=== PATIENT | male | born 1955 | race Caucasian/White ===

== ENCOUNTER 2018-12-09 21:08 | Emergency (ER) | payer OTHER ==
[2018-12-09 21:38] VITALS: BP 160/73; PULSE 90; TEMP 97.8; BMI 34.9
--- NOTE | 2018-12-09 22:31 | PDOC ---
History of Present Illness - General Chief Complaint: Redness To Affected Area Stated Complaint: SWELLING OF LEGS Time Seen by Provider: 12/09/18 21:09 - History of Present Illness Initial Comments: This 63-year-old man with a history of rheumatoid arthritis/steroid-induced DM/ bronchiolitis/chronic venous stasis bilateral legs presents with 1 day history of edema/erythema of bilateral lower legs. He was seen by his PCP yesterday and on examination, increase edema was noticed in his lower legs. Today, the same area of anterior lower legs became erythematous and warm to touch. Patient was advised by his PCP to come to the emergency room for evaluation and treatment. There has been no fever but the patient has had chills over the last day. No other systemic symptoms. He has a history of chronic wound in the lateral aspect of the left lower leg(very recently cleared after 3 years of treatment). No previous history of cellulitis/abscess requiring antibiotics. No known history of colonization/infection with MRSA or other resistant organisms Of note, the patient has been taking Bactrim 3 times a week (1 pill a day) on the advice of his allergy physician. No other rash noted until today except for facial flushing approximately 3 days ago, which resolved spontaneously Past History - Past Medical History Allergies/Adverse Reactions: Allergies Allergy/AdvReac Type Severity Reaction Status Date / Time No Known Allergies Allergy Verified 12/09/18 21:09 Home Medications: Ambulatory Orders Furosemide [Lasix -] 40 mg PO DAILY 09/11/14 Metoprolol Tartrate [Lopressor] 100 mg PO DAILY 09/11/14 Mycophenolate Mofetil [Cellcept] 1,000 mg PO BID 09/11/14 Tiotropium [place] [Spiriva -] 1 inh PO DAILY 09/11/14 Amlodipine Besylate 2.5 mg PO DAILY 12/09/18 Metformin HCl [Metformin HCl ER] 500 mg PO DAILY 12/09/18 Prednisone 10 mg PO DAILY 12/09/18 Sulfamethoxazole/Trimethoprim [Bactrim Ds -] 1 tab PO SUTUTH 12/09/18 Clindamycin HCl [Cleocin HCl] 300 mg PO QID #28 capsule 12/10/18 COPD: Yes Diabetes: Yes (STEROID INDUCED) HTN: Yes Other medical history: RHEUMATOID ARTHRITIS, CHRONIC VENOUS INSUFFICIENCY, LEFT CALF WOUND (HEALED - Surgical History Lung Surgery: Yes (LUNG BIOPSY 2015) - Suicide/Smoking/Psychosocial Hx Smoking History: Current some day smoker Have you smoked in the past 12 months: No Information on smoking cessation initiated: No Hx Alcohol Use: Yes Drug/Substance Use Hx: No Substance Use Type: None Review of Systems - Review of Systems Able to Perform ROS?: Yes Comments:: 12 point review of systems is negative except for what is noted in the history of present illness *Physical Exam - Vital Signs Last Vital Signs Temp Pulse Resp BP Pulse Ox 97.8 F 90 20 160/73 95 12/09/18 21:09 12/09/18 21:09 12/09/18 21:09 12/09/18 21:09 12/09/18 21:09 - Physical Exam Comments: GENERAL: Adult male, alert and oriented 3, no acute distress HEAD: Normal with no signs of trauma. EYES: PERRLA, EOMI, sclera anicteric, conjunctiva clear. ENT: Ears normal, nares patent, oropharynx clear without exudates. Moist mucous membranes. NECK: Normal range of motion, supple without lymphadenopathy, JVD, or masses. LUNGS: Breath sounds equal, clear to auscultation bilaterally. No wheezes, and no crackles. HEART:Regular rate and rhythm, normal S1 and S2 without murmur, rub or gallop. ABDOMEN:.normal bowel sounds No guarding,tenderness or rebound.No masses No distention. EXTREMITIES: Bilateral lower legs - erythema/edema/increased warmth without fluctuance or discharge, anterior aspects distal to ankles Scattered desquamation but no blistering no lymphangitic streaking NEUROLOGICAL: Cranial nerves II through XII grossly intact. Normal speech. No focal neurological deficits. MUSCULOSKELETAL: Back non-tender to palpation, no CVA tenderness SKIN: Warm, Dry, normal turgor, no rashes or lesions noted. Moderate Sedation - Procedure Monitoring Vital Signs: Procedure Monitoring Vital Signs Temperature 97.8 F 12/09/18 21:09 Pulse Rate 90 12/09/18 21:09 Respiratory Rate 20 12/09/18 21:09 Blood Pressure 160/73 12/09/18 21:09 O2 Sat by Pulse Oximetry (%) 95 12/09/18 21:09 ED Treatment Course - LABORATORY CBC & Chemistry Diagram: 12/09/18 22:49 12/09/18 22:49 Medical Decision Making - Medical Decision Making This patient with history of rheumatoid arthritis, on long-term steroid therapy and history of DM/bronchiolitis secondary to treatment of his rheumatoid arthritis presents with very recent onset of erythema/edema/increased warmth in bilateral lower extremities. Area of inflammation is confined to region of chronic venous stasis changes. There have been no signs of systemic response to infection. Exam as noted. Since the patient is at risk for infection, laboratory evaluation including blood cultures and lactic acid drawn Vancomycin 1 gram IV given CBC normal. Chemistry profile essentially normal except for random glucose of 188, K of 3.3. Lactic acid normal at 1.8 Although skin changes are not typical of StevensJohnson syndrome, there are areas of desquamation and patient was told to stop Bactrim. Clindamycin 300 mg 4 times a day prescribed. Patient will follow-up with his PCP on Tuesday, 12/11. He is been advised to return to the emergency room immediately if he has any worsening of the redness/ swelling/pain in his lower legs or if he develops fever. *DC/Admit/Observation/Transfer Diagnosis at time of Disposition: Bilateral lower leg cellulitis - Discharge Dispostion Disposition: HOME Condition at time of disposition: Stable - Prescriptions Prescriptions: Clindamycin HCl [Cleocin HCl] 300 mg PO QID #28 capsule - Referrals Referrals: Oneida Huerta [Primary Care Provider] - 2 Days - Patient Instructions Printed Discharge Instructions: Cellulitis, High-Potassium Diet Additional Instructions: stop Bactrim Clindamycin 300 mg 4 X a day for one week continue other medications as prescribed followup with your doctor on Tuesday, 12/11 return to ER if you develop fever, worsening swelling/fever/pain - Post Discharge Activity
[2018-12-09] MEDS ORDERED: VANCOMYCIN 1 GM in D5W (PRE-DOCKED) 1,000 MG/250 ML IVPB ONE (22:33)
[2018-12-09] MEDS ORDERED: VANCOMYCIN 1,000 MG VIAL (RESTRICTED TO ID ONLY) ONE (22:36)
[2018-12-09 23:02] LABS: BASO % 0.6 % (0-2.0); HEMATOCRIT 40.8 % (35.4-49); HEMOGLOBIN 13.4 GM/dl (11.7-16.9); LYMPH % 15.6 % (8-40); MCH 30.6 pg (25.7-33.7); MCHC 32.7 g/dl (32.0-35.9); MEAN CELL VOLUME 93.4 fl (80-96); MEAN PLT VOLUME 7.1 fl (7.5-11.1); MONO % 11.2 % (3.8-10.2); NEUT % 70.6 % (42.8-82.8); PLATELET COUNT 287 K/MM3 (134-434); RBC 4.37 M/mm3 (4.00-5.60); RDW 13.9 % (11.9-15.9); WHITE BLOOD COUNT 8.1 K/mm3 (4.0-10.8)
[2018-12-09 23:19] LABS: ALBUMIN 3.2 g/dl (3.4-5.0); ALK PHOS 42 U/L (45-117); ANION GAP 9 MMOL/L (8-16); BILIRUBIN,TOTAL 0.7 mg/dl (0.2-1); BLOOD UREA NITROGEN 14 mg/dl (7-18); CALCIUM 8.4 mg/dl (8.5-10); CHLORIDE 99 mmol/L (98-107); CO2 30 mmol/L (21-32); GLUCOSE,RANDOM 188 mg/dl (74-106); POTASSIUM 3.3 mmol/L (3.5-5.1); SGOT/AST 22 U/L (15-37); SGPT/ALT 21 U/L (13-61); SODIUM 138 mmol/L (136-145); TOT PROT 6.2 g/dl (6.4-8.2)
[2018-12-10] MEDS ORDERED: POTASSIUM CHLORIDE TABS 20 MEQ TABLET.ER (FP) PO ONE ×2 (00:52→00:57)
== END 2018-12-10 01:09 | disposition home or self-care (01) ==
LOC: FER 21:08
DX: L03.116 Cellulitis of left lower limb (principal); L03.115 Cellulitis of right lower limb; M06.9 Rheumatoid arthritis, unspecified; E11.9 Type 2 diabetes mellitus without complications; I10 Essential (primary) hypertension; J44.9 Chronic obstructive pulmonary disease, unspecified; F17.210 Nicotine dependence, cigarettes, uncomplicated
CPT/HCPCS: 36415; 80053; 83605; 85025; 87040; 99283-25

== ENCOUNTER 2019-06-07 08:47 | Inpatient (IN) | payer OTHER ==
[2019-05-31 11:43] VITALS: BMI 34.2
--- NOTE | 2019-06-07 08:03 | HP ---
Admitting History and Physical - Admission Chief Complaint: right knee osteoarthritis x years History of Present Illness: 63 year old male presents in regard to their right knee. Long-standing history of right knee osteoarthritis. Patient complains of pain, limited range of motion , difficulty ambulating, and difficulty with activities of daily living. Patient has failed conservative treatment options including PO medications, activity modification, injections, and exercise programs. At this point, patient like to proceed with surgical intervention, right total knee arthroplasty, MAKOplasty. History Source: Patient - Past Medical History Cardiovascular: Yes: HTN, Hyperlipdemia Pulmonary: Yes: Asthma Endocrine: Yes: Diabetes Mellitus - Past Surgical History Additional Past Surgical History: See written history & physical. - Advance Directives Advance Directives: Yes: Living Will, Health Care Proxy - Smoking History Smoking history: Current some day smoker Have you smoked in the past 12 months: No If you are a former smoker, when did you quit?: 1980 - Alcohol/Substance Use Hx Alcohol Use: Yes Home Medications - Allergies Allergies/Adverse Reactions: Allergies Allergy/AdvReac Type Severity Reaction Status Date / Time sulfamethoxazole Allergy Intermediate Swelling Verified 05/31/19 11:19 [From Bactrim] trimethoprim [From Bactrim] Allergy Intermediate Swelling Verified 05/31/19 11: 19 - Home Medications Home Medications: Ambulatory Orders Furosemide [Lasix -] 40 mg PO DAILY 09/11/14 Metoprolol Tartrate [Lopressor] 100 mg PO DAILY 09/11/14 Tiotropium [place] [Spiriva -] 1 inh PO DAILY 09/11/14 Amlodipine Besylate 5 mg PO DAILY 12/09/18 Metformin HCl [Metformin HCl ER] 1,000 mg PO BID 12/09/18 Prednisone 10 mg PO BID 12/09/18 Atorvastatin Calcium 20 mg PO HS 05/31/19 Glimepiride 2 mg PO DAILY 05/31/19 Losartan Potassium 50 mg PO DAILY 05/31/19 Review of Systems - Review of Systems Musculoskeletal: reports: Crepitus (right knee), Decreased ROM (right knee), Joint Pain (right knee) Physical Examination Constitutional: Yes: Well Nourished, No Distress Eyes: Yes: Conjunctiva Clear HENT: Yes: Atraumatic Neck: Yes: Supple Respiratory: Yes: Regular Gastrointestinal: Yes: Soft ...Rectal Exam: Yes: Deferred Musculoskeletal: Yes: Joint Stiffness (right knee), Joint Swelling (right knee) Assessment/Plan 63 year old female presents in regard to their right knee. Long-standing history of right knee osteoarthritis. Patient complains of pain, limited range of motion, difficulty ambulating, and difficulty with activities of daily living. Patient has failed conservative treatment options including PO medications, activity modification, injections, and exercise programs. At this point, patient like to proceed with surgical intervention, right total knee arthroplasty MAKOplasty. Pros, cons, risks, benefits, and alternatives of a right total knee arthroplasty MAKOplasty were discussed with the patient at length. Patient confirms their understanding and consents to proceed with a right total knee arthroplasty MAKOplasty.
[~2019-06-07 08:47] MED LIST: CEFAZOLIN 2 GM in DEXTROSE 5%-WATER - 50 ML IVPB ONE; CELECOXIB 200 MG CAPSULE PO ONE; PANTOPRAZOLE 40 MG TABLET (FP) PO ONE; TRANEXAMIC ACID 1000 MG/10 ML VIAL IVPUSH ONE; oxyCODONE HCL 10 MG SUSTAINED ACTING TABLET PO ONE
[2019-06-07] MEDS ORDERED: oxyCODONE HCL 10 MG SUSTAINED ACTING TABLET PO ONE (10:00)
[2019-06-07] MEDS ORDERED: CELECOXIB 200 MG CAPSULE PO ONE (10:05)
[2019-06-07] MEDS ORDERED: MIDAZOLAM HCL 2 MG/2 ML SINGLE DOSE VIAL ONE ×3 (11:16→12:31)
[2019-06-07] MEDS ORDERED: BUPIVACAINE LIPOSOME/PF (EXPAREL) 266 MG/20 ML VIAL ONE (11:36)
[2019-06-07] MEDS ORDERED: SODIUM CHLORIDE 0.9% P/F 10 ML VIAL IJ ONE (11:36)
[2019-06-07] MEDS ORDERED: ceFAZolin SODIUM 1 GM VIAL ONE ×3 (11:45→12:34)
[2019-06-07] MEDS ORDERED: PROPOFOL 20 ML ONE ×5 (11:57→16:30)
[2019-06-07] MEDS ORDERED: BUPIVACAINE HCL/PF 0.5% (5 MG/ML) 30 ML VIAL IJ ONE (12:31)
[2019-06-07] MEDS ORDERED: TRANEXAMIC ACID 1000 MG/10 ML VIAL ONE (12:34)
[2019-06-07] MEDS ORDERED: VANCOMYCIN 1,000 MG VIAL (RESTRICTED TO ID ONLY) ONE ×3 (12:34→14:45)
[2019-06-07] MEDS ORDERED: DEXMEDETOMIDINE HCL 200 MCG/2 ML IVPB ONE (12:42)
[2019-06-07] MEDS ORDERED: ePHEDrine SULFATE 50 MG/1 ML AMPULE ONE (14:05)
[2019-06-07] MEDS ORDERED: GLYCOPYRROLATE 0.2 MG/1 ML VIAL ONE (14:05)
[2019-06-07] MEDS ORDERED: ONDANSETRON 4 MG/2 ML VIAL IVPUSH PRN ×2 (15:01→18:36)
[2019-06-07] MEDS ORDERED: oxyCODONE HCL 5 MG TABLET PO PRN ×2 (15:02)
[2019-06-07] MEDS ORDERED: LACTATED RINGERS SOLUTION 1,000 ML IV SCH ×2 (15:15→18:45)
[2019-06-07] MEDS ORDERED: ACETAMINOPHEN 325 MG TABLET (FP) PO SCH (15:15)
[2019-06-07] MEDS ORDERED: VANCOMYCIN 1,000 MG VIAL (RESTRICTED TO ID ONLY) IVPB ONE (16:40)
[2019-06-07] MEDS ORDERED: ACETAMINOPHEN INJECTION 100 ML IVPB ONE (17:03)
[2019-06-07] MEDS ORDERED: KETOROLAC TROMETHAMINE 30 MG/1 ML VIAL ONE (17:03)
[2019-06-07] MEDS ORDERED: TRANEXAMIC ACID 1000 MG/10 ML VIAL IVPB ONE (17:04)
--- NOTE | 2019-06-07 17:43 | OP ---
Operative Note - Note: Operative Date: 06/07/19 Pre-Operative Diagnosis: Right knee OA Operation: Right JERED TKA Post-Operative Diagnosis: Same as Pre-op Surgeon: Tavo Bowie Breaker Mechanic: Criselda Landa Anesthesia: Spinal Estimated Blood Loss (mls): 300
[2019-06-07] MEDS ORDERED: traMADol HCL 50 MG TABLET ONE (17:57)
[2019-06-07] MEDS ORDERED: ACETAMINOPHEN 1000 MG/100 ML VIAL (NON FORMULARY) IVPB ONE (18:20)
[2019-06-07] MEDS ORDERED: MAG HYDROX/AL HYDROX/SIMETH 30 ML UNIT-DOSE CUP PO PRN (18:36)
[2019-06-07] MEDS ORDERED: MAGNESIUM HYDROX 2400MG/30ML ORAL SUSPENSION 30 ML CUP PO PRN (18:36)
--- NOTE | 2019-06-07 19:43 | SPEC ---
DATE OF OPERATION: 06/07/2019 PREOPERATIVE DIAGNOSIS: Right knee osteoarthritis. POSTOPERATIVE DIAGNOSIS: Right knee osteoarthritis. PROCEDURE: Right total knee replacement with MAKOplasty robotic navigation. ATTENDING: Everardo Luciano MD TEST RIDER: ROBERTA Aguilar ANESTHESIA: Spinal plus sedation. ESTIMATED BLOOD LOSS: 200 mL. COMPLICATIONS: None. DISPOSITION: The patient was taken to the PACU in stable condition. IMPLANTS USED: Leslie Triathlon size 5 femoral component, size 6 tibial component, 11-mm tunneled stabilized polyethylene component, 38-mm patellar component. INDICATIONS: This is a 63-year-old male who presented to the office complaining of right knee pain. He was seen and examined by Dr. Luciano and diagnosed with severe right knee osteoarthritis. The patient was initially treated nonoperatively with injections, medications, and physical therapy but continued to have severe pain and ambulatory dysfunction. He was, therefore, indicated for a right total knee replacement. The risks, benefits, and alternatives to the procedure were explained to the patient in great detail, and he elected to proceed with the procedure. DESCRIPTION OF PROCEDURE: On the day of surgery, the patient was taken to the operating room and placed on the OR table. Spinal anesthesia was administered by the anesthesiologist. The patient was then positioned supine on the table and all bony prominences were padded. The knee was then prepped and draped in the usual sterile fashion and intravenous antibiotics were given for infection prophylaxis. A surgical time-out was then performed with the team, and the patients identity, procedure, side, availability of implants, and the administration of antibiotics was confirmed. With the knee flexed, a midline incision was made and carried down through the subcutaneous fat to the underlying retinaculum. A medial parapatellar arthrotomy was performed. This was followed by a subperiosteal dissection of the tissue off the proximal, medial tibia. A portion of fat pad was removed from under the patellar tendon, and a small portion of fat was excised off the distal supracondylar femur. Electrocautery and an Aquamant[employer] bipolar sealing device were used to achieve hemostasis. The knee was then flexed further and the anterior horn of the lateral meniscus was released from the midline. Next, the anterior and posterior cruciate ligaments were transected. Grade 4 changes were noted diffusely throughout the knee. Femoral and tibial checkpoints were then placed in the appropriate location using a mallet. Two parallel bicortical self-drilling pins were placed in the tibial diaphysis after making stab incisions and bluntly dissecting down to bone. Two pins were then placed in the distal supracondylar femur. The [employer] navigation arrays were then attached to both the femoral and tibial pins and the lower extremity was then registered to the robotic navigation device using various joint movements, as well as inputting several dozen reference points. The knee was then taken through a full range of motion with a corrective force applied. Alignment in varus/valgus as well as flexion/extension and soft tissue balance was measured in various positions. The navigation device showed a numerical and graphic representation of the soft tissue balance. The components were repositioned virtually using the software until optimal soft tissue balance was achieved on screen. Once this was accomplished, the final plan was saved and sent to the robot. Self-retaining retractors were then placed at the joint line for exposure and protection of the collateral ligaments. The robot was brought into the sterile field and registered with the navigation device. The robotic arm with attached oscillating saw blade was then used to perform femoral and tibial bone cuts as per the saved software plan. The femoral box cut was made using the appropriately sized manual cutting guide. The knee was then irrigated. Trial components were placed and the knee was taken through a full range of motion to assess soft tissue balance and alignment. The range of motion was found to be excellent and the soft tissue balance was optimal and according to plan. The knee was then put into extension and the patella everted. The synovium around the patella was circumscribed with electrocautery. A caliper was used to measure the patellar thickness and a saw was then used to resect the patella at the chondro-osseous junction. The cut surface was then sized and drilled for the appropriate patellar button, with care taken to medialize it. A trial patella was then placed and the knee was again taken through a full range of motion. The knee was found to have both good balance and good patellar tracking. All of the components were removed except the tibial base plate. The appropriate instrumentation was used to drill and punch the proximal tibia for the keel of the final component. All bony surfaces were then cleaned with pulsatile lavage and dried. Bone cement was then prepared on the back table, and final components were cemented in place in the usual fashion. Extruded cement was removed. The polyethylene trial was placed, the knee was put into extension, and axial pressure was applied for compression while the cement hardened. The patellar button was similarly cemented into place. Once the cement had hardened, the knee was taken through a full range of motion to assess stability, balance, and patellar tracking. This was found to be optimal and the trial polyethylene was exchanged for the appropriately sized real implant. The wound was then thoroughly irrigated with normal saline. A 3-minute dilute Betadine lavage was performed. The knee was again irrigated using a pulsatile lavage device. A periarticular injection was used to locally infiltrate the capsular tissues surrounding the implant and prosthesis. Then No. 1 Polysorb and 0 VLoc 180 barbed sutures were used to close the arthrotomy. Then No. 1 Polysorb and 2-0 VLoc 90 sutures were used in the subcutaneous tissues. Then 4-0 undyed Vicryl and Dermabond skin adhesive was used to close the stab incisions made for the navigation pins. The skin was closed using both 3-0 VLoc 90 suture in a running subcuticular fashion and Dermabond skin adhesive. Once this was completed a sterile Aquacel dressing and compressive Rory-wrap was applied. The patient was then awakened and taken to the PACU in stable condition. EVERARDO LUCIANO M.D. JOSE [id number]
[2019-06-07] MEDS: CEFAZOLIN 2 GM/D5W 2 GM/50 ML ML IVPB SCH (21:37)
[2019-06-07] MEDS: KETOROLAC TROMETHAMINE 30 MG/1 ML VIAL IVPUSH SCH (21:38)
[2019-06-07] MEDS: SENNOSIDES/DOCUSATE COMBO (SENNA PLUS) TABLET (UD) PO SCH (21:39)
[2019-06-07] MEDS: ASCORBIC ACID 500 MG TABLET (FP) PO SCH (21:39)
[2019-06-07] MEDS: GABAPENTIN 300 MG CAPSULE (FP) PO SCH (21:40)
[2019-06-07] MEDS: ATORVASTATIN CA 20 MG TABLET (FP) PO SCH (21:40)
[2019-06-07] MEDS: predniSONE 10 MG TABLET (UD) PO SCH (21:40)
[2019-06-07] MEDS: CELECOXIB 200 MG CAPSULE PO SCH (21:41)
[2019-06-07] MEDS: oxyCODONE HCL 10 MG SUSTAINED ACTING TABLET PO SCH (21:42)
[2019-06-07] MEDS: INSULIN SLIDING SCALE (NOVOLOG) 1 VIAL SQ SCH (21:42)
[2019-06-07] MEDS: traMADol HCL 50 MG TABLET PO SCH (23:50)
[2019-06-07] MEDS: ACETAMINOPHEN 325 MG TABLET (FP) PO SCH (23:50)
[2019-06-08] MEDS ORDERED: PT OWN MED DRAWER 7, Y5N ONE (01:49)
[2019-06-08] MEDS: KETOROLAC TROMETHAMINE 30 MG/1 ML VIAL IVPUSH SCH ×3 (01:54→14:00)
[2019-06-08] MEDS: CEFAZOLIN 2 GM/D5W 2 GM/50 ML ML IVPB SCH ×2 (02:00→09:39)
[2019-06-08] MEDS ORDERED: VANCOMYCIN 1,750 MG in DEXTROSE 5%-WATER - 500 ML IVPB ONE (03:00)
[2019-06-08] MEDS: traMADol HCL 50 MG TABLET PO SCH ×3 (06:41→18:11)
[2019-06-08] MEDS: ACETAMINOPHEN 325 MG TABLET (FP) PO SCH ×3 (06:42→18:10)
[2019-06-08] MEDS: GLIMEPIRIDE 2 MG TABLET (FP) PO SCH (06:43)
[2019-06-08] MEDS: INSULIN SLIDING SCALE (NOVOLOG) 1 VIAL SQ SCH ×4 (06:43→21:20)
[2019-06-08] MEDS: ASPIRIN 325 MG TABLET PO SCH (08:10)
[2019-06-08 08:32] LABS: HEMATOCRIT 37.9 % (35.4-49); HEMOGLOBIN 12.6 GM/dl (11.7-16.9); MCH 30.9 pg (25.7-33.7); MCHC 33.2 g/dl (32.0-35.9); MEAN CELL VOLUME 92.9 fl (80-96); MEAN PLT VOLUME 7.7 fl (7.5-11.1); PLATELET COUNT 248 K/MM3 (134-434); RBC 4.08 M/mm3 (4.00-5.60); RDW 13.4 % (11.9-15.9); WHITE BLOOD COUNT 13.2 K/mm3 (4.0-10.8)
[2019-06-08 08:44] LABS: CALCIUM 8.6 mg/dl (8.5-10); CREATININE 0.9 mg/dl (0.55-1.3); POTASSIUM 4.2 mmol/L (3.5-5.1)
[2019-06-08] MEDS: LOSARTAN POTASSIUM 50 MG TABLET (FP) PO SCH (09:36)
[2019-06-08] MEDS: predniSONE 10 MG TABLET (UD) PO SCH ×2 (09:36→21:19)
[2019-06-08] MEDS: CELECOXIB 200 MG CAPSULE PO SCH ×2 (09:36→21:19)
[2019-06-08] MEDS: amLODIPine BESYLATE 5 MG TABLET (FP) PO SCH (09:37)
[2019-06-08] MEDS: SENNOSIDES/DOCUSATE COMBO (SENNA PLUS) TABLET (UD) PO SCH ×2 (09:37→21:19)
[2019-06-08] MEDS: oxyCODONE HCL 10 MG SUSTAINED ACTING TABLET PO SCH ×2 (09:37→21:19)
[2019-06-08] MEDS: GABAPENTIN 300 MG CAPSULE (FP) PO SCH ×2 (09:37→21:19)
[2019-06-08] MEDS: FUROSEMIDE 40 MG TABLET (FP) PO SCH (09:37)
[2019-06-08] MEDS: METOPROLOL TARTRATE 50 MG TABLET (FP) PO SCH (09:37)
[2019-06-08] MEDS: MULTIVITAMINS (DAILY MVI) TABLET (FP) PO SCH (09:37)
[2019-06-08] MEDS: PANTOPRAZOLE 40 MG TABLET (FP) PO SCH (09:37)
[2019-06-08] MEDS: ASCORBIC ACID 500 MG TABLET (FP) PO SCH ×2 (09:39→21:19)
[2019-06-08] MEDS: TIOTROPIUM BROMIDE 2.5 MCG (SPIRIVA) RESPIMAT INHALER IH SCH (09:40)
--- NOTE | 2019-06-08 11:46 | PN ---
Progress Note (short form) - Note Progress Note: ANESTHESIA POSTOP 63 YO MALE POD #1 S/P TKA, SPINAL AND PNB Patient sitting in chair. Pain adequately controlled. Tolerating PO VSS, Afebrile Continue current care. Encouraged IS and ambulation as directed with active participation in PT
[2019-06-08] MEDS ORDERED: CELECOXIB 200 MG CAPSULE ONE (21:16)
[2019-06-08] MEDS: ATORVASTATIN CA 20 MG TABLET (FP) PO SCH (21:19)
--- NOTE | 2019-06-08 22:49 | PN ---
Progress Note (short form) - Note Progress Note: Pt seen and examined. Doing well. AVSS Selected Entries 06/08/19 06/08/19 14:00 21:00 Temperature 98.1 F Pulse Rate 66 Respiratory 16 Rate Blood Pressure 154/64 O2 Sat by Pulse 95 Oximetry (%) Laboratory Tests 06/08/19 06/08/19 06/08/19 06:39 07:04 07:04 WBC 13.2 H Hgb 12.6 Hct 37.9 Plt Count 248 Sodium 138 Potassium 4.2 Chloride 102 Carbon Dioxide 27 Anion Gap 9 BUN 25.0 H Creatinine 0.9 Est GFR (CKD-EPI)AfAm 104.24 Est GFR (CKD-EPI)NonAf 89.94 POC Glucometer 164 Random Glucose 163 H Calcium 8.6 Gen: NAD RLE: c/d/i, NVID A/P POD#1 s/p R JERED TKA PT/OOB D/C home in AM
--- NOTE | 2019-06-08 22:52 | DS ---
Physical Examination Vital Signs: Vital Signs Temperature 98.1 F 06/08/19 14:00 Pulse Rate 66 06/08/19 14:00 Respiratory Rate 16 06/08/19 21:00 Blood Pressure 154/64 06/08/19 14:00 O2 Sat by Pulse Oximetry (%) 95 06/08/19 21:00 Labs: CBC, BMP 06/08/19 07:04 06/08/19 07:04 Discharge Summary Reason For Visit: RIGHT KNEE OSTEOARTHRITIS Current Active Problems Osteoarthritis of right knee (Acute) Procedures: Principal: right JERED TKA Hospital Course: Admitted for elective surgery. Procedure performed without complications. Pt received postoperative antibiotic prophylaxis and DVT ppx. Ambulated with physical therapy. Stable for discharge home with outpatient followup. Condition: Stable - Instructions Diet, Activity, Other Instructions: Dr. Bowie - Knee Replacement Instructions Keep the Aquacel dressing on until removed by Dr. Bowie in 10-14 days - it is antibacterial and waterproof and you can shower with it on. Call the office for a follow-up appointment with Dr. Bowie in 10-14 days. Take one Aspirin 325mg daily for 6 weeks to prevent blood clots in your legs. Take one Pantoprazole 40mg daily for 6 weeks to protect against heartburn and ulcers. Take Cephalexin (antibiotic) 3x/day for 14 days to help prevent skin infection. Take Celebrex 200mg twice daily for 30 days to reduce swelling and inflammation. Take a multivitamin, stool softener, and extra Vitamin C supplement daily. For pain: *Mild pain (1-3/10): Take 1 Tramadol tablet every 4 hours as needed. Moderate pain (4-6/10): Take 1 Tramadol tablet and 1 Percocet tablet every 4 hours as needed. Severe pain (7-10/10): Take 1 Tramadol tablet and 2 Percocet tablets every 4 hours as needed. Activity: You can put as much weight on the operative leg as you want. Right after you get home, there will be a physical therapist coming to your house to help you walk around and bend/straighten your knee. After your follow-up appointment, you will be sent for more intensive outpatient physical therapy which will include machines and equipment that the home therapist cannot bring to your house. Always use a walker or cane for balance and to prevent falls. Expect to see swelling/bruising from the operative site all the way down to your toes. Wear the compression stocking on the operative side during the day to minimize how much swelling there is in your foot/ankle. Don't wear the stocking at night. You don't have to wear a stocking on the other side. Disposition: [facility]/HOME HEALTH CARE - Home Medications Comprehensive Discharge Medication List: Ambulatory Orders Furosemide [Lasix -] 40 mg PO DAILY 09/11/14 Metoprolol Tartrate [Lopressor] 100 mg PO DAILY 09/11/14 Tiotropium [place] [Spiriva] 1 inh PO DAILY 09/11/14 Amlodipine Besylate 5 mg PO DAILY 12/09/18 Metformin HCl [Metformin HCl ER] 1,000 mg PO BID 12/09/18 Prednisone 10 mg PO BID 12/09/18 Atorvastatin Calcium 20 mg PO HS 05/31/19 Glimepiride 2 mg PO DAILY 05/31/19 Losartan Potassium 50 mg PO DAILY 05/31/19 Ascorbic Acid [Vitamin C -] 500 mg PO BID tablet 06/08/19 Aspirin [ASA -] 325 mg PO DAILY@0800 tablet 06/08/19 Celecoxib [CeleBREX -] 200 mg PO BID #60 capsule 06/08/19 Cephalexin Monohydrate [Keflex -] 500 mg PO TID #42 capsule 06/08/19 Multivitamins [Multivit ([facility] Formulary)] 1 tab PO DAILY tab 06/08/19 Oxycodone HCl/Acetaminophen [Percocet 5-325 mg Tablet] 1 - 2 tab PO Q4H PRN #60 tablet MDD 10 06/08/19 Pantoprazole Sodium [Protonix -] 40 mg PO DAILY #40 tablet.ec 06/08/19 Sennosides/Docusate Sodium [Pericolace -] 2 tablet PO BID tablet 06/08/19 traMADol HCL [Ultram -] 50 mg PO Q4H PRN #42 tablet MDD 6 06/08/19
[2019-06-09] MEDS: ACETAMINOPHEN 325 MG TABLET (FP) PO SCH ×3 (01:51→12:05)
[2019-06-09] MEDS: traMADol HCL 50 MG TABLET PO SCH ×3 (01:52→12:00)
[2019-06-09] MEDS: GLIMEPIRIDE 2 MG TABLET (FP) PO SCH (06:50)
[2019-06-09 06:56] VITALS: BP 135/62; PULSE 59; TEMP 97.8
[2019-06-09] MEDS: INSULIN SLIDING SCALE (NOVOLOG) 1 VIAL SQ SCH ×2 (07:52→13:55)
[2019-06-09] MEDS: ASPIRIN 325 MG TABLET PO SCH (08:10)
[2019-06-09 08:43] LABS: HEMATOCRIT 36.4 % (35.4-49); MCH 30.7 pg (25.7-33.7); MCHC 32.8 g/dl (32.0-35.9); MEAN CELL VOLUME 93.4 fl (80-96); MEAN PLT VOLUME 7.9 fl (7.5-11.1); PLATELET COUNT 219 K/MM3 (134-434); RDW 13.5 % (11.9-15.9); WHITE BLOOD COUNT 10.2 K/mm3 (4.0-10.8)
[2019-06-09] MEDS: oxyCODONE HCL 10 MG SUSTAINED ACTING TABLET PO SCH (10:05)
[2019-06-09] MEDS: ASCORBIC ACID 500 MG TABLET (FP) PO SCH (10:05)
[2019-06-09] MEDS: TIOTROPIUM BROMIDE 2.5 MCG (SPIRIVA) RESPIMAT INHALER IH SCH (10:05)
[2019-06-09] MEDS: MULTIVITAMINS (DAILY MVI) TABLET (FP) PO SCH (10:10)
[2019-06-09] MEDS: LOSARTAN POTASSIUM 50 MG TABLET (FP) PO SCH (10:10)
[2019-06-09] MEDS: PANTOPRAZOLE 40 MG TABLET (FP) PO SCH (10:10)
[2019-06-09] MEDS: CELECOXIB 200 MG CAPSULE PO SCH (10:10)
[2019-06-09] MEDS: SENNOSIDES/DOCUSATE COMBO (SENNA PLUS) TABLET (UD) PO SCH (10:10)
[2019-06-09] MEDS: FUROSEMIDE 40 MG TABLET (FP) PO SCH (10:15)
[2019-06-09] MEDS: predniSONE 10 MG TABLET (UD) PO SCH (10:15)
[2019-06-09] MEDS: GABAPENTIN 300 MG CAPSULE (FP) PO SCH (10:20)
[2019-06-09] MEDS: amLODIPine BESYLATE 5 MG TABLET (FP) PO SCH (10:20)
[2019-06-09] MEDS: METOPROLOL TARTRATE 50 MG TABLET (FP) PO SCH (10:20)
--- NOTE | 2019-06-11 09:50 | SURG ---
Surgery Automatic Brine Mixer Operator Note Automatic Brine Mixer Operator: Criselda Landa PA-C Date of Service: 06/07/19 Diagnosis: right knee OA Procedure: Right total knee makoplasty I was present for the entirety of the operative procedure. For further detail, please refer to operative report. Visit type - Case Type Case Type: Scheduled - Emergency Emergency Visit: No - New patient This patient is new to me today: Yes Date on this admission: 06/11/19
--- NOTE | 2019-06-12 16:49 | PATH ---
Surgical Pathology Report Patient Name: JANELLE HERRERA Med. Rec. #: [id number] /Age/Gender: 1955 (Age: 63) / M Account: [id number] Location: [facility] Taken: 06/07/2019 Received: 06/07/2019 Reported: 06/12/2019 Physicians: Tavo Bowie M.D. Specimen(s) Received BONES RIGHT KNEE Clinical History Right knee, osteoarthritis Final Diagnosis BONES, KNEE, RIGHT, TOTAL KNEE REPLACEMENT MAKOPLASTY: BONE WITH DEGENERATIVE JOINT DISEASE. Electronically Signed Sofia Byers M.D. Gross Description Received in formalin, labeled "bones right knee" is a 12.5 x 9.5 x 2.5 cm, aggregate of multiple portions of bone and soft tissue. The tibial plateau measures 9 x 6.5 x 1.5 cm. The articular surfaces show areas of eburnation and appear davila-brown and granular. The underlying trabecular bone is yellow and hard. District Leader sections are submitted in one cassette, following decalcification. AE/06/11/2019 ebram/06/11/2019
== END 2019-06-09 12:40 | disposition home health service (06) | DRG 470 ==
LOC: FM/S 08:47
PROVIDERS: ADMIT Student in an Organized Health Care Education/Training Program; ATTEND Student in an Organized Health Care Education/Training Program
PROC: 8E0Y0CZ Robotic Assisted Procedure of Lower Extremity, Open Approach (ICD-10-PCS; 2019-06-07)
PROC: 0SRC0J9 Replacement of Right Knee Joint with Synthetic Substitute, Cemented, Open Approach (ICD-10-PCS; principal; 2019-06-07 14:19)
DX: M17.11 Unilateral primary osteoarthritis, right knee (principal); I10 Essential (primary) hypertension; E78.5 Hyperlipidemia, unspecified; Z72.0 Tobacco use; J45.909 Unspecified asthma, uncomplicated; E11.9 Type 2 diabetes mellitus without complications; Z79.84 Long term (current) use of oral hypoglycemic drugs
CPT/HCPCS: 36415; 73560-TC-RT-FY; 80048; 82962; 84460; 85027; 86803; 87340; 87389; 88305-TC; 88311-TC; 94760; 97116-GP; 97163-GP; J0131

== ENCOUNTER 2019-11-15 07:19 | Day surgery (SDC) | payer OTHER, MEDICARE ==
[2019-11-08 13:05] VITALS: BMI 34.2
[~2019-11-15 07:19] MED LIST changes: -CEFAZOLIN 2 GM in DEXTROSE 5%-WATER - 50 ML IVPB ONE; -PANTOPRAZOLE 40 MG TABLET (FP) PO ONE; +PANTOPRAZOLE 40 MG TABLET PO ONE; -TRANEXAMIC ACID 1000 MG/10 ML VIAL IVPUSH ONE
[2019-11-15] MEDS ORDERED: MIDAZOLAM HCL 2 MG/2 ML SINGLE DOSE VIAL ONE (07:41)
[2019-11-15] MEDS ORDERED: SODIUM CHLORIDE 0.9% P/F 10 ML VIAL IJ ONE ×2 (07:41→07:57)
[2019-11-15] MEDS ORDERED: BUPIVACAINE LIPOSOME/PF (EXPAREL) 266 MG/20 ML VIAL ONE (07:41)
--- NOTE | 2019-11-15 07:55 | HP ---
Admitting History and Physical - Admission Chief Complaint: Left knee osteoarthritis x years History of Present Illness: 64 year old male presents regarding his left knee. Longstanding history of left knee osteoarthritis. Patient complains of pain, limited ROM, difficulty ambulating and difficulty completing activities of daily living. Patient has failed conservative treatment measures including PO medications, activity modification, injections and an exercise program. Radiographs confirmed diagnosis of severe osteoarthritis. As patient has failed conservative measures , patient would like to proceed with surgical intervention - left total knee arthroplasty (MAKOplasty). History Source: Patient - Past Medical History Cardiovascular: Yes: HTN, Hyperlipdemia Pulmonary: Yes: Asthma Endocrine: Yes: Diabetes Mellitus - Past Surgical History Additional Past Surgical History: See written history & physical. - Smoking History Smoking history: Former smoker Have you smoked in the past 12 months: No If you are a former smoker, when did you quit?: 1980 - Alcohol/Substance Use Hx Alcohol Use: Yes (occasional) Home Medications - Allergies Allergies/Adverse Reactions: Allergies Allergy/AdvReac Type Severity Reaction Status Date / Time sulfamethoxazole Allergy Intermediate Swelling Verified 11/08/19 12:49 [From Bactrim] trimethoprim [From Bactrim] Allergy Intermediate Swelling Verified 11/08/19 12: 49 - Home Medications Home Medications: Ambulatory Orders Furosemide [Lasix -] 40 mg PO DAILY 09/11/14 Metoprolol Tartrate [Lopressor] 100 mg PO DAILY 09/11/14 Amlodipine Besylate 5 mg PO DAILY 12/09/18 Prednisone 10 mg PO BID 12/09/18 metFORMIN HCL [Metformin HCl ER] 1,000 mg PO BID 12/09/18 Atorvastatin Calcium 20 mg PO HS 05/31/19 Glimepiride 2 mg PO DAILY 05/31/19 Losartan Potassium 50 mg PO DAILY 05/31/19 Multivitamins [Multivit ([facility] Formulary)] 1 tab PO DAILY tab 06/08/19 Ascorbic Acid [Vitamin C -] 500 mg PO DAILY 11/08/19 Aspirin [ASA -] 81 mg PO DAILY 11/08/19 Mycophenolate Mofetil [Cellcept -] 1,000 mg PO BID 11/08/19 Terbinafine HCl 250 mg PO Q48H 11/08/19 Tiotropium [place] [Spiriva Respimat] 2 inh IH DAILY 11/08/19 Review of Systems - Review of Systems Musculoskeletal: reports: Crepitus (left knee), Decreased ROM (left knee), Joint Pain (left knee), Joint Swelling (left knee) Physical Examination Constitutional: Yes: Well Nourished, No Distress Eyes: Yes: Conjunctiva Clear HENT: Yes: Atraumatic Neck: Yes: Supple Cardiovascular: Yes: Regular Rate and Rhythm Respiratory: Yes: Regular Gastrointestinal: Yes: Soft ...Rectal Exam: Yes: Deferred Musculoskeletal: Yes: Joint Stiffness (left knee), Joint Swelling (left knee) Assessment/Plan 64 year old male presents regarding his left knee. Longstanding history of left knee osteoarthritis. Patient complains of pain, limited ROM, difficulty ambulating and difficulty completing activities of daily living. Patient has failed conservative treatment measures including PO medications, activity modification, injections and an exercise program. Radiographs confirmed diagnosis of severe osteoarthritis. As patient has failed conservative measures , patient would like to proceed with surgical intervention - left total knee arthroplasty (MAKOplasty). Pros, cons, risks, benefits and alternatives of a left total knee arthoplasty (MAKOplasty) was discussed with the patient at length. Patient confirms his understanding and consents to proceed with a left total knee arthoplasty (MAKOplasty).
[2019-11-15] MEDS ORDERED: ceFAZolin SODIUM 1 GM VIAL ONE (07:57)
[2019-11-15] MEDS ORDERED: ONDANSETRON 4 MG/2 ML VIAL ONE (07:57)
[2019-11-15] MEDS ORDERED: SUCCINYLCHOLINE CHLORIDE 200 MG/10 ML SYRINGE ONE (07:58)
[2019-11-15] MEDS ORDERED: BUPIVACAINE HCL/PF 0.5% (5MG/ML) 10 ML VIAL ONE (08:23)
[2019-11-15] MEDS ORDERED: DEXMEDETOMIDINE HCL 200 MCG/2 ML IVPB ONE (08:37)
[2019-11-15] MEDS ORDERED: PROPOFOL 20 ML ONE (08:41)
[2019-11-15] MEDS ORDERED: TRANEXAMIC ACID 1000 MG/10 ML VIAL IVPUSH ONE (09:00)
[2019-11-15] MEDS ORDERED: CEFAZOLIN 3 GM in DEXTROSE 5%-WATER - 100 ML IVPB ONE (09:00)
[2019-11-15] MEDS ORDERED: BACITRACIN 0.9 GM PACKET TP ONE (10:00)
== END 2019-11-15 15:04 | disposition home or self-care (01) ==
LOC: UNDOADMIN 07:19 → FM/S 07:19 → FASUSAT 07:19 → EDSTATUS 11:00 → FASUSAT 15:04
PROVIDERS: ATTEND Student in an Organized Health Care Education/Training Program
PROC: 0SRD0JZ Replacement of Left Knee Joint with Synthetic Substitute, Open Approach (ICD-10-PCS; principal; 2019-11-15)
DX: Z53.09 Procedure and treatment not carried out because of other contraindication (principal); M17.12 Unilateral primary osteoarthritis, left knee; I10 Essential (primary) hypertension; J45.909 Unspecified asthma, uncomplicated; E78.5 Hyperlipidemia, unspecified; E11.9 Type 2 diabetes mellitus without complications; Z87.891 Personal history of nicotine dependence
CPT/HCPCS: 82962

== ENCOUNTER 2020-03-13 09:02 | Inpatient (IN) | payer OTHER, MEDICARE ==
[2020-03-06 12:42] VITALS: BMI 32.0
--- NOTE | 2020-03-12 18:48 | HP ---
Admitting History and Physical - Admission Chief Complaint: Left knee osteoarthritis x years History of Present Illness: 64 year old male presents in regard to her left knee. Longstanding history of osteoarthritis of his left knee. Patient complains of pain, limited ROM, difficulty with ambulation and completing ADLs. Patient has failed conservative treatment option including PO medications, injections, exercise programs and activity modifications. Radiographs reveal severe osteoarthritis of the left knee. At this point, patient would like to proceed with a left total knee arthroplasty, MAKOplasty. - Past Medical History Cardiovascular: Yes: HTN, Hyperlipdemia Pulmonary: Yes: Asthma Endocrine: Yes: Diabetes Mellitus - Past Surgical History Additional Past Surgical History: See written history & physical. - Advance Directives Advance Directives: Yes: Living Will, Health Care Proxy - Smoking History Smoking history: Former smoker Have you smoked in the past 12 months: No If you are a former smoker, when did you quit?: 1980 - Alcohol/Substance Use Hx Alcohol Use: Yes (occasional) Home Medications - Allergies Allergies/Adverse Reactions: Allergies Allergy/AdvReac Type Severity Reaction Status Date / Time sulfamethoxazole Allergy Intermediate Swelling Verified 12/14/19 13:22 [From Bactrim] trimethoprim [From Bactrim] Allergy Intermediate Swelling Verified 12/14/19 13:22 - Home Medications Home Medications: Ambulatory Orders Furosemide [Lasix -] 40 mg PO DAILY 09/11/14 Metoprolol Tartrate [Lopressor] 100 mg PO DAILY 09/11/14 Amlodipine Besylate 5 mg PO DAILY 12/09/18 Prednisone 10 mg PO BID 12/09/18 metFORMIN HCL [Metformin HCl ER] 1,000 mg PO BID 12/09/18 Atorvastatin Calcium 20 mg PO HS 05/31/19 Glimepiride 2 mg PO DAILY 05/31/19 Losartan Potassium 50 mg PO DAILY 05/31/19 Multivitamins [Multivit ([facility] Formulary)] 1 tab PO DAILY tab 06/08/19 Ascorbic Acid [Vitamin C -] 500 mg PO DAILY 11/08/19 Aspirin [ASA -] 81 mg PO DAILY 11/08/19 Terbinafine HCl 250 mg PO Q48H 11/08/19 Tiotropium [place] [Spiriva Respimat] 2 inh IH DAILY 11/08/19 Glucosam/Merlin-Msm1/C/Yao/Bosw [Glucosamine-Chondr Complx Cplt] 2 each PO DAILY 03/06/20 Review of Systems - Review of Systems Musculoskeletal: reports: Crepitus (left knee), Decreased ROM (left knee), Joint Pain (left knee), Joint Swelling (left knee) Physical Examination Constitutional: Yes: Well Nourished, No Distress Eyes: Yes: Conjunctiva Clear HENT: Yes: Atraumatic Neck: Yes: Supple Cardiovascular: Yes: Regular Rate and Rhythm Respiratory: Yes: Regular Gastrointestinal: Yes: Soft ...Rectal Exam: Yes: Deferred Musculoskeletal: Yes: Joint Stiffness (left knee), Joint Swelling (left knee) Assessment/Plan 64 year old male presents in regard to her left knee Longstanding history of osteoarthritis of her left knee. Patient complains of pain, limited ROM, difficulty with ambulation and completing ADLs. Patient has failed conservative treatment option including PO medications, injections, exercise programs and activity modifications. Radiographs reveal severe osteoarthritis of the left knee. At this point, patient would like to proceed with a left total knee arthroplasty, MAKOplasty. Pros, cons, risks, benefits and alternatives of a left total knee arthroplasty, MAKOplasty was discussed with the patient at length. Patient confirms their understanding and consents to proceed with a left total knee arthroplasty, MAKOplasty.
[2020-03-13] MEDS ORDERED: BUPIVACAINE LIPOSOME/PF (EXPAREL) 266 MG/20 ML VIAL ONE (10:36)
[2020-03-13] MEDS ORDERED: MIDAZOLAM HCL 2 MG/2 ML SINGLE DOSE VIAL ONE ×2 (10:36→11:40)
[2020-03-13] MEDS ORDERED: SODIUM CHLORIDE 0.9% P/F 10 ML VIAL IJ ONE (10:36)
[2020-03-13] MEDS ORDERED: ceFAZolin SODIUM 1 GM VIAL ONE ×3 (10:51→14:32)
[2020-03-13] MEDS ORDERED: CEFAZOLIN 3 GM in DEXTROSE 5%-WATER - 100 ML IVPB ONE (11:00)
[2020-03-13] MEDS ORDERED: TRANEXAMIC ACID 1000 MG/10 ML VIAL IVPUSH ONE (11:00)
[2020-03-13] MEDS ORDERED: VANCOMYCIN HCL 1,500 MG in DEXTROSE 5%-WATER - 500 ML IVPB ONE (11:00)
[2020-03-13] MEDS ORDERED: TRANEXAMIC ACID 1000 MG/10 ML VIAL ONE ×3 (11:18→15:02)
[2020-03-13] MEDS ORDERED: VANCOMYCIN 1,000 MG VIAL (RESTRICTED TO ID ONLY) ONE ×2 (11:19→12:12)
[2020-03-13] MEDS ORDERED: PROPOFOL 20 ML ONE ×6 (12:01→15:03)
[2020-03-13] MEDS ORDERED: ePHEDrine SULFATE 50 MG/1 ML AMPULE ONE (12:38)
[2020-03-13] MEDS ORDERED: VANCOMYCIN 1,000 MG VIAL (RESTRICTED TO ID ONLY) IVPB ONE (12:42)
[2020-03-13] MEDS ORDERED: TRANEXAMIC ACID 1000 MG/10 ML VIAL IVPB ONE (12:43)
[2020-03-13] MEDS ORDERED: ceFAZolin SODIUM 1 GM VIAL IVPB ONE (14:46)
[2020-03-13] MEDS ORDERED: ACETAMINOPHEN INJECTION 100 ML IVPB ONE (15:31)
[2020-03-13] MEDS ORDERED: KETOROLAC TROMETHAMINE 30 MG/1 ML VIAL ONE (15:31)
[2020-03-13] MEDS ORDERED: traMADol HCL 50 MG TABLET ONE (15:31)
--- NOTE | 2020-03-13 15:39 | SURG ---
Surgery Ore Trimmer Note Ore Trimmer: John Patel PA-C Date of Service: 03/13/20 Diagnosis: Left knee osteoarthritis Procedure: Left knee maggie assisted arthroplasty I was present for the entirety of the operative procedure. For further detail, please refer to operative report. Visit type - Case Type Case Type: Scheduled - Emergency Emergency Visit: No - New patient This patient is new to me today: Yes Date on this admission: 03/13/20 - Critical Care Critical Care patient: No
[2020-03-13] MEDS: KETOROLAC TROMETHAMINE 30 MG/1 ML VIAL IVPUSH SCH ×2 (15:55→22:53)
[2020-03-13] MEDS: traMADol HCL 50 MG TABLET PO SCH ×2 (16:00→21:40)
--- NOTE | 2020-03-13 16:14 | OP ---
Operative Note - Note: Operative Date: 03/13/20 Pre-Operative Diagnosis: Left knee OA Operation: Left JERED TKA Post-Operative Diagnosis: Same as Pre-op Surgeon: Tavo Bowie Travel Registered Nurse Icu: John Patel Anesthesia: Spinal Estimated Blood Loss (mls): 200
[2020-03-13] MEDS ORDERED: ACETAMINOPHEN 1000 MG/100 ML VIAL (NON FORMULARY) IVPB ONE (16:16)
[2020-03-13] MEDS ORDERED: MAGNESIUM HYDROX 2400MG/30ML ORAL SUSPENSION 30 ML CUP PO PRN (16:18)
[2020-03-13] MEDS ORDERED: MAG HYDROX/AL HYDROX/SIMETH 30 ML UNIT-DOSE CUP PO PRN (16:18)
[2020-03-13] MEDS ORDERED: ONDANSETRON 4 MG/2 ML VIAL IVPUSH PRN (16:18)
[2020-03-13] MEDS: INSULIN (NOVOLOG) ASPART 100 UNITS/ML 10ML VIAL SQ SCH ×2 (16:30→22:48)
[2020-03-13] MEDS ORDERED: LACTATED RINGERS SOLUTION 1,000 ML IV SCH (16:30)
[2020-03-13] MEDS: CELECOXIB 200 MG CAPSULE PO SCH (21:39)
[2020-03-13] MEDS: GABAPENTIN 300 MG CAPSULE PO SCH (21:39)
[2020-03-13] MEDS: ATORVASTATIN CA 20 MG TABLET (FP) PO SCH (21:39)
[2020-03-13] MEDS: SENNOSIDES/DOCUSATE COMBO (SENNA PLUS) TABLET (UD) PO SCH (21:40)
[2020-03-13] MEDS: ASCORBIC ACID 500 MG TABLET (FP) PO SCH (21:40)
[2020-03-13] MEDS: CEFAZOLIN 2 GM/D5W 2 GM/50 ML ML IVPB SCH (22:54)
[2020-03-14] MEDS ORDERED: VANCOMYCIN HCL 1,250 MG in DEXTROSE 5%-WATER - 250 ML IVPB SCH
[2020-03-14] MEDS: KETOROLAC TROMETHAMINE 30 MG/1 ML VIAL IVPUSH SCH ×2 (05:27→09:42)
[2020-03-14] MEDS: traMADol HCL 50 MG TABLET PO SCH ×4 (05:28→22:16)
[2020-03-14] MEDS: INSULIN (NOVOLOG) ASPART 100 UNITS/ML 10ML VIAL SQ SCH ×4 (06:29→21:10)
[2020-03-14] MEDS: GLIMEPIRIDE 2 MG TABLET PO SCH (06:29)
[2020-03-14] MEDS: CEFAZOLIN 2 GM/D5W 2 GM/50 ML ML IVPB SCH ×3 (06:29→22:27)
[2020-03-14] MEDS: ASPIRIN 325 MG TABLET PO SCH (08:10)
[2020-03-14 08:19] LABS: CALCIUM 8.1 mg/dl (8.5-10)
[2020-03-14 08:31] LABS: HEMATOCRIT 33.2 % (35.4-49); HEMOGLOBIN 11.5 GM/dl (11.7-16.9); MCH 31.8 pg (25.7-33.7); MCHC 34.7 g/dl (32.0-35.9); MEAN CELL VOLUME 91.6 fl (80-96); MEAN PLT VOLUME 7.6 fl (7.5-11.1); PLATELET COUNT 213 K/MM3 (134-434); RBC 3.63 M/mm3 (4.00-5.60); RDW 13.7 % (11.9-15.9); WHITE BLOOD COUNT 8.9 K/mm3 (4.0-10.8)
[2020-03-14] MEDS: CELECOXIB 200 MG CAPSULE PO SCH ×2 (09:40→21:09)
[2020-03-14] MEDS: amLODIPine BESYLATE 5 MG TABLET (FP) PO SCH (09:41)
[2020-03-14] MEDS: predniSONE 20 MG TABLET (UD) PO SCH (09:41)
[2020-03-14] MEDS: ASCORBIC ACID 500 MG TABLET (FP) PO SCH ×2 (09:41→21:09)
[2020-03-14] MEDS: FUROSEMIDE 40 MG TABLET (FP) PO SCH (09:41)
[2020-03-14] MEDS: PANTOPRAZOLE 40 MG TABLET PO SCH (09:41)
[2020-03-14] MEDS: METOPROLOL TARTRATE 50 MG TABLET (FP) PO SCH (09:41)
[2020-03-14] MEDS: MULTIVITAMINS (DAILY MVI) TABLET (FP) PO SCH (09:41)
[2020-03-14] MEDS: SENNOSIDES/DOCUSATE COMBO (SENNA PLUS) TABLET (UD) PO SCH ×3 (09:44→21:14)
[2020-03-14] MEDS: GABAPENTIN 300 MG CAPSULE PO SCH ×2 (09:44→21:09)
[2020-03-14] MEDS: TIOTROPIUM BROMIDE 2.5 MCG (SPIRIVA) RESPIMAT INHALER IH SCH (09:45)
--- NOTE | 2020-03-14 12:08 | PN ---
Progress Note (short form) - Note Progress Note: ANESTHESIA POSTOP 64 YO MALE POD#1 S/P LEFT TOTAL KNEE ARTHROPLASTY, SPINAL AND PNB Patient just returning to chair. Pain minimal. Tolerating PO VSS, Afebrile Continue current care. Encouraged active participation in PT and use of IS. No anesthetic complications.
[2020-03-14] MEDS: VANCOMYCIN HCL 1,250 MG in SODIUM CHLORIDE 250 ML IVPB SCH (12:10)
[2020-03-14] MEDS: LOSARTAN POTASSIUM 50 MG TABLET (FP) PO SCH (13:45)
[2020-03-14] MEDS ORDERED: PT OWN MED DRAWER 7, Y5N ONE (15:04)
--- NOTE | 2020-03-14 15:10 | SPEC ---
DATE OF OPERATION: 03/13/2020 PREOPERATIVE DIAGNOSIS: Left knee osteoarthritis. POSTOPERATIVE DIAGNOSIS: Left knee osteoarthritis. PROCEDURE: Left total knee replacement with MAKOplasty robotic navigation. ATTENDING: Everardo Luciano MD TRAINING ANALYST: John Patel PA-C ANESTHESIA: Spinal plus sedation. ESTIMATED BLOOD LOSS: 200 mL. COMPLICATIONS: None. DISPOSITION: The patient was transferred to the PACU in stable condition. IMPLANT USED: Leslie Triathlon size 6 tibial and femoral components, 35-mm patellar component, 13-mm total stabilized polyethylene component. INDICATIONS: This is a 64-year-old male with history of bilateral knee osteoarthritis who is a long-time patient of mine. He underwent a right total knee replacement previously and did well. His left knee was also arthritic. As he had failed conservative management and continued to have severe pain and ambulatory dysfunction, he was therefore indicated for a left total knee replacement. 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 The patient was subsequently treated for an extended period of time by the [facility], where the wound eventually healed and he was cleared to proceed with the knee replacement. The risks, benefits, and alternatives to the procedure were explained to the patient in great detail, and he elects to proceed with the surgery. DESCRIPTION OF PROCEDURE: On the day of surgery, the patient was taken to the operating room and placed on the OR table. Spinal anesthesia was administered by the anesthesiologist. The patient was then positioned supine on the table and all bony prominences were padded. The knee was then prepped and draped in the usual sterile fashion and intravenous antibiotics were given for infection prophylaxis. A surgical time-out was then performed with the team, and the patients identity, procedure, side, availability of implants, and the administration of antibiotics was confirmed. With the knee flexed, a midline incision was made and carried down through the subcutaneous fat to the underlying retinaculum. A medial parapatellar arthrotomy was performed. This was followed by a subperiosteal dissection of the tissue off the proximal, medial tibia. A portion of fat pad was removed from under the patellar tendon, and a small portion of fat was excised off the distal supracondylar femur. Electrocautery and an [employer] bipolar sealing device were used to achieve hemostasis. The knee was then flexed further and the anterior horn of the lateral meniscus was released from the midline. Next, the anterior and posterior cruciate ligaments were transected. Grade 4 changes were noted diffusely throughout the knee. Femoral and tibial checkpoints were then placed in the appropriate location using a mallet. Two parallel bicortical self-drilling pins were placed in the tibial diaphysis after making stab incisions and bluntly dissecting down to bone. Two pins were then placed in the distal supracondylar femur. The [employer] navigation arrays were then attached to both the femoral and tibial pins and the lower extremity was then registered to the robotic navigation device using various joint movements, as well as inputting several dozen reference points. The knee was then taken through a full range of motion with a corrective force applied. Alignment in varus/valgus as well as flexion/extension and soft tissue balance was measured in various positions. The navigation device showed a numerical and graphic representation of the soft tissue balance. The components were repositioned virtually using the software until optimal soft tissue balance was achieved on screen. Once this was accomplished, the final plan was saved and sent to the robot. Self-retaining retractors were then placed at the joint line for exposure and protection of the collateral ligaments. The robot was brought into the sterile field and registered with the navigation device. The robotic arm with attached oscillating saw blade was then used to perform femoral and tibial bone cuts as per the saved software plan. The femoral box cut was made using the appropriately sized manual cutting guide. The knee was then irrigated. Trial components were placed and the knee was taken through a full range of motion to assess soft tissue balance and alignment. The range of motion was found to be excellent and the soft tissue balance was optimal and according to plan. The knee was then put into extension and the patella everted. The synovium around the patella was circumscribed with electrocautery. A caliper was used to measure the patellar thickness and a saw was then used to resect the patella at the chondro-osseous junction. The cut surface was then sized and drilled for the appropriate patellar button, with care taken to medialize it. A trial patella was then placed and the knee was again taken through a full range of motion. The knee was found to have both good balance and good patellar tracking. All of the components were removed except the tibial base plate. The appropriate instrumentation was used to drill and punch the proximal tibia for the keel of the final component. All bony surfaces were then cleaned with pulsatile lavage and dried. Bone cement was then prepared on the back table, and final components were cemented in place in the usual fashion. Extruded cement was removed. The polyethylene trial was placed, the knee was put into extension, and axial pressure was applied for compression while the cement hardened. The patellar button was similarly cemented into place. Once the cement had hardened, the knee was taken through a full range of motion to assess stability, balance, and patellar tracking. This was found to be optimal and the trial polyethylene was exchanged for the appropriately sized real implant. The wound was then thoroughly irrigated with normal saline. A 3-minute dilute Betadine lavage was performed. The knee was again irrigated using a pulsatile lavage device. A periarticular injection was used to locally infiltrate the capsular tissues surrounding the implant and prosthesis. Then No. 1 Polysorb and 0 VLoc 180 barbed sutures were used to close the arthrotomy. Then No. 1 Polysorb and 2-0 VLoc 90 sutures were used in the subcutaneous tissues. Then 4-0 undyed Vicryl and Dermabond skin adhesive was used to close the stab incisions made for the navigation pins. The skin was closed using both 3-0 VLoc 90 suture in a running subcuticular fashion and Dermabond skin adhesive. Once this was completed a sterile Aquacel dressing and compressive Rory-wrap was applied. The patient was then awakened and taken to the PACU in stable condition. EVERARDO LUCIANO M.D. JOSE [id number]
[2020-03-14] MEDS: ATORVASTATIN CA 20 MG TABLET (FP) PO SCH (21:09)
--- NOTE | 2020-03-15 00:18 | PN ---
Progress Note (short form) - Note Progress Note: Pt seen and examined. Doing well. AVSS Selected Entries 03/14/20 03/14/20 20:10 20:13 Temperature 98.4 F Pulse Rate 58 L Respiratory 18 Rate Blood Pressure 117/49 L O2 Sat by Pulse 97 Oximetry (%) Oxygen Delivery Room Air Method Laboratory Tests 03/14/20 03/14/20 03/14/20 06:26 07:11 07:11 WBC 8.9 Hgb 11.5 L Hct 33.2 L Plt Count 213 Sodium 135 L Potassium 4.0 Chloride 101 Carbon Dioxide 26 Anion Gap 8 BUN 27.0 H Creatinine 1.0 Est GFR (CKD-EPI)AfAm 91.13 Est GFR (CKD-EPI)NonAf 78.63 POC Glucometer 94 Random Glucose 109 H Calcium 8.1 L Gen: NAD LLE: c/d/i, NVID A/P POD#1 s/p L JERED TKA PT/OOB D/C home in AM
--- NOTE | 2020-03-15 00:19 | DS ---
Physical Examination Vital Signs: Vital Signs Temperature 98.4 F 03/14/20 20:13 Pulse Rate 58 L 03/14/20 20:13 Respiratory Rate 18 03/14/20 20:13 Blood Pressure 117/49 L 03/14/20 20:13 O2 Sat by Pulse Oximetry (%) 97 03/14/20 20:10 Labs: CBC, BMP 03/14/20 07:11 03/14/20 07:11 Discharge Summary Problems reviewed: Yes Reason For Visit: LEFT KNEE OSTEOARTHRITIS Current Active Problems Osteoarthritis of left knee (Acute) Procedures: Principal: Left JERED TKA Hospital Course: Admitted for elective surgery. Procedure performed without complications. Pt received postoperative antibiotic prophylaxis and DVT ppx. Ambulated with physical therapy. Stable for discharge home with outpatient followup. Condition: Stable - Instructions Diet, Activity, Other Instructions: Dr. Bowie - Knee Replacement Instructions Keep the Aquacel dressing on until removed by Dr. Bowie in 2 weeks - it is antibacterial and waterproof and you can shower with it on. Call the office for a follow-up appointment with Dr. Bowie in 2 weeks. [phone] Take one Aspirin 325mg daily for 6 weeks to prevent blood clots in your legs. After 6 weeks resume your preop dose of 81mg daily. Take one Pantoprazole 40mg daily for 6 weeks to protect against heartburn and ulcers. Take Cephalexin (antibiotic) 3x/day for 14 days to help prevent skin infection. Take Celebrex 200mg twice daily for 30 days to reduce swelling and inflammation. Take a multivitamin, stool softener, and extra Vitamin C supplement daily. For pain: *Mild pain (1-3/10): Take 1 Tramadol tablet every 4 hours as needed. Moderate pain (4-6/10): Take 1 Tramadol tablet and 1 Percocet tablet every 4 hours as needed. Severe pain (7-10/10): Take 1 Tramadol tablet and 2 Percocet tablets every 4 hours as needed. Activity: You can put as much weight on the operative leg as you want. Right after you get home, there will be a physical therapist coming to your house to help you walk around and bend/straighten your knee. After your follow-up appointment, you will be sent for more intensive outpatient physical therapy which will include machines and equipment that the home therapist cannot bring to your house. Always use a walker or cane for balance and to prevent falls. Expect to see swelling/bruising from the operative site all the way down to your toes. Wear the compression stocking on the operative side during the day to minimize how much swelling there is in your foot/ankle. Don't wear the stocking at night. You don't have to wear a stocking on the other side. Disposition: VNS/HOME HEALTH CARE - Home Medications Comprehensive Discharge Medication List: Ambulatory Orders Furosemide [Lasix -] 40 mg PO DAILY 09/11/14 Metoprolol Tartrate [Lopressor] 100 mg PO DAILY 09/11/14 Amlodipine Besylate 5 mg PO DAILY 12/09/18 Prednisone 20 mg PO DAILY 12/09/18 metFORMIN HCL [Metformin HCl ER] 1,000 mg PO BID 12/09/18 Atorvastatin Calcium 20 mg PO HS 05/31/19 Glimepiride 2 mg PO DAILY 05/31/19 Losartan Potassium 50 mg PO DAILY 05/31/19 Multivitamins [Multivit ([facility] Formulary)] 1 tab PO DAILY tab 06/08/19 Terbinafine HCl 250 mg PO Q48H 11/08/19 Tiotropium [place] [Spiriva Respimat] 2 inh IH DAILY 11/08/19 Glucosam/Merlin-Msm1/C/Yao/Bosw [Glucosamine-Chondr Complx Cplt] 2 each PO DAILY 03/06/20 Ascorbic Acid [Vitamin C -] 500 mg PO BID tablet 03/14/20 Aspirin [ASA -] 325 mg PO DAILY@0800 tablet 03/14/20 Celecoxib [CeleBREX -] 200 mg PO BID #60 capsule 03/14/20 Cephalexin Monohydrate [Keflex -] 500 mg PO TID #42 capsule 03/14/20 Oxycodone HCl/Acetaminophen [Percocet 5-325 mg Tablet] 1 - 2 tab PO Q4H PRN #60 tablet MDD 10 03/14/20 Pantoprazole Sodium [Protonix -] 40 mg PO DAILY #40 tablet.ec 03/14/20 Sennosides/Docusate Sodium [Pericolace -] 2 tablet PO BID tablet 03/14/20 traMADol HCL [Ultram -] 50 mg PO Q4H PRN #60 tablet MDD 6 03/14/20
[2020-03-15 00:30] VITALS: PULSE 57
[2020-03-15] MEDS: VANCOMYCIN HCL 1,250 MG in SODIUM CHLORIDE 250 ML IVPB SCH (00:45)
[2020-03-15] MEDS ORDERED: PT OWN MED DRAWER 7, Y5N ONE ×2 (01:23→11:03)
[2020-03-15] MEDS: traMADol HCL 50 MG TABLET PO SCH ×2 (05:15→10:45)
[2020-03-15] MEDS: GLIMEPIRIDE 2 MG TABLET PO SCH (06:59)
[2020-03-15] MEDS: INSULIN (NOVOLOG) ASPART 100 UNITS/ML 10ML VIAL SQ SCH (07:00)
[2020-03-15 07:08] VITALS: BP 125/55; TEMP 98.1
[2020-03-15] MEDS: ASPIRIN 325 MG TABLET PO SCH (08:05)
[2020-03-15 08:35] LABS: HEMATOCRIT 32.6 % (35.4-49); HEMOGLOBIN 11.1 GM/dl (11.7-16.9); MCHC 34.1 g/dl (32.0-35.9); MEAN CELL VOLUME 90.9 fl (80-96); MEAN PLT VOLUME 7.6 fl (7.5-11.1); PLATELET COUNT 212 K/MM3 (134-434); RBC 3.59 M/mm3 (4.00-5.60); RDW 13.9 % (11.9-15.9); WHITE BLOOD COUNT 8.9 K/mm3 (4.0-10.8)
[2020-03-15] MEDS: predniSONE 20 MG TABLET (UD) PO SCH (10:05)
[2020-03-15] MEDS: LOSARTAN POTASSIUM 50 MG TABLET (FP) PO SCH (10:05)
[2020-03-15] MEDS: CELECOXIB 200 MG CAPSULE PO SCH (10:10)
[2020-03-15] MEDS: FUROSEMIDE 40 MG TABLET (FP) PO SCH (10:10)
[2020-03-15] MEDS: TIOTROPIUM BROMIDE 2.5 MCG (SPIRIVA) RESPIMAT INHALER IH SCH (10:10)
[2020-03-15] MEDS: METOPROLOL TARTRATE 50 MG TABLET (FP) PO SCH (10:10)
[2020-03-15] MEDS: GABAPENTIN 300 MG CAPSULE PO SCH (10:10)
[2020-03-15] MEDS: amLODIPine BESYLATE 5 MG TABLET (FP) PO SCH (10:15)
[2020-03-15] MEDS: SENNOSIDES/DOCUSATE COMBO (SENNA PLUS) TABLET (UD) PO SCH (10:20)
[2020-03-15] MEDS: ASCORBIC ACID 500 MG TABLET (FP) PO SCH (10:20)
[2020-03-15] MEDS: MULTIVITAMINS (DAILY MVI) TABLET (FP) PO SCH (10:20)
[2020-03-15] MEDS: PANTOPRAZOLE 40 MG TABLET PO SCH (10:20)
--- NOTE | 2020-03-19 14:13 | PATH ---
Surgical Pathology Report Patient Name: JANELLE HERRERA Med. Rec. #: [id number] /Age/Gender: 1955 (Age: 64) / M Account: [id number] Location: [facility] MED-SURG Taken: 03/13/2020 Received: 03/13/2020 Reported: 03/19/2020 Physicians: Tavo Bowie M.D. Specimen(s) Received LEFT KNEE BONES Clinical History Left knee osteoarthritis Final Diagnosis KNEE BONES, LEFT, TOTAL KNEE REPLACEMENT: DEGENERATIVE JOINT DISEASE. Electronically Signed Criselda Gallegos M.D. Gross Description Received in formalin labeled "left knee bones," is an 11.5 x 11.0 x 2.4 cm aggregate of multiple irregular, unoriented portions of bone and soft tissue. The tibial plateau measures 8.4 x 6.0 x 2.0 cm. There are multiple areas of eburnation present, measuring up to 2.8 cm in greatest dimension. The remaining articular surfaces are davila-brown and diffusely granular. The underlying trabecular bone is yellow and hard. Rn Patient Care sections are submitted in one cassette, following decalcification. /03/14/2020 [facility]03/14/2020
== END 2020-03-15 12:05 | disposition home health service (06) | DRG 470 ==
LOC: FM/S 09:02
PROVIDERS: ADMIT Student in an Organized Health Care Education/Training Program; ATTEND Student in an Organized Health Care Education/Training Program
PROC: 8E0Y0CZ Robotic Assisted Procedure of Lower Extremity, Open Approach (ICD-10-PCS; 2020-03-13)
PROC: 0SRD0J9 Replacement of Left Knee Joint with Synthetic Substitute, Cemented, Open Approach (ICD-10-PCS; principal; 2020-03-13 12:29)
DX: M17.12 Unilateral primary osteoarthritis, left knee (principal); I10 Essential (primary) hypertension; E78.5 Hyperlipidemia, unspecified; E11.9 Type 2 diabetes mellitus without complications; Z87.891 Personal history of nicotine dependence; Z79.84 Long term (current) use of oral hypoglycemic drugs; J45.909 Unspecified asthma, uncomplicated
CPT/HCPCS: 36415; 73560-TC-LT-FY; 80048; 82962; 85027; 88304-TC; 88311-TC; 94760; 97116-GP; 97163-GP; J0131; U0003

== ENCOUNTER 2020-03-24 14:19 | Inpatient (IN) | payer OTHER, MEDICARE ==
[2020-03-24 14:27] VITALS: BMI 32.9
--- NOTE | 2020-03-24 14:31 | PDOC ---
History of Present Illness - General Chief Complaint: Wound Stated Complaint: Laceration Time Seen by Provider: 03/24/20 14:30 History Source: Patient Exam Limitations: No Limitations - History of Present Illness Initial Comments: 03/24/20 14:55 64yM w PMHx obesity, HTN, HLD, rheumatoid arthritis, L knee replacement 03/13/[address] Jamir davies w L knee dehiscence. Pt accidentally placed weight on L leg while stepping onto box with PT, felt knee buckle. Takes 325 aspirin daily, not on anticoagulation. Doesn't remember last tdap. Past History - Medical History Allergies/Adverse Reactions: Allergies Allergy/AdvReac Type Severity Reaction Status Date / Time sulfamethoxazole Allergy Intermediate Swelling Verified 03/24/20 14:24 [From Bactrim] trimethoprim [From Bactrim] Allergy Intermediate Swelling Verified 03/24/20 14:24 Home Medications: Ambulatory Orders Furosemide [Lasix -] 40 mg PO DAILY 09/11/14 Metoprolol Tartrate [Lopressor] 100 mg PO DAILY 09/11/14 Amlodipine Besylate 5 mg PO DAILY 12/09/18 Prednisone 20 mg PO DAILY 12/09/18 metFORMIN HCL [Metformin HCl ER] 1,000 mg PO BID 12/09/18 Atorvastatin Calcium 20 mg PO HS 05/31/19 Glimepiride 2 mg PO DAILY 05/31/19 Losartan Potassium 50 mg PO DAILY 05/31/19 Multivitamins [Multivit ([facility] Formulary)] 1 tab PO DAILY tab 06/08/19 Terbinafine HCl 250 mg PO Q48H 11/08/19 Tiotropium [place] [Spiriva Respimat] 2 inh IH DAILY 11/08/19 Glucosam/Merlin-Msm1/C/Yao/Bosw [Glucosamine-Chondr Complx Cplt] 2 each PO DAILY 03/06/20 Ascorbic Acid [Vitamin C -] 500 mg PO BID tablet 03/14/20 Aspirin [ASA -] 325 mg PO DAILY@0800 tablet 03/14/20 Celecoxib [CeleBREX -] 200 mg PO BID #60 capsule 03/14/20 Cephalexin Monohydrate [Keflex -] 500 mg PO TID #42 capsule 03/14/20 Oxycodone HCl/Acetaminophen [Percocet 5-325 mg Tablet] 1 - 2 tab PO Q4H PRN #60 tablet MDD 10 03/14/20 Pantoprazole Sodium [Protonix -] 40 mg PO DAILY #40 tablet.ec 03/14/20 Sennosides/Docusate Sodium [Pericolace -] 2 tablet PO BID tablet 03/14/20 traMADol HCL [Ultram -] 50 mg PO Q4H PRN #60 tablet MDD 6 03/14/20 Anemia: No Asthma: No Cancer: No Cardiac Disorders: No CVA: No COPD: Yes CHF: No Dementia: No Diabetes: Yes (STEROID INDUCED) GI Disorders: No Disorders: No HTN: Yes Hypercholesterolemia: Yes Liver Disease: No Seizures: No Thyroid Disease: No - Surgical History Abdominal Surgery: No Appendectomy: No Cardiac Surgery: No Cholecystectomy: No Lung Surgery: Yes (lung biopsy) Neurologic Surgery: No Orthopedic Surgery: Yes (BACK SX 1998/L5 [id number]/KIMBERLY KNEE arthroscopy) - Psycho-Social/Smoking History Smoking History: Smoker current status UNK Have you smoked in the past 12 months: No If you are a former smoker, when did you quit?: 1980 Information on smoking cessation initiated: No - Substance Abuse Hx (Audit-C & DAST Scrn) How often the patient has a drink containing alcohol: Never Score: In Men: 4 or > Positive; In Women: 3 or > Positive: 0 Screen Result (Pos requires Nsg. Audit-10AR): Negative In the last yr the pt used illegal drug/Rx for NonMed reason: No Score: Yes response is considered Positive: 0 Screen Result (Positive result requires Nsg. DAST-10): Negative Review of Systems - Review of Systems Constitutional: No: Chills, Fever HEENTM: No: Eye Pain, Nose Congestion Respiratory: No: Cough, Shortness of Breath Cardiac (ROS): No: Chest Pain, Palpitations ABD/GI: No: Constipated, Diarrhea, Nausea, Vomiting : No: Burning, Dysuria Musculoskeletal: Yes: Joint Pain. No: Back Pain Integumentary: No: Bruising, Flushing Neurological: No: Headache, Seizure Psychiatric: No: Anxiety, Depression Endocrine: No: Intolerance to Cold, Intolerance to Heat Hematologic/Lymphatic: No: Blood Clots *Physical Exam - Vital Signs Last Vital Signs Temp Pulse Resp BP Pulse Ox 99 F 93 H 20 151/66 94 L 03/24/20 14:24 03/24/20 14:24 03/24/20 14:24 03/24/20 14:24 03/24/20 14:24 - Physical Exam General Appearance: Yes: Nourished, Appropriately Dressed, Mild Distress, Obese HEENT: positive: EOMI, ALTHEA, Normal Voice, Hearing Grossly Normal. negative: Scleral Icterus (R), Scleral Icterus (L) Respiratory/Chest: positive: Lungs Clear, Normal Breath Sounds. negative: Chest Tender, Respiratory Distress Cardiovascular: positive: Regular Rhythm, Regular Rate, S1, S2. negative: Edema, Murmur Vascular Pulses: Dorsalis-Pedis (R): 2+, Doralis-Pedis (L): 2+ Gastrointestinal/Abdominal: positive: Normal Bowel Sounds, Flat, Soft. negative: Tender, Organomegaly Extremity: positive: Other (2cm open dehiscence over L knee w hardware exposed. Distal able to wiggle L toes, warm) Integumentary: positive: Normal Color, Warm Neurologic: positive: Fully Oriented, Alert, Normal Response ED Treatment Course - LABORATORY CBC & Chemistry Diagram: 03/24/20 14:50 03/24/20 14:50 Medical Decision Making - Medical Decision Making 03/24/20 14:56 EKG - NSR, HR 66, QTc 408, no ST changes --- 64yM w PMHx obesity, HTN, HLD, rheumatoid arthritis, L knee replacement 03/13/[address] Bowie presenting w L knee dehiscence. Neurovascular intact distal leg. K 5.5 hemolyzed, no EKG changes Given 4 morphine, vanc, cefazolin, tdap Consulted ortho Dr Jamir Pulido PA evaluated pt, cleaned and dressed wound, advised pre-op labs, pain control, cover w vanc, will have surgery tmrw afternoon Placed consult for ID Dr Oconnell Admit m/s for post op L knee dehiscence Discharge - Discharge Information Problems reviewed: Yes Clinical Impression/Diagnosis: Postoperative wound dehiscence Qualifiers: Encounter type: initial encounter Qualified Code(s): T81.31XA - Disruption of external operation (surgical) wound, not elsewhere classified, initial encounter - Follow up/Referral Referrals: Oneida Huerta [Primary Care Provider] - - Patient Discharge Instructions - Post Discharge Activity
[2020-03-24] MEDS ORDERED: morphine CARPU-JECT 4 MG/1 ML DISP.SYRIN IVPUSH ONE (14:45)
[2020-03-24] MEDS ORDERED: VANCOMYCIN 1,000 MG in DEXTROSE 5%-WATER - 250 ML IVPB ONE (14:51)
[2020-03-24] MEDS ORDERED: DIPHTH,PERTUSS(ACELL),TET 0.5 ML DISP.SYRIN IM ONE (15:03)
[2020-03-24 15:19] LABS: BASO % 0.7 % (0-2.0); HEMOGLOBIN 11.5 GM/dL (11.7-16.9); LYMPH % 9.4 % (8-40); MCH 30.5 pg (25.7-33.7); MCHC 31.9 g/dl (32.0-35.9); MEAN CELL VOLUME 95.7 fl (80-96); MEAN PLT VOLUME 7.2 fl (7.5-11.1); MONO % 4.8 % (3.8-10.2); NEUT % 85.1 % (42.8-82.8); PLATELET COUNT 345 K/MM3 (134-434); RBC 3.76 M/mm3 (4.00-5.60); RDW 15.1 % (11.9-15.9); WHITE BLOOD COUNT 10.3 K/mm3 (4.0-10.0)
[2020-03-24 15:29] LABS: PROTHROMBIN TIME (PATIENT) 11.8 SEC (9.7-13.0)
--- NOTE | 2020-03-24 15:32 | CONSULT ---
- Consultation REQUESTING PROVIDER: Tavo Bowie - Ortho CONSULT REQUEST: We have been asked to surgically evaluate this patient for LEFT knee dehis during fall while at PT HPI: Called to eval 64 yo male POD #11 s/p LEFT TKR (Tavo Bowie) who accidentally fell during physical therapy today. Patient lead with his left foot while trying to step up on a box (instead of his right as instructed by PT). Per patient, he felt his knee buckle and fell down to the ground. Witnessed fall. No LOC. Taking his ASA 325 daily as instructed since getting dc'd from [facility] s/p surgery. Denies weak/dizzy/palpitations/CP/diaphoresis prior too or post fall. Denies numbness/tingling to RLE PMHx: COPD. DM. HTN. Hypercholesterolemia. OA PSHx: Lung biopsy. Bilat knee arthroscopy. Lumbar laminectomy. Left TKR 03/13/20 Home Meds Furosemide [Lasix -] 40 mg PO DAILY 09/11/14 Metoprolol Tartrate [Lopressor] 100 mg PO DAILY 09/11/14 Amlodipine Besylate 5 mg PO DAILY 12/09/18 Prednisone 20 mg PO DAILY 12/09/18 metFORMIN HCL [Metformin HCl ER] 1,000 mg PO BID 12/09/18 Atorvastatin Calcium 20 mg PO HS 05/31/19 Glimepiride 2 mg PO DAILY 05/31/19 Losartan Potassium 50 mg PO DAILY 05/31/19 Multivitamins [Multivit ([facility] Formulary)] 1 tab PO DAILY tab 06/08/19 Terbinafine HCl 250 mg PO Q48H 11/08/19 Tiotropium [place] [Spiriva Respimat] 2 inh IH DAILY 11/08/19 Glucosam/Merlin-Msm1/C/Yao/Bosw [Glucosamine-Chondr Complx Cplt] 2 each PO DAILY 03/06/20 Ascorbic Acid [Vitamin C -] 500 mg PO BID tablet 03/14/20 Aspirin [ASA -] 325 mg PO DAILY@0800 tablet 03/14/20 Celecoxib [CeleBREX -] 200 mg PO BID #60 capsule 03/14/20 Cephalexin Monohydrate [Keflex -] 500 mg PO TID #42 capsule 03/14/20 Oxycodone HCl/Acetaminophen [Percocet 5-325 mg Tablet] 1 - 2 tab PO Q4H PRN #60 tablet MDD 10 03/14/20 Pantoprazole Sodium [Protonix -] 40 mg PO DAILY #40 tablet.ec 03/14/20 Sennosides/Docusate Sodium [Pericolace -] 2 tablet PO BID tablet 03/14/20 traMADol HCL [Ultram -] 50 mg PO Q4H PRN #60 tablet MDD 6 03/14/20 Allergies: Bactrim (swelling) ROS: 12 system review conducted and considered negative except for what's contained in the HPI. PE: GENERAL: A&O. NAD HEAD: Normal with no signs of trauma. EYES: PERRL, sclera anicteric, conjunctiva clear. NECK: Normal ROM, supple without lymphadenopathy, JVD, or masses. LUNGS: unlabored respirations on RA HEART: RRR ABD: Obese habitus. Soft, NT ND UE: 2+ pulses, warm, well-perfused. No cyanosis. Cap refill <2 seconds. No peripheral edema. LE: RLE unremarkable. LLE: ecchymosis to mid/distal thigh (expected s/p surgery). Complete wound dehis, mobile patella with exposed hardware. Warm. Well-perfused. LE edema 1+. Palpable DP & PT. plantar/dorsi - flex/ext intact. No ischemic rest pain. PSYCH: Cooperative. Good eye contact. Appropriate mood and affect. Last Vital Signs Temp Pulse Resp BP Pulse Ox 99 F 93 H 20 151/66 94 L 03/24/20 14:24 03/24/20 14:24 03/24/20 14:24 03/24/20 14:24 03/24/20 14:24 CBC 03/24/20 14:50 INR, PTT INR 1.00 (0.83-1.09) 03/24/20 14:50 Problem List - Problems (1) Postoperative wound dehiscence Assessment/Plan: 1. Admit to [facility] 2. NPO after breakfast. 3. OR scheduled for 4PM 03/25/20 -- revision of Lt TKR with washout 4. ID Consulted 5. Vanco & Cefazolin 6. Covid pending - isolation precaution 7. Coags 8. Type and Sreen 9. Wound irrigated in ER. Packed with kerlix soaked in betadine/4x4/kerlix/knee immobilzer 10. Medical optimization / clearance Above plan discussed with Dr. Bowie and agrees Code(s): T81.31XA - DISRUPTION OF EXTERNAL OPERATION (SURGICAL) WOUND, NEC, INIT Qualifiers: Encounter type: initial encounter Qualified Code(s): T81.31XA - Disruption of external operation (surgical) wound, not elsewhere classified, initial encounter (2) Diabetes Code(s): E11.9 - TYPE 2 DIABETES MELLITUS WITHOUT COMPLICATIONS (3) COPD (chronic obstructive pulmonary disease) Code(s): J44.9 - CHRONIC OBSTRUCTIVE PULMONARY DISEASE, UNSPECIFIED (4) HTN (hypertension) Code(s): I10 - ESSENTIAL (PRIMARY) HYPERTENSION Visit type - Case Type Case Type: ED Admission - Emergency Emergency Visit: Yes Care time: The patient presented to the Emergency Department on the above date and was hospitalized for further evaluation of their emergent condition. - New patient This patient is new to me today: Yes Date on this admission: 03/24/20
--- NOTE | 2020-03-24 15:44 | PDOC ---
Documentation entered by Radha Maria SCRIBE, acting as scribe for Rimma Lopez MD. Rimma Lopez MD: This documentation has been prepared by the Crow shultz Brenda, SCRIBE, under my direction and personally reviewed by me in its entirety. I confirm that the documentation accurately reflects all work, treatment, procedures, and medical decision making performed by me. Attending Attestation - Resident Resident Name: Davie Parks - ED Attending Attestation I have performed the following: I have examined & evaluated the patient, The case was reviewed & discussed with the resident, I agree w/resident's findings & plan, Exceptions are as noted - HPI HPI: 03/24/20 15:35 64-year-old male recent left JERED TKA on 03/13/[address] Vo presents to the emergency department with dehiscence of left knee wound. Pt was at physical therapy and stepped on the wrong foot causing the wound to open up. Pt was otherwise in good health, denies recent fevers, chills, cp, sob, abd pain, headache, focal weakness/numbness. - Physicial Exam PE: 03/24/20 15:42 Agree w resident exam - Medical Decision Making 03/24/20 15:42 64yo M with recent left JERED TKA on 03/13/[address] Vo presents to the ED with dehiscence of wound Surgical ROBERTA Rosenthal at the bedside, pt will go to the OR for repair Requests pre-op labs, dose of vancomycin, ID consult which have been ordered Pt is non toxic appearing, wound has been dressed by ROBERTA Rosenthal Anticipate admission Discharge - Discharge Information Problems reviewed: Yes Clinical Impression/Diagnosis: Postoperative wound dehiscence Qualifiers: Encounter type: initial encounter Qualified Code(s): T81.31XA - Disruption of external operation (surgical) wound, not elsewhere classified, initial encounter - Follow up/Referral - Patient Discharge Instructions - Post Discharge Activity
[2020-03-24 15:48] LABS: ALBUMIN 3.4 g/dl (3.4-5.0); BILIRUBIN,TOTAL 0.7 mg/dL (0.2-1); BLOOD UREA NITROGEN 31.9 mg/dL (7-18); CALCIUM 9.5 mg/dL (8.5-10.1); CREATININE 1.2 mg/dL (0.55-1.3); POTASSIUM 5.5 mmol/L (3.5-5.1)
--- NOTE | 2020-03-24 15:54 | EKG ---
Test Reason : Blood Pressure : / mmHG Vent. Rate : 066 BPM Atrial Rate : 066 BPM P-R Int : 144 ms QRS Dur : 078 ms QT Int : 390 ms P-R-T Axes : 065 038 031 degrees QTc Int : 408 ms NORMAL SINUS RHYTHM NORMAL ECG NO PREVIOUS ECGS AVAILABLE Confirmed by Milagro High ([id number]) on 03/24/2020 3:53:53 PM Referred By: Confirmed By:Milagro High
--- NOTE | 2020-03-24 18:08 | HP ---
CHIEF COMPLAINT: knee wound PCP: Dr. Huerta HISTORY OF PRESENT ILLNESS: 64 yo M PMH obesity, HTN, COPD, HLD, RA, L TKR (POD #11 - Dr. Tavo Bowie) presents to ED after accidentally fell during physical therapy today. Patient lead with his left foot while trying to step up on a box instead of R as instructed. Witnessed fall. No LOC. Taking his ASA 325 daily as instructed since getting dc'd from [facility] s/p surgery. Pt states that he has not been having much pain and has only needed to use the pain medication once after his first PT session. Pt states that pain is controlled now. Pt states that prior to this procedure he stopped his mycophenolate 2 weeks before and was instructed not to continue until 3 weeks after surgery. since he was not taking the mycophenalte he was instructed to increase his prednisone to 20 mg instead of 10 mg daily Denies weak/dizzy/palpitations/CP/diaphoresis prior or post fall. Denies numbness/tingling to RLE Denies f/c/n/v. ER course was notable for: (1) Surgery consulted, wound irrigated and packed in ED with kerlix soaked in betadine with knee immobilizer (2) cbc, bmp Recent Travel: denies PAST MEDICAL HISTORY: see above PAST SURGICAL HISTORY: Lung biopsy. Bilat knee arthroscopy. Lumbar laminectomy. Left TKR 03/13/20 Social History: Smoking:denies Alcohol:denies Drugs: denies Allergies sulfamethoxazole [From Bactrim] Allergy (Intermediate, Verified 03/24/20 14:24) Swelling trimethoprim [From Bactrim] Allergy (Intermediate, Verified 03/24/20 14:24) Swelling face and legs HOME MEDICATIONS: Home Medications Medication Instructions Recorded Furosemide [Lasix -] 40 mg PO DAILY 09/11/14 Metoprolol Tartrate [Lopressor] 100 mg PO DAILY 09/11/14 Amlodipine Besylate 5 mg PO DAILY 12/09/18 Prednisone 20 mg PO DAILY 12/09/18 metFORMIN HCL [Metformin HCl ER] 1,000 mg PO BID 12/09/18 Atorvastatin Calcium 20 mg PO HS 05/31/19 Glimepiride 2 mg PO DAILY 05/31/19 Losartan Potassium 50 mg PO DAILY 05/31/19 Multivitamins [Multivit ([facility] 1 tab PO DAILY tab 06/08/19 Formulary)] Terbinafine HCl 250 mg PO Q48H 11/08/19 Tiotropium [place] [Spiriva 2 inh IH DAILY 11/08/19 Respimat] Glucosam/Merlin-Msm1/C/Yao/Bosw 2 each PO DAILY 03/06/20 [Glucosamine-Chondr Complx Cplt] Ascorbic Acid [Vitamin C -] 500 mg PO BID tablet 03/14/20 Aspirin [ASA -] 325 mg PO DAILY@0800 tablet 03/14/20 Celecoxib [CeleBREX -] 200 mg PO BID #60 capsule 03/14/20 Cephalexin Monohydrate [Keflex -] 500 mg PO TID #42 capsule 03/14/20 Oxycodone HCl/Acetaminophen 1 - 2 tab PO Q4H PRN #60 tablet 03/14/20 [Percocet 5-325 mg Tablet] MDD 10 Pantoprazole Sodium [Protonix -] 40 mg PO DAILY #40 tablet.ec 03/14/20 Sennosides/Docusate Sodium 2 tablet PO BID tablet 03/14/20 [Pericolace -] traMADol HCL [Ultram -] 50 mg PO Q4H PRN #60 tablet MDD 6 03/14/20 REVIEW OF SYSTEMS CONSTITUTIONAL: Absent: fever, chills, diaphoresis, generalized weakness, malaise, loss of appetite, weight change HEENT: Absent: rhinorrhea, nasal congestion, throat pain, throat swelling, difficulty swallowing, mouth swelling, ear pain, eye pain, visual changes CARDIOVASCULAR: Absent: chest pain, syncope, palpitations, irregular heart rate, lightheadedness, peripheral edema RESPIRATORY: Absent: cough, shortness of breath, dyspnea with exertion, orthopnea, wheezing, stridor, hemoptysis GASTROINTESTINAL: Absent: abdominal pain, abdominal distension, nausea, vomiting, diarrhea, constipation, melena, hematochezia GENITOURINARY: Absent: dysuria, frequency, urgency, hesitancy, hematuria, flank pain, genital pain MUSCULOSKELETAL: Absent: myalgia, arthralgia, joint swelling, back pain, neck pain SKIN: Absent: rash, itching, pallor HEMATOLOGIC/IMMUNOLOGIC: Absent: easy bleeding, easy bruising, lymphadenopathy, frequent infections ENDOCRINE: Absent: unexplained weight gain, unexplained weight loss, heat intolerance, cold intolerance NEUROLOGIC: Absent: headache, focal weakness or paresthesias, dizziness, unsteady gait, seizure, mental status changes, bladder or bowel incontinence PSYCHIATRIC: Absent: anxiety, depression, suicidal or homicidal ideation, hallucinations. PHYSICAL EXAMINATION Vital Signs - 24 hr 03/24/20 03/24/20 14:24 17:46 Temperature 99 F Pulse Rate 93 H Pulse Rate [ 80 Right Radial] Respiratory 20 Rate Blood Pressure 151/66 Blood Pressure 106/37 L [Left Arm] O2 Sat by Pulse 94 L 98 Oximetry (%) GENERAL: Awake, alert, and fully oriented, in no acute distress. HEAD: Normal with no signs of trauma. EYES: Pupils equal, round and reactive to light, extraocular movements intact, sclera anicteric, conjunctiva clear. No lid lag. EARS, NOSE, THROAT: Ears normal, nares patent, oropharynx clear without exudates. Moist mucous membranes. NECK: Normal range of motion, supple without lymphadenopathy, JVD, or masses. LUNGS: Breath sounds equal, clear to auscultation bilaterally. No wheezes, and no crackles. No accessory muscle use. HEART: Regular rate and rhythm, normal S1 and S2 without murmur, rub or gallop. ABDOMEN: Soft, nontender, not distended, normoactive bowel sounds, no guarding, no rebound, no masses. No hepatomegaly or splenomegaly. MUSCULOSKELETAL: Normal range of motion at all joints. No bony deformities or tenderness. No CVA tenderness. UPPER EXTREMITIES: 2+ pulses, warm, well-perfused. No cyanosis. No clubbing. No peripheral edema. LOWER EXTREMITIES: L lower extremity wrapped and in bandage; as per ED note: NEUROLOGICAL: Cranial nerves II-XII intact. Normal speech PSYCHIATRIC: Cooperative. Good eye contact. Appropriate mood and affect. SKIN: Warm, dry, normal turgor, no rashes or lesions noted, normal capillary refill. Laboratory Last Values WBC 10.3 K/mm3 (4.0-10.0) H 03/24/20 14:50 RBC 3.76 M/mm3 (4.00-5.60) L 03/24/20 14:50 Hgb 11.5 GM/dL (11.7-16.9) L 03/24/20 14:50 Hct 36.0 % (35.4-49) 03/24/20 14:50 MCV 95.7 fl (80-96) 03/24/20 14:50 MCH 30.5 pg (25.7-33.7) 03/24/20 14:50 MCHC 31.9 g/dl (32.0-35.9) L 03/24/20 14:50 RDW 15.1 % (11.9-15.9) 03/24/20 14:50 Plt Count 345 K/MM3 (134-434) 03/24/20 14:50 MPV 7.2 fl (7.5-11.1) L 03/24/20 14:50 Absolute Neuts (auto) 8.7 K/mm3 (1.5-8.0) H 03/24/20 14:50 Neutrophils % 85.1 % (42.8-82.8) H 03/24/20 14:50 Lymphocytes % 9.4 % (8-40) 03/24/20 14:50 Monocytes % 4.8 % (3.8-10.2) 03/24/20 14:50 Eosinophils % 0.0 % (0-4.5) 03/24/20 14:50 Basophils % 0.7 % (0-2.0) 03/24/20 14:50 Nucleated RBC % 0 % (0-0) 03/24/20 14:50 PT with INR 11.80 SEC (9.7-13.0) 03/24/20 14:50 INR 1.00 (0.83-1.09) 03/24/20 14:50 Sodium 140 mmol/L (136-145) 03/24/20 14:50 Potassium 5.5 mmol/L (3.5-5.1) H 03/24/20 14:50 Chloride 105 mmol/L (98-107) 03/24/20 14:50 Carbon Dioxide 24 mmol/L (21-32) 03/24/20 14:50 Anion Gap 12 MMOL/L (8-16) 03/24/20 14:50 BUN 31.9 mg/dL (7-18) H 03/24/20 14:50 Creatinine 1.2 mg/dL (0.55-1.3) 03/24/20 14:50 Est GFR (CKD-EPI)AfAm 73.11 03/24/20 14:50 Est GFR (CKD-EPI)NonAf 63.08 03/24/20 14:50 Random Glucose 115 mg/dL (74-106) H 03/24/20 14:50 Calcium 9.5 mg/dL (8.5-10.1) 03/24/20 14:50 Total Bilirubin 0.7 mg/dL (0.2-1) 03/24/20 14:50 AST 24 U/L (15-37) 03/24/20 14:50 ALT 20 U/L (13-61) 03/24/20 14:50 Alkaline Phosphatase 43 U/L (45-117) L 03/24/20 14:50 Total Protein 7.0 g/dl (6.4-8.2) 03/24/20 14:50 Albumin 3.4 g/dl (3.4-5.0) 03/24/20 14:50 Blood Type A POSITIVE 03/24/20 14:50 Antibody Screen Negative 03/24/20 14:50 ASSESSMENT/PLAN: 64 yo M PMH obesity, HTN, COPD, HLD, RA, L TKR (POD #11 - Dr. Tavo Bowie) presents to ED after accidentally fell during physical therapy today. Pt is admitted for revision of L TKR with washout L wound dehiscence - for OR tomorrow 4pm ; L TKR with washout - ID consult ; empiric Vanc and Cefazolin - covid testing - coags, type and screen - wound irrigated and packed in ED with kerlix soaked in betadine with knee immo bilizer -NPO after breakfast RA - cont prednisone 20 mg HTN - cont home meds HLD - cont home meds DVT ppx: hold chemical ppx before OR F/E/N - monitor lytes; labs hemolyzed . pending rpt - diabetic/ sodium diet. NPO after breakfast Dispo: admit to medicine ATTENDING PHYSICIAN STATEMENT I saw and evaluated the patient. I reviewed the resident's note and discussed the case with the resident. I agree with the resident's findings and plan as documented. SUBJECTIVE: OBJECTIVE: ASSESSMENT AND PLAN:
[2020-03-24] MEDS ORDERED: CEFAZOLIN 1 GM/D5W 1 GM/50 ML BAG ONE (18:15)
[2020-03-24] MEDS: CEFAZOLIN 2 GM/D5W 2 GM/50 ML ML IVPB SCH (18:25)
[2020-03-24] MEDS ORDERED: PATIENT'S OWN MEDICATION (NON-FORMULARY) (Terbinafine Hcl [Terbinafine Hcl] 250 MG) PO SCH (18:45)
--- NOTE | 2020-03-24 18:54 | PN ---
Teaching Attending Note Name of Resident: Urmila Markham ATTENDING PHYSICIAN STATEMENT I saw and evaluated the patient. I reviewed the resident's note and discussed the case with the resident. I agree with the resident's findings and plan as documented. SUBJECTIVE:64 yo M PMH obesity, HTN, COPD, HLD, RA, L TKR (POD #11 - Dr. Tavo Bowie) presents to ED after accidentally fell during physical therapy today. Patient lead with his left foot while trying to step up on a box instead of R as instructed. Witnessed fall. No LOC. Taking his ASA 325 daily as instructed since getting dc'd from [facility] s/p surgery. Pt states that he has not been having much pain and has only needed to use the pain medication once after his first PT session. Pt states that pain is controlled now. Pt states that prior to this procedure he stopped his mycophenolate 2 weeks before and was instructed not to continue until 3 weeks after surgery. since he was not taking the mycophenalte he was instructed to increase his prednisone to 20 mg instead of 10 mg daily for perioperative duration, Denies weak/dizzy/palpitations/CP/diaphoresis prior or post fall. Denies numbness/tingling to RL OBJECTIVE:O/E is comfortable, nad alert awake oriented into time place and person, vss neck supple no jvd cvs s1/s2/0 chest ctab abd benign ext no c/c/e L knee wound dehisced wound unable to be examined bc of dressing/ cast as per ASSESSMENT AND PLAN: 64 yo M PMH obesity, HTN, COPD, HLD, RA, L TKR (POD #11 - Dr. Tavo oBwie) presents to ED after accidentally fell during physical therapy today. Pt is admitted for revision of L TKR with washout L knee wound dehiscence - for OR tomorrow; L TKR with washout - ID consult ; empiric Vanc and Cefazolin - coags, type and screen - wound irrigated and packed in ED with kerlix soaked in betadine with knee immobilizer -NPO after breakfast RA - cont prednisone 20 mg HTN - cont home meds HLD - cont home meds
[2020-03-24] MEDS: ATORVASTATIN CA 20 MG TABLET (FP) PO SCH (22:35)
[2020-03-24] MEDS: ASCORBIC ACID 500 MG TABLET (FP) PO SCH (22:35)
[2020-03-25] MEDS: CEFAZOLIN 2 GM/D5W 2 GM/50 ML ML IVPB SCH ×2 (01:26→12:28)
[2020-03-25 07:47] LABS: HEMATOCRIT 33.5 % (35.4-49); HEMOGLOBIN 10.8 GM/dL (11.7-16.9); MCH 30.9 pg (25.7-33.7); MCHC 32.1 g/dl (32.0-35.9); MEAN PLT VOLUME 7.4 fl (7.5-11.1); PLATELET COUNT 287 K/MM3 (134-434); RBC 3.48 M/mm3 (4.00-5.60); RDW 15.3 % (11.9-15.9); WHITE BLOOD COUNT 11.6 K/mm3 (4.0-10.0)
[2020-03-25 08:01] LABS: BLOOD UREA NITROGEN 22.9 mg/dL (7-18); CALCIUM 8.8 mg/dL (8.5-10.1); CREATININE 0.9 mg/dL (0.55-1.3); MAGNESIUM 2.2 mg/dL (1.8-2.4); PHOSPHOROUS 3.5 mg/dL (2.5-4.9); POTASSIUM 3.8 mmol/L (3.5-5.1)
[2020-03-25] MEDS ORDERED: ceFAZolin SODIUM 1 GM VIAL IM SCH (10:00)
[2020-03-25] MEDS ORDERED: METOPROLOL TARTRATE 50 MG TABLET (FP) PO SCH (10:00)
[2020-03-25] MEDS ORDERED: PANTOPRAZOLE 40 MG TABLET PO SCH (10:00)
[2020-03-25] MEDS ORDERED: FUROSEMIDE 40 MG TABLET (FP) PO SCH (10:00)
[2020-03-25] MEDS ORDERED: predniSONE 10 MG TABLET (UD) PO SCH (10:00)
[2020-03-25] MEDS ORDERED: MULTIVITAMINS (DAILY MVI) TABLET (FP) PO SCH (10:00)
[2020-03-25] MEDS ORDERED: LOSARTAN POTASSIUM 50 MG TABLET (FP) PO SCH (10:00)
[2020-03-25] MEDS ORDERED: TIOTROPIUM BROMIDE 2.5 MCG (SPIRIVA) RESPIMAT INHALER IH SCH (10:00)
[2020-03-25] MEDS ORDERED: amLODIPine BESYLATE 5 MG TABLET (FP) PO SCH (10:00)
[2020-03-25] MEDS ORDERED: VANCOMYCIN 1 GM in D5W (PRE-DOCKED) 1,000 MG/250 ML IVPB SCH ×2 (10:00→15:00)
[2020-03-25] MEDS ORDERED: PT OWN MED DRAWER 7, Y5N ONE ×2 (10:10→17:05)
[2020-03-25] MEDS ORDERED: predniSONE 20 MG TABLET (UD) PO SCH (10:42)
[2020-03-25] MEDS: ASCORBIC ACID 500 MG TABLET (FP) PO SCH ×2 (10:55→22:28)
[2020-03-25] MEDS: INSULIN SLIDING SCALE (NOVOLOG) 1 VIAL SQ SCH ×2 (11:13→16:43)
--- NOTE | 2020-03-25 12:59 | PN ---
Progress Note (short form) - Note Progress Note: ID CONSULT DICTATED S/P DEHISCENCE L TKR WOUND FOR WASHOUT/REVISION IN OR OBTAIN BC, WOUND C/S EMPIRIC VANCOMYCIN/ CEFEPIME
[2020-03-25] MEDS: CEFEPIME 2 GM in DEXTROSE 5%-WATER 100 ML IVPB SCH ×2 (13:31→17:10)
--- NOTE | 2020-03-25 14:07 | CONS ---
INFECTIOUS DISEASE CONSULTATION DATE OF CONSULTATION: DATE OF DICTATION: 03/25/2020 HISTORY: The patient is a 64-year-old male with a history of rheumatoid arthritis on mycophenolate and prednisone who is evaluated for probable infected left total knee replacement. The patient underwent an elective left total knee replacement on March 13, 2020. He did well postoperatively. Yesterday while attempting to step up he fell on his knee resulting in complete dehiscence of his surgical wound. He presented to the emergency room where he was evaluated. He was noted to have complete dehiscence of the surgical wound with exposed prosthesis. There were copious amounts of blood. A washout was performed and the wound was packed with Betadine. He was empirically treated with vancomycin and cefazolin. He is scheduled to return to the operating room today for a washout of the joint as well as revision. At the present time he has no complaints of pain. He denies any associated fever or chills. He has a mildly elevated white blood cell count. The patient has a history of rheumatoid arthritis and has been on mycophenolate and prednisone. Most recently he was told to stop the mycophenolate and increase the dose of his prednisone. He denies prior history of serious soft tissue infection requiring hospitalization or history of multidrug-resistant pathogens. He has had a history of chronic lower extremity wound for which he was followed in the wound care center. A wound culture from October 2019 was positive for proteus and Staph aureus. The proteus species was sensitive to ceftazidime. PAST MEDICAL HISTORY: Positive for rheumatoid arthritis, hypertension, hyperlipidemia, COPD, diabetes mellitus, osteoarthritis. PAST SURGICAL HISTORY: Status post lumbar laminectomy, right total knee replacement and recently left total knee replacement. ALLERGIES: To SULFA, reports swelling of the lower extremities. MEDICATIONS: Include vancomycin, cefazolin, Norvasc, Lipitor, Cozaar, Lopressor, Lasix, Protonix, NovoLog. SOCIAL HISTORY: He resides in the community with his significant other. He is a former smoker. Occasional EtOH. SYSTEMS REVIEW: Neurologic: No loss of consciousness, seizure activity, focal weakness. Cardiac: Negative chest pain or palpitations. Respiratory: Negative cough or sputum production. Gastrointestinal: Negative vomiting or diarrhea. Genitourinary: Negative for urinary tract infection. LABORATORY DATA: White count 11.6, hematocrit 33.5, platelets 287, creatinine 0.9. COVID-19 pending. PHYSICAL EXAMINATION: General: He is awake. He is in no acute distress in bed. Vital Signs: Temperature 98.6, blood pressure 127/59, pulse 62 regular, respirations 20 per minute. HEENT: Sclerae are anicteric. Heart: Sounds S1, S2. Lungs: Clear. Abdomen: Obese, soft, nontender. Extremities: Examination of the left lower extremity there is complete dehiscence of the left total knee replacement wound anterior to the patella region. There is granulation tissue and small amount of oozing of blood. There is no gross purulence or foul odor. There are some ecchymotic changes surrounding the wound, however, no erythema or warmth. IMPRESSION: 1. Status post wound dehiscence left total knee replacement wound. 2. History of rheumatoid arthritis on immunosuppressive therapy. 3. Diabetes mellitus. 4. Leukocytosis. 5. SULFA ALLERGY. Patient for wash out and revision of surgical wound in the OR this afternoon. Obtain blood cultures, wound culture. Empiric antibiotic coverage with vancomycin and cefepime pending culture results. Will require a PICC line and long-term IV antibiotic therapy postoperatively. Thank you for the kind referral. DARIEN BOLIVAR M.D. [id number]
[2020-03-25] MEDS ORDERED: VANCOMYCIN 1 GRAM (PRE-DOCKED) 1,000 MG/250 ML BAG IVPB SCH (15:00)
--- NOTE | 2020-03-25 18:17 | PN ---
Physical Exam: SUBJECTIVE: Patient seen and examined. denies any leg pain, denies malaise. OBJECTIVE: Patient is a 64 year old male with a past medical history of HTN, COPD, HLD, RA, left TKR (POD #12 - Dr. Tavo Bowie) presents to ED on 03/24/2020 after he accidentally fell during physical therapy. Witnessed fall. No LOC. Taking his ASA 325 daily as instructed since getting dc'd from [facility] s/p surgery. labs covid 19 pending imaging: knee xray 03/24: left knee replacement, in satisfactory alignment with soft tissue swelling Period Temp Pulse Resp BP Sys/Luz Pulse Ox Last 24 Hr 98.2 F-98.9 F 56-62 18-20 107-150/57-67 91-99 GENERAL: Awake, alert, and fully oriented, in no acute distress. HEAD: Normal with no signs of trauma. EYES: Pupils equal, round and reactive to light, extraocular movements intact, sclera anicteric, conjunctiva clear. No lid lag. EARS, NOSE, THROAT: Ears normal, nares patent, oropharynx clear without exudates. NECK: Normal range of motion, supple without lymphadenopathy, JVD, or masses. LUNGS: Breath sounds equal, clear to auscultation bilaterally. HEART: Regular rate and rhythm, normal S1 and S2 without murmur, rub or gallop. ABDOMEN: Soft, nontender, not distended, normoactive bowel sounds MUSCULOSKELETAL: Normal range of motion at all joints. UPPER EXTREMITIES:No cyanosis. No clubbing. No peripheral edema. LOWER EXTREMITIES: L lower extremity wrapped and in bandage Laboratory Results - last 24 hr 03/25/20 03/25/20 03/25/20 05:54 07:11 07:11 WBC 11.6 H RBC 3.48 L Hgb 10.8 L Hct 33.5 L MCV 96.0 MCH 30.9 MCHC 32.1 RDW 15.3 Plt Count 287 MPV 7.4 L Sodium 141 Potassium 3.8 Chloride 106 Carbon Dioxide 27 Anion Gap 8 BUN 22.9 H Creatinine 0.9 Est GFR (CKD-EPI)AfAm 103.51 Est GFR (CKD-EPI)NonAf 89.31 POC Glucometer 80 Random Glucose 89 Calcium 8.8 Phosphorus 3.5 Magnesium 2.2 Blood Type Antibody Screen 03/25/20 03/25/2003/25/20 11:07 11:12 13:01 WBC RBC Hgb Hct MCV MCH MCHC RDW Plt Count MPV Sodium Potassium Chloride Carbon Dioxide Anion Gap BUN Creatinine Est GFR (CKD-EPI)AfAm Est GFR (CKD-EPI)NonAf POC Glucometer 188 146 Random Glucose Calcium Phosphorus Magnesium Blood Type A POSITIVE Antibody Screen Negative 03/25/20 16:36 WBC RBC Hgb Hct MCV MCH MCHC RDW Plt Count MPV Sodium Potassium Chloride Carbon Dioxide Anion Gap BUN Creatinine Est GFR (CKD-EPI)AfAm Est GFR (CKD-EPI)NonAf POC Glucometer 146 Random Glucose Calcium Phosphorus Magnesium Blood Type Antibody Screen Active Medications Generic Name Dose Route Start Last Admin Trade Name Freq PRN Reason Stop Dose Admin Amlodipine Besylate 5 mg 03/25/20 10:00 03/25/20 10:55 Norvasc - PO 5 mg DAILY GO Administration Ascorbic Acid 500 mg 03/24/20 22:00 03/25/20 10:55 Vitamin C - PO 500 mg BID GO Administration Atorvastatin Calcium 20 mg 03/24/20 22:00 03/24/20 22:35 Lipitor - PO 20 mg HS GO Administration Furosemide 40 mg 03/25/20 10:00 03/25/20 10:55 Lasix - PO 40 mg DAILY GO Administration Cefepime HCl 2 gm/ Dextrose 100 mls @ 100 mls/hr 03/25/20 13:00 03/25/20 17:10 IVPB 100 mls/hr Q8H-IV GO Administration Protocol Vancomycin HCl 1,000 mg in 250 mls @ 166.667 mls/hr 03/25/20 15:00 03/25/20 15:27 Vancomycin (Pre-Docked) IVPB 166.667 mls/hr 0300,1500 GO Administration Protocol Insulin Aspart 1 vial 03/25/20 11:00 03/25/20 16:43 Novolog Vial Sliding Scale - SQ Not Given TIDAC GO Protocol Losartan Potassium 50 mg 03/25/20 10:00 03/25/20 10:56 Cozaar - PO 50 mg DAILY GO Administration Metoprolol Tartrate 100 mg 03/25/20 10:00 03/25/20 10:55 Lopressor - PO 100 mg DAILY GO Administration Multivitamins/Minerals/Vitamin C 1 tab 03/25/20 10:00 03/25/20 10:55 Tab-A-Vit - PO 1 tab DAILY GO Administration Pantoprazole Sodium 40 mg 03/25/20 10:00 03/25/20 10:55 Protonix - PO 40 mg DAILY GO Administration Prednisone 20 mg 03/25/20 10:42 Deltasone - PO DAILY GO Tiotropium [place] 2 puff 03/25/20 10:00 03/25/20 12:28 Spiriva Respimat IH 2 puff DAILY GO Administration ASSESSMENT/PLAN: Problem List - Problems (1) Postoperative wound dehiscence Assessment/Plan: for surgical repair wound was washout in the ED on cefepime/vanco per ID Code(s): T81.31XA - DISRUPTION OF EXTERNAL OPERATION (SURGICAL) WOUND, NEC, INIT Qualifiers: Encounter type: initial encounter Qualified Code(s): T81.31XA - Disruption of external operation (surgical) wound, not elsewhere classified, initial encounter (2) COPD (chronic obstructive pulmonary disease) Assessment/Plan: has home bipap. not in acute exacerbation of COPD Code(s): J44.9 - CHRONIC OBSTRUCTIVE PULMONARY DISEASE, UNSPECIFIED (3) HTN (hypertension) Assessment/Plan: controlled on lopressor 100mg daily, lasix 40mg daily, cozaar 50mg daily, norvasct 5mg daily Code(s): I10 - ESSENTIAL (PRIMARY) HYPERTENSION (4) Diabetes Assessment/Plan: on novolog based on sliding scale Code(s): E11.9 - TYPE 2 DIABETES MELLITUS WITHOUT COMPLICATIONS (5) DVT prophylaxis Assessment/Plan: chemical prophylaxis on hold. SCDs ordered Code(s): Z29.9 - ENCOUNTER FOR PROPHYLACTIC MEASURES, UNSPECIFIED Visit type - Emergency Visit Emergency Visit: Yes ED Registration Date: 03/24/20 Care time: The patient presented to the Emergency Department on the above date and was hospitalized for further evaluation of their emergent condition. - New Patient This patient is new to me today: Yes Date on this admission: 03/25/20 - Critical Care Critical Care patient: No - Discharge Referral Referred to [facility] Med P.C.: No
[2020-03-25] MEDS ORDERED: MIDAZOLAM HCL 2 MG/2 ML SINGLE DOSE VIAL ONE (18:22)
[2020-03-25] MEDS ORDERED: VANCOMYCIN 1,000 MG VIAL (RESTRICTED TO ID ONLY) ONE (18:52)
[2020-03-25] MEDS ORDERED: ceFAZolin SODIUM 1 GM VIAL ONE (19:06)
[2020-03-25] MEDS ORDERED: BACITRACIN 50,000 UNITS VIAL NR ONE ×2 (20:10→20:56)
[2020-03-25] MEDS ORDERED: ceFAZolin SODIUM 1 GM VIAL IVPB ONE ×3 (20:30→21:01)
[2020-03-25] MEDS ORDERED: VANCOMYCIN 1,000 MG VIAL (RESTRICTED TO ID ONLY) IVPB ONE (20:40)
[2020-03-25] MEDS: ATORVASTATIN CA 20 MG TABLET (FP) PO SCH (22:27)
--- NOTE | 2020-03-25 22:29 | OP ---
Operative Note - Note: Operative Date: 03/25/20 Pre-Operative Diagnosis: Left TKA wound dehiscence Operation: Left TKA I&D, poly exchange, quad tendon repair Post-Operative Diagnosis: Other (Left TKA wound dehiscence, quad tendon rupture) Surgeon: Tavo Bowie [employer] Inspector: Criselda Landa Anesthesia: Spinal Estimated Blood Loss (mls): 150
[2020-03-25] MEDS ORDERED: ACETAMINOPHEN 1000 MG/100 ML VIAL (NON FORMULARY) IVPB ONE ×2 (22:32→22:52)
[2020-03-25] MEDS ORDERED: oxyCODONE HCL 5 MG TABLET PO PRN ×2 (22:35)
[2020-03-25] MEDS ORDERED: MAGNESIUM HYDROX 2400MG/30ML ORAL SUSPENSION 30 ML CUP PO PRN (22:36)
[2020-03-25] MEDS ORDERED: MAG HYDROX/AL HYDROX/SIMETH 30 ML UNIT-DOSE CUP PO PRN (22:36)
[2020-03-25] MEDS ORDERED: ONDANSETRON 4 MG/2 ML VIAL IVPUSH PRN (22:36)
[2020-03-25] MEDS ORDERED: ACETAMINOPHEN INJECTION 100 ML IVPB ONE (22:41)
[2020-03-25] MEDS ORDERED: LACTATED RINGERS SOLUTION 1,000 ML IV SCH (22:45)
[2020-03-26] MEDS: traMADol HCL 50 MG TABLET PO SCH ×5 (00:22→23:18)
[2020-03-26] MEDS ORDERED: PT OWN MED DRAWER 7, Y5N ONE ×3 (00:28→17:31)
[2020-03-26] MEDS: CEFEPIME 2 GM in DEXTROSE 5%-WATER 100 ML IVPB SCH ×3 (01:25→17:43)
[2020-03-26] MEDS: VANCOMYCIN 1 GRAM (PRE-DOCKED) 1,000 MG/250 ML BAG IVPB SCH ×2 (02:23→15:51)
[2020-03-26] MEDS ORDERED: VANCOMYCIN 1 GRAM (PRE-DOCKED) 1,000 MG/250 ML BAG IVPB SCH (03:00)
[2020-03-26] MEDS: ACETAMINOPHEN 325 MG TABLET (FP) PO SCH ×4 (05:48→23:19)
[2020-03-26] MEDS: INSULIN SLIDING SCALE (NOVOLOG) 1 VIAL SQ SCH ×4 (06:17→17:45)
[2020-03-26 07:56] LABS: BASO % 0.4 % (0-2.0); EOS % 0.8 % (0-4.5); HEMATOCRIT 32.7 % (35.4-49); HEMOGLOBIN 10.4 GM/dL (11.7-16.9); LYMPH % 8.4 % (8-40); MCH 30.2 pg (25.7-33.7); MEAN CELL VOLUME 94.6 fl (80-96); MEAN PLT VOLUME 7.3 fl (7.5-11.1); MONO % 10.1 % (3.8-10.2); NEUT % 80.3 % (42.8-82.8); PLATELET COUNT 290 K/MM3 (134-434); RBC 3.45 M/mm3 (4.00-5.60); RDW 15.1 % (11.9-15.9); WHITE BLOOD COUNT 15.5 K/mm3 (4.0-10.0)
[2020-03-26 08:17] LABS: BILIRUBIN,TOTAL 1.1 mg/dL (0.2-1); CALCIUM 8.3 mg/dL (8.5-10.1); CREATININE 0.8 mg/dL (0.55-1.3); POTASSIUM 3.7 mmol/L (3.5-5.1); TOT PROT 6.1 g/dl (6.4-8.2)
--- NOTE | 2020-03-26 09:09 | PROC ---
Procedure Note Procedure: thesia post op note POD#1. S/P Left TKA I&D, poly exchange, quad tendon repair under spinal anesthesia. VSS. Normal sensory and motor function post spinal anesthesia. Pain well controlled. score 4/10. No apparent post anesthesia complications.
[2020-03-26] MEDS: amLODIPine BESYLATE 5 MG TABLET (FP) PO SCH (09:20)
[2020-03-26] MEDS: PANTOPRAZOLE 40 MG TABLET PO SCH (09:20)
[2020-03-26] MEDS: APIXABAN 2.5 MG TABLET PO SCH ×2 (09:20→21:17)
[2020-03-26] MEDS: METOPROLOL TARTRATE 50 MG TABLET (FP) PO SCH (09:20)
[2020-03-26] MEDS: predniSONE 20 MG TABLET (UD) PO SCH (09:20)
[2020-03-26] MEDS: FUROSEMIDE 40 MG TABLET (FP) PO SCH (09:20)
[2020-03-26] MEDS: oxyCODONE HCL 10 MG SUSTAINED ACTING TABLET PO SCH ×2 (09:21→21:17)
[2020-03-26] MEDS: ASCORBIC ACID 500 MG TABLET (FP) PO SCH ×2 (09:21→21:17)
[2020-03-26] MEDS: LOSARTAN POTASSIUM 50 MG TABLET (FP) PO SCH (09:22)
[2020-03-26] MEDS: SENNOSIDES/DOCUSATE COMBO (SENNA PLUS) TABLET (UD) PO SCH ×2 (09:23→21:17)
[2020-03-26] MEDS: TIOTROPIUM BROMIDE 2.5 MCG (SPIRIVA) RESPIMAT INHALER IH SCH (10:48)
[2020-03-26] MEDS: MULTIVITAMINS (DAILY MVI) TABLET (FP) PO SCH (10:48)
[2020-03-26] MEDS ORDERED: INSULIN (NOVOLOG) ASPART 100 UNITS/ML 10ML VIAL ONE (12:01)
--- NOTE | 2020-03-26 14:23 | PN ---
Progress Note (short form) - Note Progress Note: ORTHOPAEDIC SURGERY POD #1 s/p Left TKA I&D, poly exchange, quad tendon repair No acute events per RN notes. Alert. Sitting in chair with legs in extension. Wearing his knee immobilizer as instructed. States he was OOB and ambulated with walker assist. Voiding spontaneously. C/o incisional tenderness. Adequate pain control with medications ordered. Denies n/v/f/c, CP, palpitations, numbness/tingling Last Vital Signs Temp Pulse Resp BP Pulse Ox 98.1 F 72 18 125/62 97 03/26/20 10:00 03/26/20 10:00 03/26/20 10:00 03/26/20 10:00 03/26/20 09:00 CBC, BMP 03/26/20 06:30 03/26/20 06:30 Serology TestGE 03/24/20 15:20 COVID-19 (TAMMY) Pending GEN: alert. nad LLE: surgical dressing c/d/i (didn't take down as it's less than 24hrs old). No calf pain. Foot is warm. Palpable DP. Dorsi flex/Plantar Exten intact A/P: 64 yo male who recently had Left TKR 03/13/20. Sustained a complete wound dehis with quad tendon rupture while at PT. Now POD #1 s/p Left TKA I&D, poly exchange, quad tendon repair -Wear your knee immobilizer at all times -No bending of knee for 6 weeks -PT--partial weight bearing -Eliquid BID x35 days -Pain management -ID following -- Cefepime & Vanco -Sodium controlled diet -Tight glycemic control Above plan discussed with Dr. Bowie and agrees. Problem List - Problems (1) Postoperative wound dehiscence Code(s): T81.31XA - DISRUPTION OF EXTERNAL OPERATION (SURGICAL) WOUND, NEC, INIT Qualifiers: Encounter type: initial encounter Qualified Code(s): T81.31XA - Disruption of external operation (surgical) wound, not elsewhere classified, initial encounter (2) Diabetes Code(s): E11.9 - TYPE 2 DIABETES MELLITUS WITHOUT COMPLICATIONS (3) COPD (chronic obstructive pulmonary disease) Code(s): J44.9 - CHRONIC OBSTRUCTIVE PULMONARY DISEASE, UNSPECIFIED (4) HTN (hypertension) Code(s): I10 - ESSENTIAL (PRIMARY) HYPERTENSION
--- NOTE | 2020-03-26 17:35 | PN ---
Physical Exam: SUBJECTIVE: Patient seen and examined. denies any leg pain, denies malaise. OBJECTIVE: Patient is a 64 year old male with a past medical history of HTN, COPD, HLD, RA, left TKR (POD #12 - Dr. Tavo Bowie) presents to ED on 03/24/2020 after he accidentally fell during physical therapy. Witnessed fall. No LOC. Taking his ASA 325 daily as instructed since getting dc'd from [facility] s/p surgery. labs: covid 19 pending imaging: knee xray 03/24: left knee replacement, in satisfactory alignment with soft tissue swelling ---- POD #1 s/p Left TKA I&D, poly exchange, quad tendon repair Vital Signs Period Temp Pulse Resp BP Sys/Luz Pulse Ox Last 24 Hr 97.9 F-99.1 F 51-72 10-20 99-125/46-62 96-100 GENERAL: Awake, alert, and fully oriented, in no acute distress. HEAD: Normal with no signs of trauma. EYES: Pupils equal, round and reactive to light, extraocular movements intact, sclera anicteric, conjunctiva clear. No lid lag. EARS, NOSE, THROAT: Ears normal, nares patent, oropharynx clear without exudates. NECK: Normal range of motion, supple without lymphadenopathy, JVD, or masses. LUNGS: Breath sounds equal, clear to auscultation bilaterally. HEART: Regular rate and rhythm, normal S1 and S2 without murmur, rub or gallop. ABDOMEN: Soft, nontender, not distended, normoactive bowel sounds MUSCULOSKELETAL: Normal range of motion at all joints. UPPER EXTREMITIES:No cyanosis. No clubbing. No peripheral edema. LOWER EXTREMITIES: L lower extremity soft cast Laboratory Results - last 24 hr 03/26/20 03/26/20 03/26/20 05:52 06:30 06:30 WBC 15.5 H RBC 3.45 L Hgb 10.4 L Hct 32.7 L MCV 94.6 MCH 30.2 MCHC 32.0 RDW 15.1 Plt Count 290 MPV 7.3 L Absolute Neuts (auto) 12.5 H Neutrophils % 80.3 Lymphocytes % 8.4 Monocytes % 10.1 D Eosinophils % 0.8 D Basophils % 0.4 Nucleated RBC % 0 Sodium 138 Potassium 3.7 Chloride 103 Carbon Dioxide 28 Anion Gap 8 BUN 19.0 H Creatinine 0.8 Est GFR (CKD-EPI)AfAm 108.65 Est GFR (CKD-EPI)NonAf 93.74 POC Glucometer 142 Random Glucose 123 H Calcium 8.3 L Magnesium 2.0 Total Bilirubin 1.1 H AST 17 ALT 14 Alkaline Phosphatase 43 L Total Protein 6.1 L Albumin 3.0 L 03/26/20 11:36 WBC RBC Hgb Hct MCV MCH MCHC RDW Plt Count MPV Absolute Neuts (auto) Neutrophils % Lymphocytes % Monocytes % Eosinophils % Basophils % Nucleated RBC % Sodium Potassium Chloride Carbon Dioxide Anion Gap BUN Creatinine Est GFR (CKD-EPI)AfAm Est GFR (CKD-EPI)NonAf POC Glucometer 183 Random Glucose Calcium Magnesium Total Bilirubin AST ALT Alkaline Phosphatase Total Protein Albumin Active Medications Generic Name Dose Route Start Last Admin Trade Name Freq PRN Reason Stop Dose Admin Acetaminophen 650 mg 03/26/20 06:00 03/26/20 12:08 Tylenol - PO 03/29/20 05:59 650 mg Q6HPO GO Administration Al Hydroxide/Mg Hydroxide 30 ml 03/25/20 22:36 Mylanta Oral Suspension - PO Q4H PRN DYSPEPSIA Amlodipine Besylate 5 mg 03/26/20 10:00 03/26/20 09:20 Norvasc - PO 5 mg DAILY GO Administration Apixaban 2.5 mg 03/26/20 10:00 03/26/20 09:20 Eliquis - PO 2.5 mg BID GO Administration Ascorbic Acid 500 mg 03/26/20 10:00 03/26/20 09:21 Vitamin C - PO 500 mg BID GO Administration Atorvastatin Calcium 20 mg 03/26/20 22:00 Lipitor - PO HS GO Fentanyl 25 mcg 03/25/20 23:04 Sublimaze Injection - IVPUSH [id number] PRN PAIN-PACU ORDER X 4 DOSES ONLY Furosemide 40 mg 03/26/20 10:00 03/26/20 09:20 Lasix - PO 40 mg DAILY GO Administration Cefepime HCl 2 gm/ Dextrose 100 mls @ 100 mls/hr 03/26/20 02:00 03/26/20 10:49 IVPB 100 mls/hr Q8H-IV GO Administration Protocol Vancomycin HCl 1,000 mg in 250 mls @ 166.667 mls/hr 03/26/20 03:00 03/26/20 15:51 Vancomycin (Pre-Docked) IVPB 166.667 mls/hr 0300,1500 [facility] Administration Protocol Insulin Aspart 1 vial 03/26/20 07:00 03/26/20 12:05 Novolog Vial Sliding Scale - SQ 2 units TIDAC [facility] Administration Protocol Losartan Potassium 50 mg 03/26/20 10:00 03/26/20 09:22 Cozaar - PO 50 mg DAILY GO Administration Magnesium Hydroxide 30 ml 03/25/20 22:36 Milk Of Magnesia - PO PRN PRN CONSTIPATION Metoprolol Tartrate 100 mg 03/26/20 10:00 03/26/20 09:20 Lopressor - PO 100 mg DAILY [facility] Administration Multivitamins/Minerals/Vitamin C 1 tab 03/26/20 10:00 03/26/20 10:48 Tab-A-Vit - PO 1 tab DAILY [facility] Administration Ondansetron HCl 4 mg 03/25/20 22:36 Zofran Injection IVPUSH Q6H PRN NAUSEA Oxycodone HCl 10 mg 03/26/20 10:00 03/26/20 09:21 Oxycontin - PO 10 mg BID GO Administration Oxycodone HCl 5 mg 03/25/20 22:35 Roxicodone - PO 03/28/20 22:35 Q3H PRN PAIN LEVEL 1-5 Oxycodone HCl 10 mg 03/25/20 22:35 03/26/20 05:10 Roxicodone - PO 03/28/20 22:35 10 mg Q3H PRN Administration PAIN LEVEL 6-10 Pantoprazole Sodium 40 mg 03/26/20 10:00 03/26/20 09:20 Protonix - PO 40 mg DAILY GO Administration Prednisone 20 mg 03/26/20 10:00 03/26/20 09:20 Deltasone - PO 20 mg DAILY [facility] Administration Senna/Docusate Sodium 2 tablet 03/26/20 10:00 03/26/20 09:23 Pericolace - PO 2 tablet BID [facility] Administration Tiotropium [place] 2 puff 03/26/20 10:00 03/26/20 10:48 Spiriva Respimat IH 2 puff DAILY [facility] Administration Tramadol HCl 50 mg 03/26/20 00:00 03/26/20 12:07 Ultram - PO 50 mg Q6HPO GO Administration ASSESSMENT/PLAN: Problem List - Problems (1) Postoperative wound dehiscence Assessment/Plan: POD #1 s/p Left TKA I&D, poly exchange, quad tendon repair on cefepime/vanco per ID on left knee immobilizer - to be kept on at all times No bending of knee for 6 weeks Eliquis 2.5 BID x 35 days Code(s): T81.31XA - DISRUPTION OF EXTERNAL OPERATION (SURGICAL) WOUND, NEC, INIT Qualifiers: Encounter type: initial encounter Qualified Code(s): T81.31XA - Disruption of external operation (surgical) wound, not elsewhere classified, initial encounter (2) COPD (chronic obstructive pulmonary disease) Assessment/Plan: has home bipap. not in acute exacerbation of COPD Code(s): J44.9 - CHRONIC OBSTRUCTIVE PULMONARY DISEASE, UNSPECIFIED (3) HTN (hypertension) Assessment/Plan: controlled on lopressor 100mg daily, lasix 40mg daily, cozaar 50mg daily, norvasct 5mg daily Code(s): I10 - ESSENTIAL (PRIMARY) HYPERTENSION (4) Diabetes Assessment/Plan: on novolog based on sliding scale Code(s): E11.9 - TYPE 2 DIABETES MELLITUS WITHOUT COMPLICATIONS (5) DVT prophylaxis Assessment/Plan: on eliquis bid Code(s): Z29.9 - ENCOUNTER FOR PROPHYLACTIC MEASURES, UNSPECIFIED Visit type - Emergency Visit Emergency Visit: Yes ED Registration Date: 03/24/20 Care time: The patient presented to the Emergency Department on the above date and was hospitalized for further evaluation of their emergent condition. - New Patient This patient is new to me today: No - Critical Care Critical Care patient: No - Discharge Referral Referred to [facility] Med P.C.: No
[2020-03-26] MEDS: ATORVASTATIN CA 20 MG TABLET (FP) PO SCH (21:17)
--- NOTE | 2020-03-26 23:58 | PN ---
Progress Note (short form) - Note Progress Note: Pt seen and examined. Doing well. Pain well controlled. Knee immobilizer in place. Was able to walk with PT. Afebrile Selected Entries 03/26/20 03/26/20 19:54 20:18 Temperature 98.4 F Pulse Rate 69 Respiratory 20 Rate Blood Pressure 128/55 L O2 Sat by Pulse 97 Oximetry (%) Oxygen Delivery Room Air Method Laboratory Tests 03/26/20 03/26/20 06:30 06:30 WBC 15.5 H Hgb 10.4 L Hct 32.7 L Plt Count 290 Sodium 138 Potassium 3.7 Chloride 103 Carbon Dioxide 28 Anion Gap 8 BUN 19.0 H Creatinine 0.8 Est GFR (CKD-EPI)AfAm 108.65 Est GFR (CKD-EPI)NonAf 93.74 Random Glucose 123 H Calcium 8.3 L Gen: NAD LLE: c/d/i, NVID A/P s/p I&D left TKA, poly exchange, quadriceps tendon repair Doing well. Ok to discharge home when medically stable. Ready for discharge from an orthopedic perspective. Abx per ID Will need short term home PT after discharge. Must wear knee immobilizer at all times - keep on until seen in office by me in 2 weeks. Does not need to change Aquacel dressing. Eliquis 2.5mg PO BID x 35 days total postop for DVT ppx Partial weightbearing. Always use walker. MUST NOT BEND KNEE FOR 6 WEEKS TO ALLOW QUADRICEPS TENDON REPAIR TO HEAL PROPERLY. PLAN DISCUSSED WITH PT AND HIS . F/U in office in 2 weeks - pt will call and make appt.
--- NOTE | 2020-03-27 00:55 | OP ---
DATE OF OPERATION: 03/25/2020 PREOPERATIVE DIAGNOSIS: Left total knee replacement wound dehiscence. POSTOPERATIVE DIAGNOSIS: Left total knee replacement wound dehiscence and quadriceps tendon rupture. PROCEDURE: Left total knee replacement irrigation and debridement, polyethylene exchange, quadriceps tendon repair. ATTENDING: Everardo Luciano MD. WELL SHOOTER: ROBERTA Aguilar. ANESTHESIA: Spinal plus sedation. ESTIMATED BLOOD LOSS: 150 mL. COMPLICATIONS: None. DISPOSITION: The patient was awakened and taken to the PACU in stable condition. IMPLANTS USED: [place] Triathlon TS 16-mm polyethylene component size 6. INDICATION: This is a 64-year-old male with a history of left knee osteoarthritis who underwent a left total knee replacement on March 13, 2020. He did well postoperatively and was discharged home with home physical therapy. On March 24, 2020, while performing physical therapy, he went upstairs with the weak leg and buckled with all his weight, causing the left knee to hyperflex beyond its stable range of motion leading to excessive tension at the incision site and dehiscence of the wound. The patient was taken by ambulance to [facility] where he was evaluated by a surgical PA, and the wound was irrigated and packed with Betadine soaked gauze. The plan was made for irrigation, debridement, likely polyethylene exchange, and all related procedures in the operating room. The risks, benefits, and alternatives to the procedure were explained to the patient in great detail, and he elected to proceed with the surgery. DESCRIPTION OF PROCEDURE: On the day of surgery, the patient was taken to the operating room and placed on the OR table. Spinal anesthesia was administered by the anesthesiologist. The patient was positioned supine on the table, and all bony prominences were padded. The left lower extremity was then prepped and draped in the usual sterile fashion, and intravenous antibiotics were given for infection prophylaxis. A surgical timeout was then performed with the team, and the patient's identity, procedure, side, availability of implants, and the administration of antibiotics was confirmed. The knee incision was found to be completely open and further probing of the wound site showed that the quadriceps tendon had torn at its musculotendinous junction, leaving a triangular shaped segment which was still firmly attached to the superior pole of the patella. We were able to reflect this downward and examine the knee, which was found to be intact. There were no fractures visible, and this confirms what was seen on the preoperative admission x-ray. A lavage device was then used to irrigate the hematoma out of the wound using saline containing bacitracin. Once this was completed, an osteotome was used to remove the polyethylene component of the knee replacement so that we could clean the posterior aspect of the joint as well as the area of the tibial tray that was underneath the polyethylene component, because there was concern for infection due to the wound having been opened to the environment prior to arrival in the hospital. Once the polyethylene component was removed, we then removed all remnants of the previous sutures that were used to close the various layers of the arthrotomy and skin. From here, the wound was again thoroughly irrigated with normal saline and a 3-minute dilute Betadine soak was performed followed by another irrigation with saline containing bacitracin. Once this was completed, a new [place] total stabilized polyethylene component was placed, and the knee was placed into extension on a bump. From here, the quadriceps tendon and retinaculum was repaired. We found that there was a sizeable cuff of the tendon attached to the superior pole of the patella which was robust enough to hold sutures, and therefore we did not have to drill tunnels in the patella itself in order to pass sutures for reattachment. The superior fragment of the quadriceps tendon was attached under tension to the segment that was still attached to the patella itself using number 2 Fiberwire nonabsorbable braided suture. Multiple interrupted sutures were placed such that there was complete attachment of the quadriceps tendon to the entire proximal aspect of the quadriceps tendon stump. This repair was then oversewn with a V-Loc nonabsorbable barbed suture. Same V-Loc was then used to repair the medial and lateral retinacula until the entire soft tissue envelope had been reconstructed. Prior to final closure, the wound had again been irrigated with normal saline, this time containing 3 g Ancef in a 3-L bag. Overall there were 9 L of saline used to irrigate the knee via pulsatile lavage, 6 L containing bacitracin, and the final 3 L containing 1 g Ancef per liter of saline. Once the quadriceps tendon arthrotomy and retinaculum had been repaired, we moved on to skin closure. Number 1 Vicryl sutures were used in the subcutaneous tissues, 2-0 V-Loc 90 running barbed sutures were used in the superficial subcutaneous tissues. The skin was then closed using both skin felecia and Dermabond skin adhesive for additional closure strength and watertight seal. Once this was completed, a sterile Aquacel dressing and compressive Rory wrap was applied. At all times the knee was kept in full extension in order to minimize tension on the quadriceps tendon repair, and then a knee immobilizer in slight hyperextension was then placed on the left lower extremity, being careful not to bend the knee during its application. The patient was then awakened and taken to the PACU in stable condition. The postoperative plan for this patient as discussed with him and his will be to remain in full extension for 6 weeks to allow the quadriceps tendon to heal. He will be allowed to be partial weightbearing, but must use a walker for support and must not bend the knee for the entire 6 weeks. Following the 6 weeks, he will be placed into a hinged knee brace with increasing amounts of flexion until he has reached 90 degrees over the course of 6 weeks. From there, the brace will be discontinued, and he will resume physical therapy for strengthening and range of motion. He will require Eliquis 2.5 mg b.i.d. for 35 days for DVT prophylaxis because he will be in a knee mobilizer for that period of time. EVERARDO LUCIANO M.D. JOSE [id number]
[2020-03-27] MEDS ORDERED: PT OWN MED DRAWER 7, Y5N ONE ×3 (01:31→20:51)
[2020-03-27] MEDS: CEFEPIME 2 GM in DEXTROSE 5%-WATER 100 ML IVPB SCH ×3 (01:38→18:29)
[2020-03-27] MEDS: VANCOMYCIN 1 GRAM (PRE-DOCKED) 1,000 MG/250 ML BAG IVPB SCH ×2 (02:26→15:37)
[2020-03-27] MEDS: ACETAMINOPHEN 325 MG TABLET (FP) PO SCH ×4 (06:04→23:40)
[2020-03-27] MEDS: traMADol HCL 50 MG TABLET PO SCH ×4 (06:05→23:40)
[2020-03-27 08:12] LABS: BASO % 0.3 % (0-2.0); EOS % 0.5 % (0-4.5); HEMATOCRIT 31.3 % (35.4-49); HEMOGLOBIN 10.3 GM/dL (11.7-16.9); MCH 31.4 pg (25.7-33.7); MEAN CELL VOLUME 95.1 fl (80-96); MEAN PLT VOLUME 7.5 fl (7.5-11.1); NEUT % 78.2 % (42.8-82.8); PLATELET COUNT 267 K/MM3 (134-434); RBC 3.29 M/mm3 (4.00-5.60); RDW 15.1 % (11.9-15.9); WHITE BLOOD COUNT 14.2 K/mm3 (4.0-10.0)
[2020-03-27 08:43] LABS: ALBUMIN 2.8 g/dl (3.4-5.0); BLOOD UREA NITROGEN 18.5 mg/dL (7-18); CALCIUM 8.4 mg/dL (8.5-10.1); CREATININE 0.9 mg/dL (0.55-1.3); MAGNESIUM 2.5 mg/dL (1.8-2.4); TOT PROT 6.2 g/dl (6.4-8.2)
[2020-03-27] MEDS: amLODIPine BESYLATE 5 MG TABLET (FP) PO SCH (09:20)
[2020-03-27] MEDS: oxyCODONE HCL 10 MG SUSTAINED ACTING TABLET PO SCH ×2 (09:21→21:24)
[2020-03-27] MEDS: PANTOPRAZOLE 40 MG TABLET PO SCH (09:21)
[2020-03-27] MEDS: MULTIVITAMINS (DAILY MVI) TABLET (FP) PO SCH (09:21)
[2020-03-27] MEDS: APIXABAN 2.5 MG TABLET PO SCH ×2 (09:21→21:24)
[2020-03-27] MEDS: FUROSEMIDE 40 MG TABLET (FP) PO SCH (09:21)
[2020-03-27] MEDS: ASCORBIC ACID 500 MG TABLET (FP) PO SCH ×2 (09:22→21:24)
[2020-03-27] MEDS: METOPROLOL TARTRATE 50 MG TABLET (FP) PO SCH (09:22)
[2020-03-27] MEDS: predniSONE 20 MG TABLET (UD) PO SCH (09:22)
[2020-03-27] MEDS: POLYETHYLENE GLYCOL 3350 119 GM BTL PO SCH (09:23)
[2020-03-27] MEDS: SENNOSIDES/DOCUSATE COMBO (SENNA PLUS) TABLET (UD) PO SCH ×2 (09:23→21:24)
[2020-03-27] MEDS: LOSARTAN POTASSIUM 50 MG TABLET (FP) PO SCH (09:24)
[2020-03-27] MEDS: INSULIN SLIDING SCALE (NOVOLOG) 1 VIAL SQ SCH ×3 (11:25→17:54)
[2020-03-27] MEDS: TIOTROPIUM BROMIDE 2.5 MCG (SPIRIVA) RESPIMAT INHALER IH SCH (14:39)
--- NOTE | 2020-03-27 15:27 | PN ---
Progress Note, Physician History of Present Illness: POD#1 L TKR DEBRIDEMENT, IRRIGATION, QUADRACEPS TENDON REPAIR\ DRESSING IN PLACE NO C/O PAIN NO FEVER/ CHILLS - Current Medication List Current Medications: Active Medications Acetaminophen (Tylenol -) 650 mg PO Q6HPO [facility] Stop: 03/29/20 05:59 Last Admin: 03/27/20 12:08 Dose: 650 mg Documented by: Al Hydroxide/Mg Hydroxide (Mylanta Oral Suspension -) 30 ml PO Q4H PRN PRN Reason: DYSPEPSIA Amlodipine Besylate (Norvasc -) 5 mg PO DAILY [facility] Last Admin: 03/27/20 09:20 Dose: 5 mg Documented by: Apixaban (Eliquis -) 2.5 mg PO BID [facility] Last Admin: 03/27/20 09:21 Dose: 2.5 mg Documented by: Ascorbic Acid (Vitamin C -) 500 mg PO BID [facility] Last Admin: 03/27/20 09:22 Dose: 500 mg Documented by: Atorvastatin Calcium (Lipitor -) 20 mg PO HS [facility] Last Admin: 03/26/20 21:17 Dose: 20 mg Documented by: Fentanyl (Sublimaze Injection -) 25 mcg IVPUSH [id number] PRN PRN Reason: PAIN-PACU ORDER X 4 DOSES ONLY Furosemide (Lasix -) 40 mg PO DAILY [facility] Last Admin: 03/27/20 09:21 Dose: 40 mg Documented by: Cefepime HCl 2 gm/ Dextrose 100 mls @ 100 mls/hr IVPB Q8H-IV [facility]; Protocol Last Admin: 03/27/20 09:23 Dose: 100 mls/hr Documented by: Vancomycin HCl (Vancomycin (Pre-Docked)) 1,000 mg in 250 mls @ 166.667 mls/hr IVPB 0300,1500 [facility]; Protocol Last Admin: 03/27/20 02:26 Dose: 166.667 mls/hr Documented by: Insulin Aspart (Novolog Vial Sliding Scale -) 1 vial SQ TIDAC [facility]; Protocol Last Admin: 03/27/20 14:40 Dose: Not Given Documented by: Losartan Potassium (Cozaar -) 50 mg PO DAILY [facility] Last Admin: 03/27/20 09:24 Dose: 50 mg Documented by: Magnesium Hydroxide (Milk Of Magnesia -) 30 ml PO PRN PRN PRN Reason: CONSTIPATION Last Admin: 03/26/20 21:17 Dose: 30 ml Documented by: Metoprolol Tartrate (Lopressor -) 100 mg PO DAILY [facility] Last Admin: 03/27/20 09:22 Dose: 100 mg Documented by: Multivitamins/Minerals/Vitamin C (Tab-A-Vit -) 1 tab PO DAILY [facility] Last Admin: 03/27/20 09:21 Dose: 1 tab Documented by: Ondansetron HCl (Zofran Injection) 4 mg IVPUSH Q6H PRN PRN Reason: NAUSEA Oxycodone HCl (Oxycontin -) 10 mg PO BID [facility] Last Admin: 03/27/20 09:21 Dose: 10 mg Documented by: Oxycodone HCl (Roxicodone -) 5 mg PO Q3H PRN PRN Reason: PAIN LEVEL 1-5 Stop: 03/28/20 22:35 Oxycodone HCl (Roxicodone -) 10 mg PO Q3H PRN PRN Reason: PAIN LEVEL 6-10 Stop: 03/28/20 22:35 Last Admin: 03/26/20 05:10 Dose: 10 mg Documented by: Pantoprazole Sodium (Protonix -) 40 mg PO DAILY [facility] Last Admin: 03/27/20 09:21 Dose: 40 mg Documented by: Polyethylene Glycol (Miralax (For Daily Use) -) 17 gm PO DAILY [facility] Last Admin: 03/27/20 09:23 Dose: 17 gm Documented by: Prednisone (Deltasone -) 20 mg PO DAILY [facility] Last Admin: 03/27/20 09:22 Dose: 20 mg Documented by: Senna/Docusate Sodium (Pericolace -) 2 tablet PO BID [facility] Last Admin: 03/27/20 09:23 Dose: 2 tablet Documented by: Tiotropium [place] (Spiriva Respimat) 2 puff IH DAILY [facility] Last Admin: 03/27/20 14:39 Dose: Not Given Documented by: Tramadol HCl (Ultram -) 50 mg PO Q6HPO [facility] Last Admin: 03/27/20 12:07 Dose: 50 mg Documented by: - Objective Vital Signs: Vital Signs Temperature 97.9 F 03/27/20 14:00 Pulse Rate 60 03/27/20 14:00 Respiratory Rate 20 03/27/20 14:00 Blood Pressure 105/61 03/27/20 14:00 O2 Sat by Pulse Oximetry (%) 99 03/27/20 09:00 Constitutional: Yes: No Distress Cardiovascular: Yes: Regular Rate and Rhythm, S1, S2 Respiratory: Yes: CTA Bilaterally Gastrointestinal: Yes: Normal Bowel Sounds, Soft. No: Tenderness Extremities: Yes: Other (DRESSING IN PLACE) Labs: CBC, BMP 03/27/20 06:25 03/27/20 06:25 INR, PTT INR 1.00 (0.83-1.09) 03/24/20 14:50 Assessment/Plan S/P L TKR DEBRIDEMENT/ IRRIGATION QUADRACEPS TENDON REPAIR CONTINUE EMPIRIC VANCOMCYIN/ CEFEPIME
--- NOTE | 2020-03-27 16:30 | PN ---
Physical Exam: SUBJECTIVE: Patient seen and examined at the bedside. denies any pain. comfortably sitting in chair. left leg on pillows. OBJECTIVE: Patient is a 64 year old male with a past medical history of HTN, COPD, HLD, RA, left TKR (on 03/13/2020). Patient presents to ED on 03/24/2020 after he accidentally fell during physical therapy. Witnessed fall. No LOC. imaging: knee xray 03/24: left knee replacement, in satisfactory alignment with soft tissue swelling ---- Period Temp Pulse Resp BP Sys/Luz Pulse Ox Last 24 Hr 97.9 F-99.6 F 60-70 20-20 105-134/55-61 97-99 GENERAL: Awake, alert, and fully oriented, in no acute distress. HEAD: Normal with no signs of trauma. EYES: Pupils equal, round and reactive to light, extraocular movements intact, sclera anicteric, conjunctiva clear. No lid lag. EARS, NOSE, THROAT: Ears normal, nares patent, oropharynx clear without exudates. NECK: Normal range of motion, supple without lymphadenopathy LUNGS: Breath sounds equal, clear to auscultation bilaterally. HEART: Regular rate and rhythm, normal S1 and S2 without murmur, rub or gallop. ABDOMEN: Soft, nontender, not distended, normoactive bowel sounds MUSCULOSKELETAL: Normal range of motion at all joints. UPPER EXTREMITIES:No cyanosis. No clubbing. No peripheral edema. LOWER EXTREMITIES: L lower extremity immobilizer Laboratory Results - last 24 hr 03/24/20 03/26/20 03/27/20 15:20 17:42 06:25 WBC 14.2 H RBC 3.29 L Hgb 10.3 L Hct 31.3 L MCV 95.1 MCH 31.4 MCHC 33.0 RDW 15.1 Plt Count 267 MPV 7.5 Absolute Neuts (auto) 11.1 H Neutrophils % 78.2 Lymphocytes % 10.0 Monocytes % 11.0 H Eosinophils % 0.5 Basophils % 0.3 Nucleated RBC % 0 Sodium Potassium Chloride Carbon Dioxide Anion Gap BUN Creatinine Est GFR (CKD-EPI)AfAm Est GFR (CKD-EPI)NonAf POC Glucometer 182 Random Glucose Calcium Magnesium Total Bilirubin AST ALT Alkaline Phosphatase Total Protein Albumin COVID-19 (TAMMY) Not detected 03/27/20 03/27/20 06:25 12:06 WBC RBC Hgb Hct MCV MCH MCHC RDW Plt Count MPV Absolute Neuts (auto) Neutrophils % Lymphocytes % Monocytes % Eosinophils % Basophils % Nucleated RBC % Sodium 138 Potassium 4.0 Chloride 104 Carbon Dioxide 26 Anion Gap 9 BUN 18.5 H Creatinine 0.9 Est GFR (CKD-EPI)AfAm 103.51 Est GFR (CKD-EPI)NonAf 89.31 POC Glucometer 165 Random Glucose 119 H Calcium 8.4 L Magnesium 2.5 H Total Bilirubin 1.0 AST 21 ALT 15 Alkaline Phosphatase 39 L Total Protein 6.2 L Albumin 2.8 L COVID-19 (TAMMY) Active Medications Generic Name Dose Route Start Last Admin Trade Name Freq PRN Reason Stop Dose Admin Acetaminophen 650 mg 03/26/20 06:00 03/27/20 12:08 Tylenol - PO 03/29/20 05:59 650 mg Q6HPO GO Administration Al Hydroxide/Mg Hydroxide 30 ml 03/25/20 22:36 Mylanta Oral Suspension - PO Q4H PRN DYSPEPSIA Amlodipine Besylate 5 mg 03/26/20 10:00 03/27/20 09:20 Norvasc - PO 5 mg DAILY GO Administration Apixaban 2.5 mg 03/26/20 10:00 03/27/20 09:21 Eliquis - PO 2.5 mg BID GO Administration Ascorbic Acid 500 mg 03/26/20 10:00 03/27/20 09:22 Vitamin C - PO 500 mg BID GO Administration Atorvastatin Calcium 20 mg 03/26/20 22:00 03/26/20 21:17 Lipitor - PO 20 mg HS GO Administration Fentanyl 25 mcg 03/25/20 23:04 Sublimaze Injection - IVPUSH [id number] PRN PAIN-PACU ORDER X 4 DOSES ONLY Furosemide 40 mg 03/26/20 10:00 03/27/20 09:21 Lasix - PO 40 mg DAILY GO Administration Cefepime HCl 2 gm/ Dextrose 100 mls @ 100 mls/hr 03/26/20 02:00 03/27/20 09:23 IVPB 100 mls/hr Q8H-IV GO Administration Protocol Vancomycin HCl 1,000 mg in 250 mls @ 166.667 mls/hr 03/26/20 03:00 03/27/20 15:37 Vancomycin (Pre-Docked) IVPB 166.667 mls/hr 0300,1500 GO Administration Protocol Insulin Aspart 1 vial 03/26/20 07:00 03/27/20 14:40 Novolog Vial Sliding Scale - SQ Not Given TIDAC [facility] Protocol Losartan Potassium 50 mg 03/26/20 10:00 03/27/20 09:24 Cozaar - PO 50 mg DAILY GO Administration Magnesium Hydroxide 30 ml 03/25/20 22:36 03/26/20 21:17 Milk Of Magnesia - PO 30 ml PRN PRN Administration CONSTIPATION Metoprolol Tartrate 100 mg 03/26/20 10:00 03/27/20 09:22 Lopressor - PO 100 mg DAILY GO Administration Multivitamins/Minerals/Vitamin C 1 tab 03/26/20 10:00 03/27/20 09:21 Tab-A-Vit - PO 1 tab DAILY GO Administration Ondansetron HCl 4 mg 03/25/20 22:36 Zofran Injection IVPUSH Q6H PRN NAUSEA Oxycodone HCl 10 mg 03/26/20 10:00 03/27/20 09:21 Oxycontin - PO 10 mg BID GO Administration Oxycodone HCl 5 mg 03/25/20 22:35 Roxicodone - PO 03/28/20 22:35 Q3H PRN PAIN LEVEL 1-5 Oxycodone HCl 10 mg 03/25/20 22:35 03/26/20 05:10 Roxicodone - PO 03/28/20 22:35 10 mg Q3H PRN Administration PAIN LEVEL 6-10 Pantoprazole Sodium 40 mg 03/26/20 10:00 03/27/20 09:21 Protonix - PO 40 mg DAILY GO Administration Polyethylene Glycol 17 gm 03/27/20 10:00 03/27/20 09:23 Miralax (For Daily Use) - PO 17 gm DAILY GO Administration Prednisone 20 mg 03/26/20 10:00 03/27/20 09:22 Deltasone - PO 20 mg DAILY [facility] Administration Senna/Docusate Sodium 2 tablet 03/26/20 10:00 03/27/20 09:23 Pericolace - PO 2 tablet BID [facility] Administration Tiotropium [place] 2 puff 03/26/20 10:00 03/27/20 14:39 Spiriva Respimat IH Not Given DAILY GO Tramadol HCl 50 mg 03/26/20 00:00 03/27/20 12:07 Ultram - PO 50 mg Q6HPO GO Administration ASSESSMENT/PLAN: Problem List - Problems (1) Postoperative wound dehiscence Assessment/Plan: POD #2 s/p Left TKA I&D, poly exchange, quad tendon repair on cefepime/vanco per ID on left knee immobilizer - to be kept on at all times No bending of knee for 6 weeks Eliquis 2.5 BID x 35 days per surgery Code(s): T81.31XA - DISRUPTION OF EXTERNAL OPERATION (SURGICAL) WOUND, NEC, INIT Qualifiers: Encounter type: initial encounter Qualified Code(s): T81.31XA - Disruption of external operation (surgical) wound, not elsewhere classified, initial encounter (2) COPD (chronic obstructive pulmonary disease) Assessment/Plan: has home bipap. not in acute exacerbation of COPD Code(s): J44.9 - CHRONIC OBSTRUCTIVE PULMONARY DISEASE, UNSPECIFIED (3) HTN (hypertension) Assessment/Plan: controlled on lopressor 100mg daily, lasix 40mg daily, cozaar 50mg daily, norvasc 5mg daily Code(s): I10 - ESSENTIAL (PRIMARY) HYPERTENSION (4) Diabetes Assessment/Plan: on novolog based on sliding scale Code(s): E11.9 - TYPE 2 DIABETES MELLITUS WITHOUT COMPLICATIONS (5) DVT prophylaxis Assessment/Plan: on eliquis bid x 35 days Code(s): Z29.9 - ENCOUNTER FOR PROPHYLACTIC MEASURES, UNSPECIFIED Visit type - Emergency Visit Emergency Visit: Yes ED Registration Date: 03/24/20 Care time: The patient presented to the Emergency Department on the above date and was hospitalized for further evaluation of their emergent condition. - New Patient This patient is new to me today: No - Critical Care Critical Care patient: No - Discharge Referral Referred to [facility] No
[2020-03-27] MEDS: ATORVASTATIN CA 20 MG TABLET (FP) PO SCH (21:24)
[2020-03-28] MEDS: CEFEPIME 2 GM in DEXTROSE 5%-WATER 100 ML IVPB SCH ×3 (01:12→18:38)
[2020-03-28] MEDS: VANCOMYCIN 1 GRAM (PRE-DOCKED) 1,000 MG/250 ML BAG IVPB SCH ×2 (02:34→16:02)
[2020-03-28] MEDS ORDERED: INSULIN (NOVOLOG) ASPART 100 UNITS/ML 10ML VIAL ONE (05:27)
[2020-03-28] MEDS: ACETAMINOPHEN 325 MG TABLET (FP) PO SCH ×4 (05:35→23:30)
[2020-03-28] MEDS: traMADol HCL 50 MG TABLET PO SCH ×4 (05:35→23:31)
[2020-03-28] MEDS: INSULIN SLIDING SCALE (NOVOLOG) 1 VIAL SQ SCH ×3 (06:06→18:35)
[2020-03-28] MEDS ORDERED: PT OWN MED DRAWER 7, Y5N ONE ×3 (08:54→18:37)
[2020-03-28] MEDS: oxyCODONE HCL 10 MG SUSTAINED ACTING TABLET PO SCH ×2 (09:24→22:12)
[2020-03-28] MEDS: PANTOPRAZOLE 40 MG TABLET PO SCH (09:25)
[2020-03-28] MEDS: FUROSEMIDE 40 MG TABLET (FP) PO SCH (09:25)
[2020-03-28] MEDS: METOPROLOL TARTRATE 50 MG TABLET (FP) PO SCH (09:25)
[2020-03-28] MEDS: MULTIVITAMINS (DAILY MVI) TABLET (FP) PO SCH (09:25)
[2020-03-28] MEDS: ASCORBIC ACID 500 MG TABLET (FP) PO SCH ×2 (09:25→22:12)
[2020-03-28] MEDS: predniSONE 20 MG TABLET (UD) PO SCH (09:25)
[2020-03-28] MEDS: SENNOSIDES/DOCUSATE COMBO (SENNA PLUS) TABLET (UD) PO SCH ×2 (09:25→22:13)
[2020-03-28] MEDS: amLODIPine BESYLATE 5 MG TABLET (FP) PO SCH (09:25)
[2020-03-28] MEDS: APIXABAN 2.5 MG TABLET PO SCH ×2 (09:26→22:12)
[2020-03-28] MEDS: POLYETHYLENE GLYCOL 3350 119 GM BTL PO SCH (09:26)
[2020-03-28] MEDS: LOSARTAN POTASSIUM 50 MG TABLET (FP) PO SCH (09:26)
[2020-03-28] MEDS: TIOTROPIUM BROMIDE 2.5 MCG (SPIRIVA) RESPIMAT INHALER IH SCH (09:27)
[2020-03-28 10:58] LABS: EOS % 1.2 % (0-4.5); HEMATOCRIT 30.3 % (35.4-49); HEMOGLOBIN 9.9 GM/dL (11.7-16.9); MCH 31.2 pg (25.7-33.7); MCHC 32.6 g/dl (32.0-35.9); MEAN CELL VOLUME 95.8 fl (80-96); MEAN PLT VOLUME 7.7 fl (7.5-11.1); MONO % 8.8 % (3.8-10.2); PLATELET COUNT 284 K/MM3 (134-434); RBC 3.16 M/mm3 (4.00-5.60); WHITE BLOOD COUNT 11.8 K/mm3 (4.0-10.0)
[2020-03-28 11:29] LABS: ALBUMIN 2.6 g/dl (3.4-5.0); BILIRUBIN,TOTAL 0.8 mg/dL (0.2-1); CALCIUM 8.3 mg/dL (8.5-10.1); MAGNESIUM 2.2 mg/dL (1.8-2.4); POTASSIUM 3.9 mmol/L (3.5-5.1); TOT PROT 6.1 g/dl (6.4-8.2)
--- NOTE | 2020-03-28 14:50 | PN ---
Physical Exam: SUBJECTIVE: Patient seen and examined at the bedside. denies any pain. comfortably sitting in chair. left leg on pillows. OBJECTIVE: Patient is a 64 year old male with a past medical history of HTN, COPD, HLD, RA, left TKR (on 03/13/2020). Patient presents to ED on 03/24/2020 after he accidentally fell during physical therapy. Witnessed fall. No LOC. On 03/25/2020 he underwent quadriceps tendon repair with Dr. Tavo Bowie. imaging: knee xray 03/24: left knee replacement, in satisfactory alignment with soft tissue swelling covid status: negative per serology as of 03/24/2020 discharge plan: Will need PICC for terminal clerk antibiotics per ID. will speak to sw about arranging this in the home as patient is immobile at this time. Vital Signs Period Temp Pulse Resp BP Sys/Luz Pulse Ox Last 24 Hr 98.1 F-98.7 F 62-80 18-20 110-137/54-63 3 GENERAL: Awake, alert, and fully oriented, in no acute distress. HEAD: Normal with no signs of trauma. EYES: Pupils equal, round and reactive to light, extraocular movements intact, sclera anicteric, conjunctiva clear. No lid lag. EARS, NOSE, THROAT: Ears normal, nares patent, oropharynx clear without exudates. NECK: Normal range of motion, supple without lymphadenopathy LUNGS: Breath sounds equal, clear to auscultation bilaterally. HEART: Regular rate and rhythm, normal S1 and S2 without murmur, rub or gallop. ABDOMEN: Soft, nontender, not distended, normoactive bowel sounds MUSCULOSKELETAL: Normal range of motion at all joints. UPPER EXTREMITIES:No cyanosis. No clubbing. No peripheral edema. LOWER EXTREMITIES: L lower extremity immobilizer Laboratory Results - last 24 hr 03/27/20 03/28/20 03/28/20 17:25 06:05 10:08 WBC 11.8 H RBC 3.16 L Hgb 9.9 L Hct 30.3 L MCV 95.8 MCH 31.2 MCHC 32.6 RDW 15.0 Plt Count 284 MPV 7.7 Absolute Neuts (auto) 9.2 H Neutrophils % 78.0 Lymphocytes % 11.0 Monocytes % 8.8 Eosinophils % 1.2 D Basophils % 1.0 D Nucleated RBC % 0 Sodium Potassium Chloride Carbon Dioxide Anion Gap BUN Creatinine Est GFR (CKD-EPI)AfAm Est GFR (CKD-EPI)NonAf POC Glucometer 259 111 Random Glucose Calcium Magnesium Total Bilirubin AST ALT Alkaline Phosphatase Total Protein Albumin 03/28/20 03/28/20 10:08 11:20 WBC RBC Hgb Hct MCV MCH MCHC RDW Plt Count MPV Absolute Neuts (auto) Neutrophils % Lymphocytes % Monocytes % Eosinophils % Basophils % Nucleated RBC % Sodium 135 L Potassium 3.9 Chloride 100 Carbon Dioxide 26 Anion Gap 9 BUN 17.0 Creatinine 1.0 Est GFR (CKD-EPI)AfAm 91.13 Est GFR (CKD-EPI)NonAf 78.63 POC Glucometer 201 Random Glucose 238 H Calcium 8.3 L Magnesium 2.2 Total Bilirubin 0.8 AST 22 ALT 17 Alkaline Phosphatase 41 L Total Protein 6.1 L Albumin 2.6 L Active Medications Generic Name Dose Route Start Last Admin Trade Name Freq PRN Reason Stop Dose Admin Acetaminophen 650 mg 03/26/20 06:00 03/28/20 12:28 Tylenol - PO 03/29/20 05:59 650 mg Q6HPO GO Administration Al Hydroxide/Mg Hydroxide 30 ml 03/25/20 22:36 Mylanta Oral Suspension - PO Q4H PRN DYSPEPSIA Amlodipine Besylate 5 mg 03/26/20 10:00 03/28/20 09:25 Norvasc - PO 5 mg DAILY GO Administration Apixaban 2.5 mg 03/26/20 10:00 03/28/20 09:26 Eliquis - PO 2.5 mg BID GO Administration Ascorbic Acid 500 mg 03/26/20 10:00 03/28/20 09:25 Vitamin C - PO 500 mg BID GO Administration Atorvastatin Calcium 20 mg 03/26/20 22:00 03/27/20 21:24 Lipitor - PO 20 mg HS GO Administration Fentanyl 25 mcg 03/25/20 23:04 Sublimaze Injection - IVPUSH [id number] PRN PAIN-PACU ORDER X 4 DOSES ONLY Furosemide 40 mg 03/26/20 10:00 03/28/20 09:25 Lasix - PO 40 mg DAILY GO Administration Cefepime HCl 2 gm/ Dextrose 100 mls @ 100 mls/hr 03/26/20 02:00 03/28/20 09:50 IVPB 100 mls/hr Q8H-IV GO Administration Protocol Vancomycin HCl 1,000 mg in 250 mls @ 166.667 mls/hr 03/26/20 03:00 03/28/20 02:34 Vancomycin (Pre-Docked) IVPB 166.667 mls/hr 0300,1500 GO Administration Protocol Insulin Aspart 1 vial 03/26/20 07:00 03/28/20 12:23 Novolog Vial Sliding Scale - SQ Not Given TIDAC GO Protocol Losartan Potassium 50 mg 03/26/20 10:00 03/28/20 09:26 Cozaar - PO 50 mg DAILY GO Administration Magnesium Hydroxide 30 ml 03/25/20 22:36 03/26/20 21:17 Milk Of Magnesia - PO 30 ml PRN PRN Administration CONSTIPATION Metoprolol Tartrate 100 mg 03/26/20 10:00 03/28/20 09:25 Lopressor - PO 100 mg DAILY GO Administration Multivitamins/Minerals/Vitamin C 1 tab 03/26/20 10:00 03/28/20 09:25 Tab-A-Vit - PO 1 tab DAILY OG Administration Ondansetron HCl 4 mg 03/25/20 22:36 Zofran Injection IVPUSH Q6H PRN NAUSEA Oxycodone HCl 10 mg 03/26/20 10:00 03/28/20 09:24 Oxycontin - PO 10 mg BID GO Administration Oxycodone HCl 5 mg 03/25/20 22:35 Roxicodone - PO 03/28/20 22:35 Q3H PRN PAIN LEVEL 1-5 Oxycodone HCl 10 mg 03/25/20 22:35 03/26/20 05:10 Roxicodone - PO 03/28/20 22:35 10 mg Q3H PRN Administration PAIN LEVEL 6-10 Pantoprazole Sodium 40 mg 03/26/20 10:00 03/28/20 09:25 Protonix - PO 40 mg DAILY GO Administration Polyethylene Glycol 17 gm 03/27/20 10:00 03/28/20 09:26 Miralax (For Daily Use) - PO 17 gm DAILY GO Administration Prednisone 20 mg 03/26/20 10:00 03/28/20 09:25 Deltasone - PO 20 mg DAILY GO Administration Senna/Docusate Sodium 2 tablet 03/26/20 10:00 03/28/20 09:25 Pericolace - PO 2 tablet BID GO Administration Tiotropium [place] 2 puff 03/26/20 10:00 03/28/20 09:27 Spiriva Respimat IH 2 puff DAILY GO Administration Tramadol HCl 50 mg 03/26/20 00:00 03/28/20 12:24 Ultram - PO Not Given Q6HPO GO ASSESSMENT/PLAN: Problem List - Problems (1) Postoperative wound dehiscence Assessment/Plan: POD #3 s/p Left TKA I&D, poly exchange, quad tendon repair on cefepime/vanco per ID on left knee immobilizer - to be kept on at all times No bending of knee for 6 weeks Eliquis 2.5 BID x 35 days per surgery for d/c home with long-term antibiotics. will need picc prior to d/c Code(s): T81.31XA - DISRUPTION OF EXTERNAL OPERATION (SURGICAL) WOUND, NEC, INIT Qualifiers: Encounter type: initial encounter Qualified Code(s): T81.31XA - Disruption of external operation (surgical) wound, not elsewhere classified, initial encounter (2) COPD (chronic obstructive pulmonary disease) Assessment/Plan: has home bipap. not in acute exacerbation of COPD Code(s): J44.9 - CHRONIC OBSTRUCTIVE PULMONARY DISEASE, UNSPECIFIED (3) HTN (hypertension) Assessment/Plan: controlled on lopressor 100mg daily, lasix 40mg daily, cozaar 50mg daily, norvasc 5mg daily Code(s): I10 - ESSENTIAL (PRIMARY) HYPERTENSION (4) Diabetes Assessment/Plan: on novolog based on sliding scale Code(s): E11.9 - TYPE 2 DIABETES MELLITUS WITHOUT COMPLICATIONS (5) DVT prophylaxis Assessment/Plan: on eliquis bid x 35 days (started 03/26/2020) Code(s): Z29.9 - ENCOUNTER FOR PROPHYLACTIC MEASURES, UNSPECIFIED Visit type - Emergency Visit Emergency Visit: Yes ED Registration Date: 03/24/20 Care time: The patient presented to the Emergency Department on the above date and was hospitalized for further evaluation of their emergent condition. - New Patient This patient is new to me today: No - Critical Care Critical Care patient: No - Discharge Referral Referred to [facility] Med P.C.: No
--- NOTE | 2020-03-28 17:31 | PN ---
Progress Note, Physician History of Present Illness: POD#2 L TKR DEBRIDEMENT, IRRIGATION, QUADRACEPS TENDON REPAIR DRESSING IN PLACE NO C/O PAIN NO FEVER/ CHILLS - Current Medication List Current Medications: Active Medications Acetaminophen (Tylenol -) 650 mg PO Q6HPO [facility] Stop: 03/29/20 05:59 Last Admin: 03/28/20 12:28 Dose: 650 mg Documented by: Al Hydroxide/Mg Hydroxide (Mylanta Oral Suspension -) 30 ml PO Q4H PRN PRN Reason: DYSPEPSIA Amlodipine Besylate (Norvasc -) 5 mg PO DAILY [facility] Last Admin: 03/28/20 09:25 Dose: 5 mg Documented by: Apixaban (Eliquis -) 2.5 mg PO BID [facility] Last Admin: 03/28/20 09:26 Dose: 2.5 mg Documented by: Ascorbic Acid (Vitamin C -) 500 mg PO BID [facility] Last Admin: 03/28/20 09:25 Dose: 500 mg Documented by: Atorvastatin Calcium (Lipitor -) 20 mg PO HS [facility] Last Admin: 03/27/20 21:24 Dose: 20 mg Documented by: Fentanyl (Sublimaze Injection -) 25 mcg IVPUSH [id number] PRN PRN Reason: PAIN-PACU ORDER X 4 DOSES ONLY Furosemide (Lasix -) 40 mg PO DAILY [facility] Last Admin: 03/28/20 09:25 Dose: 40 mg Documented by: Cefepime HCl 2 gm/ Dextrose 100 mls @ 100 mls/hr IVPB Q8H-IV GO; Protocol Last Admin: 03/28/20 09:50 Dose: 100 mls/hr Documented by: Vancomycin HCl (Vancomycin (Pre-Docked)) 1,000 mg in 250 mls @ 166.667 mls/hr IVPB 0300,1500 GO; Protocol Last Admin: 03/28/20 16:02 Dose: 166.667 mls/hr Documented by: Insulin Aspart (Novolog Vial Sliding Scale -) 1 vial SQ TIDAC [facility]; Protocol Last Admin: 03/28/20 12:23 Dose: Not Given Documented by: Losartan Potassium (Cozaar -) 50 mg PO DAILY [facility] Last Admin: 03/28/20 09:26 Dose: 50 mg Documented by: Magnesium Hydroxide (Milk Of Magnesia -) 30 ml PO PRN PRN PRN Reason: CONSTIPATION Last Admin: 03/26/20 21:17 Dose: 30 ml Documented by: Metoprolol Tartrate (Lopressor -) 100 mg PO DAILY [facility] Last Admin: 03/28/20 09:25 Dose: 100 mg Documented by: Multivitamins/Minerals/Vitamin C (Tab-A-Vit -) 1 tab PO DAILY [facility] Last Admin: 03/28/20 09:25 Dose: 1 tab Documented by: Ondansetron HCl (Zofran Injection) 4 mg IVPUSH Q6H PRN PRN Reason: NAUSEA Oxycodone HCl (Oxycontin -) 10 mg PO BID [facility] Last Admin: 03/28/20 09:24 Dose: 10 mg Documented by: Oxycodone HCl (Roxicodone -) 5 mg PO Q3H PRN PRN Reason: PAIN LEVEL 1-5 Stop: 03/28/20 22:35 Oxycodone HCl (Roxicodone -) 10 mg PO Q3H PRN PRN Reason: PAIN LEVEL 6-10 Stop: 03/28/20 22:35 Last Admin: 03/26/20 05:10 Dose: 10 mg Documented by: Pantoprazole Sodium (Protonix -) 40 mg PO DAILY [facility] Last Admin: 03/28/20 09:25 Dose: 40 mg Documented by: Polyethylene Glycol (Miralax (For Daily Use) -) 17 gm PO DAILY [facility] Last Admin: 03/28/20 09:26 Dose: 17 gm Documented by: Prednisone (Deltasone -) 20 mg PO DAILY [facility] Last Admin: 03/28/20 09:25 Dose: 20 mg Documented by: Senna/Docusate Sodium (Pericolace -) 2 tablet PO BID [facility] Last Admin: 03/28/20 09:25 Dose: 2 tablet Documented by: Tiotropium [place] (Spiriva Respimat) 2 puff IH DAILY [facility] Last Admin: 03/28/20 09:27 Dose: 2 puff Documented by: Tramadol HCl (Ultram -) 50 mg PO Q6HPO [facility] Last Admin: 03/28/20 12:24 Dose: Not Given Documented by: - Objective Vital Signs: Vital Signs Temperature 98.6 F 03/28/20 17:17 Pulse Rate 65 03/28/20 17:17 Respiratory Rate 20 03/28/20 17:17 Blood Pressure 122/58 L 03/28/20 17:17 O2 Sat by Pulse Oximetry (%) 3 L 03/27/20 21:00 Constitutional: Yes: No Distress Eyes: Yes: Conjunctiva Clear Cardiovascular: Yes: Regular Rate and Rhythm, S1, S2 Respiratory: Yes: CTA Bilaterally Gastrointestinal: Yes: Normal Bowel Sounds, Soft. No: Tenderness Extremities: Yes: Other (DRESSING/ SPLINT IN PLACE L LE) Labs: CBC, BMP 03/28/20 10:08 03/28/20 10:08 INR, PTT INR 1.00 (0.83-1.09) 03/24/20 14:50 Assessment/Plan S/P L TKR DEBRIDEMENT/ IRRIGATION QUADRACEPS TENDON REPAIR CONTINUE EMPIRIC VANCOMCYIN/ CEFEPIME RECOMMEND PICC FOR OUTPATIENT ANTIBIOTIC TX DISCUSSED WITH HOSPITALIST DISCUSSED WITH PATIENT'S AT BEDSIDE
[2020-03-28] MEDS ORDERED: oxyCODONE HCL 5 MG TABLET PO PRN ×2 (17:36)
[2020-03-28] MEDS: ATORVASTATIN CA 20 MG TABLET (FP) PO SCH (22:12)
[2020-03-29] MEDS ORDERED: PT OWN MED DRAWER 7, Y5N ONE ×5 (01:17→17:56)
[2020-03-29] MEDS: CEFEPIME 2 GM in DEXTROSE 5%-WATER 100 ML IVPB SCH ×3 (02:01→18:27)
[2020-03-29] MEDS: VANCOMYCIN 1 GRAM (PRE-DOCKED) 1,000 MG/250 ML BAG IVPB SCH ×2 (02:01→18:41)
[2020-03-29] MEDS: traMADol HCL 50 MG TABLET PO SCH ×3 (06:26→18:53)
[2020-03-29] MEDS: INSULIN SLIDING SCALE (NOVOLOG) 1 VIAL SQ SCH ×3 (06:26→17:51)
[2020-03-29] MEDS ORDERED: ACETAMINOPHEN 325 MG TABLET (FP) PO PRN (08:00)
[2020-03-29] MEDS: METOPROLOL TARTRATE 50 MG TABLET (FP) PO SCH (09:32)
[2020-03-29] MEDS: oxyCODONE HCL 10 MG SUSTAINED ACTING TABLET PO SCH ×2 (09:32→21:24)
[2020-03-29] MEDS: PANTOPRAZOLE 40 MG TABLET PO SCH (09:33)
[2020-03-29] MEDS: MULTIVITAMINS (DAILY MVI) TABLET (FP) PO SCH (09:33)
[2020-03-29] MEDS: FUROSEMIDE 40 MG TABLET (FP) PO SCH (09:33)
[2020-03-29] MEDS: APIXABAN 2.5 MG TABLET PO SCH ×2 (09:33→21:24)
[2020-03-29] MEDS: ASCORBIC ACID 500 MG TABLET (FP) PO SCH ×2 (09:33→21:23)
[2020-03-29] MEDS: amLODIPine BESYLATE 5 MG TABLET (FP) PO SCH (09:33)
[2020-03-29] MEDS: predniSONE 20 MG TABLET (UD) PO SCH (09:33)
[2020-03-29] MEDS: SENNOSIDES/DOCUSATE COMBO (SENNA PLUS) TABLET (UD) PO SCH ×2 (09:34→21:24)
[2020-03-29] MEDS: POLYETHYLENE GLYCOL 3350 119 GM BTL PO SCH (09:34)
[2020-03-29] MEDS: LOSARTAN POTASSIUM 50 MG TABLET (FP) PO SCH (09:35)
[2020-03-29] MEDS: TIOTROPIUM BROMIDE 2.5 MCG (SPIRIVA) RESPIMAT INHALER IH SCH (09:36)
[2020-03-29 10:53] LABS: BASO % 0.7 % (0-2.0); HEMATOCRIT 30.9 % (35.4-49); HEMOGLOBIN 10.1 GM/dL (11.7-16.9); LYMPH % 13.6 % (8-40); MCH 31.2 pg (25.7-33.7); MCHC 32.6 g/dl (32.0-35.9); MEAN CELL VOLUME 95.7 fl (80-96); MEAN PLT VOLUME 7.2 fl (7.5-11.1); MONO % 10.8 % (3.8-10.2); NEUT % 73.9 % (42.8-82.8); PLATELET COUNT 313 K/MM3 (134-434); RBC 3.23 M/mm3 (4.00-5.60); WHITE BLOOD COUNT 9.3 K/mm3 (4.0-10.0)
[2020-03-29 11:16] LABS: ALBUMIN 2.6 g/dl (3.4-5.0); BILIRUBIN,TOTAL 0.6 mg/dL (0.2-1); CALCIUM 8.3 mg/dL (8.5-10.1); CREATININE 0.9 mg/dL (0.55-1.3); MAGNESIUM 2.4 mg/dL (1.8-2.4); POTASSIUM 3.8 mmol/L (3.5-5.1); TOT PROT 6.2 g/dl (6.4-8.2)
--- NOTE | 2020-03-29 20:43 | PN ---
Progress Note, Physician History of Present Illness: seen and examined at bedside. no complaints. feels well. afebrile. Denies nausea vomiting fever chills chest pain or SOB. - Current Medication List Current Medications: Active Medications Al Hydroxide/Mg Hydroxide (Mylanta Oral Suspension -) 30 ml PO Q4H PRN PRN Reason: DYSPEPSIA Amlodipine Besylate (Norvasc -) 5 mg PO DAILY [facility] Last Admin: 03/29/20 09:33 Dose: 5 mg Documented by: Apixaban (Eliquis -) 2.5 mg PO BID [facility] Last Admin: 03/29/20 09:33 Dose: 2.5 mg Documented by: Ascorbic Acid (Vitamin C -) 500 mg PO BID [facility] Last Admin: 03/29/20 09:33 Dose: 500 mg Documented by: Atorvastatin Calcium (Lipitor -) 20 mg PO HS [facility] Last Admin: 03/28/20 22:12 Dose: 20 mg Documented by: Fentanyl (Sublimaze Injection -) 25 mcg IVPUSH [id number] PRN PRN Reason: PAIN-PACU ORDER X 4 DOSES ONLY Furosemide (Lasix -) 40 mg PO DAILY [facility] Last Admin: 03/29/20 09:33 Dose: 40 mg Documented by: Cefepime HCl 2 gm/ Dextrose 100 mls @ 100 mls/hr IVPB Q8H-IV [facility]; Protocol Last Admin: 03/29/20 18:27 Dose: 100 mls/hr Documented by: Vancomycin HCl (Vancomycin (Pre-Docked)) 1,000 mg in 250 mls @ 166.667 mls/hr IVPB 0300,1500 [facility]; Protocol Last Admin: 03/29/20 18:41 Dose: 166.667 mls/hr Documented by: Insulin Aspart (Novolog Vial Sliding Scale -) 1 vial SQ TIDAC [facility]; Protocol Last Admin: 03/29/20 17:51 Dose: Not Given Documented by: Losartan Potassium (Cozaar -) 50 mg PO DAILY [facility] Last Admin: 03/29/20 09:35 Dose: 50 mg Documented by: Magnesium Hydroxide (Milk Of Magnesia -) 30 ml PO PRN PRN PRN Reason: CONSTIPATION Last Admin: 03/26/20 21:17 Dose: 30 ml Documented by: Metoprolol Tartrate (Lopressor -) 100 mg PO DAILY [facility] Last Admin: 03/29/20 09:32 Dose: 100 mg Documented by: Multivitamins/Minerals/Vitamin C (Tab-A-Vit -) 1 tab PO DAILY [facility] Last Admin: 03/29/20 09:33 Dose: 1 tab Documented by: Ondansetron HCl (Zofran Injection) 4 mg IVPUSH Q6H PRN PRN Reason: NAUSEA Oxycodone HCl (Oxycontin -) 10 mg PO BID [facility] Last Admin: 03/29/20 09:32 Dose: 10 mg Documented by: Oxycodone HCl (Roxicodone -) 10 mg PO Q3H PRN PRN Reason: PAIN LEVEL 7 - 10 Oxycodone HCl (Roxicodone -) 5 mg PO Q3H PRN PRN Reason: PAIN LEVEL 4 - 6 Pantoprazole Sodium (Protonix -) 40 mg PO DAILY [facility] Last Admin: 03/29/20 09:33 Dose: 40 mg Documented by: Polyethylene Glycol (Miralax (For Daily Use) -) 17 gm PO DAILY [facility] Last Admin: 03/29/20 09:34 Dose: 17 gm Documented by: Prednisone (Deltasone -) 20 mg PO DAILY [facility] Last Admin: 03/29/20 09:33 Dose: 20 mg Documented by: Senna/Docusate Sodium (Pericolace -) 2 tablet PO BID [facility] Last Admin: 03/29/20 09:34 Dose: 2 tablet Documented by: Tiotropium [place] (Spiriva Respimat) 2 puff IH DAILY [facility] Last Admin: 03/29/20 09:36 Dose: 2 puff Documented by: Tramadol HCl (Ultram -) 50 mg PO Q6HPO [facility] Last Admin: 03/29/20 18:53 Dose: Not Given Documented by: - Objective Vital Signs: Vital Signs Temperature 98.1 F 03/29/20 17:15 Pulse Rate 65 03/29/20 17:15 Respiratory Rate 20 03/29/20 17:15 Blood Pressure 115/56 L 03/29/20 17:15 O2 Sat by Pulse Oximetry (%) 97 03/29/20 09:00 Constitutional: Yes: No Distress, Calm, Obese Eyes: Yes: Conjunctiva Clear, EOM Intact HENT: Yes: Atraumatic, Normocephalic Neck: Yes: Supple Cardiovascular: Yes: Regular Rate and Rhythm Respiratory: Yes: Rales (very mild at bases) Gastrointestinal: Yes: WNL, Normal Bowel Sounds, Soft. No: Tenderness Extremities: Yes: Other (left leg straightened in splint and no edema of bilateral lower extremities.) Edema: No Wound/Incision: Yes: Clean/Dry Neurological: Yes: WNL, Alert, Oriented Psychiatric: Yes: Alert, Oriented Labs: CBC, BMP 03/29/20 10:30 03/29/20 10:30 INR, PTT INR 1.00 (0.83-1.09) 03/24/20 14:50 Impression/Plan Impression/Plan: Postoperative wound dehiscence of left knee replacement POD#4 s/p Left TKA I&D, poly exchange, quad tendon repair on cefepime/vanco per ID-continue on left knee immobilizer - to be kept on at all times No bending of knee for 6 weeks Eliquis 2.5 BID x 35 days per surgery for d/c home vs SNF with halfway antibiotics. will need picc prior to d/c. patient wants Adira. pain control incentive spirometry-explained to patient NAEEM continue home CPAP device COPD continue bronchodilators continue inhalers continue prednisone 20mg po daily not in acute exacerbation of COPD Rheumatoid arthritis continue prednisone 20mg po daily. Patient usually on 10mg po daily but because he came off of mycophenalte and due to stress prednisone was increased since he likely has acquired adrenal insufficiency from halfway chronic steroid use. HTN well controlled on lopressor 100mg daily, lasix 40mg daily, cozaar 50mg daily, norvasc 5mg daily Diabetes well controlled on novolog based on sliding scale DVT prophylaxis on eliquis bid x 35 days (started 03/26/2020) Visit type - Emergency Visit Emergency Visit: Yes ED Registration Date: 03/24/20 Care time: The patient presented to the Emergency Department on the above date and was hospitalized for further evaluation of their emergent condition. - New Patient This patient is new to me today: Yes Date on this admission: 03/29/20 - Critical Care Critical Care patient: No
[2020-03-29] MEDS: ATORVASTATIN CA 20 MG TABLET (FP) PO SCH (21:24)
[2020-03-30] MEDS: traMADol HCL 50 MG TABLET PO SCH ×4 (00:39→17:01)
[2020-03-30] MEDS: CEFEPIME 2 GM in DEXTROSE 5%-WATER 100 ML IVPB SCH ×3 (01:26→17:48)
[2020-03-30] MEDS: VANCOMYCIN 1 GRAM (PRE-DOCKED) 1,000 MG/250 ML BAG IVPB SCH ×2 (04:04→15:03)
[2020-03-30] MEDS: INSULIN SLIDING SCALE (NOVOLOG) 1 VIAL SQ SCH ×4 (06:06→17:24)
[2020-03-30] MEDS ORDERED: PT OWN MED DRAWER 7, Y5N ONE ×3 (09:42→21:35)
[2020-03-30] MEDS: oxyCODONE HCL 10 MG SUSTAINED ACTING TABLET PO SCH ×2 (09:45→21:03)
[2020-03-30] MEDS: MULTIVITAMINS (DAILY MVI) TABLET (FP) PO SCH (09:45)
[2020-03-30] MEDS: POLYETHYLENE GLYCOL 3350 119 GM BTL PO SCH (09:45)
[2020-03-30] MEDS: METOPROLOL TARTRATE 50 MG TABLET (FP) PO SCH (09:46)
[2020-03-30] MEDS: PANTOPRAZOLE 40 MG TABLET PO SCH (09:46)
[2020-03-30] MEDS: FUROSEMIDE 40 MG TABLET (FP) PO SCH (09:46)
[2020-03-30] MEDS: SENNOSIDES/DOCUSATE COMBO (SENNA PLUS) TABLET (UD) PO SCH ×2 (09:46→20:59)
[2020-03-30] MEDS: predniSONE 20 MG TABLET (UD) PO SCH (09:46)
[2020-03-30] MEDS: ASCORBIC ACID 500 MG TABLET (FP) PO SCH ×2 (09:46→20:59)
[2020-03-30] MEDS: APIXABAN 2.5 MG TABLET PO SCH ×2 (09:46→20:59)
[2020-03-30] MEDS: TIOTROPIUM BROMIDE 2.5 MCG (SPIRIVA) RESPIMAT INHALER IH SCH (09:47)
[2020-03-30] MEDS: LOSARTAN POTASSIUM 50 MG TABLET (FP) PO SCH (09:47)
[2020-03-30] MEDS: amLODIPine BESYLATE 5 MG TABLET (FP) PO SCH (09:47)
[2020-03-30 10:27] LABS: BASO % 0.8 % (0-2.0); EOS % 1.2 % (0-4.5); HEMATOCRIT 32.6 % (35.4-49); HEMOGLOBIN 10.5 GM/dL (11.7-16.9); LYMPH % 16.6 % (8-40); MCH 30.6 pg (25.7-33.7); MCHC 32.4 g/dl (32.0-35.9); MEAN CELL VOLUME 94.6 fl (80-96); MEAN PLT VOLUME 7.1 fl (7.5-11.1); MONO % 10.3 % (3.8-10.2); NEUT % 71.1 % (42.8-82.8); PLATELET COUNT 369 K/MM3 (134-434); RBC 3.44 M/mm3 (4.00-5.60); WHITE BLOOD COUNT 9.7 K/mm3 (4.0-10.0)
[2020-03-30 10:54] LABS: ALBUMIN 2.7 g/dl (3.4-5.0); BILIRUBIN,TOTAL 0.7 mg/dL (0.2-1); BLOOD UREA NITROGEN 16.8 mg/dL (7-18); CALCIUM 8.7 mg/dL (8.5-10.1); MAGNESIUM 2.3 mg/dL (1.8-2.4); POTASSIUM 4.4 mmol/L (3.5-5.1); TOT PROT 6.5 g/dl (6.4-8.2)
[2020-03-30] MEDS ORDERED: INSULIN (NOVOLOG) ASPART 100 UNITS/ML 10ML VIAL ONE (12:00)
--- NOTE | 2020-03-30 19:03 | PN ---
Progress Note, Physician History of Present Illness: seen and examined at bedside. no complaints. feels well. afebrile. Denies nausea vomiting fever chills chest pain or SOB. Walked further with PT today. [facility] go to [facility]. - Current Medication List Current Medications: Active Medications Al Hydroxide/Mg Hydroxide (Mylanta Oral Suspension -) 30 ml PO Q4H PRN PRN Reason: DYSPEPSIA Amlodipine Besylate (Norvasc -) 5 mg PO DAILY [facility] Last Admin: 03/30/20 09:47 Dose: 5 mg Documented by: Apixaban (Eliquis -) 2.5 mg PO BID [facility] Last Admin: 03/30/20 09:46 Dose: 2.5 mg Documented by: Ascorbic Acid (Vitamin C -) 500 mg PO BID [facility] Last Admin: 03/30/20 09:46 Dose: 500 mg Documented by: Atorvastatin Calcium (Lipitor -) 20 mg PO HS [facility] Last Admin: 03/29/20 21:24 Dose: 20 mg Documented by: Fentanyl (Sublimaze Injection -) 25 mcg IVPUSH [id number] PRN PRN Reason: PAIN-PACU ORDER X 4 DOSES ONLY Furosemide (Lasix -) 40 mg PO DAILY [facility] Last Admin: 03/30/20 09:46 Dose: 40 mg Documented by: Cefepime HCl 2 gm/ Dextrose 100 mls @ 100 mls/hr IVPB Q8H-IV [facility]; Protocol Last Admin: 03/30/20 17:48 Dose: 100 mls/hr Documented by: Vancomycin HCl (Vancomycin (Pre-Docked)) 1,000 mg in 250 mls @ 166.667 mls/hr IVPB 0300,1500 [facility]; Protocol Last Admin: 03/30/20 15:03 Dose: 166.667 mls/hr Documented by: Insulin Aspart (Novolog Vial Sliding Scale -) 1 vial SQ TIDAC [facility]; Protocol Last Admin: 03/30/20 17:24 Dose: Not Given Documented by: Losartan Potassium (Cozaar -) 50 mg PO DAILY [facility] Last Admin: 03/30/20 09:47 Dose: 50 mg Documented by: Magnesium Hydroxide (Milk Of Magnesia -) 30 ml PO PRN PRN PRN Reason: CONSTIPATION Last Admin: 03/26/20 21:17 Dose: 30 ml Documented by: Metoprolol Tartrate (Lopressor -) 100 mg PO DAILY [facility] Last Admin: 03/30/20 09:46 Dose: 100 mg Documented by: Multivitamins/Minerals/Vitamin C (Tab-A-Vit -) 1 tab PO DAILY [facility] Last Admin: 03/30/20 09:45 Dose: 1 tab Documented by: Nystatin (Nystatin Oral Suspension -) 500,000 units PO Q6HPO [facility] Ondansetron HCl (Zofran Injection) 4 mg IVPUSH Q6H PRN PRN Reason: NAUSEA Oxycodone HCl (Oxycontin -) 10 mg PO BID [facility] Last Admin: 03/30/20 09:45 Dose: 10 mg Documented by: Oxycodone HCl (Roxicodone -) 10 mg PO Q3H PRN PRN Reason: PAIN LEVEL 7 - 10 Oxycodone HCl (Roxicodone -) 5 mg PO Q3H PRN PRN Reason: PAIN LEVEL 4 - 6 Pantoprazole Sodium (Protonix -) 40 mg PO DAILY [facility] Last Admin: 03/30/20 09:46 Dose: 40 mg Documented by: Polyethylene Glycol (Miralax (For Daily Use) -) 17 gm PO DAILY [facility] Last Admin: 03/30/20 09:45 Dose: 17 gm Documented by: Prednisone (Deltasone -) 20 mg PO DAILY [facility] Last Admin: 03/30/20 09:46 Dose: 20 mg Documented by: Senna/Docusate Sodium (Pericolace -) 2 tablet PO BID [facility] Last Admin: 03/30/20 09:46 Dose: 2 tablet Documented by: Tiotropium [place] (Spiriva Respimat) 2 puff IH DAILY [facility] Last Admin: 03/30/20 09:47 Dose: 2 puff Documented by: Tramadol HCl (Ultram -) 50 mg PO Q6HPO [facility] Last Admin: 03/30/20 17:01 Dose: Not Given Documented by: - Objective Vital Signs: Vital Signs Temperature 98.6 F 03/30/20 17:22 Pulse Rate 65 03/30/20 17:22 Respiratory Rate 72 H 03/30/20 17:22 Blood Pressure 108/53 L 03/30/20 17:22 O2 Sat by Pulse Oximetry (%) 96 03/30/20 09:00 Constitutional: Yes: No Distress, Calm, Obese Eyes: Yes: Conjunctiva Clear, EOM Intact HENT: Yes: Atraumatic, Normocephalic. Thrush present on tongue. Neck: Yes: Supple Cardiovascular: Yes: Regular Rate and Rhythm Respiratory: Yes: Rales (very mild at bases) Gastrointestinal: Yes: WNL, Normal Bowel Sounds, Soft. No: Tenderness Extremities: Yes: Other (left leg straightened in splint and no edema of bilateral lower extremities.) Edema: No Wound/Incision: Yes: Clean/Dry Neurological: Yes: WNL, Alert, Oriented Psychiatric: Yes: Alert, Oriented Labs: CBC, BMP 03/30/20 09:30 03/30/20 09:30 INR, PTT INR 1.00 (0.83-1.09) 03/24/20 14:50 Impression/Plan Impression/Plan: Postoperative wound dehiscence of left knee replacement POD#4 s/p Left TKA I&D, poly exchange, quad tendon repair on cefepime/vanco per ID-continue on left knee immobilizer - to be kept on at all times No bending of knee for 6 weeks Eliquis 2.5 BID x 35 days per surgery for d/c home vs SNF with correction antibiotics. will need picc prior to d/c. patient wants Adira. pain control incentive spirometry-explained to patient NAEEM continue home CPAP device COPD continue bronchodilators continue inhalers continue prednisone 20mg po daily not in acute exacerbation of COPD Rheumatoid arthritis continue prednisone 20mg po daily. Patient usually on 10mg po daily but because he came off of mycophenalte and due to stress prednisone was increased since he likely has acquired adrenal insufficiency from correction chronic steroid use. HTN well controlled on lopressor 100mg daily, lasix 40mg daily, cozaar 50mg daily, norvasc 5mg daily Thrush nystatin oral suspension every 6 hours Diabetes well controlled on novolog based on sliding scale DVT prophylaxis on eliquis bid x 35 days (started 03/26/2020) Visit type - Emergency Visit Emergency Visit: Yes ED Registration Date: 03/24/20 Care time: The patient presented to the Emergency Department on the above date and was hospitalized for further evaluation of their emergent condition. - New Patient This patient is new to me today: No - Critical Care Critical Care patient: No
[2020-03-30] MEDS: ATORVASTATIN CA 20 MG TABLET (FP) PO SCH (20:59)
[2020-03-30] MEDS: NYSTATIN 500,000 UNITS/5 ML SUSPENSION PO SCH (23:30)
[2020-03-31] MEDS: traMADol HCL 50 MG TABLET PO SCH ×3 (00:24→11:38)
[2020-03-31] MEDS: CEFEPIME 2 GM in DEXTROSE 5%-WATER 100 ML IVPB SCH ×2 (01:16→09:31)
[2020-03-31] MEDS: VANCOMYCIN 1 GRAM (PRE-DOCKED) 1,000 MG/250 ML BAG IVPB SCH ×2 (02:38→15:05)
[2020-03-31] MEDS: NYSTATIN 500,000 UNITS/5 ML SUSPENSION PO SCH ×2 (06:13→11:37)
[2020-03-31] MEDS: INSULIN SLIDING SCALE (NOVOLOG) 1 VIAL SQ SCH ×2 (06:16→11:37)
[2020-03-31] MEDS ORDERED: PT OWN MED DRAWER 7, Y5N ONE (09:21)
[2020-03-31] MEDS: APIXABAN 2.5 MG TABLET PO SCH (09:29)
[2020-03-31] MEDS: POLYETHYLENE GLYCOL 3350 119 GM BTL PO SCH (09:29)
[2020-03-31] MEDS: MULTIVITAMINS (DAILY MVI) TABLET (FP) PO SCH (09:29)
[2020-03-31] MEDS: oxyCODONE HCL 10 MG SUSTAINED ACTING TABLET PO SCH (09:29)
[2020-03-31] MEDS: FUROSEMIDE 40 MG TABLET (FP) PO SCH (09:29)
[2020-03-31] MEDS: PANTOPRAZOLE 40 MG TABLET PO SCH (09:29)
[2020-03-31] MEDS: METOPROLOL TARTRATE 50 MG TABLET (FP) PO SCH (09:29)
[2020-03-31] MEDS: predniSONE 20 MG TABLET (UD) PO SCH (09:30)
[2020-03-31] MEDS: ASCORBIC ACID 500 MG TABLET (FP) PO SCH (09:30)
[2020-03-31] MEDS: SENNOSIDES/DOCUSATE COMBO (SENNA PLUS) TABLET (UD) PO SCH (09:30)
[2020-03-31] MEDS: LOSARTAN POTASSIUM 50 MG TABLET (FP) PO SCH (09:30)
[2020-03-31] MEDS: amLODIPine BESYLATE 5 MG TABLET (FP) PO SCH (09:31)
[2020-03-31] MEDS: TIOTROPIUM BROMIDE 2.5 MCG (SPIRIVA) RESPIMAT INHALER IH SCH (09:31)
--- NOTE | 2020-03-31 12:03 | PN ---
Physical Exam: SUBJECTIVE: Patient seen and examined OBJECTIVE: Vital Signs Period Temp Pulse Resp BP Sys/Luz Pulse Ox Last 24 Hr 98 F-98.9 F 64-77 18-64 105-155/53-72 96 GENERAL: The patient is awake, alert, and fully oriented, in no acute distress. HEAD: Normal with no signs of trauma. EYES: PERRL, extraocular movements intact, sclera anicteric, conjunctiva clear. No ptosis. ENT: Ears normal, nares patent, oropharynx clear without exudates, moist mucous membranes. NECK: Trachea midline, full range of motion, supple. LUNGS: Breath sounds equal, clear to auscultation bilaterally, no wheezes, no crackles, no accessory muscle use. HEART: Regular rate and rhythm, S1, S2 without murmur, rub or gallop. ABDOMEN: Soft, nontender, nondistended, normoactive bowel sounds, no guarding, no rebound, no hepatosplenomegaly, no masses. EXTREMITIES: 2+ pulses, warm, well-perfused, no edema. NEUROLOGICAL: Cranial nerves II through XII grossly intact. Normal speech, gait not observed. PSYCH: Normal mood, normal affect. SKIN: Warm, dry, normal turgor, no rashes or lesions noted Laboratory Results - last 24 hr 03/30/20 03/30/20 03/31/20 12:04 17:20 06:15 ESR POC Glucometer 174 213 118 C-Reactive Protein 03/31/20 03/31/20 03/31/20 06:30 06:30 11:37 ESR 72 H POC Glucometer 195 C-Reactive Protein 2.7 H Active Medications Generic Name Dose Route Start Last Admin Trade Name Freq PRN Reason Stop Dose Admin Al Hydroxide/Mg Hydroxide 30 ml 03/25/20 22:36 Mylanta Oral Suspension - PO Q4H PRN DYSPEPSIA Amlodipine Besylate 5 mg 03/26/20 10:00 03/31/20 09:31 Norvasc - PO 5 mg DAILY GO Administration Apixaban 2.5 mg 03/26/20 10:03/31/20 09:29 Eliquis - PO 2.5 mg BID GO Administration Ascorbic Acid 500 mg 03/26/20 10:00 03/31/20 09:30 Vitamin C - PO 500 mg BID GO Administration Atorvastatin Calcium 20 mg 03/26/20 22:00 03/30/20 20:59 Lipitor - PO 20 mg HS GO Administration Fentanyl 25 mcg 03/25/20 23:04 Sublimaze Injection - IVPUSH [id number] PRN PAIN-PACU ORDER X 4 DOSES ONLY Furosemide 40 mg 03/26/20 10:00 03/31/20 09:29 Lasix - PO 40 mg DAILY GO Administration Cefepime HCl 2 gm/ Dextrose 100 mls @ 100 mls/hr 03/26/20 02:00 03/31/20 09:31 IVPB 100 mls/hr Q8H-IV GO Administration Protocol Vancomycin HCl 1,000 mg in 250 mls @ 166.667 mls/hr 03/26/20 03:00 03/31/20 02:38 Vancomycin (Pre-Docked) IVPB 166.667 mls/hr 0300,1500 GO Administration Protocol Insulin Aspart 1 vial 03/26/20 07:00 03/31/20 11:37 Novolog Vial Sliding Scale - SQ Not Given TIDAC [facility] Protocol Losartan Potassium 50 mg 03/26/20 10:00 03/31/20 09:30 Cozaar - PO 50 mg DAILY GO Administration Magnesium Hydroxide 30 ml 03/25/20 22:36 03/26/20 21:17 Milk Of Magnesia - PO 30 ml PRN PRN Administration CONSTIPATION Metoprolol Tartrate 100 mg 03/26/20 10:00 03/31/20 09:29 Lopressor - PO 100 mg DAILY GO Administration Multivitamins/Minerals/Vitamin C 1 tab 03/26/20 10:00 03/31/20 09:29 Tab-A-Vit - PO 1 tab DAILY GO Administration Nystatin 500,000 units 03/31/20 00:00 03/31/20 11:37 Nystatin Oral Suspension - PO 500,000 units Q6HPO GO Administration Ondansetron HCl 4 mg 03/25/20 22:36 Zofran Injection IVPUSH Q6H PRN NAUSEA Oxycodone HCl 10 mg 03/26/20 10:00 03/31/20 09:29 Oxycontin - PO 10 mg BID GO Administration Oxycodone HCl 10 mg 03/28/20 17:36 Roxicodone - PO Q3H PRN PAIN LEVEL 7 - 10 Oxycodone HCl 5 mg 03/28/20 17:36 Roxicodone - PO Q3H PRN PAIN LEVEL 4 - 6 Pantoprazole Sodium 40 mg 03/26/20 10:00 03/31/20 09:29 Protonix - PO 40 mg DAILY GO Administration Polyethylene Glycol 17 gm 03/27/20 10:00 03/31/20 09:29 Miralax (For Daily Use) - PO 17 gm DAILY GO Administration Prednisone 20 mg 03/26/20 10:00 03/31/20 09:30 Deltasone - PO 20 mg DAILY GO Administration Senna/Docusate Sodium 2 tablet 03/26/20 10:00 03/31/20 09:30 Pericolace - PO 2 tablet BID GO Administration Tiotropium [place] 2 puff 03/26/20 10:00 03/31/20 09:31 Spiriva Respimat IH 2 puff DAILY GO Administration Tramadol HCl 50 mg 03/26/20 00:00 03/31/20 11:38 Ultram - PO Not Given Q6HPO GO ASSESSMENT/PLAN: Problem List - Problems (1) Postoperative wound dehiscence Code(s): T81.31XA - DISRUPTION OF EXTERNAL OPERATION (SURGICAL) WOUND, NEC, INIT Qualifiers: Encounter type: initial encounter Qualified Code(s): T81.31XA - Disruption of external operation (surgical) wound, not elsewhere classified, initial encounter (2) COPD (chronic obstructive pulmonary disease) Code(s): J44.9 - CHRONIC OBSTRUCTIVE PULMONARY DISEASE, UNSPECIFIED (3) HTN (hypertension) Code(s): I10 - ESSENTIAL (PRIMARY) HYPERTENSION (4) Diabetes Code(s): E11.9 - TYPE 2 DIABETES MELLITUS WITHOUT COMPLICATIONS (5) DVT prophylaxis Code(s): Z29.9 - ENCOUNTER FOR PROPHYLACTIC MEASURES, UNSPECIFIED
[2020-03-31 12:55] LABS: BASO % 0.7 % (0-2.0); EOS % 1.2 % (0-4.5); HEMATOCRIT 32.8 % (35.4-49); HEMOGLOBIN 10.6 GM/dL (11.7-16.9); LYMPH % 19.8 % (8-40); MCHC 32.4 g/dl (32.0-35.9); MEAN CELL VOLUME 95.4 fl (80-96); MEAN PLT VOLUME 7.3 fl (7.5-11.1); MONO % 11.5 % (3.8-10.2); NEUT % 66.8 % (42.8-82.8); PLATELET COUNT 361 K/MM3 (134-434); RBC 3.43 M/mm3 (4.00-5.60); RDW 15.1 % (11.9-15.9)
[2020-03-31 13:12] LABS: ALBUMIN 2.6 g/dl (3.4-5.0); BILIRUBIN,TOTAL 0.6 mg/dL (0.2-1); BLOOD UREA NITROGEN 24.8 mg/dL (7-18); CALCIUM 8.6 mg/dL (8.5-10.1); CREATININE 1.1 mg/dL (0.55-1.3); POTASSIUM 4.3 mmol/L (3.5-5.1); TOT PROT 6.3 g/dl (6.4-8.2)
--- NOTE | 2020-03-31 14:03 | SURG ---
Surgery Forensic Toxicologist Note Forensic Toxicologist: Criselda Landa PA-C Date of Service: 03/25/20 Diagnosis: Left TKA wound dehiscence, quad tendon tear Procedure: Left TKA I&D, poly exchange, quad tendon repair I was present for the entirety of the operative procedure. For further detail, please refer to operative report. Visit type - Case Type Case Type: ED Admission - Emergency Emergency Visit: Yes ED Registration Date: 03/24/20 Care time: The patient presented to the Emergency Department on the above date and was hospitalized for further evaluation of their emergent condition. - New patient This patient is new to me today: Yes Date on this admission: 03/25/20 - Critical Care Critical Care patient: No
[2020-03-31 14:12] VITALS: BP 117/49; PULSE 61; TEMP 97.5
--- NOTE | 2020-03-31 15:35 | DS ---
Physical Exam: SUBJECTIVE: Patient is a 64 year old male with a past medical history of HTN, COPD, HLD, RA, left TKR (on 03/13/2020). Patient presents to ED on 03/24/2020 after he accidentally fell during physical therapy. Witnessed fall. No LOC. On 03/25/2020 he underwent quadriceps tendon repair with Dr. Tavo Bowie. Patient to be discharged today for continuation of IV antibiotics for another 5 weeks per ID specialist. imaging: knee xray 03/24: left knee replacement, in satisfactory alignment with soft tissue swelling covid status: negative per serology as of 03/24/2020 Period Temp Pulse Resp BP Sys/Luz Pulse Ox Last 24 Hr 97.5 F-98.9 F 61-77 18-64 105-155/49-72 96-96 PHYSICAL EXAM GENERAL: Awake, alert, and fully oriented, in no acute distress. HEAD: Normal with no signs of trauma. EYES: Pupils equal, round and reactive to light, extraocular movements intact, sclera anicteric, conjunctiva clear. No lid lag. EARS, NOSE, THROAT: Ears normal, nares patent, oropharynx clear without exudates. NECK: Normal range of motion, supple without lymphadenopathy LUNGS: Breath sounds equal, clear to auscultation bilaterally. HEART: Regular rate and rhythm, normal S1 and S2 without murmur, rub or gallop. ABDOMEN: Soft, nontender, not distended, normoactive bowel sounds MUSCULOSKELETAL: Normal range of motion at all joints. UPPER EXTREMITIES:No cyanosis. No clubbing. No peripheral edema. LOWER EXTREMITIES: L lower extremity immobilizer LABS Laboratory Results - last 24 hr 03/30/20 03/31/20 03/31/20 17:20 06:15 06:30 WBC RBC Hgb Hct MCV MCH MCHC RDW Plt Count MPV Absolute Neuts (auto) Neutrophils % Lymphocytes % Monocytes % Eosinophils % Basophils % Nucleated RBC % ESR Sodium 139 Potassium 4.3 Chloride 102 Carbon Dioxide 30 Anion Gap 7 L BUN 24.8 H Creatinine 1.1 Est GFR (CKD-EPI)AfAm 81.22 Est GFR (CKD-EPI)NonAf 70.07 POC Glucometer 213 118 Random Glucose 106 Calcium 8.6 Total Bilirubin 0.6 AST 21 ALT 40 Alkaline Phosphatase 47 C-Reactive Protein 2.7 H Total Protein 6.3 L Albumin 2.6 L 03/31/20 03/31/20 03/31/20 06:30 06:30 11:37 WBC 10.0 RBC 3.43 L Hgb 10.6 L Hct 32.8 L MCV 95.4 MCH 31.0 MCHC 32.4 RDW 15.1 Plt Count 361 MPV 7.3 L Absolute Neuts (auto) 6.7 Neutrophils % 66.8 Lymphocytes % 19.8 Monocytes % 11.5 H Eosinophils % 1.2 Basophils % 0.7 Nucleated RBC % 0 ESR 72 H Sodium Potassium Chloride Carbon Dioxide Anion Gap BUN Creatinine Est GFR (CKD-EPI)AfAm Est GFR (CKD-EPI)NonAf POC Glucometer 195 Random Glucose Calcium Total Bilirubin AST ALT Alkaline Phosphatase C-Reactive Protein Total Protein Albumin HOSPITAL COURSE: Date of Admission:03/24/20 Date of Discharge: 03/31/20 Minutes to complete discharge: 45 Discharge Summary Problems reviewed: Yes Reason For Visit: OPEN WOUND OF LOWER EXTREMITY WITH COMPLICATION Current Active Problems COPD (chronic obstructive pulmonary disease) (Acute) DVT prophylaxis (Acute) HTN (hypertension) (Acute) Postoperative wound dehiscence (Acute) Condition: Improved - Instructions Diet, Activity, Other Instructions: Must wear knee immobilizer at all times - keep on until seen in office by me in 2 weeks. Does not need to change Aquacel dressing. Eliquis 2.5mg PO BID x 35 days total postop for DVT ppx Partial weightbearing. Always use walker. MUST NOT BEND KNEE FOR 6 WEEKS TO ALLOW QUADRICEPS TENDON REPAIR TO HEAL PROPERLY. PLAN DISCUSSED WITH PT AND HIS . F/U in office in 2 weeks - pt will call and make appt. -------- Patient discharge to [facility] for completion of IV antibiotics. Referrals: Oneida Huerta [Primary Care Provider] - Disposition: [facility] FACILITY - Home Medications Comprehensive Discharge Medication List: Ambulatory Orders Furosemide [Lasix -] 40 mg PO DAILY 09/11/14 Metoprolol Tartrate [Lopressor] 100 mg PO DAILY 09/11/14 Amlodipine Besylate 5 mg PO DAILY 12/09/18 Prednisone 20 mg PO DAILY 12/09/18 metFORMIN HCL [Metformin HCl ER] 1,000 mg PO BID 12/09/18 Atorvastatin Calcium 20 mg PO HS 05/31/19 Glimepiride 1 mg PO DAILY 05/31/19 Losartan Potassium 50 mg PO DAILY 05/31/19 Multivitamins [Multivit ([facility] Formulary)] 1 tab PO DAILY tab 06/08/19 Terbinafine HCl 250 mg PO Q48H 11/08/19 Tiotropium [place] [Spiriva Respimat] 2 inh IH DAILY 11/08/19 Glucosam/Meriln-Msm1/C/Yao/Bosw [Glucosamine-Chondr Complx Cplt] 2 each PO DAILY 03/06/20 Ascorbic Acid [Vitamin C -] 500 mg PO BID tablet 03/14/20 Pantoprazole Sodium [Protonix -] 40 mg PO DAILY #40 tablet.ec 03/14/20 Apixaban [Eliquis -] 2.5 mg PO BID tablet 03/31/20 Sennosides/Docusate Sodium [Pericolace -] 2 tablet PO BID tablet 03/31/20 oxyCODONE HCL [Roxicodone -] 5 mg PO Q3H PRN tablet 03/31/20 oxyCODONE HCL [Roxicodone -] 10 mg PO Q3H PRN tablet 03/31/20 oxyCODONE SR [Oxycontin] 10 mg PO BID tab.er.12h 03/31/20 Problem List - Problems (1) Postoperative wound dehiscence Assessment/Plan: s/p Left TKA I&D, poly exchange, quad tendon repair on 03/25/2020 on cefepime/vanco per ID on left knee immobilizer - to be kept on at all times No bending of knee for 6 weeks Eliquis 2.5 BID x 35 days per surgery for d/c to [facility]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 PICC placed today. Code(s): T81.31XA - DISRUPTION OF EXTERNAL OPERATION (SURGICAL) WOUND, NEC, INIT Qualifiers: Encounter type: initial encounter Qualified Code(s): T81.31XA - Disruption of external operation (surgical) wound, not elsewhere classified, initial encounter (2) COPD (chronic obstructive pulmonary disease) Assessment/Plan: has home bipap. not in acute exacerbation of COPD Code(s): J44.9 - CHRONIC OBSTRUCTIVE PULMONARY DISEASE, UNSPECIFIED (3) HTN (hypertension) Assessment/Plan: controlled on lopressor 100mg daily, lasix 40mg daily, cozaar 50mg daily, norvasc 5mg daily Code(s): I10 - ESSENTIAL (PRIMARY) HYPERTENSION (4) Diabetes Assessment/Plan: on novolog based on sliding scale Code(s): E11.9 - TYPE 2 DIABETES MELLITUS WITHOUT COMPLICATIONS (5) DVT prophylaxis Assessment/Plan: on eliquis bid x 35 days (started 03/26/2020) Code(s): Z29.9 - ENCOUNTER FOR PROPHYLACTIC MEASURES, UNSPECIFIED This patient is new to me today: No Emergency Visit: Yes ED Registration Date: 03/24/20 Care time: The patient presented to the Emergency Department on the above date and was hospitalized for further evaluation of their emergent condition. Critical Care patient: No - Discharge Referral Referred to [facility] No
== END 2020-03-31 16:38 | DRG 467 ==
LOC: JER 14:19 → JERBED 14:45 → J8W 21:57
PROVIDERS: ADMIT Internal Medicine; ATTEND Nurse Practitioner Family
PROC: 0SRD0JZ Replacement of Left Knee Joint with Synthetic Substitute, Open Approach (ICD-10-PCS; 2020-03-25)
PROC: 0SCD0ZZ Extirpation of Matter from Left Knee Joint, Open Approach (ICD-10-PCS; 2020-03-25)
PROC: 0LQR0ZZ Repair Left Knee Tendon, Open Approach (ICD-10-PCS; 2020-03-25)
PROC: 0SPD0JZ Removal of Synthetic Substitute from Left Knee Joint, Open Approach (ICD-10-PCS; principal; 2020-03-25 16:00)
PROC: 02HV33Z Insertion of Infusion Device into Superior Vena Cava, Percutaneous Approach (ICD-10-PCS; 2020-03-31)
PROC: B518ZZA Fluoroscopy of Superior Vena Cava, Guidance (ICD-10-PCS; 2020-03-31)
DX: S76.112A Strain of left quadriceps muscle, fascia and tendon, initial encounter (principal); T81.31XA Disruption of external operation (surgical) wound, not elsewhere classified, initial encounter; J44.9 Chronic obstructive pulmonary disease, unspecified; E78.5 Hyperlipidemia, unspecified; E66.9 Obesity, unspecified; Z68.32 Body mass index [BMI] 32.0-32.9, adult; M06.80 Other specified rheumatoid arthritis, unspecified site; E11.9 Type 2 diabetes mellitus without complications; B37.9 Candidiasis, unspecified; G47.33 Obstructive sleep apnea (adult) (pediatric); W18.39XA Other fall on same level, initial encounter; Y92.89 Other specified places as the place of occurrence of the external cause; Y83.8 Other surgical procedures as the cause of abnormal reaction of the patient, or of later complication, without mention of misadventure at the time of the procedure
CPT/HCPCS: 36415; 36569; 73560-TC-LT-FY; 77001-TC-FY; 80048; 80053; 82962; 83735; 84100; 85025; 85027; 85610; 85651; 86140; 86850; 86900; 86901; 87040; 90715; 93005; 93010; 94010; 94660; 94760; 97116-GP; 97161-GP; 99285-25; C1751; G0480; J0131; U0003

== ENCOUNTER 2020-04-21 22:06 | Inpatient (IN) | payer OTHER, MEDICARE ==
--- NOTE | 2020-04-21 22:36 | PDOC ---
Attending Attestation - Resident Resident Name: Kaycee Bianchi - ED Attending Attestation I have performed the following: I have examined & evaluated the patient, The case was reviewed & discussed with the resident, I agree w/resident's findings & plan - HPI HPI: 04/21/20 22:35 see resident hpi - Physicial Exam PE: 04/21/20 22:35 see resident exam - Critical Care Time Total Critical Care Time: 45 Critical Care Statement: The care of this patient involved high complexity decision making to prevent further life threatening deterioration of the patient's condition and/or to evaluate & treat vital organ system(s) failure or risk of failure. - Medical Decision Making 04/21/20 22:35 64-year-old male currently in rehab status post knee replacement with wound separation secondary to fall now with weakness and abnormal labs on outpatient testing Plan for repeat labs in the emergency department for further evaluation 04/22/20 01:07 Patient found to be hypoglycemic in the emergency department corrected with 1 amp of D50 Labs consistent with acute renal failure as well Plan for nephrology notification as well as admission to medical service for further management Discharge - Discharge Information Problems reviewed: Yes Clinical Impression/Diagnosis: Acute kidney injury, Hypoglycemia associated with diabetes Condition: Fair - Follow up/Referral Referrals: Azeb Markham MD [Primary Care Provider] - - Patient Discharge Instructions - Post Discharge Activity
--- NOTE | 2020-04-21 22:36 | PDOC ---
History of Present Illness - General Chief Complaint: Abnormal Lab Results (Outside) Stated Complaint: WEAKNESS Time Seen by Provider: 04/21/20 22:34 History Source: Patient, Spouse - History of Present Illness Initial Comments: 04/21/20 22:34 HPI: This is a 64 y/o male with a PMH of RA, DM, HTN, bronchiolitis, COPD, and L. knee replacement on March 24 [address] the ED from [facility] because of a BUN of 88 and Creatinine of 8.6. He was discharged on 03/31 with a picc line and IV Vanco + cefepime. Per his , 3 days ago she noticed that he seemed altered and confused. The patient reports that since Tuesday he has been experiencing shaking, weakness, abdominal pain, nausea, diarrhea and one episode of hematuria on Tuesday. Per the , the last time they checked labs on him was two weeks ago. He is still producing urine. He denies chest pain, palpitations, SOB, or h eadache. ROS: GENERAL/CONSTITUTIONAL: No fever/chills. Yes weakness. HEAD, EYES, EARS, NOSE AND THROAT: No change in vision. CARDIOVASCULAR: No chest pain or shortness of breath. RESPIRATORY: No cough, wheezing, or hemoptysis. GASTROINTESTINAL: Yes nausea, no vomiting, Yes diarrhea GENITOURINARY: No dysuria, frequency. Yes hematuria MUSCULOSKELETAL: No joint or muscle swelling or pain. L. knee replacement NEUROLOGIC: No headache, vertigo, loss of consciousness, or change in strength/sensation. HEMATOLOGIC/LYMPHATIC: No anemia, easy bleeding, or history of blood clots. PMH: RA, DM, HTN, bronchiolitis, COPD, sera stasis PSx: L. Knee replacement (03/13) and repair (03/24) Social Hx: Denied etoh and tobacco Meds: Prednisone, mycophenylate, metformin, metoprolol Allergies: Sulfamethoxazole, trimethoprim PE: GENERAL: Awake, alert, but confused. Conversational. by bedside. HEAD: No signs of trauma EYES: PERRLA, EOMI, sclera anicteric, conjunctiva clear ENT: Auricles normal inspection, hearing grossly normal, nares patent, oropharynx clear without exudates. Moist mucosa NECK: Normal ROM, supple, no lymphadenopathy, JVD, or masses LUNGS: Breath sounds equal, clear to auscultation bilaterally. No wheezes, and no crackles HEART: Regular rate and rhythm, normal S1 and S2, no murmurs, rubs or gallops ABDOMEN: Soft, nontender, normoactive bowel sounds. No guarding, no rebound. No masses EXTREMITIES: Normal range of motion, no edema. No clubbing or cyanosis. No cords, erythema, or tenderness. L. knee in support brace. Bandages in place. NEUROLOGICAL: Cranial nerves II through XII grossly intact. SKIN: Warm, Dry, normal turgor, no rashes or lesions noted. 04/21/20 23:26 MDM: This is a 64 y/o male with a PMH of RA, DM, HTN, bronchiolitis, COPD, and L. knee replacement on March 24 presenting to the ED from [facility] because of a BUN of 88 and Creatinine of 8.6. ALFREDA vs uremia vs vanco toxicity - EKG - CXR - CMP - CBC - Vanco level - Urine Na 04/22/20 00:02 POC glucose 32 Line and d50 04/22/20 00:[address] Odell Past History - Medical History Allergies/Adverse Reactions: Allergies Allergy/AdvReac Type Severity Reaction Status Date / Time sulfamethoxazole Allergy Intermediate Swelling Verified 04/21/20 22:20 [From Bactrim] trimethoprim [From Bactrim] Allergy Intermediate Swelling Verified 04/21/20 22:20 Home Medications: Ambulatory Orders Furosemide [Lasix -] 40 mg PO DAILY 09/11/14 Metoprolol Tartrate [Lopressor] 100 mg PO DAILY 09/11/14 Amlodipine Besylate 5 mg PO DAILY 12/09/18 Prednisone 20 mg PO DAILY 12/09/18 metFORMIN HCL [Metformin HCl ER] 1,000 mg PO BID 12/09/18 Atorvastatin Calcium 20 mg PO HS 05/31/19 Glimepiride 1 mg PO DAILY 05/31/19 Losartan Potassium 50 mg PO DAILY 05/31/19 Multivitamins [Multivit ([facility] Formulary)] 1 tab PO DAILY tab 06/08/19 Terbinafine HCl 250 mg PO Q48H 11/08/19 Tiotropium [place] [Spiriva Respimat] 2 inh IH DAILY 11/08/19 Glucosam/Merlin-Msm1/C/Yao/Bosw [Glucosamine-Chondr Complx Cplt] 2 each PO DAILY 03/06/20 Ascorbic Acid [Vitamin C -] 500 mg PO BID tablet 03/14/20 Pantoprazole Sodium [Protonix -] 40 mg PO DAILY #40 tablet.ec 03/14/20 Apixaban [Eliquis -] 2.5 mg PO BID tablet 03/31/20 Cefepime [Maxipime (Restricted To Id) -] 2 gm IVPB Q8H-IV vial 03/31/20 Sennosides/Docusate Sodium [Pericolace -] 2 tablet PO BID tablet 03/31/20 oxyCODONE HCL [Roxicodone -] 5 mg PO Q3H PRN tablet 03/31/20 oxyCODONE HCL [Roxicodone -] 10 mg PO Q3H PRN tablet 03/31/20 oxyCODONE SR [Oxycontin] 10 mg PO BID tab.er.12h 03/31/20 Anemia: No Asthma: No Cancer: No Cardiac Disorders: No CVA: No COPD: Yes CHF: No Dementia: No Diabetes: Yes (steroid induced) GI Disorders: No Disorders: No HTN: Yes Hypercholesterolemia: Yes Liver Disease: No Seizures: No Thyroid Disease: No - Surgical History Abdominal Surgery: No Appendectomy: No Cardiac Surgery: No Cholecystectomy: No Lung Surgery: Yes (lung Bx) Neurologic Surgery: No Orthopedic Surgery: Yes (L5 Lami '99; R knee 06/07, L knee 03/08) - Psycho-Social/Smoking History Smoking History: Never smoked Have you smoked in the past 12 months: No If you are a former smoker, when did you quit?: 1980 Information on smoking cessation initiated: No - Substance Abuse Hx (Audit-C & DAST Scrn) How often the patient has a drink containing alcohol: Never Score: In Men: 4 or > Positive; In Women: 3 or > Positive: 0 Screen Result (Pos requires Nsg. Audit-10AR): Negative In the last yr the pt used illegal drug/Rx for NonMed reason: No Score: Yes response is considered Positive: 0 Screen Result (Positive result requires Nsg. DAST-10): Negative *Physical Exam - Vital Signs Last Vital Signs Temp Pulse Resp BP Pulse Ox 98.1 F 69 17 149/72 98 04/21/20 22:13 04/21/20 22:13 04/21/20 22:13 04/21/20 22:13 04/21/20 22:13 Heart Score/ECG Review - ECG Intrepretation Comment:: 04/22/20 00:[address] elevations, no peaked T waves Normal sinus rhythm Vent rate 64bpm, CO interval 148ms, QRS duration 96ms, QT/QTc 444/458 Largely unchanged from previous EKG ED Treatment Course - LABORATORY CBC & Chemistry Diagram: 04/22/20 00:24 04/22/20 00:24 Discharge - Discharge Information Problems reviewed: Yes Clinical Impression/Diagnosis: Acute kidney injury Condition: Fair - Admission Yes - Follow up/Referral Referrals: Azeb Markham MD [Primary Care Provider] - - Patient Discharge Instructions - Post Discharge Activity
[2020-04-22] MEDS ORDERED: DEXTROSE 50%-WATER - 25 GM/50 ML VIAL IVPUSH ONE ×3 (00:17→20:36)
[2020-04-22] MEDS ORDERED: DEXTROSE 50%-WATER - 25 GM/50 ML VIAL ONE ×2 (00:26→04:34)
--- NOTE | 2020-04-22 00:33 | PDOC ---
*Physical Exam - Vital Signs Last Vital Signs Temp Pulse Resp BP Pulse Ox 98.1 F 69 17 149/72 98 04/21/20 22:13 04/21/20 22:13 04/21/20 22:13 04/21/20 22:13 04/21/20 22:13 - Physical Exam 04/22/20 00:[address] Smith took on this patient's care and admitted him to medicine. 04/22/20 06:47 <Milan Odell - Last Filed: 04/22/20 06:47> - Vital Signs Last Vital Signs Temp Pulse Resp BP Pulse Ox 98.1 F 69 17 149/72 98 04/21/20 22:13 04/21/20 22:13 04/21/20 22:13 04/21/20 22:13 04/21/20 22:13 <Matty Smith - Last Filed: 04/22/20 07:14> ED Treatment Course - LABORATORY CBC & Chemistry Diagram: 04/22/20 00:24 04/22/20 00:24 - ADDITIONAL ORDERS Additional order review: Laboratory Results 04/22/20 00:15 POC Glucometer 32 04/22/20 00:15 POC Glucometer 32 <Milan Odell - Last Filed: 04/22/20 06:47> - LABORATORY CBC & Chemistry Diagram: 04/22/20 00:24 04/22/20 00:24 - ADDITIONAL ORDERS Additional order review: Laboratory Results 04/22/20 04/22/20 04/22/20 01:25 01:25 00:24 Sodium Potassium Chloride Carbon Dioxide Anion Gap BUN Creatinine Est GFR (CKD-EPI)AfAm Est GFR (CKD-EPI)NonAf POC Glucometer Random Glucose Calcium Phosphorus Magnesium Total Bilirubin AST ALT Alkaline Phosphatase Total Protein Albumin Urine Color Yellow Urine Appearance Clear Urine pH 5.0 Ur Specific [place] 1.010 Urine Protein 2+ H Urine Glucose (UA) Negative Urine Ketones Negative Urine Blood 1+ H Urine Nitrite Negative Urine Bilirubin Negative Urine Urobilinogen 0.2 Ur Leukocyte Esterase Negative Urine WBC (Auto) 13 Urine RBC (Auto) 27 Urine Casts (Auto) 1 U Epithel Cells (Auto) 27 Urine Bacteria (Auto) 3 Ur Random Creatinine 37.0 Ur Random Sodium 104 Ur Random Potassium 15.0 L Ur Random Chloride 111 Random Vancomycin > 50.0 H* 04/22/20 04/22/20 00:24 00:15 Sodium 142 Potassium 5.3 H Chloride 112 H Carbon Dioxide 14 L Anion Gap 16 BUN 97.4 H Creatinine 10.8 H* Est GFR (CKD-EPI)AfAm 5.13 Est GFR (CKD-EPI)NonAf 4.43 POC Glucometer 32 Random Glucose 62 L Calcium 9.3 Phosphorus 6.7 H Magnesium 2.5 H Total Bilirubin 0.4 AST 16 ALT 19 Alkaline Phosphatase 58 Total Protein 7.4 Albumin 3.0 L Urine Color Urine Appearance Urine pH Ur Specific [place] Urine Protein Urine Glucose (UA) Urine Ketones Urine Blood Urine Nitrite Urine Bilirubin Urine Urobilinogen Ur Leukocyte Esterase Urine WBC (Auto) Urine RBC (Auto) Urine Casts (Auto) U Epithel Cells (Auto) Urine Bacteria (Auto) Ur Random Creatinine Ur Random Sodium Ur Random Potassium Ur Random Chloride Random Vancomycin 04/22/20 04/22/20 00:24 00:15 RBC 3.87 L MCV 94.6 MCHC 32.3 RDW 15.5 MPV 8.1 D Neutrophils % 84.7 H D Lymphocytes % 6.9 L D Monocytes % 7.0 Eosinophils % 0.4 Basophils % 1.0 POC Glucometer 32 - RADIOLOGY Radiology Studies Ordered: Category Date Time Status CXRPORT [CHEST X-RAY PORTABLE*] [RAD] Stat Radiology 04/21/20 23:12 Taken - Medications Given in the ED: ED Medications Discontinued Medications Generic Name Dose Route Start Last Admin Trade Name Freq PRN Reason Stop Dose Admin Dextrose 25 gm 04/22/20 00:17 04/22/20 00:33 D50w (Vial) - IVPUSH 04/22/20 00:18 25 gm NOW ONE Administration Lactated Ringer's 1,000 ml 04/22/20 00:36 04/22/20 00:38 Lactated Ringers Solution IV 04/22/20 00:37 1,000 ml ONCE ONE Administration <Matty Smith - Last Filed: 04/22/20 07:14> Medical Decision Making - Medical Decision Making Reviewed laboratory data. Noted non-anion gap acidosis with unmeasurable elevated Vancomycin level. Suspect this is the source of the ALFREDA. Noted hyperkalemia. No EKG changes appreciated. Will continue to monitor on continuous cardiac telemetry. Pt was hypoglycemic on arrival. Suspect secondary to Glyburide vs Metformin without renal adjustment. Able to tolerate PO, given juice. Also given one amp of D50. Will trend with q1h BGM until stabilised. 22 Apr 2020 02:19 AM Telephone discussion with Dr. Son of nephrology service. Verbally appraised of the pts HPI, ED course, and current plan of management. Agreed with the plan for Lokelma and Isotonic bicarb drip. Will evaluate in the morning. Discussed current clinical condition with the pt and his Brittny. If possible, she would like to be called at [phone] after nephrology consultation. 22 Apr 2020 02:40 AM Telephone discussion with IVAN Witt. Verbally appraised of the pts HPI, ED course, and current plan of management. Will admit pt to telemetry for attending Dr. English. Discussed suggestion for repeat Vancomycin level and lactic acid with morning labs. Would also consider C-diff given watery diarrhea and abx usage. Pt's POC BGM stabilized on repeat trend. 04/22/20 04:[address] [facility] ([place], [place]) and spoke to 1st floor RN on duty. Reports the pt last received Vancomycin at 15:00 on 04/21 and Cefepime at 14:00 on 04/21. Pt was admitted to [facility] ([place], [place]) by Dr. Markham on 03/31. Vanc trough from 04/21 pending. No base line creatinine available from the facility. Matty Smith M.D. PGY3 Emergency Medicine <Matty Smith - Last Filed: 04/22/20 07:14> Discharge <Milan Odell - Last Filed: 04/22/20 06:47> - Discharge Information Problems reviewed: Yes - Admission Yes <Matty Smith - Last Filed: 04/22/20 07:14> - Discharge Information Clinical Impression/Diagnosis: Acute kidney injury, Hypoglycemia associated with diabetes Accidental vancomycin overdose Qualifiers: Encounter type: initial encounter Qualified Code(s): T36.8X1A - Poisoning by other systemic antibiotics, accidental (unintentional), initial encounter Condition: Guarded
[2020-04-22] MEDS ORDERED: LACTATED RINGERS SOLUTION 1000 ML INFUS.BAG IV ONE (00:36)
[2020-04-22 00:37] LABS: EOS % 0.4 % (0-4.5); HEMATOCRIT 36.6 % (35.4-49); HEMOGLOBIN 11.8 GM/dL (11.7-16.9); LYMPH % 6.9 % (8-40); MCH 30.5 pg (25.7-33.7); MCHC 32.3 g/dl (32.0-35.9); MEAN CELL VOLUME 94.6 fl (80-96); MEAN PLT VOLUME 8.1 fl (7.5-11.1); NEUT % 84.7 % (42.8-82.8); PLATELET COUNT 186 K/MM3 (134-434); RBC 3.87 M/mm3 (4.00-5.60); RDW 15.5 % (11.9-15.9); WHITE BLOOD COUNT 10.4 K/mm3 (4.0-10.0)
[2020-04-22 00:58] LABS: BILIRUBIN,TOTAL 0.4 mg/dL (0.2-1); BLOOD UREA NITROGEN 97.4 mg/dL (7-18); CALCIUM 9.3 mg/dL (8.5-10.1); MAGNESIUM 2.5 mg/dL (1.8-2.4); PHOSPHOROUS 6.7 mg/dL (2.5-4.9); POTASSIUM 5.3 mmol/L (3.5-5.1); TOT PROT 7.4 g/dl (6.4-8.2)
[2020-04-22 01:27] LABS: CREATININE 10.8 mg/dL (0.55-1.3)
[2020-04-22] MEDS ORDERED: SODIUM ZIRCONIUM CYCLOSILICATE (LOKELMA) 5 GM PACKET PO STA (01:40)
[2020-04-22] MEDS ORDERED: SODIUM CHLORIDE IV SCH (01:45)
[2020-04-22] MEDS ORDERED: SODIUM BICARBONATE IV SCH (01:45)
[2020-04-22 01:46] LABS: EPI CELLS 27 /uL (0-25.1); HYALINE CASTS 1 /uL (0-3.1); URINE APPEARANCE CLEAR; URINE BACTERIA 3 /uL (0-1359); URINE BILIRUBIN NEGATIVE (NEGATIVE); URINE COLOR YELLOW; URINE GLUCOSE (UA) NEGATIVE (NEGATIVE); URINE KETONE NEGATIVE (NEGATIVE); URINE LEUK ESTERASE NEGATIVE (NEGATIVE); URINE NITRITE NEGATIVE (NEGATIVE); URINE PROTEIN 2+ (NEGATIVE); URINE RBC 27 /uL (0-23.9); URINE UROBILINOGEN 0.2 mg/dL (0.2-1.0); URINE WBC 13 /uL (0-25.8)
[2020-04-22] MEDS ORDERED: SODIUM CHLORIDE 0.45% 1,000 ML with SODIUM BICARBONATE 8.4% - 75 MEQ IV SCH (02:03)
--- NOTE | 2020-04-22 03:09 | HP ---
Admitting History and Physical - Primary Care Physician PCP: Nomi Pal ([facility]- [facility]) - Admission Chief Complaint: AMS, Generalized Weakness, Abdominal Pain, Diarrhea, Hematuria History of Present Illness: This is a 64 y/o male from [facility] ([facility]) with a PMHx of RA, DM, HTN, Bronchiolitis, COPD, L- knee replacement(03/13/20), L- knee dehiscence (03/24-03/31) discharged on 03/31 with a Picc line and IV Vanco + Cefepime. Who presents to the ED for abnormal lab value: BUN of 88 and Creatinine of 8.6. Patient reports feeling "crappy" generalized weakness with episodes of diarrhea. Per ED records: Per his , 3 days ago she noticed that he seemed altered and confused. The patient reports that since Tuesday he has been experiencing shaking, weakness, abdominal pain, nausea, diarrhea and one episode of hematuria on Tuesday. Per the , the last time they checked labs on him was two weeks ago. He is still producing urine. He denies chest pain, palpitations, SOB, or headache. History Source: Patient, Family Member Limitations to Obtaining History: No Limitations - Past Medical History Cardiovascular: Yes: HTN, Hyperlipdemia Pulmonary: Yes: Asthma Endocrine: Yes: Diabetes Mellitus - Past Surgical History Past Surgical History: Yes: Joint Replacement - Smoking History Smoking history: Former smoker Have you smoked in the past 12 months: No If you are a former smoker, when did you quit?: 1980 - Alcohol/Substance Use Hx Alcohol Use: Yes (occasional) History of Substance Use: reports: None - Social History Usual Living Arrangement: Yes: [place] ADL: Support Services History of Recent Travel: No Home Medications - Allergies Allergies/Adverse Reactions: Allergies Allergy/AdvReac Type Severity Reaction Status Date / Time sulfamethoxazole Allergy Intermediate Swelling Verified 04/21/20 22:20 [From Bactrim] trimethoprim [From Bactrim] Allergy Intermediate Swelling Verified 04/21/20 22:20 - Home Medications Home Medications: Ambulatory Orders Furosemide [Lasix -] 40 mg PO DAILY 09/11/14 Metoprolol Tartrate [Lopressor] 100 mg PO DAILY 09/11/14 Amlodipine Besylate 5 mg PO DAILY 12/09/18 Prednisone 20 mg PO DAILY 12/09/18 metFORMIN HCL [Metformin HCl ER] 1,000 mg PO BID 12/09/18 Atorvastatin Calcium 20 mg PO HS 05/31/19 Glimepiride 1 mg PO DAILY 05/31/19 Losartan Potassium 50 mg PO DAILY 05/31/19 Multivitamins [Multivit ([facility] Formulary)] 1 tab PO DAILY tab 06/08/19 Terbinafine HCl 250 mg PO Q48H 11/08/19 Tiotropium [place] [Spiriva Respimat] 2 inh IH DAILY 11/08/19 Glucosam/Merlin-Msm1/C/Yao/Bosw [Glucosamine-Chondr Complx Cplt] 2 each PO DAILY 03/06/20 Ascorbic Acid [Vitamin C -] 500 mg PO BID tablet 03/14/20 Pantoprazole Sodium [Protonix -] 40 mg PO DAILY #40 tablet.ec 03/14/20 Apixaban [Eliquis -] 2.5 mg PO BID tablet 03/31/20 Cefepime [Maxipime (Restricted To Id) -] 2 gm IVPB Q8H-IV vial 03/31/20 Sennosides/Docusate Sodium [Pericolace -] 2 tablet PO BID tablet 03/31/20 oxyCODONE HCL [Roxicodone -] 5 mg PO Q3H PRN tablet 03/31/20 oxyCODONE HCL [Roxicodone -] 10 mg PO Q3H PRN tablet 03/31/20 oxyCODONE SR [Oxycontin] 10 mg PO BID tab.er.12h 03/31/20 Family Medical History Family History: Unable to Obtain Review of Systems - Review of Systems Constitutional: reports: Weakness Eyes: reports: No Symptoms HENT: reports: No Symptoms Neck: reports: No Symptoms Cardiovascular: reports: No Symptoms Respiratory: reports: No Symptoms Gastrointestinal: reports: Diarrhea Genitourinary: reports: Hematuria Breasts: reports: No Symptoms Reported Musculoskeletal: reports: Muscle Weakness Neurological: reports: Confusion, Weakness Endocrine: reports: No Symptoms Hematology/Lymphatic: reports: No Symptoms Psychiatric: reports: No Symptoms Physical Examination Vital Signs: Vital Signs Temperature 98.1 F 04/21/20 22:13 Pulse Rate 69 04/21/20 22:13 Respiratory Rate 17 04/21/20 22:13 Blood Pressure 149/72 04/21/20 22:13 O2 Sat by Pulse Oximetry (%) 98 04/21/20 22:13 Constitutional: Yes: Well Nourished, No Distress, Calm, Obese Eyes: Yes: WNL, Conjunctiva Clear, EOM Intact, PERRL HENT: Yes: Atraumatic, Normocephalic, Other (dry mucousa) Neck: Yes: WNL, Supple, Trachea Midline Cardiovascular: Yes: Regular Rate and Rhythm, S1, S2 Respiratory: Yes: Diminished, On Nasal O2 Gastrointestinal: Yes: Soft, Abdomen, Obese, Hypoactive Bowel Sounds. No: Tenderness, Tenderness, Epigastrium Breast(s): Yes: WNL Musculoskeletal: Yes: Muscle Weakness Extremities: Yes: WNL Edema: No Peripheral Pulses WNL: Yes Neurological: Yes: Alert, Oriented, Cran Nerves II-XII Intact ...Motor Strength: WNL Psychiatric: Yes: Alert, Oriented Labs: CBC, BMP 04/22/20 00:24 04/22/20 00:24 Laboratory Results - last 24 hr 04/22/20 04/22/20 04/22/20 00:15 00:24 00:24 WBC 10.4 H RBC 3.87 L Hgb 11.8 Hct 36.6 MCV 94.6 MCH 30.5 MCHC 32.3 RDW 15.5 Plt Count 186 D MPV 8.1 D Absolute Neuts (auto) 8.8 H Neutrophils % 84.7 H D Lymphocytes % 6.9 L D Monocytes % 7.0 Eosinophils % 0.4 Basophils % 1.0 Nucleated RBC % 0 Sodium 142 Potassium 5.3 H Chloride 112 H Carbon Dioxide 14 L Anion Gap 16 BUN 97.4 H Creatinine 10.8 H* Est GFR (CKD-EPI)AfAm 5.13 Est GFR (CKD-EPI)NonAf 4.43 POC Glucometer 32 Random Glucose 62 L Calcium 9.3 Phosphorus 6.7 H Magnesium 2.5 H Total Bilirubin 0.4 AST 16 ALT 19 Alkaline Phosphatase 58 Total Protein 7.4 Albumin 3.0 L Urine Color Urine Appearance Urine pH Ur Specific [place] Urine Protein Urine Glucose (UA) Urine Ketones Urine Blood Urine Nitrite Urine Bilirubin Urine Urobilinogen Ur Leukocyte Esterase Urine WBC (Auto) Urine RBC (Auto) Urine Casts (Auto) U Epithel Cells (Auto) Urine Bacteria (Auto) Ur Random Creatinine Ur Random Sodium Ur Random Potassium Ur Random Chloride Random Vancomycin 08/01/0604/22/20 04/22/20 00:24 01:25 01:25 WBC RBC Hgb Hct MCV MCH MCHC RDW Plt Count MPV Absolute Neuts (auto) Neutrophils % Lymphocytes % Monocytes % Eosinophils % Basophils % Nucleated RBC % Sodium Potassium Chloride Carbon Dioxide Anion Gap BUN Creatinine Est GFR (CKD-EPI)AfAm Est GFR (CKD-EPI)NonAf POC Glucometer Random Glucose Calcium Phosphorus Magnesium Total Bilirubin AST ALT Alkaline Phosphatase Total Protein Albumin Urine Color Yellow Urine Appearance Clear Urine pH 5.0 Ur Specific [place] 1.010 Urine Protein 2+ H Urine Glucose (UA) Negative Urine Ketones Negative Urine Blood 1+ H Urine Nitrite Negative Urine Bilirubin Negative Urine Urobilinogen 0.2 Ur Leukocyte Esterase Negative Urine WBC (Auto) 13 Urine RBC (Auto) 27 Urine Casts (Auto) 1 U Epithel Cells (Auto) 27 Urine Bacteria (Auto) 3 Ur Random Creatinine 37.0 Ur Random Sodium 104 Ur Random Potassium 15.0 L Ur Random Chloride 111 Random Vancomycin > 50.0 H* 04/22/20 04/22/20 04/22/20 02:15 02:58 04:27 WBC RBC Hgb Hct MCV MCH MCHC RDW Plt Count MPV Absolute Neuts (auto) Neutrophils % Lymphocytes % Monocytes % Eosinophils % Basophils % Nucleated RBC % Sodium Potassium Chloride Carbon Dioxide Anion Gap BUN Creatinine Est GFR (CKD-EPI)AfAm Est GFR (CKD-EPI)NonAf POC Glucometer 93 90 63 Random Glucose Calcium Phosphorus Magnesium Total Bilirubin AST ALT Alkaline Phosphatase Total Protein Albumin Urine Color Urine Appearance Urine pH Ur Specific [place] Urine Protein Urine Glucose (UA) Urine Ketones Urine Blood Urine Nitrite Urine Bilirubin Urine Urobilinogen Ur Leukocyte Esterase Urine WBC (Auto) Urine RBC (Auto) Urine Casts (Auto) U Epithel Cells (Auto) Urine Bacteria (Auto) Ur Random Creatinine Ur Random Sodium Ur Random Potassium Ur Random Chloride Random Vancomycin Intake & Output 04/19/20 04/20/20 04/21/20 04/22/20 23:59 23:59 23:59 23:59 Output Total 0 Balance 0 Weight 104.236 kg Imaging - Results Chest X-ray: Image Reviewed Ultrasound: Pending EKG: Image Reviewed Problem List - Problems (1) Acute renal failure Assessment/Plan: Likely secondary to Medication Cr baseline 0.8-1.2 UA- +2 protein, +1 blood, 13 WBC, 27 RBC, 1 Cast IVF given in ED, continue Nephrology aware and following Renal US-pending Avoid Nephrotoxic drugs Monitor vitals Monitor urine output closely Consider Flood for strict INOs Monitor CMP closely Code(s): N17.9 - ACUTE KIDNEY FAILURE, UNSPECIFIED (2) Electrolyte imbalance Assessment/Plan: Likely secondary to ARF D50, Sodium Bicarb, Lokelma given in ED per Nephrology's recommendation Continue Bicarb Drip Will monitor CMP closely Continue cardiac monitoring Consider Cardiology consult Code(s): E87.8 - OTH DISORDERS OF ELECTROLYTE AND FLUID BALANCE, NEC (3) Accidental vancomycin overdose Assessment/Plan: per HI receiving Vancomycin for 5 weeks started 03/31 Vanco Trough> 50.0 Will hold Vancomycin Appreciate ID consult Trend Vanc trough Monitor renal function closely Nephrology consult- per ED resident Nephrology aware Monitor vitals Code(s): T36.8X1A - POISONING BY OTH SYSTEMIC ANTIBIOTICS, ACCIDENTAL, INIT Qualifiers: Encounter type: initial encounter Qualified Code(s): T36.8X1A - Poisoning by other systemic antibiotics, accidental (unintentional), initial encounter (4) Hypoglycemia associated with diabetes Assessment/Plan: Likely secondary to electrolyte imbalance D50 given in ED BGMs Q1H until 200s Monitor CMP Consider Endocrinology consult Code(s): E11.649 - TYPE 2 DIABETES MELLITUS WITH HYPOGLYCEMIA WITHOUT COMA (5) COPD (chronic obstructive pulmonary disease) Assessment/Plan: stable No acute flare Chest Xray image reviewed- interstitial markings Continue Spiriva Duoneb Code(s): J44.9 - CHRONIC OBSTRUCTIVE PULMONARY DISEASE, UNSPECIFIED (6) HTN (hypertension) Assessment/Plan: stable Monitor BP Continue Metoprolol, Amlodipine with parameters Hold Losartan 2/2 ARF Monitor renal function Code(s): I10 - ESSENTIAL (PRIMARY) HYPERTENSION Assessment/Plan This is a 64 y/o male from [facility] ([facility]) with a PMHx of RA, DM, HTN, Bronchiolitis, COPD, L- knee replacement. Admitted to Telemetry for Acute Renal Failure, Acute Metabolic Acidosis, Electrolyte Imbalance Vancomycin Toxicity, Generalized Weakness for further evaluation of their emergent condition. Plan: See Problem List FEN Continue Bicarb Drip Replete lytes prn NPO DVT ppx OOB SCDs Continue Eliquis renal dosing Dispo: Requires Inpatient Care Visit type - Medication Review Med list reviewed for High Risk Meds patients 65 and older: Yes - Emergency Visit Emergency Visit: Yes ED Registration Date: 04/21/20 Care time: The patient presented to the Emergency Department on the above date and was hospitalized for further evaluation of their emergent condition. - New Patient This patient is new to me today: Yes Date on this admission: 04/22/20 - Critical Care Critical Care patient: Yes Total Critical Care Time (in minutes): 32 Critical Care Statement: The care of this patient involved high complexity decision making to prevent further life threatening deterioration of the patient's condition and/or to evaluate & treat vital organ system(s) failure or risk of failure.
--- NOTE | 2020-04-22 06:48 | CONSULT ---
Consult Consult Specialty:: Nephrology Reason for Consultation:: ALFRDEA - History of Present Illness Chief Complaint: sent in for abnormal labs History of Present Illness: Pt is a 64 year old gentleman who presents to the ER with abnormal stress engineer of 8.6. He has history of RA (on mycophenylate 1000 bid), dm on metformin, htn, copd. left knee replacement. He was on vanco and cefepime. He started to have decreased urine output about 3 days ago. He also had an episode of hematuria 3 days ago. He has not made urine in two days. He does get shortness of breath when he lays flat. He was found to have worsening renal failure, have hyperkalemia and acidosis. He denies chest pain or palpitations. He denies history of CKD. He denies nsaid use. He has also had diarrhea for the last 2 days which was associated with chills and fevers. - History Source History Provided By: Patient, Family Member, Medical Record - Past Medical History Cardio/Vascular: Yes: HTN, Hyperlipdemia Pulmonary: Yes: Asthma Endocrine: Yes: Diabetes Mellitus - Past Surgical History Past Surgical History: Yes: Joint Replacement - Alcohol/Substance Use Hx Alcohol Use: Yes (occasional) History of Substance Use: reports: None - Smoking History Smoking history: Former smoker Have you smoked in the past 12 months: No If you are a former smoker, when did you quit?: 1980 - Social History ADL: Support Services History of Recent Travel: No Home Medications - Allergies Allergies/Adverse Reactions: Allergies Allergy/AdvReac Type Severity Reaction Status Date / Time sulfamethoxazole Allergy Intermediate Swelling Verified 04/21/20 22:20 [From Bactrim] trimethoprim [From Bactrim] Allergy Intermediate Swelling Verified 04/21/20 22:20 - Home Medications Home Medications: Ambulatory Orders Furosemide [Lasix -] 40 mg PO DAILY 09/11/14 Metoprolol Tartrate [Lopressor] 100 mg PO DAILY 09/11/14 Amlodipine Besylate 5 mg PO DAILY 12/09/18 Prednisone 10 mg PO DAILY 12/09/18 metFORMIN HCL [Metformin HCl ER] 1,000 mg PO BID 12/09/18 Atorvastatin Calcium 20 mg PO HS 05/31/19 Glimepiride 1 mg PO DAILY 05/31/19 Losartan Potassium 50 mg PO DAILY 05/31/19 Multivitamins [Multivit ([facility] Formulary)] 1 tab PO DAILY tab 06/08/19 Terbinafine HCl 250 mg PO Q48H 11/08/[address] [employer] [Spiriva Respimat] 2 inh IH DAILY 11/08/19 Glucosam/Merlin-Msm1/C/Yao/Bosw [Glucosamine-Chondr Complx Cplt] 2 each PO DAILY 03/06/20 Ascorbic Acid [Vitamin C -] 500 mg PO BID tablet 03/14/20 Pantoprazole Sodium [Protonix -] 40 mg PO DAILY #40 tablet.ec 03/14/20 Apixaban [Eliquis -] 2.5 mg PO BID tablet 03/31/20 Cefepime [Maxipime (Restricted To Id) -] 2 gm IVPB Q8H-IV vial 03/31/20 Sennosides/Docusate Sodium [Pericolace -] 2 tablet PO BID tablet 03/31/20 oxyCODONE HCL [Roxicodone -] 5 mg PO Q3H PRN tablet 03/31/20 oxyCODONE HCL [Roxicodone -] 10 mg PO Q3H PRN tablet 03/31/20 oxyCODONE SR [Oxycontin] 10 mg PO BID tab.er.12h 03/31/20 Mycophenolate Mofetil [Cellcept] 1,000 mg PO BID 04/22/20 Family Medical History Family History: Denies Review of Systems - Review of Systems Constitutional: reports: Loss of Appetite, Malaise, Weakness Eyes: reports: No Symptoms HENT: reports: No Symptoms Neck: reports: No Symptoms Cardiovascular: reports: No Symptoms Respiratory: reports: No Symptoms Gastrointestinal: reports: Diarrhea Genitourinary: reports: No Symptoms Musculoskeletal: reports: No Symptoms Integumentary: reports: No Symptoms Neurological: reports: No Symptoms Endocrine: reports: No Symptoms Hematology/Lymphatic: reports: No Symptoms Psychiatric: reports: No Symptoms Physical Exam Vital Signs: Vital Signs Temperature 98.1 F 04/21/20 22:13 Pulse Rate 63 04/22/20 03:06 Respiratory Rate 18 04/22/20 03:06 Blood Pressure 141/67 04/22/20 03:06 O2 Sat by Pulse Oximetry (%) 98 04/22/20 03:06 Constitutional: Yes: Calm Eyes: Yes: Conjunctiva Clear HENT: Yes: Atraumatic Neck: Yes: Supple Cardiovascular: Yes: S1, S2 Respiratory: Yes: CTA Bilaterally Gastrointestinal: Yes: Normal Bowel Sounds, Soft Renal/: Yes: Flood Present, Oliguria Musculoskeletal: Yes: Muscle Weakness Edema: Yes Edema: LLE: Trace, RLE: Trace Integumentary: Yes: WNL Neurological: Yes: Oriented Psychiatric: Yes: Oriented Imaging - Results Chest X-ray: Report Reviewed Problem List - Problems (1) Hyperkalemia Code(s): E87.5 - HYPERKALEMIA (2) Acute kidney injury Code(s): N17.9 - ACUTE KIDNEY FAILURE, UNSPECIFIED (3) Acute renal failure Code(s): N17.9 - ACUTE KIDNEY FAILURE, UNSPECIFIED (4) Diarrhea Code(s): R19.7 - DIARRHEA, UNSPECIFIED Assessment/Plan Current Medications Generic Name Dose Route Start Last Admin Trade Name Freq PRN Reason Stop Dose Admin Albuterol/Ipratropium 1 amp 04/22/20 08:26 Duoneb - NEB Q6H PRN SHORTNESS OF BREATH Apixaban 2.5 mg 04/22/20 10:00 04/22/20 10:00 Eliquis - PO 2.5 mg BID GO Administration Metoprolol Tartrate 50 mg 04/22/20 10:00 04/22/20 10:00 Lopressor - PO 50 mg BID GO Administration Tiotropium [employer] 2 puff 04/22/20 10:00 04/22/20 11:04 Spiriva Respimat IH Not Given DAILY GO Impression 1. ALFREDA with oliguria 2. metabolic acidosis 3. hyperkalemia 4. s/p left knee replacement 5. htn 6. rheumatoid arthritis on mycophenylate 1000 bid 7. DM 8. COPD Plan - will order serologic workup - hold vanco and repeat levels - will arrange for HD as he is not making urine - avoid nsaids - check spep, anca, gbm, hep panel - ortho eval to evaluate if eliquis can be held - fena is elevated - pt has also had diarrhea which may contribute to renal failure - will comment more on etiology of alfreda after reviewing labs - check urine eos - discussed with medical team - discussed hd with pt and - called vascular for access - hold losartan - hold metformin
[2020-04-22 07:12] LABS: ALBUMIN 2.7 g/dl (3.4-5.0); BILIRUBIN,TOTAL 0.4 mg/dL (0.2-1); BLOOD UREA NITROGEN 97.5 mg/dL (7-18); CALCIUM 8.9 mg/dL (8.5-10.1); POTASSIUM 4.6 mmol/L (3.5-5.1); TOT PROT 6.6 g/dl (6.4-8.2)
[2020-04-22 07:20] LABS: CREATININE 10.7 mg/dL (0.55-1.3)
[2020-04-22 07:32] LABS: BASO % 0.5 % (0-2.0); EOS % 1.7 % (0-4.5); HEMATOCRIT 34.8 % (35.4-49); HEMOGLOBIN 11.1 GM/dL (11.7-16.9); LYMPH % 8.8 % (8-40); MCH 29.8 pg (25.7-33.7); MCHC 32.1 g/dl (32.0-35.9); MONO % 10.2 % (3.8-10.2); NEUT % 78.8 % (42.8-82.8); PLATELET COUNT 182 K/MM3 (134-434); RBC 3.74 M/mm3 (4.00-5.60); RDW 15.4 % (11.9-15.9); WHITE BLOOD COUNT 9.1 K/mm3 (4.0-10.0)
--- NOTE | 2020-04-22 08:15 | PN ---
Progress Note, Physician History of Present Illness: 64 y/o male from [facility]) with a PMHx of RA, DM, HTN, Bronchiolitis, COPD, L- knee replacement(03/13/20), L- knee dehiscence (03/24-03/31) discharged on 03/31 with a Picc line and IV Vanco + Cefepime. Who presents to the ED for abnormal lab value: BUN of 88 and Creatinine of 8.6. He denies chest pain, palpitations, SOB, or headache. States he feels better this am - Current Medication List Current Medications: Active Medications Apixaban (Eliquis -) 2.5 mg PO BID GO Sodium Bicarbonate 75 meq/ (Sodium Chloride) 1,075 mls @ 100 mls/hr IV ASDIR GO Last Admin: 04/22/20 03:03 Dose: 100 mls/hr Documented by: - Objective Vital Signs: Vital Signs Temperature 98.5 F 04/22/20 07:34 Pulse Rate 68 04/22/20 07:34 Respiratory Rate 18 04/22/20 07:34 Blood Pressure 147/88 04/22/20 07:34 O2 Sat by Pulse Oximetry (%) 99 04/22/20 07:35 Cardiovascular: Yes: S1, S2 Respiratory: Yes: Regular, CTA Bilaterally Gastrointestinal: Yes: Normal Bowel Sounds, Soft. No: Tenderness Edema: No Neurological: Yes: Alert, Oriented Labs: CBC, BMP 04/22/20 06:26 04/22/20 06:26 Problem List - Problems (1) Acute kidney injury Assessment/Plan: probably multiple factors--d/w renal --r/o autoimmune response RENAL ON CASE IVF FOLLOW LABS US Code(s): N17.9 - ACUTE KIDNEY FAILURE, UNSPECIFIED (2) Hypoglycemia associated with diabetes Assessment/Plan: MONITOR BS HOLD MEDS Code(s): E11.649 - TYPE 2 DIABETES MELLITUS WITH HYPOGLYCEMIA WITHOUT COMA (3) Diabetes Assessment/Plan: BGM HOLD METFORMIN DUE TO ALFREDA Code(s): E11.9 - TYPE 2 DIABETES MELLITUS WITHOUT COMPLICATIONS (4) HTN (hypertension) Assessment/Plan: MONITOR Vital Signs Period Temp Pulse Resp BP Sys/Luz Pulse Ox Last 24 Hr 97.9 F-98.5 F 63-69 16-18 141-158/67-88 98-99 HOLD ARB AND MONITOR Code(s): I10 - ESSENTIAL (PRIMARY) HYPERTENSION (5) Postoperative wound dehiscence Assessment/Plan: ABX PER ID Code(s): T81.31XA - DISRUPTION OF EXTERNAL OPERATION (SURGICAL) WOUND, NEC, INIT Qualifiers: Encounter type: initial encounter Qualified Code(s): T81.31XA - Disruption of external operation (surgical) wound, not elsewhere classified, initial encounter (6) Diarrhea Assessment/Plan: STOOL FOR CDIF Code(s): R19.7 - DIARRHEA, UNSPECIFIED
[2020-04-22] MEDS ORDERED: ALBUTEROL SO4 2.5/IPRATROPIUM 0.5 INH SOL 3 ML VIAL.NEB. NEB PRN (08:26)
[2020-04-22] MEDS: METOPROLOL TARTRATE 50 MG TABLET (FP) PO SCH ×2 (10:00→21:58)
[2020-04-22] MEDS: APIXABAN 2.5 MG TABLET PO SCH ×2 (10:00→21:58)
[2020-04-22] MEDS ORDERED: METOPROLOL TARTRATE 50 MG TABLET (FP) ONE (10:27)
--- NOTE | 2020-04-22 10:43 | EKG ---
Test Reason : Blood Pressure : / mmHG Vent. Rate : 064 BPM Atrial Rate : 064 BPM P-R Int : 148 ms QRS Dur : 096 ms QT Int : 444 ms P-R-T Axes : 102 052 043 degrees QTc Int : 458 ms NORMAL SINUS RHYTHM NORMAL ECG WHEN COMPARED WITH ECG OF 24-MAR-2020 15:27, T WAVE INVERSION NOW EVIDENT IN ANTERIOR LEADS QT HAS LENGTHENED Confirmed by Gerry Gill ([id number]) on 04/22/2020 10:43:29 AM Referred By: Confirmed By:Gerry Gill
--- NOTE | 2020-04-22 10:45 | PROC ---
Central Line Insertion - Procedure Note TIME OUT performed prior to this procedure with verbal confirmation of correct patient identity, correct side, agreement of the procedure, correct patient position, availability of necessary equipment. The consent form is complete and accurate. Risk of possible infection, bleeding and pneumothorax have been discussed with the patient. Safety precautions based on patient history or medication use has been addressed. Indication: Other (Renal failure) Consent on Chart: Yes Central Line: Dialysis Cath, Dual Lumen Position: Supine Area prepped with Chlorhexidine solution then draped using sterile barrier protection. Anesthesia: Lidocaine 1% Technique used: Modified Seldinger Ultrasound Guided Assistance: Yes Site: Right Internal Jugular Dark venous non-pulsatile flow noted from hub of needle. The catheter was introduced. Guide wire removed intact. Each port aspirated then flushed with sterile normal saline and capped. Line secured to skin with silk suture. Biopatch placed around base of line. Sterile occlusive dressing applied. No complications. Patient tolerated the procedure well. STAT chest xray ordered to confirm position and rule out pneumothorax
[2020-04-22] MEDS: TIOTROPIUM BROMIDE 2.5 MCG (SPIRIVA) RESPIMAT INHALER IH SCH (11:04)
[2020-04-22 11:14] LABS: ALBUMIN 2.4 g/dl (3.4-5.0); BILIRUBIN,TOTAL 0.3 mg/dL (0.2-1); CALCIUM 8.9 mg/dL (8.5-10.1); POTASSIUM 4.5 mmol/L (3.5-5.1); TOT PROT 6.3 g/dl (6.4-8.2)
[2020-04-22 11:51] LABS: CREATININE 10.7 mg/dL (0.55-1.3)
[2020-04-22] MEDS ORDERED: SODIUM CHLORIDE 250 ML IV PRN (11:52)
--- NOTE | 2020-04-22 14:53 | CON.CARD ---
Consult Consult Specialty:: cardiology - History of Present Illness History of Present Illness: 64 y/o male from [facility] ([facility]) with a PMHx of RA, DM, HTN, Bronchiolitis, COPD, L- knee replacement(03/13/20), L- knee dehiscence (03/24-03/31) discharged on 03/31 with a Picc line and IV Vanco + Cefepime. Aneuric for few days with nausea and confusion. Noted to have acute renal failure. He denies chest pain, pal pitations, SOB, or headache. There is no prior history of arrhythmia or CAD, CHF. - History Source History Provided By: Patient, Medical Record - Past Medical History Cardio/Vascular: Yes: HTN, Hyperlipdemia Pulmonary: Yes: Asthma Endocrine: Yes: Diabetes Mellitus - Past Surgical History Past Surgical History: Yes: Joint Replacement - Alcohol/Substance Use Hx Alcohol Use: Yes (occasional) History of Substance Use: reports: None - Smoking History Smoking history: Former smoker Have you smoked in the past 12 months: No If you are a former smoker, when did you quit?: 1980 - Social History ADL: Support Services History of Recent Travel: No Home Medications - Allergies Allergies/Adverse Reactions: Allergies Allergy/AdvReac Type Severity Reaction Status Date / Time sulfamethoxazole Allergy Intermediate Swelling Verified 04/21/20 22:20 [From Bactrim] trimethoprim [From Bactrim] Allergy Intermediate Swelling Verified 04/21/20 22: 20 - Home Medications Home Medications: Ambulatory Orders Furosemide [Lasix -] 40 mg PO DAILY 09/11/14 Metoprolol Tartrate [Lopressor] 100 mg PO DAILY 09/11/14 Amlodipine Besylate 5 mg PO DAILY 12/09/18 Prednisone 10 mg PO DAILY 12/09/18 metFORMIN HCL [Metformin HCl ER] 1,000 mg PO BID 12/09/18 Atorvastatin Calcium 20 mg PO HS 05/31/19 Glimepiride 1 mg PO DAILY 05/31/19 Losartan Potassium 50 mg PO DAILY 05/31/19 Multivitamins [Multivit ([facility] Formulary)] 1 tab PO DAILY tab 06/08/19 Terbinafine HCl 250 mg PO Q48H 11/08/19 Tiotropium [place] [Spiriva Respimat] 2 inh IH DAILY 11/08/19 Glucosam/Merlin-Msm1/C/Yao/Bosw [Glucosamine-Chondr Complx Cplt] 2 each PO DAILY 03/06/20 Ascorbic Acid [Vitamin C -] 500 mg PO BID tablet 03/14/20 Pantoprazole Sodium [Protonix -] 40 mg PO DAILY #40 tablet.ec 03/14/20 Apixaban [Eliquis -] 2.5 mg PO BID tablet 03/31/20 Cefepime [Maxipime (Restricted To Id) -] 2 gm IVPB Q8H-IV vial 03/31/20 Sennosides/Docusate Sodium [Pericolace -] 2 tablet PO BID tablet 03/31/20 oxyCODONE HCL [Roxicodone -] 5 mg PO Q3H PRN tablet 03/31/20 oxyCODONE HCL [Roxicodone -] 10 mg PO Q3H PRN tablet 03/31/20 oxyCODONE SR [Oxycontin] 10 mg PO BID tab.er.12h 03/31/20 Mycophenolate Mofetil [Cellcept] 1,000 mg PO BID 04/22/20 Review of Systems - Review of Systems Constitutional: reports: Loss of Appetite, Malaise, Weakness. denies: Chills Eyes: reports: No Symptoms HENT: reports: No Symptoms Neck: reports: No Symptoms Cardiovascular: denies: Chest Pain, Edema, Palpitations, Shortness of Breath Respiratory: reports: No Symptoms Gastrointestinal: reports: No Symptoms Genitourinary: reports: No Symptoms Musculoskeletal: reports: No Symptoms Integumentary: reports: No Symptoms Vital Signs: Vital Signs Temperature 97.5 F L 04/22/20 14:41 Pulse Rate 69 04/22/20 14:41 Respiratory Rate 18 04/22/20 14:41 Blood Pressure 125/71 04/22/20 14:41 O2 Sat by Pulse Oximetry (%) 97 04/22/20 14:41 Constitutional: Yes: Well Nourished, No Distress Eyes: Yes: Conjunctiva Clear, EOM Intact HENT: Yes: Atraumatic, Normocephalic Neck: Yes: Supple, Trachea Midline Respiratory: Yes: Regular, CTA Bilaterally Gastrointestinal: Yes: Normal Bowel Sounds Cardiovascular: Yes: Regular Rate and Rhythm JVD: No Carotid Bruit: No PMI: Non-Displaced Heart Sounds: Yes: S1, S2 Murmur: No: Systolic Murmur, Diastolic Murmur Edema: No - Other Data Labs, Other Data: CBC, BMP 04/22/20 06:26 04/22/20 10:30 NSR non-specific ST T changes. Problem List - Problems (1) Acute kidney injury Code(s): N17.9 - ACUTE KIDNEY FAILURE, UNSPECIFIED Assessment/Plan 64 y/o male from [facility] ([facility]) with a PMHx of RA, DM, HTN, Bronchiolitis, COPD, L- knee replacement(03/13/20), L- knee dehiscence (03/24-03/31) discharged on 03/31 with a Picc line and IV Vanco + Cefepime. Aneuric for few days with nausea and confusion. Noted to have acute renal failure. He denies chest pain, palpitations, SOB, or headache. There is no prior history of arrhythmia or CAD, CHF Elevated vanco levels. ALFREDA without heart failure. No ECG changes to suggest infarct or ischemia. Continue Nephrology eval. Will see as needed.
[2020-04-22 16:36] LABS: BLOOD UREA NITROGEN 101.9 mg/dL (7-18); POTASSIUM 4.7 mmol/L (3.5-5.1)
[2020-04-22 16:37] LABS: ALBUMIN 2.4 g/dl (3.4-5.0); BILIRUBIN,TOTAL 0.4 mg/dL (0.2-1); CALCIUM 8.7 mg/dL (8.5-10.1); TOT PROT 6.1 g/dl (6.4-8.2)
[2020-04-22 16:43] LABS: CREATININE 11.1 mg/dL (0.55-1.3)
[2020-04-22 19:25] LABS: ALBUMIN 2.5 g/dl (3.4-5.0); BILIRUBIN,TOTAL 0.6 mg/dL (0.2-1); CALCIUM 8.9 mg/dL (8.5-10.1); CREATININE 7.2 mg/dL (0.55-1.3); POTASSIUM 3.5 mmol/L (3.5-5.1); TOT PROT 6.2 g/dl (6.4-8.2)
[2020-04-22 19:33] LABS: BLOOD UREA NITROGEN 56.5 mg/dL (7-18)
--- NOTE | 2020-04-22 20:34 | PN ---
Progress Note (short form) - Note Progress Note: ID CONSULT DICTATED INFECTED L TKR ALFREDA HOLD ANTIBIOTICS
[2020-04-22] MEDS ORDERED: DEXTROSE 50%-WATER 25 GM/50 ML DISP.SYRIN ONE (20:41)
[2020-04-23] MEDS: APIXABAN 2.5 MG TABLET PO SCH ×2 (09:04→22:50)
[2020-04-23] MEDS: TIOTROPIUM BROMIDE 2.5 MCG (SPIRIVA) RESPIMAT INHALER IH SCH (09:04)
[2020-04-23] MEDS: METOPROLOL TARTRATE 50 MG TABLET (FP) PO SCH ×2 (09:04→22:50)
--- NOTE | 2020-04-23 09:31 | PN ---
Progress Note, Physician - Current Medication List Current Medications: Active Medications Albuterol/Ipratropium (Duoneb -) 1 amp NEB Q6H PRN PRN Reason: SHORTNESS OF BREATH Apixaban (Eliquis -) 2.5 mg PO BID [facility] Last Admin: 04/23/20 09:04 Dose: 2.5 mg Documented by: Sodium Chloride (Normal Saline -) 250 mls @ 3,000 mls/hr IV PRN PRN PRN Reason: Hypotension during Dialysis Stop: 04/23/20 11:52 Metoprolol Tartrate (Lopressor -) 50 mg PO BID [facility] Last Admin: 04/23/20 09:04 Dose: 50 mg Documented by: Tiotropium [place] (Spiriva Respimat) 2 puff IH DAILY [facility] Last Admin: 04/23/20 09:04 Dose: 2 puff Documented by: - Objective Vital Signs: Vital Signs Temperature 98.1 F 04/23/20 09:00 Pulse Rate 70 04/23/20 09:00 Respiratory Rate 16 04/23/20 09:00 Blood Pressure 143/61 04/23/20 09:00 O2 Sat by Pulse Oximetry (%) 95 04/23/20 09:00 Cardiovascular: Yes: Regular Rate and Rhythm Respiratory: Yes: Regular, CTA Bilaterally Gastrointestinal: Yes: Normal Bowel Sounds, Soft Labs: CBC, BMP 04/22/20 06:26 04/22/20 18:25 Problem List - Problems (1) Acute kidney injury Assessment/Plan: probably multiple factors--d/w renal --r/o autoimmune response RENAL ON CASE IVF FOLLOW LABS hold antibiotics per id US Code(s): N17.9 - ACUTE KIDNEY FAILURE, UNSPECIFIED (2) Hypoglycemia associated with diabetes Assessment/Plan: MONITOR BS HOLD MEDS Code(s): E11.649 - TYPE 2 DIABETES MELLITUS WITH HYPOGLYCEMIA WITHOUT COMA (3) Diabetes Assessment/Plan: BGM HOLD METFORMIN DUE TO ALFREDA Code(s): E11.9 - TYPE 2 DIABETES MELLITUS WITHOUT COMPLICATIONS (4) HTN (hypertension) Assessment/Plan: MONITOR Vital Signs Period Temp Pulse Resp BP Sys/Luz Pulse Ox Last 24 Hr 97.5 F-98.9 F 59-80 16-18 112-158/54-71 93-97 HOLD ARB AND MONITOR Code(s): I10 - ESSENTIAL (PRIMARY) HYPERTENSION (5) Postoperative wound dehiscence Assessment/Plan: ABX PER ID ORTHO CONSULT Code(s): T81.31XA - DISRUPTION OF EXTERNAL OPERATION (SURGICAL) WOUND, NEC, INIT Qualifiers: Encounter type: initial encounter Qualified Code(s): T81.31XA - Disruption of external operation (surgical) wound, not elsewhere classified, initial encounter (6) Diarrhea Assessment/Plan: STOOL FOR CDIF Code(s): R19.7 - DIARRHEA, UNSPECIFIED Assessment/Plan discussed with and updated
[2020-04-23] MEDS ORDERED: SODIUM CHLORIDE 250 ML IV PRN (11:49)
[2020-04-23 11:50] LABS: CALCIUM 8.7 mg/dL (8.5-10.1); POTASSIUM 4.4 mmol/L (3.5-5.1)
--- NOTE | 2020-04-23 11:53 | PN ---
Progress Note, Physician History of Present Illness: Pt seen and examined at bedside. he feels better today. He denies shortness of breath. - Current Medication List Current Medications: Active Medications Albuterol/Ipratropium (Duoneb -) 1 amp NEB Q6H PRN PRN Reason: SHORTNESS OF BREATH Apixaban (Eliquis -) 2.5 mg PO BID [facility] Last Admin: 04/23/20 09:04 Dose: 2.5 mg Documented by: Sodium Chloride (Normal Saline -) 250 mls @ 3,000 mls/hr IV PRN PRN PRN Reason: Hypotension during Dialysis Stop: 04/23/20 11:52 Sodium Chloride (Normal Saline -) 250 mls @ 3,000 mls/hr IV PRN PRN PRN Reason: Hypotension during Dialysis Stop: 04/24/20 11:49 Metoprolol Tartrate (Lopressor -) 50 mg PO BID [facility] Last Admin: 04/23/20 09:04 Dose: 50 mg Documented by: Tiotropium [place] (Spiriva Respimat) 2 puff IH DAILY [facility] Last Admin: 04/23/20 09:04 Dose: 2 puff Documented by: - Objective Vital Signs: Vital Signs Temperature 98.1 F 04/23/20 09:00 Pulse Rate 70 04/23/20 09:00 Respiratory Rate 16 04/23/20 09:00 Blood Pressure 143/61 04/23/20 09:00 O2 Sat by Pulse Oximetry (%) 95 04/23/20 09:00 Constitutional: Yes: Calm Eyes: Yes: Conjunctiva Clear HENT: Yes: Atraumatic Neck: Yes: Supple Cardiovascular: Yes: S1, S2 Respiratory: Yes: CTA Bilaterally Gastrointestinal: Yes: Normal Bowel Sounds, Soft Genitourinary: Yes: Flood Present, Oliguria Musculoskeletal: Yes: WNL Edema: LLE: Trace, RLE: Trace Neurological: Yes: Oriented Psychiatric: Yes: Oriented Labs: CBC, BMP 04/22/20 06:26 04/23/20 11:10 Problem List - Problems (1) Hyperkalemia Code(s): E87.5 - HYPERKALEMIA (2) Acute kidney injury Code(s): N17.9 - ACUTE KIDNEY FAILURE, UNSPECIFIED (3) Acute renal failure Code(s): N17.9 - ACUTE KIDNEY FAILURE, UNSPECIFIED (4) Diarrhea Code(s): R19.7 - DIARRHEA, UNSPECIFIED Assessment/Plan Current Medications Generic Name Dose Route Start Last Admin Trade Name Renee PRN Reason Stop Dose Admin Albuterol/Ipratropium 1 amp 04/22/20 08:26 Duoneb - NEB Q6H PRN SHORTNESS OF BREATH Apixaban 2.5 mg 04/22/20 10:00 04/23/20 09:04 Eliquis - PO 2.5 mg BID GO Administration Sodium Chloride 250 mls @ 3,000 mls/hr 04/22/20 11:52 Normal Saline - IV 04/23/20 11:52 PRN PRN Hypotension during Dialysis Sodium Chloride 250 mls @ 3,000 mls/hr 04/23/20 11:49 Normal Saline - IV 04/24/20 11:49 PRN PRN Hypotension during Dialysis Metoprolol Tartrate 50 mg 04/22/20 10:00 04/23/20 09:04 Lopressor - PO 50 mg BID GO Administration Tiotropium [place] 2 puff 04/22/20 10:00 04/23/20 09:04 Spiriva Respimat IH 2 puff DAILY GO Administration Impression 1. ALFREDA with oliguria 2. metabolic acidosis 3. hyperkalemia 4. s/p left knee replacement 5. htn 6. rheumatoid arthritis on mycophenylate 1000 bid 7. DM 8. COPD Plan - follow serologies - HD today - monitor vanco levels - pt remains oliguric - avoid nsaids - keep losartan and metformin on hold - follow bmp
[2020-04-23 11:54] LABS: CREATININE 8.6 mg/dL (0.55-1.3)
--- NOTE | 2020-04-23 15:32 | CONS ---
DATE OF CONSULTATION: 04/22/2020 The patient is a 64-year-old male who is now admitted to the hospital with acute renal failure. He was hospitalized at [facility] from March 24 through March 31. At that time, he was being treated for complications of an infected left total knee replacement. He had been taken to the operating room where a washout procedure was performed. Cultures were unrevealing. He was empirically treated with vancomycin and cefepime and was ultimately discharged on March 31, 2020, with a PICC line to complete a 6-week course of empiric antibiotic therapy with vancomycin and cefepime. According to the notes, his had noted him to have some altered mental status and confusion over the past 2-3 days. In addition, he appeared to be weak and was noted to be tremulous, complained of abdominal pain, nausea, vomiting and diarrhea. Also according to the note, he had 1 episode of hematuria. Labs were done and he was fund to be in acute renal failure with a BUN of 88 and a creatinine of 8.6. Additional details are not available from his 2-week group home stay. He was brought to the emergency room where his course was complicated by hypoglycemia requiring D50. In addition to the elevated creatinine, he was found to have a vancomycin level of greater than 50. He is awake and responsive. He was able to recount most of the events that transpired during his stay at the group home. He denies any knee pain. He denies any recent fever or chills. PAST MEDICAL HISTORY: Positive for diabetes mellitus, rheumatoid arthritis, hypertension, COPD. LABORATORY DATA: White count 10.4, 78 neutrophils, 8 lymphocytes, 10 monocytes, hematocrit 34.8, platelet count 182. BUN 102, creatinine 10.7, bicarbonate 15. Chest x-ray negative. Urinalysis is negative. PHYSICAL EXAMINATION: General: He is awake and alert. He is in no acute distress. Vital Signs: Temperature 98.5, blood pressure 133/103, pulse 71 and regular, respirations 16 per minute, breathing is nonlabored. Heart: Sounds S1, S2. Lungs: Clear. Abdomen: Soft, no tenderness elicited. Extremities: Examination of the left knee, the surgical wound appears intact. It appears to be healing well without evidence of infection. Extremities are negative for edema. IMPRESSION: 1. Acute kidney injury. 2. History of infected left total knee replacement. 3. Diabetes mellitus. 4. Rheumatoid arthritis. Suspect acute renal failure related to markedly elevated vancomycin trough level. We will hold antibiotic therapy at this time. Renal consultation is appreciated. The patient will receive hemodialysis. We will await improvement in his renal status before resumption of antibiotic therapy. At the present time, it appears he has completed 28 days of a 6-week prescribed course of therapy. We will follow. Thank you for the kind referral. DARIEN BOLIVAR M.D. [id number]
--- NOTE | 2020-04-24 08:56 | PN ---
Progress Note, Physician - Current Medication List Current Medications: Active Medications Albuterol/Ipratropium (Duoneb -) 1 amp NEB Q6H PRN PRN Reason: SHORTNESS OF BREATH Apixaban (Eliquis -) 2.5 mg PO BID [facility] Last Admin: 04/23/20 22:50 Dose: 2.5 mg Documented by: Sodium Chloride (Normal Saline -) 250 mls @ 3,000 mls/hr IV PRN PRN PRN Reason: Hypotension during Dialysis Stop: 04/24/20 11:49 Metoprolol Tartrate (Lopressor -) 50 mg PO BID [facility] Last Admin: 04/23/20 22:50 Dose: 50 mg Documented by: Tiotropium [place] (Spiriva Respimat) 2 puff IH DAILY [facility] Last Admin: 04/23/20 09:04 Dose: 2 puff Documented by: - Objective Vital Signs: Vital Signs Temperature 98.6 F 04/24/20 06:00 Pulse Rate 76 04/24/20 06:00 Respiratory Rate 18 04/24/20 06:00 Blood Pressure 126/63 04/24/20 06:00 O2 Sat by Pulse Oximetry (%) 98 04/24/20 06:00 Cardiovascular: Yes: Regular Rate and Rhythm Respiratory: Yes: Regular, CTA Bilaterally Gastrointestinal: Yes: Normal Bowel Sounds, Soft Labs: CBC, BMP 04/22/20 06:26 04/23/20 11:10 Problem List - Problems (1) Acute kidney injury Assessment/Plan: probably multiple factors--d/w renal --r/o autoimmune response RENAL ON CASE IVF FOLLOW LABS hold antibiotics per id US Code(s): N17.9 - ACUTE KIDNEY FAILURE, UNSPECIFIED (2) Hypoglycemia associated with diabetes Assessment/Plan: MONITOR BS HOLD MEDS Code(s): E11.649 - TYPE 2 DIABETES MELLITUS WITH HYPOGLYCEMIA WITHOUT COMA (3) Diabetes Assessment/Plan: BGM HOLD METFORMIN DUE TO ALFREDA Code(s): E11.9 - TYPE 2 DIABETES MELLITUS WITHOUT COMPLICATIONS (4) HTN (hypertension) Assessment/Plan: MONITOR Vital Signs Period Temp Pulse Resp BP Sys/Luz Pulse Ox Last 24 Hr 97.5 F-98.9 F 59-80 16-18 112-158/54-71 93-97 HOLD ARB AND MONITOR Code(s): I10 - ESSENTIAL (PRIMARY) HYPERTENSION (5) Postoperative wound dehiscence Assessment/Plan: ABX PER ID ORTHO CONSULT Code(s): T81.31XA - DISRUPTION OF EXTERNAL OPERATION (SURGICAL) WOUND, NEC, INIT Qualifiers: Encounter type: initial encounter Qualified Code(s): T81.31XA - Disruption of external operation (surgical) wound, not elsewhere classified, initial encounter (6) Diarrhea Assessment/Plan: Resolved Code(s): R19.7 - DIARRHEA, UNSPECIFIED
[2020-04-24] MEDS: APIXABAN 2.5 MG TABLET PO SCH ×2 (09:14→22:08)
[2020-04-24] MEDS: METOPROLOL TARTRATE 50 MG TABLET (FP) PO SCH ×2 (09:14→22:08)
[2020-04-24] MEDS: TIOTROPIUM BROMIDE 2.5 MCG (SPIRIVA) RESPIMAT INHALER IH SCH (09:14)
[2020-04-24 11:07] LABS: HEMATOCRIT 32.2 % (35.4-49); HEMOGLOBIN 10.5 GM/dL (11.7-16.9); MCH 29.6 pg (25.7-33.7); MCHC 32.7 g/dl (32.0-35.9); MEAN CELL VOLUME 90.6 fl (80-96); MEAN PLT VOLUME 8.1 fl (7.5-11.1); PLATELET COUNT 157 K/MM3 (134-434); RBC 3.56 M/mm3 (4.00-5.60); WHITE BLOOD COUNT 7.5 K/mm3 (4.0-10.0)
[2020-04-24 11:44] LABS: CALCIUM 8.2 mg/dL (8.5-10.1)
[2020-04-24 11:48] LABS: ALBUMIN 2.2 g/dl (3.4-5.0); BILIRUBIN,TOTAL 0.3 mg/dL (0.2-1); BLOOD UREA NITROGEN 37.9 mg/dL (7-18); CREATININE 7.1 mg/dL (0.55-1.3); TOT PROT 5.6 g/dl (6.4-8.2)
[2020-04-24] MEDS ORDERED: SODIUM CHLORIDE 250 ML IV PRN (14:25)
--- NOTE | 2020-04-24 14:25 | PN ---
Progress Note, Physician History of Present Illness: Pt seen and examined at bedside. He is awake and alert. He is starting to make urine. - Current Medication List Current Medications: Active Medications Albuterol/Ipratropium (Duoneb -) 1 amp NEB Q6H PRN PRN Reason: SHORTNESS OF BREATH Apixaban (Eliquis -) 2.5 mg PO BID [facility] Last Admin: 04/24/20 09:14 Dose: 2.5 mg Documented by: Sodium Chloride (Normal Saline -) 250 mls @ 3,000 mls/hr IV PRN PRN PRN Reason: Hypotension during Dialysis Stop: 04/24/20 11:49 Metoprolol Tartrate (Lopressor -) 50 mg PO BID [facility] Last Admin: 04/24/20 09:14 Dose: 50 mg Documented by: Tiotropium [place] (Spiriva Respimat) 2 puff IH DAILY [facility] Last Admin: 04/24/20 09:14 Dose: 2 puff Documented by: - Objective Vital Signs: Vital Signs Temperature 98.3 F 04/24/20 14:00 Pulse Rate 66 04/24/20 14:00 Respiratory Rate 18 04/24/20 14:00 Blood Pressure 148/67 04/24/20 14:00 O2 Sat by Pulse Oximetry (%) 98 04/24/20 06:00 Constitutional: Yes: Calm Eyes: Yes: Conjunctiva Clear HENT: Yes: Atraumatic Neck: Yes: Supple Cardiovascular: Yes: S1, S2 Respiratory: Yes: CTA Bilaterally Gastrointestinal: Yes: Normal Bowel Sounds, Soft Genitourinary: Yes: Flood Present, Oliguria Musculoskeletal: Yes: WNL Extremities: Yes: WNL Edema: Yes Edema: LLE: Trace, RLE: Trace Neurological: Yes: Oriented Psychiatric: Yes: Oriented Labs: CBC, BMP 04/24/20 10:39 04/24/20 10:39 Problem List - Problems (1) Hyperkalemia Code(s): E87.5 - HYPERKALEMIA (2) Acute kidney injury Code(s): N17.9 - ACUTE KIDNEY FAILURE, UNSPECIFIED (3) Acute renal failure Code(s): N17.9 - ACUTE KIDNEY FAILURE, UNSPECIFIED (4) Diarrhea Code(s): R19.7 - DIARRHEA, UNSPECIFIED Assessment/Plan Current Medications Generic Name Dose Route Start Last Admin Trade Name Freq PRN Reason Stop Dose Admin Albuterol/Ipratropium 1 amp 04/22/20 08:26 Duoneb - NEB Q6H PRN SHORTNESS OF BREATH Apixaban 2.5 mg 04/22/20 10:00 04/23/20 09:04 Eliquis - PO 2.5 mg BID GO Administration Sodium Chloride 250 mls @ 3,000 mls/hr 04/22/20 11:52 Normal Saline - IV 04/23/20 11:52 PRN PRN Hypotension during Dialysis Sodium Chloride 250 mls @ 3,000 mls/hr 04/23/20 11:49 Normal Saline - IV 04/24/20 11:49 PRN PRN Hypotension during Dialysis Metoprolol Tartrate 50 mg 04/22/20 10:00 04/23/20 09:04 Lopressor - PO 50 mg BID GO Administration Tiotropium [place] 2 puff 04/22/20 10:00 04/23/20 09:04 Spiriva Respimat IH 2 puff DAILY GO Administration Laboratory Tests 04/22/20 04/22/20 04/22/20 00:24 00:24 01:25 Hgb 11.8 Urine Protein 2+ H Urine Blood 1+ H Ur Random Creatinine Ur Random Sodium Random Vancomycin > 50.0 H* COVID-19 (TAMMY) 04/22/20 04/22/20 04/22/20 01:25 02:50 06:26 Hgb 11.1 L Urine Protein Urine Blood Ur Random Creatinine 37.0 Ur Random Sodium 104 Random Vancomycin COVID-19 (TAMMY) Pending 04/23/20 04/24/20 07:25 06:12 Hgb Urine Protein Urine Blood Ur Random Creatinine Ur Random Sodium Random Vancomycin > 50.0 H* > 50.0 H* COVID-19 (TAMMY) Impression 1. ALFREDA with oliguria 2. metabolic acidosis 3. hyperkalemia 4. s/p left knee replacement 5. htn 6. rheumatoid arthritis on mycophenylate 1000 bid 7. DM 8. COPD Plan - HD tomorrow - cont to monitor urine output, he is starting to make urine - follow serologies - monitor vanco levels - avoid nsaids - keep losartan and metformin on hold - follow bmp
--- NOTE | 2020-04-24 14:40 | PN ---
Progress Note, Physician History of Present Illness: AWAKE IN BED NO COMPLAINTS NO C/O KNEE PAIN NO F/C RECEIVED 2 DIALYSIS SESSIONS - Current Medication List Current Medications: Active Medications Albuterol/Ipratropium (Duoneb -) 1 amp NEB Q6H PRN PRN Reason: SHORTNESS OF BREATH Apixaban (Eliquis -) 2.5 mg PO BID [facility] Last Admin: 04/24/20 09:14 Dose: 2.5 mg Documented by: Sodium Chloride (Normal Saline -) 250 mls @ 3,000 mls/hr IV PRN PRN PRN Reason: Hypotension during Dialysis Stop: 04/24/20 11:49 Sodium Chloride (Normal Saline -) 250 mls @ 3,000 mls/hr IV PRN PRN PRN Reason: Hypotension during Dialysis Stop: 04/25/20 14:25 Metoprolol Tartrate (Lopressor -) 50 mg PO BID [facility] Last Admin: 04/24/20 09:14 Dose: 50 mg Documented by: Tiotropium [place] (Spiriva Respimat) 2 puff IH DAILY [facility] Last Admin: 04/24/20 09:14 Dose: 2 puff Documented by: - Objective Vital Signs: Vital Signs Temperature 98.3 F 04/24/20 14:00 Pulse Rate 66 04/24/20 14:00 Respiratory Rate 18 04/24/20 14:00 Blood Pressure 148/67 04/24/20 14:00 O2 Sat by Pulse Oximetry (%) 98 04/24/20 06:00 Constitutional: Yes: No Distress Cardiovascular: Yes: Regular Rate and Rhythm, S1, S2 Respiratory: Yes: CTA Bilaterally Gastrointestinal: Yes: Normal Bowel Sounds, Soft. No: Tenderness Edema: No Labs: CBC, BMP 04/24/20 10:39 04/24/20 10:39 Assessment/Plan ALFREDA INFECTED L TKR ANTIBIOTICS ON HOLD
[2020-04-24 22:06] LABS: HEP B CORE AB, TOT Negative (Negative)
[2020-04-25 08:32] LABS: HEMATOCRIT 32.8 % (35.4-49); HEMOGLOBIN 10.7 GM/dL (11.7-16.9); MCHC 32.7 g/dl (32.0-35.9); MEAN CELL VOLUME 91.8 fl (80-96); MEAN PLT VOLUME 8.5 fl (7.5-11.1); PLATELET COUNT 166 K/MM3 (134-434); RBC 3.57 M/mm3 (4.00-5.60); WHITE BLOOD COUNT 8.4 K/mm3 (4.0-10.0)
[2020-04-25 08:40] LABS: BLOOD UREA NITROGEN 45.2 mg/dL (7-18); CALCIUM 8.7 mg/dL (8.5-10.1); POTASSIUM 4.5 mmol/L (3.5-5.1)
[2020-04-25 08:47] LABS: CREATININE 8.7 mg/dL (0.55-1.3)
--- NOTE | 2020-04-25 11:27 | PN ---
Progress Note, Physician History of Present Illness: AWAKE IN BED RECEIVING HEMODIALYSIS NO COMPLAINTS NO C/O KNEE PAIN NO F/C - Current Medication List Current Medications: Active Medications Albuterol/Ipratropium (Duoneb -) 1 amp NEB Q6H PRN PRN Reason: SHORTNESS OF BREATH Apixaban (Eliquis -) 2.5 mg PO BID [facility] Last Admin: 04/24/20 22:08 Dose: 2.5 mg Documented by: Sodium Chloride (Normal Saline -) 250 mls @ 3,000 mls/hr IV PRN PRN PRN Reason: Hypotension during Dialysis Stop: 04/25/20 14:25 Metoprolol Tartrate (Lopressor -) 50 mg PO BID [facility] Last Admin: 04/24/20 22:08 Dose: 50 mg Documented by: Tiotropium [place] (Spiriva Respimat) 2 puff IH DAILY [facility] Last Admin: 04/24/20 09:14 Dose: 2 puff Documented by: - Objective Vital Signs: Vital Signs Temperature 98.1 F 04/25/20 06:00 Pulse Rate 72 04/25/20 10:00 Respiratory Rate 18 04/25/20 10:00 Blood Pressure 157/73 04/25/20 10:00 O2 Sat by Pulse Oximetry (%) 96 04/25/20 10:00 Constitutional: Yes: No Distress Cardiovascular: Yes: Regular Rate and Rhythm, S1, S2 Respiratory: Yes: CTA Bilaterally Gastrointestinal: Yes: Normal Bowel Sounds, Soft. No: Tenderness Extremities: Yes: Other (SURGICAL DRESSING IN PLACE R LE) Labs: CBC, BMP 04/25/20 06:08 04/25/20 06:08 Assessment/Plan ALFREDA INFECTED L TKR ANTIBIOTICS ON HOLD ALFREDA MGT PER RENAL
[2020-04-25] MEDS: TIOTROPIUM BROMIDE 2.5 MCG (SPIRIVA) RESPIMAT INHALER IH SCH (11:45)
[2020-04-25] MEDS: APIXABAN 2.5 MG TABLET PO SCH ×2 (11:45→22:04)
[2020-04-25] MEDS: METOPROLOL TARTRATE 50 MG TABLET (FP) PO SCH ×2 (11:45→22:05)
--- NOTE | 2020-04-25 11:49 | PN ---
Progress Note, Physician History of Present Illness: 64 y/o male from [facility]) with a PMHx of RA, DM, HTN, Bronchiolitis, COPD, L- knee replacement(03/13/20), L- knee dehiscence (03/24-03/31) discharged on 03/31 with a Picc line and IV Vanco + Cefepime. Who presents to the ED for abnormal lab value: BUN of 88 and Creatinine of 8.6. He denies chest pain, palpitations, SOB, or headache. States he feels better this am - Current Medication List Current Medications: Active Medications Albuterol/Ipratropium (Duoneb -) 1 amp NEB Q6H PRN PRN Reason: SHORTNESS OF BREATH Apixaban (Eliquis -) 2.5 mg PO BID [facility] Last Admin: 04/24/20 22:08 Dose: 2.5 mg Documented by: Sodium Chloride (Normal Saline -) 250 mls @ 3,000 mls/hr IV PRN PRN PRN Reason: Hypotension during Dialysis Stop: 04/25/20 14:25 Metoprolol Tartrate (Lopressor -) 50 mg PO BID [facility] Last Admin: 04/24/20 22:08 Dose: 50 mg Documented by: Tiotropium [place] (Spiriva Respimat) 2 puff IH DAILY [facility] Last Admin: 04/24/20 09:14 Dose: 2 puff Documented by: - Objective Vital Signs: Vital Signs Temperature 97.8 F 04/25/20 08:00 Pulse Rate 82 04/25/20 11:30 Respiratory Rate 18 04/25/20 11:30 Blood Pressure 144/78 04/25/20 11:30 O2 Sat by Pulse Oximetry (%) 96 04/25/20 10:00 Cardiovascular: Yes: Regular Rate and Rhythm Respiratory: Yes: Regular, CTA Bilaterally, Poor Air Entry Gastrointestinal: Yes: Normal Bowel Sounds, Soft Wound/Incision: Yes: Dressing Removed. No: Draining, Reddened, Bleeding Labs: CBC, BMP 04/25/20 06:08 04/25/20 06:08 Problem List - Problems (1) Acute kidney injury Assessment/Plan: probably multiple factors--d/w renal --r/o autoimmune response RENAL ON CASE Dialysis per renal FOLLOW LABS hold antibiotics per id US Noted Code(s): N17.9 - ACUTE KIDNEY FAILURE, UNSPECIFIED (2) Hypoglycemia associated with diabetes Assessment/Plan: MONITOR BS HOLD MEDS Code(s): E11.649 - TYPE 2 DIABETES MELLITUS WITH HYPOGLYCEMIA WITHOUT COMA (3) Diabetes Assessment/Plan: BGM HOLD METFORMIN DUE TO ALFREDA Code(s): E11.9 - TYPE 2 DIABETES MELLITUS WITHOUT COMPLICATIONS (4) HTN (hypertension) Assessment/Plan: MONITOR Vital Signs Period Temp Pulse Resp BP Sys/Luz Pulse Ox Last 24 Hr 97.8 F-98.6 F 60-90 17-18 134-157/65-90 94-99 HOLD ARB AND MONITOR Code(s): I10 - ESSENTIAL (PRIMARY) HYPERTENSION (5) Postoperative wound dehiscence Assessment/Plan: ABX PER ID-on hold ORTHO CONSULT Code(s): T81.31XA - DISRUPTION OF EXTERNAL OPERATION (SURGICAL) WOUND, NEC, INIT Qualifiers: Encounter type: initial encounter Qualified Code(s): T81.31XA - Disruption of external operation (surgical) wound, not elsewhere classified, initial encounter (6) Diarrhea Assessment/Plan: Resolved Code(s): R19.7 - DIARRHEA, UNSPECIFIED Assessment/Plan discussed with and updated
[2020-04-25 13:12] LABS: ANTIGLOMERULAR BASEMENT MEN.AB 3 units (0-20)
[2020-04-25] MEDS ORDERED: SODIUM CHLORIDE 250 ML IV PRN (17:10)
--- NOTE | 2020-04-25 17:10 | PN ---
Progress Note, Physician History of Present Illness: Pt seen and examined at bedside. He is awake and alert. he feels much better today. - Current Medication List Current Medications: Active Medications Albuterol/Ipratropium (Duoneb -) 1 amp NEB Q6H PRN PRN Reason: SHORTNESS OF BREATH Apixaban (Eliquis -) 2.5 mg PO BID [facility] Last Admin: 04/25/20 11:45 Dose: 2.5 mg Documented by: Sodium Chloride (Normal Saline -) 250 mls @ 3,000 mls/hr IV PRN PRN PRN Reason: Hypotension during Dialysis Stop: 04/25/20 14:25 Metoprolol Tartrate (Lopressor -) 50 mg PO BID [facility] Last Admin: 04/25/20 11:45 Dose: 50 mg Documented by: Tiotropium [place] (Spiriva Respimat) 2 puff IH DAILY [facility] Last Admin: 04/25/20 11:45 Dose: 2 puff Documented by: - Objective Vital Signs: Vital Signs Temperature 98.2 F 04/25/20 14:00 Pulse Rate 74 04/25/20 14:00 Respiratory Rate 16 04/25/20 14:00 Blood Pressure 137/59 L 04/25/20 14:00 O2 Sat by Pulse Oximetry (%) 96 04/25/20 10:00 Constitutional: Yes: Calm Eyes: Yes: Conjunctiva Clear Cardiovascular: Yes: S1, S2 Respiratory: Yes: CTA Bilaterally Gastrointestinal: Yes: Normal Bowel Sounds, Soft Genitourinary: Yes: Flood Present Musculoskeletal: Yes: Muscle Weakness Edema: LLE: Trace, RLE: Trace Neurological: Yes: Oriented Psychiatric: Yes: Oriented Labs: CBC, BMP 04/25/20 06:08 04/25/20 06:08 Problem List - Problems (1) Hyperkalemia Code(s): E87.5 - HYPERKALEMIA (2) Acute kidney injury Code(s): N17.9 - ACUTE KIDNEY FAILURE, UNSPECIFIED (3) Acute renal failure Code(s): N17.9 - ACUTE KIDNEY FAILURE, UNSPECIFIED (4) Diarrhea Code(s): R19.7 - DIARRHEA, UNSPECIFIED Assessment/Plan Current Medications Generic Name Dose Route Start Last Admin Trade Name Freq PRN Reason Stop Dose Admin Albuterol/Ipratropium 1 amp 04/22/20 08:26 Duoneb - NEB Q6H PRN SHORTNESS OF BREATH Apixaban 2.5 mg 04/22/20 10:00 04/25/20 11:45 Eliquis - PO 2.5 mg BID GO Administration Sodium Chloride 250 mls @ 3,000 mls/hr 04/24/20 14:25 Normal Saline - IV 04/25/20 14:25 PRN PRN Hypotension during Dialysis Metoprolol Tartrate 50 mg 04/22/20 10:00 04/25/20 11:45 Lopressor - PO 50 mg BID [facility] Administration Tiotropium [place] 2 puff 04/22/20 10:00 04/25/20 11:45 Spiriva Respimat IH 2 puff DAILY [facility] Administration Laboratory Tests 04/22/20 04/22/20 04/22/20 02:50 13:55 13:55 Random Vancomycin ALEX M-[place] Not observed IVIS Screen Negative c-ANCA Pending Proteinase 3 (PR3) Pending p-ANCA Pending Atypical p-ANCA Pending Myeloperoxidase Ab Pending Double Strand DNA Ab <1 Glomerular Base Memb Ab 3 Complement C3 Complement C4 COVID-19 (TAMMY) Not detected Hep A IgM Ab Confirm Hepatitis A Ab Total Hep Bs Antigen Hep Bs Antibody Hep B Core Total Ab Hep B Core IgM Ab Hepatitis Be Antibody Hepatitis Be Antigen Hep C Ab Diagnostic 04/22/20 04/22/20 04/23/20 18:25 18:25 11:10 Random Vancomycin ALEX [place] IVIS Screen c-ANCA Proteinase 3 (PR3) p-ANCA Atypical p-ANCA Myeloperoxidase Ab Double Strand DNA Ab Glomerular Base Memb Ab Complement C3 132 Complement C4 25 COVID-19 (TAMMY) Hep A IgM Ab Confirm Negative Hepatitis A Ab Total Negative Hep Bs Antigen Negative Hep Bs Antibody Non reactive Hep B Core Total Ab Negative Hep B Core IgM Ab Negative Hepatitis Be Antibody Negative Hepatitis Be Antigen Negative Hep C Ab Diagnostic 0.6 04/24/20 04/25/20 04/25/20 06:12 06:08 13:40 Random Vancomycin > 50.0 H* > 50.0 H* 47.2 H* ALEX [place] IVIS Screen c-ANCA Proteinase 3 (PR3) p-ANCA Atypical p-ANCA Myeloperoxidase Ab Double Strand DNA Ab Glomerular Base Memb Ab Complement C3 Complement C4 COVID-19 (TAMMY) Hep A IgM Ab Confirm Hepatitis A Ab Total Hep Bs Antigen Hep Bs Antibody Hep B Core Total Ab Hep B Core IgM Ab Hepatitis Be Antibody Hepatitis Be Antigen Hep C Ab Diagnostic Impression 1. ALFREDA with oliguria 2. metabolic acidosis 3. hyperkalemia 4. s/p left knee replacement 5. htn 6. rheumatoid arthritis- mycophenylate 1000 bid on hold 7. DM 8. COPD 9. elevated vanco level Plan - pt had HD today - serologies negative so far - repeat vanco level again tomorrow - vanco on hold - ortho follow up to comment on anticoagulation - discussed kidney biopsy with pt and his at length - renal diet - check phos levels in am - avoid nsaids - keep losartan and metformin on hold - monitor urine output
[2020-04-25] MEDS ORDERED: ACETAMINOPHEN 325 MG TABLET (FP) PO PRN (20:49)
[2020-04-26 07:21] LABS: HEMATOCRIT 31.6 % (35.4-49); HEMOGLOBIN 10.5 GM/dL (11.7-16.9); MCH 30.1 pg (25.7-33.7); MCHC 33.2 g/dl (32.0-35.9); MEAN CELL VOLUME 90.8 fl (80-96); PLATELET COUNT 160 K/MM3 (134-434); RBC 3.48 M/mm3 (4.00-5.60); WHITE BLOOD COUNT 7.9 K/mm3 (4.0-10.0)
[2020-04-26 07:41] LABS: BLOOD UREA NITROGEN 27.3 mg/dL (7-18); CALCIUM 8.2 mg/dL (8.5-10.1); CREATININE 6.5 mg/dL (0.55-1.3); POTASSIUM 3.9 mmol/L (3.5-5.1)
--- NOTE | 2020-04-26 10:48 | PN ---
Progress Note, Physician - Current Medication List Current Medications: Active Medications Acetaminophen (Tylenol -) 650 mg PO Q6H PRN PRN Reason: FEVER Last Admin: 04/25/20 22:05 Dose: 650 mg Documented by: Albuterol/Ipratropium (Duoneb -) 1 amp NEB Q6H PRN PRN Reason: SHORTNESS OF BREATH Apixaban (Eliquis -) 2.5 mg PO BID [facility] Last Admin: 04/25/20 22:04 Dose: 2.5 mg Documented by: Sodium Chloride (Normal Saline -) 250 mls @ 3,000 mls/hr IV PRN PRN PRN Reason: Hypotension during Dialysis Stop: 04/26/20 17:10 Metoprolol Tartrate (Lopressor -) 50 mg PO BID [facility] Last Admin: 04/25/20 22:05 Dose: 50 mg Documented by: Tiotropium [place] (Spiriva Respimat) 2 puff IH DAILY [facility] Last Admin: 04/25/20 11:45 Dose: 2 puff Documented by: - Objective Vital Signs: Vital Signs Temperature 97.8 F 04/26/20 08:50 Pulse Rate 68 04/26/20 08:50 Respiratory Rate 20 04/26/20 08:50 Blood Pressure 133/62 04/26/20 08:50 O2 Sat by Pulse Oximetry (%) 96 04/26/20 08:50 Cardiovascular: Yes: Regular Rate and Rhythm Respiratory: Yes: Regular, CTA Bilaterally Gastrointestinal: Yes: Normal Bowel Sounds, Soft. No: Tenderness Labs: CBC, BMP 04/26/20 06:30 04/26/20 06:30 Problem List - Problems (1) Acute kidney injury Assessment/Plan: probably multiple factors--d/w renal --r/o autoimmune response RENAL ON CASE Dialysis per renal FOLLOW LABS hold antibiotics per id US Noted Vital Signs Temp 97.8 F 04/26/20 08:50 Pulse 68 04/26/20 08:50 Resp 20 04/26/20 08:50 BP 133/62 04/26/20 08:50 Pulse Ox 96 04/26/20 08:50 Intake & Output 04/25/20 04/25/20 04/26/20 11:59 23:59 11:59 Intake Total 400 970 120 Output Total 1560 180 30 Balance -1160 790 90 Intake: IVPB 400 Oral 970 120 Output: Urine 60 180 30 Flood 60 180 30 Fluid Removed, 1500 Hemodialysis Other: Voiding Method Indwelling Catheter Indwelling Catheter Indwelling Catheter Bowel Movement No No No Code(s): N17.9 - ACUTE KIDNEY FAILURE, UNSPECIFIED (2) Hypoglycemia associated with diabetes Assessment/Plan: resolved Code(s): E11.649 - TYPE 2 DIABETES MELLITUS WITH HYPOGLYCEMIA WITHOUT COMA (3) Diabetes Assessment/Plan: BGM HOLD METFORMIN DUE TO ALFREDA Code(s): E11.9 - TYPE 2 DIABETES MELLITUS WITHOUT COMPLICATIONS (4) HTN (hypertension) Assessment/Plan: MONITOR Vital Signs Period Temp Pulse Resp BP Sys/Luz Pulse Ox Last 24 Hr 97.8 F-98.6 F 60-90 17-18 134-157/65-90 94-99 HOLD ARB AND MONITOR Code(s): I10 - ESSENTIAL (PRIMARY) HYPERTENSION (5) Postoperative wound dehiscence Assessment/Plan: ABX PER ID-on hold ORTHO CONSULT Code(s): T81.31XA - DISRUPTION OF EXTERNAL OPERATION (SURGICAL) WOUND, NEC, INIT Qualifiers: Encounter type: initial encounter Qualified Code(s): T81.31XA - Disruption of external operation (surgical) wound, not elsewhere classified, initial encounter (6) Diarrhea Code(s): R19.7 - DIARRHEA, UNSPECIFIED (7) Fever Assessment/Plan: low grade --100.2 Microbiology 04/23/20 01:15 Stool Clostridioides difficile Antigen - Final 04/23/20 01:15 Stool Clostridioides difficile Toxin Assay - Final 04/22/20 01:25 Urine - Urine Clean Catch Urine Culture - Final NO GROWTH OBTAINED bc and monitor Code(s): R50.9 - FEVER, UNSPECIFIED Assessment/Plan discussed with and updated
[2020-04-26] MEDS: APIXABAN 2.5 MG TABLET PO SCH ×2 (11:26→21:47)
[2020-04-26] MEDS: METOPROLOL TARTRATE 50 MG TABLET (FP) PO SCH ×2 (11:26→21:47)
[2020-04-26] MEDS: TIOTROPIUM BROMIDE 2.5 MCG (SPIRIVA) RESPIMAT INHALER IH SCH (11:31)
--- NOTE | 2020-04-26 12:02 | PN ---
Progress Note, Physician Chief Complaint: ALFREDA History of Present Illness: Seen and examined at the bedside s/p dialysis earlier today with 0 UF still not making urine no cp, fever, chills, abd pain no Vanco level recorded this am - Current Medication List Current Medications: Active Medications Acetaminophen (Tylenol -) 650 mg PO Q6H PRN PRN Reason: FEVER Last Admin: 04/25/20 22:05 Dose: 650 mg Documented by: Albuterol/Ipratropium (Duoneb -) 1 amp NEB Q6H PRN PRN Reason: SHORTNESS OF BREATH Apixaban (Eliquis -) 2.5 mg PO BID [facility] Last Admin: 04/26/20 11:26 Dose: 2.5 mg Documented by: Sodium Chloride (Normal Saline -) 250 mls @ 3,000 mls/hr IV PRN PRN PRN Reason: Hypotension during Dialysis Stop: 04/26/20 17:10 Metoprolol Tartrate (Lopressor -) 50 mg PO BID [facility] Last Admin: 04/26/20 11:26 Dose: 50 mg Documented by: Tiotropium [place] (Spiriva Respimat) 2 puff IH DAILY [facility] Last Admin: 04/26/20 11:31 Dose: 2 puff Documented by: - Objective Vital Signs: Vital Signs Temperature 97.8 F 04/26/20 08:50 Pulse Rate 75 04/26/20 11:20 Respiratory Rate 18 04/26/20 09:45 Blood Pressure 150/73 04/26/20 11:20 O2 Sat by Pulse Oximetry (%) 96 04/26/20 08:50 Constitutional: Yes: No Distress, Calm HENT: Yes: Atraumatic Neck: Yes: Supple Cardiovascular: Yes: Regular Rate and Rhythm Respiratory: Yes: Regular Extremities: No: Cyanosis Edema: No Neurological: Yes: Alert, Oriented Labs: CBC, BMP 04/26/20 06:30 04/26/20 06:30 Assessment/Plan Impression 1. ALFREDA with oliguria 2. metabolic acidosis 3. hyperkalemia 4. s/p left knee replacement 5. htn 6. rheumatoid arthritis- mycophenylate 1000 bid on hold 7. DM 8. COPD 9. elevated vanco level Plan s/p dialysis earlier today with 0 UF. Tolerated dialysis well. Pt remains anuric and Cr remains elevated indicating lack of renal recorvery thus far. Can remove vasquez and maintain strict I and O as pt is able to collect urine. Vanco level not recorded this am. Ordered for Tuesday. Will reaccess daily the need for additional dialysis. Thank you Christiano Rashid DO
[2020-04-27 07:55] LABS: BASO % 0.9 % (0-2.0); EOS % 4.7 % (0-4.5); HEMATOCRIT 29.9 % (35.4-49); HEMOGLOBIN 9.8 GM/dL (11.7-16.9); LYMPH % 13.3 % (8-40); MCH 29.7 pg (25.7-33.7); MCHC 32.9 g/dl (32.0-35.9); MEAN CELL VOLUME 90.3 fl (80-96); MEAN PLT VOLUME 7.9 fl (7.5-11.1); NEUT % 66.1 % (42.8-82.8); PLATELET COUNT 170 K/MM3 (134-434); RBC 3.31 M/mm3 (4.00-5.60); WHITE BLOOD COUNT 7.7 K/mm3 (4.0-10.0)
[2020-04-27 08:07] LABS: ALBUMIN 2.3 g/dl (3.4-5.0); BILIRUBIN,TOTAL 0.4 mg/dL (0.2-1); BLOOD UREA NITROGEN 22.7 mg/dL (7-18); CALCIUM 8.5 mg/dL (8.5-10.1); CREATININE 5.3 mg/dL (0.55-1.3); MAGNESIUM 1.9 mg/dL (1.8-2.4); PHOSPHOROUS 2.7 mg/dL (2.5-4.9); POTASSIUM 4.2 mmol/L (3.5-5.1); TOT PROT 5.7 g/dl (6.4-8.2)
[2020-04-27] MEDS: APIXABAN 2.5 MG TABLET PO SCH ×2 (10:17→22:00)
[2020-04-27] MEDS: TIOTROPIUM BROMIDE 2.5 MCG (SPIRIVA) RESPIMAT INHALER IH SCH (10:17)
[2020-04-27] MEDS: METOPROLOL TARTRATE 50 MG TABLET (FP) PO SCH ×2 (10:17→22:00)
--- NOTE | 2020-04-27 10:58 | PN ---
Progress Note, Physician - Current Medication List Current Medications: Active Medications Acetaminophen (Tylenol -) 650 mg PO Q6H PRN PRN Reason: FEVER Last Admin: 04/25/20 22:05 Dose: 650 mg Documented by: Apixaban (Eliquis -) 2.5 mg PO BID [facility] Last Admin: 04/27/20 10:17 Dose: 2.5 mg Documented by: Sodium Chloride (Normal Saline -) 250 mls @ 3,000 mls/hr IV PRN PRN PRN Reason: Hypotension during Dialysis Stop: 04/26/20 17:10 Metoprolol Tartrate (Lopressor -) 50 mg PO BID [facility] Last Admin: 04/27/20 10:17 Dose: 50 mg Documented by: Tiotropium [place] (Spiriva Respimat) 2 puff IH DAILY [facility] Last Admin: 04/27/20 10:17 Dose: 2 puff Documented by: - Objective Vital Signs: Vital Signs Temperature 98.3 F 04/27/20 10:00 Pulse Rate 76 04/27/20 10:00 Respiratory Rate 18 04/27/20 10:00 Blood Pressure 135/59 L 04/27/20 10:00 O2 Sat by Pulse Oximetry (%) 93 L 04/27/20 10:00 Cardiovascular: Yes: S1, S2 Respiratory: Yes: Regular, CTA Bilaterally Gastrointestinal: Yes: Normal Bowel Sounds, Soft Labs: CBC, BMP 04/27/20 05:30 04/27/20 05:30 Problem List - Problems (1) Acute kidney injury Assessment/Plan: probably multiple factors--d/w renal --r/o autoimmune response RENAL ON CASE Dialysis per renal FOLLOW LABS hold antibiotics per id US Noted Vital Signs Temp 98.3 F 04/27/20 10:00 Pulse 76 04/27/20 10:00 Resp 18 04/27/20 10:00 BP 135/59 L 04/27/20 10:00 Pulse Ox 93 L 04/27/20 10:00 Intake & Output 04/26/20 04/26/20 04/27/20 11:59 23:59 11:59 Intake Total 120 1100 150 Output Total 30 475 Balance 90 625 150 Intake: IV 10 Saline Lock 10 IVPB 400 Oral 120 690 150 Output: Urine 30 75 Flood 30 75 Fluid Removed, 400 Hemodialysis Other: Voiding Method Indwelling Catheter Urinal Bedpan Bowel Movement No No Yes # Bowel Movements 1 1 Code(s): N17.9 - ACUTE KIDNEY FAILURE, UNSPECIFIED (2) Hypoglycemia associated with diabetes Assessment/Plan: resolved Code(s): E11.649 - TYPE 2 DIABETES MELLITUS WITH HYPOGLYCEMIA WITHOUT COMA (3) Diabetes Assessment/Plan: BGM HOLD METFORMIN DUE TO ALFREDA Code(s): E11.9 - TYPE 2 DIABETES MELLITUS WITHOUT COMPLICATIONS (4) HTN (hypertension) Assessment/Plan: MONITOR Vital Signs Period Temp Pulse Resp BP Sys/Luz Pulse Ox Last 24 Hr 97.8 F-98.6 F 60-90 17-18 134-157/65-90 94-99 HOLD ARB AND MONITOR Code(s): I10 - ESSENTIAL (PRIMARY) HYPERTENSION (5) Postoperative wound dehiscence Assessment/Plan: ABX PER ID-on hold ORTHO CONSULT Code(s): T81.31XA - DISRUPTION OF EXTERNAL OPERATION (SURGICAL) WOUND, NEC, INIT Qualifiers: Encounter type: initial encounter Qualified Code(s): T81.31XA - Disruption of external operation (surgical) wound, not elsewhere classified, initial encounter (6) Diarrhea Assessment/Plan: Resolved Code(s): R19.7 - DIARRHEA, UNSPECIFIED (7) Fever Assessment/Plan: low grade --100.2 Selected Entries 04/27/20 04/27/20 04/27/20 02:00 06:00 10:00 Temperature 98.4 F 97.8 F 98.3 F Microbiology 04/23/20 01:15 Stool Clostridioides difficile Antigen - Final 04/23/20 01:15 Stool Clostridioides difficile Toxin Assay - Final 04/22/20 01:25 Urine - Urine Clean Catch Urine Culture - Final NO GROWTH OBTAINED bc and monitor Code(s): R50.9 - FEVER, UNSPECIFIED
--- NOTE | 2020-04-27 11:35 | PN ---
Progress Note, Physician Chief Complaint: ALFREDA History of Present Illness: Seen and examined at the bedside no acute complaints making urine w/o catheter has some mild sob after walking with pt no orthopnea no swelling no chest pain, fever, or chills - Current Medication List Current Medications: Active Medications Acetaminophen (Tylenol -) 650 mg PO Q6H PRN PRN Reason: FEVER Last Admin: 04/25/20 22:05 Dose: 650 mg Documented by: Apixaban (Eliquis -) 2.5 mg PO BID [facility] Last Admin: 04/27/20 10:17 Dose: 2.5 mg Documented by: Sodium Chloride (Normal Saline -) 250 mls @ 3,000 mls/hr IV PRN PRN PRN Reason: Hypotension during Dialysis Stop: 04/26/20 17:10 Metoprolol Tartrate (Lopressor -) 50 mg PO BID [facility] Last Admin: 04/27/20 10:17 Dose: 50 mg Documented by: Tiotropium [place] (Spiriva Respimat) 2 puff IH DAILY [facility] Last Admin: 04/27/20 10:17 Dose: 2 puff Documented by: - Objective Vital Signs: Vital Signs Temperature 98.3 F 04/27/20 10:00 Pulse Rate 76 04/27/20 10:00 Respiratory Rate 18 04/27/20 10:00 Blood Pressure 135/59 L 04/27/20 10:00 O2 Sat by Pulse Oximetry (%) 93 L 04/27/20 10:00 Constitutional: Yes: No Distress, Calm Neck: Yes: Supple Cardiovascular: Yes: Regular Rate and Rhythm Respiratory: Yes: Regular Gastrointestinal: Yes: Soft Extremities: No: Cyanosis Edema: No Neurological: Yes: Alert, Oriented Labs: CBC, BMP 04/27/20 05:30 04/27/20 05:30 Assessment/Plan Impression 1. ALFREDA with oliguria 2. metabolic acidosis 3. hyperkalemia 4. s/p left knee replacement 5. htn 6. rheumatoid arthritis- mycophenylate 1000 bid on hold 7. DM 8. COPD 9. elevated vanco level Plan s/p dialysis yesterday, no acute need for [employer] today Trend BUN/Cr daily Pt is agreeable to biopsy if renal function not recovering, will discuss with Dr. Son Vanco level is 37 but trending down Will reaccess daily the need for additional dialysis. Thank you Christiano Rashid DO
[2020-04-28 06:50] LABS: HEMATOCRIT 28.8 % (35.4-49); HEMOGLOBIN 9.4 GM/dL (11.7-16.9); MCH 29.6 pg (25.7-33.7); MCHC 32.7 g/dl (32.0-35.9); MEAN CELL VOLUME 90.7 fl (80-96); MEAN PLT VOLUME 7.9 fl (7.5-11.1); PLATELET COUNT 176 K/MM3 (134-434); RBC 3.17 M/mm3 (4.00-5.60); WHITE BLOOD COUNT 8.4 K/mm3 (4.0-10.0)
[2020-04-28 07:13] LABS: BLOOD UREA NITROGEN 30.6 mg/dL (7-18); CALCIUM 8.1 mg/dL (8.5-10.1); CREATININE 7.3 mg/dL (0.55-1.3); MAGNESIUM 1.9 mg/dL (1.8-2.4); PHOSPHOROUS 2.8 mg/dL (2.5-4.9); POTASSIUM 3.9 mmol/L (3.5-5.1)
--- NOTE | 2020-04-28 07:36 | PN ---
Progress Note, Physician - Current Medication List Current Medications: Active Medications Acetaminophen (Tylenol -) 650 mg PO Q6H PRN PRN Reason: FEVER Last Admin: 04/25/20 22:05 Dose: 650 mg Documented by: Apixaban (Eliquis -) 2.5 mg PO BID [facility] Last Admin: 04/27/20 22:00 Dose: 2.5 mg Documented by: Sodium Chloride (Normal Saline -) 250 mls @ 3,000 mls/hr IV PRN PRN PRN Reason: Hypotension during Dialysis Stop: 04/26/20 17:10 Metoprolol Tartrate (Lopressor -) 50 mg PO BID [facility] Last Admin: 04/27/20 22:00 Dose: 50 mg Documented by: Tiotropium [place] (Spiriva Respimat) 2 puff IH DAILY [facility] Last Admin: 04/27/20 10:17 Dose: 2 puff Documented by: - Objective Vital Signs: Vital Signs Temperature 98.2 F 04/28/20 06:00 Pulse Rate 74 04/28/20 06:00 Respiratory Rate 16 04/28/20 06:00 Blood Pressure 156/67 04/28/20 06:00 O2 Sat by Pulse Oximetry (%) 95 04/28/20 06:00 Cardiovascular: Yes: S1, S2 Respiratory: Yes: Regular, CTA Bilaterally Gastrointestinal: Yes: Normal Bowel Sounds, Soft Labs: CBC, BMP 04/28/20 05:45 04/28/20 05:45 Problem List - Problems (1) Acute kidney injury Assessment/Plan: probably multiple factors--d/w renal --r/o autoimmune response RENAL ON CASE Dialysis per renal FOLLOW LABS hold antibiotics per id US Noted Abnormal Lab Results 04/27/20 04/28/20 04/28/20 05:30 05:45 05:45 RBC 3.17 L Hgb 9.4 L Hct 28.8 L BUN 30.6 H Creatinine 7.3 H Calcium 8.1 L Random Vancomycin 37.4 H* Vital Signs Temp 98.2 F 04/28/20 06:00 Pulse 74 04/28/20 06:00 Resp 16 04/28/20 06:00 BP 156/67 04/28/20 06:00 Pulse Ox 95 04/28/20 06:00 Intake & Output 04/27/20 04/27/20 04/28/20 11:59 23:59 11:59 Intake Total 150 470 250 Output Total 200 50 Balance 150 270 200 Intake: Oral 150 470 250 Output: Urine 200 50 Void 200 50 Other: Voiding Method Bedpan Bedpan Bowel Movement Yes Yes No # Bowel Movements 1 1 Code(s): N17.9 - ACUTE KIDNEY FAILURE, UNSPECIFIED (2) Hypoglycemia associated with diabetes Assessment/Plan: resolved Code(s): E11.649 - TYPE 2 DIABETES MELLITUS WITH HYPOGLYCEMIA WITHOUT COMA (3) Diabetes Assessment/Plan: BGM HOLD METFORMIN DUE TO ALFREDA Code(s): E11.9 - TYPE 2 DIABETES MELLITUS WITHOUT COMPLICATIONS (4) HTN (hypertension) Assessment/Plan: MONITOR Vital Signs Period Temp Pulse Resp BP Sys/Luz Pulse Ox Last 24 Hr 97.8 F-98.6 F 60-90 17-18 134-157/65-90 94-99 HOLD ARB AND MONITOR Code(s): I10 - ESSENTIAL (PRIMARY) HYPERTENSION (5) Postoperative wound dehiscence Assessment/Plan: ABX PER ID-on hold ORTHO CONSULT Code(s): T81.31XA - DISRUPTION OF EXTERNAL OPERATION (SURGICAL) WOUND, NEC, INIT Qualifiers: Encounter type: initial encounter Qualified Code(s): T81.31XA - Disruption of external operation (surgical) wound, not elsewhere classified, initial encounter (6) Diarrhea Code(s): R19.7 - DIARRHEA, UNSPECIFIED (7) Fever Assessment/Plan: Resolved Code(s): R50.9 - FEVER, UNSPECIFIED
[2020-04-28] MEDS: APIXABAN 2.5 MG TABLET PO SCH (09:33)
[2020-04-28] MEDS: METOPROLOL TARTRATE 50 MG TABLET (FP) PO SCH ×2 (09:33→21:31)
[2020-04-28] MEDS: TIOTROPIUM BROMIDE 2.5 MCG (SPIRIVA) RESPIMAT INHALER IH SCH (09:34)
--- NOTE | 2020-04-28 10:59 | CONS ---
PHYSICAL MEDICINE & REHABILITATION CONSULTATION DATE OF CONSULTATION: 04/28/2020 REFERRING PHYSICIAN: Azeb Markham MD HISTORY OF PRESENT ILLNESS: The patient is a 64-year-old man with past medical history of bilateral total knee replacements who was originally admitted to [facility] in March after a fall with wound dehiscence of a recent left total knee replacement. As the protocol he was placed on IV vancomycin and developed elevated BUN and creatinine and readmitted on April 22, 2020. At that point his BUN was 57, creatinine 7.2, WBCs 9.1, hemoglobin 11.1, platelet count in the 180s. Most recent blood work done today: WBCs 8.4, hemoglobin 9.4, platelet count 176. Chemistry demonstrated elevated BUN 30.6 and creatinine 7.3, which is worse than his last blood work on April 27 when his creatinine was 5.3. Patient was seen by Physical Therapy, able to transfer minimal assist using a left knee extension brace and ambulated 100 feet with a rolling walker contact guard. Patient otherwise feels well and awaits Dr. Bowie's consultation who did his left total knee replacement. He has no complaints of right knee problems, no complaints of upper extremity weakness. Review of past medical and surgical history also significant for diabetes and the right total knee replacement as well as the more recent left total knee replacement. SOCIAL HISTORY: Lives with his in a multilevel house. He has just got a few steps to enter and can stay on the first level, but there are 10 steps to the second level. Premorbidly independent and was doing well 10 days postop until the fall. REVIEW OF SYSTEMS: He has no headache, no lightheadedness or dizziness, no blurry vision or double vision. No nausea or vomiting, difficulty swallowing, difficulty chewing. No chest pain or shortness of breath. No fever or chills. No significant pain. He is not bending the left knee due to having the brace on and instruction from Dr. Bowie, but otherwise has no problems bending his right knee. No numbness or tingling and no other joint arthralgias. No weight loss or weight gain. No bowel or bladder incontinence or retention. PHYSICAL EXAMINATION: General: Patient is a slightly overweight man seen lying in bed. He is in no acute distress. HEENT: He is normocephalic and atraumatic. Extraocular muscles appear intact. Neck: Supple. Extremities: He has a long leg knee immobilizer on the left lower extremity. Unable to examine wound at this time. Right scar from total knee replacement has healed well. He has no other areas of skin breakdown. No pitting edema or calf tenderness. Neuromuscular: He is awake, alert, oriented x3. Cranial nerves II through XII grossly intact. He has got good strength and range throughout his upper extremities and right lower limb with just a hint of hip girdle weakness 5-/5. Left lower extremity 3+ to 4 out of 5 hip girdle strength and 5/5 dorsiflexion, plantarflexion. Normal sensation in the upper and lower extremities to light touch. Downgoing toes. Unable to stand or ambulate him at this time. No walker available. OVERALL IMPRESSION: 1. Deficits in mobility, activities of daily living multifactorial. 2. History of a recent left total knee replacement with wound dehiscence and IV antibiotics for possible prosthetic infection. 3. Acute kidney injury. 4. Anemia, acute blood loss. 5. History of right total knee replacement doing well. 6. Diabetes. 7. Elevated body mass index. PLAN & SUGGESTIONS: 1. Continue physical therapy at the bedside to include bed mobility, transfers, gait training, strengthening, reconditioning, stair negotiation if appropriate. 2. Out of bed to chair. 3. Continue left knee immobilizer. 4. Follow up blood work including BUN and creatinine, which is elevated more today than yesterday. 5. Follow up CBC. 6. DVT prophylaxis. Patient is on Eliquis. No further DVT prophylaxis needed. 7. Skin precaution. 8. Follow up with Orthopedics, Dr. Bowie. 9. Discharge planning to be determined. May have to return to longterm facility for further antibiotics versus home with wound care when medically stable. Thank you for this referral. GARRET OCHOA M.D. GLENIS/[id number]
--- NOTE | 2020-04-28 12:22 | PN ---
Progress Note (short form) - Note Progress Note: VASCULAR SURGERY 64 yo male s/p Left TKR 03/13/[address] Tavo Bowie. Returned to ED 03/24/20 s/p injury to left knee during PT session as out-patient. Admitted 03/24 with wound dehis and ruptured quad tendon. Taken to OR for Left TKA I&D, poly exchange, quad tendon repair 03/25/2020. Had PICC line placed and was to receive Vanco & Cefepime at [facility]. Patient subsequently dc'd to [facility] for continued care and PT. Transferred to [facility] due to abnormal BUN/Cr values. Found to be in renal failure most likely secondary to Vanco. An Rt IJ shiley catheter was placed 04/22/20 by Surgery PAs and immediately began HD as per Renal. Last Vital Signs Temp Pulse Resp BP Pulse Ox 98.6 F 73 18 134/68 95 04/28/20 10:00 04/28/20 10:00 04/28/20 10:00 04/28/20 10:00 04/28/20 10:00 BUN/Cr Trend 04/25/20 04/26/20 04/27/20 04/28/20 06:08 06:30 05:30 05:45 BUN 45.2 27.3 22.7 30.6 Creatinine 8.7 6.5 5.3 7.3 < 24 Hour Urine Output 04/27/20 04/27/20 04/28/20 16:21 22:31 06:00 Flood 50 150 50 Vanco Trough Trend 04/25/20 04/25/20 04/27/20 06:08 13:40 05:30 Random Vancomycin > 50.0 47.2 37.4 A/P: 64 yo male s/p Left TKR 03/13/[address] Tavo Bowie. Returned to ED 03/24/20 s/p injury to left knee during PT session as out-patient. Admitted 03/24/20 with wound dehis and ruptured quad tendon. Taken to OR for Left TKA I&D, poly exchange, quad tendon repair 03/25/2020. Had PICC line placed and was to receive Vanco & Cefepime at [facility]. Patient subsequently dc'd to [facility] for continued care and PT. While at [facility] developed elevated BUN/Cr (most likely associated with Vanco). - HD scheduled for 04/28 - Trend Vanco level (still elevated but improving) - Trend BUN/Cr (both starting to rise again) - Will need permacath so he can receive out-patient HD - Dr. Son discussed renal biopsy with pt, he will discuss with his - Renal diet - Avoid NSAIDs - Monitor urine output Above plan discussed with Dr. Henao and agrees Problem List - Problems (1) Acute kidney injury Code(s): N17.9 - ACUTE KIDNEY FAILURE, UNSPECIFIED (2) Acute renal failure Code(s): N17.9 - ACUTE KIDNEY FAILURE, UNSPECIFIED (3) HTN (hypertension) Code(s): I10 - ESSENTIAL (PRIMARY) HYPERTENSION
--- NOTE | 2020-04-28 13:13 | PN ---
Progress Note, Physician History of Present Illness: Pt seen and examined at bedside. He is awake and alert. He denies shortness of breath. - Current Medication List Current Medications: Active Medications Acetaminophen (Tylenol -) 650 mg PO Q6H PRN PRN Reason: FEVER Last Admin: 04/25/20 22:05 Dose: 650 mg Documented by: Apixaban (Eliquis -) 2.5 mg PO BID [facility] Last Admin: 04/28/20 09:33 Dose: 2.5 mg Documented by: Sodium Chloride (Normal Saline -) 250 mls @ 3,000 mls/hr IV PRN PRN PRN Reason: Hypotension during Dialysis Stop: 04/26/20 17:10 Metoprolol Tartrate (Lopressor -) 50 mg PO BID [facility] Last Admin: 04/28/20 09:33 Dose: 50 mg Documented by: Tiotropium [place] (Spiriva Respimat) 2 puff IH DAILY [facility] Last Admin: 04/28/20 09:34 Dose: 2 puff Documented by: - Objective Vital Signs: Vital Signs Temperature 98.6 F 04/28/20 10:00 Pulse Rate 73 04/28/20 10:00 Respiratory Rate 18 04/28/20 10:00 Blood Pressure 134/68 04/28/20 10:00 O2 Sat by Pulse Oximetry (%) 95 04/28/20 10:00 Constitutional: Yes: Calm Eyes: Yes: Conjunctiva Clear HENT: Yes: Atraumatic Neck: Yes: Supple Cardiovascular: Yes: S1, S2 Respiratory: Yes: CTA Bilaterally Gastrointestinal: Yes: Soft Genitourinary: Yes: Oliguria Extremities: Yes: WNL Edema: No Neurological: Yes: Oriented Psychiatric: Yes: Oriented Labs: CBC, BMP 04/28/20 05:45 04/28/20 05:45 Problem List - Problems (1) Hyperkalemia Code(s): E87.5 - HYPERKALEMIA (2) Acute kidney injury Code(s): N17.9 - ACUTE KIDNEY FAILURE, UNSPECIFIED (3) Acute renal failure Code(s): N17.9 - ACUTE KIDNEY FAILURE, UNSPECIFIED (4) Diarrhea Code(s): R19.7 - DIARRHEA, UNSPECIFIED Assessment/Plan Current Medications Generic Name Dose Route Start Last Admin Trade Name Freq PRN Reason Stop Dose Admin Acetaminophen 650 mg 04/25/20 20:49 04/25/20 22:05 Tylenol - PO 650 mg Q6H PRN Administration FEVER Apixaban 2.5 mg 04/22/20 10:00 04/28/20 09:33 Eliquis - PO 2.5 mg BID GO Administration Sodium Chloride 250 mls @ 3,000 mls/hr 04/25/20 17:10 Normal Saline - IV 04/26/20 17:10 PRN PRN Hypotension during Dialysis Metoprolol Tartrate 50 mg 04/22/20 10:00 04/28/20 09:33 Lopressor - PO 50 mg BID GO Administration Tiotropium [place] 2 puff 04/22/20 10:00 04/28/20 09:34 Spiriva Respimat IH 2 puff DAILY GO Administration Laboratory Tests 04/22/20 04/22/20 04/22/20 02:50 13:55 13:55 Random Vancomycin ALEX M-[place] Not observed IVIS Screen Negative c-ANCA Pending Proteinase 3 (PR3) Pending p-ANCA Pending Atypical p-ANCA Pending Myeloperoxidase Ab Pending Double Strand DNA Ab <1 Glomerular Base Memb Ab 3 Complement C3 Complement C4 COVID-19 (TAMMY) Not detected 04/23/20 04/25/20 04/27/20 11:10 13:40 05:30 Random Vancomycin 47.2 H* 37.4 H* ALEX M-[place] IVIS Screen c-ANCA Proteinase 3 (PR3) p-ANCA Atypical p-ANCA Myeloperoxidase Ab Double Strand DNA Ab Glomerular Base Memb Ab Complement C3 132 Complement C4 25 COVID-19 (TAMMY) Impression 1. ALFREDA with oliguria 2. metabolic acidosis 3. hyperkalemia 4. s/p left knee replacement 5. htn 6. rheumatoid arthritis- mycophenylate 1000 bid on hold 7. DM 8. COPD 9. 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
--- NOTE | 2020-04-28 13:46 | PN ---
Progress Note, Physician History of Present Illness: OOB IN CHAIR NO COMPLAINTS NO C/O KNEE PAIN NO F/C - Current Medication List Current Medications: Active Medications Acetaminophen (Tylenol -) 650 mg PO Q6H PRN PRN Reason: FEVER Last Admin: 04/25/20 22:05 Dose: 650 mg Documented by: Apixaban (Eliquis -) 2.5 mg PO BID [facility] Last Admin: 04/28/20 09:33 Dose: 2.5 mg Documented by: Sodium Chloride (Normal Saline -) 250 mls @ 3,000 mls/hr IV PRN PRN PRN Reason: Hypotension during Dialysis Stop: 04/26/20 17:10 Sodium Chloride (Normal Saline -) 250 mls @ 3,000 mls/hr IV PRN PRN PRN Reason: Hypotension during Dialysis Stop: 04/29/20 13:13 Metoprolol Tartrate (Lopressor -) 50 mg PO BID [facility] Last Admin: 04/28/20 09:33 Dose: 50 mg Documented by: Tiotropium [place] (Spiriva Respimat) 2 puff IH DAILY [facility] Last Admin: 04/28/20 09:34 Dose: 2 puff Documented by: - Objective Vital Signs: Vital Signs Temperature 98.6 F 04/28/20 10:00 Pulse Rate 73 04/28/20 10:00 Respiratory Rate 18 04/28/20 10:00 Blood Pressure 134/68 04/28/20 10:00 O2 Sat by Pulse Oximetry (%) 95 04/28/20 10:00 Constitutional: Yes: No Distress Cardiovascular: Yes: Regular Rate and Rhythm, S1, S2 Respiratory: Yes: CTA Bilaterally Gastrointestinal: Yes: Normal Bowel Sounds, Soft. No: Tenderness Extremities: Yes: Other (L KNEE SURGICAL WOUND WELL-HEALED. NO ERYTHEMA/ DRAINAGE) Labs: CBC, BMP 04/28/20 05:45 04/28/20 05:45 Assessment/Plan ALFREDA INFECTED L TKR ANTIBIOTICS ON HOLD ALFREDA MGT PER RENAL
[2020-04-28 16:18] LABS: INR 1.4 (0.83-1.09); PROTHROMBIN TIME (PATIENT) 16.6 SEC (9.7-13.0)
[2020-04-28 18:06] LABS: ATYPICAL pANCA <1:20 titer (Neg:<1:20); C-ANCA <1:20 titer (Neg:<1:20)
--- NOTE | 2020-04-28 20:36 | CON.ORTH ---
Consult Consult Specialty:: Orthopedics - Past Medical History Cardio/Vascular: Yes: HTN, Hyperlipdemia Pulmonary: Yes: Asthma Endocrine: Yes: Diabetes Mellitus - Past Surgical History Past Surgical History: Yes: Joint Replacement - Alcohol/Substance Use Hx Alcohol Use: Yes (occasional) History of Substance Use: reports: None - Smoking History Smoking history: Former smoker Have you smoked in the past 12 months: No If you are a former smoker, when did you quit?: 1980 - Social History ADL: Support Services History of Recent Travel: No Home Medications - Allergies Allergies/Adverse Reactions: Allergies Allergy/AdvReac Type Severity Reaction Status Date / Time sulfamethoxazole Allergy Intermediate Swelling Verified 04/21/20 22:20 [From Bactrim] trimethoprim [From Bactrim] Allergy Intermediate Swelling Verified 04/21/20 22:20 - Home Medications Home Medications: Ambulatory Orders Furosemide [Lasix -] 40 mg PO DAILY 09/11/14 Metoprolol Tartrate [Lopressor] 100 mg PO DAILY 09/11/14 Amlodipine Besylate 5 mg PO DAILY 12/09/18 Prednisone 10 mg PO DAILY 12/09/18 metFORMIN HCL [Metformin HCl ER] 1,000 mg PO BID 12/09/18 Atorvastatin Calcium 20 mg PO HS 05/31/19 Glimepiride 1 mg PO DAILY 05/31/19 Losartan Potassium 50 mg PO DAILY 05/31/19 Multivitamins [Multivit ([facility] Formulary)] 1 tab PO DAILY tab 06/08/19 Terbinafine HCl 250 mg PO Q48H 11/08/19 Tiotropium [place] [Spiriva Respimat] 2 inh IH DAILY 11/08/19 Glucosam/Merlin-Msm1/C/Yao/Bosw [Glucosamine-Chondr Complx Cplt] 2 each PO DAILY 03/06/20 Ascorbic Acid [Vitamin C -] 500 mg PO BID tablet 03/14/20 Pantoprazole Sodium [Protonix -] 40 mg PO DAILY #40 tablet.ec 03/14/20 Apixaban [Eliquis -] 2.5 mg PO BID tablet 03/31/20 Cefepime [Maxipime (Restricted To Id) -] 2 gm IVPB Q8H-IV vial 03/31/20 Sennosides/Docusate Sodium [Pericolace -] 2 tablet PO BID tablet 07/13/20 oxyCODONE HCL [Roxicodone -] 5 mg PO Q3H PRN tablet 03/31/20 oxyCODONE HCL [Roxicodone -] 10 mg PO Q3H PRN tablet 03/31/20 oxyCODONE SR [Oxycontin] 10 mg PO BID tab.er.12h 03/31/20 Mycophenolate Mofetil [Cellcept] 1,000 mg PO BID 04/22/20 Physical Exam for Ortho Vital Signs: Vital Signs Temperature 98.4 F 04/28/20 18:00 Pulse Rate 70 04/28/20 18:00 Respiratory Rate 16 04/28/20 18:00 Blood Pressure 146/65 04/28/20 18:00 O2 Sat by Pulse Oximetry (%) 96 04/28/20 18:00 Labs: CBC, BMP 04/28/20 05:45 04/28/20 05:45 INR, PTT INR 1.40 (0.83-1.09) H 04/28/20 15:15 Assessment/Plan 64yo male s/p L TKA 03/13/20. Did well postop but almost fell while doing outpt PT 03/24/20 and hyperflexed knee causing wound dehiscence and quadriceps tendon rupture. Pt had surgery 03/25/2020 for I&D, poly exchange, quad tendon repair. Was placed on Vanco and Cefepime via PICC line. He was discharged to [facility] for management of IV abx but apparently Vanco trough levels were never checked and he was brought back to ER last week with AMS and was found to be in acute renal failure with BUN>97, Cr>10 and Vanco levels >50, which was the limit of detection of the test. No previous history of renal dysfunction. Pt is currently being set up for [facility] for hemodialysis and renal biopsy is pending. He was last seen in office approximately 2 weeks ago and was doing well. AVSS Selected Entries 04/28/20 04/28/20 18:00 22:00 Temperature 98.4 F 98.2 F Pulse Rate 70 71 Respiratory 16 18 Rate Blood Pressure 146/65 139/59 L O2 Sat by Pulse 96 96 Oximetry (%) Laboratory Tests 04/22/20 04/22/20 04/23/20 00:24 00:24 07:25 WBC Hgb Hct Plt Count ESR Sodium 142 Potassium 5.3 H Chloride 112 H Carbon Dioxide 14 L Anion Gap 16 BUN 97.4 H Creatinine 10.8 H* Random Glucose 62 L Calcium Phosphorus 6.7 H Magnesium 2.5 H C-Reactive Protein Random Vancomycin > 50.0 H* > 50.0 H* 04/24/20 04/25/20 04/25/20 06:12 06:08 10:15 WBC Hgb Hct Plt Count ESR Sodium Potassium Chloride Carbon Dioxide Anion Gap BUN Creatinine Random Glucose Calcium Phosphorus Magnesium C-Reactive Protein 7.1 H Random Vancomycin > 50.0 H* > 50.0 H* 04/25/20 04/25/20 04/27/20 11:00 13:40 05:30 WBC Hgb Hct Plt Count ESR 75 H Sodium Potassium Chloride Carbon Dioxide Anion Gap BUN Creatinine Random Glucose Calcium Phosphorus Magnesium C-Reactive Protein Random Vancomycin 47.2 H* 37.4 H* 04/28/20 04/28/20 05:45 05:45 WBC 8.4 Hgb 9.4 L Hct 28.8 L Plt Count 176 ESR Sodium 138 Potassium 3.9 Chloride Carbon Dioxide 25 Anion Gap 9 BUN 30.6 H Creatinine 7.3 H Random Glucose 97 Calcium 8.1 L Phosphorus 2.8 Magnesium 1.9 C-Reactive Protein Random Vancomycin Gen: NAD, AAO LLE: c/d/i, no drainage. Knee immobilizer in place. NVID A/P 64yo male with no history of renal disease presenting with ARF likely due to nephrotoxicity from Vancomycin overdose. 03/25/2020 - s/p I&D L knee and quadriceps tendon rupture repair. 1. Pt was placed on Eliquis 2.5mg BID for 35 days postop for DVT ppx. Today is POD#34 - okay to stop Eliquis for possible renal biopsy. Will D/C Eliquis and start on Lovenox SQ daily instead. Can hold for renal biopsy when scheduled. 2. Knee immobilizer at all times when OOB. Must keep knee in extension and cannot bend at all. Can be WBAT with knee immobilizer in place. This is for 6 weeks postop (1 more week left) - after that time he will be placed in a hinged knee brace with progressively increased flexion over the following 6 weeks. 3. Cont current medical care. Will follow.
--- NOTE | 2020-04-28 22:59 | CONSULT ---
Consult Consult Specialty:: Rheumatology - History of Present Illness History of Present Illness: 64 y/o male with a PMH of RA, DM, HTN, bronchiolitis, COPD, sleep apnea, s/p lumbar laminectomy, left total knee replacement on 03/13/20, s/p fall and trauma to the left knee on 03/24/20 resulting in wound dehiscence and quadriceps tendon tear. He was re-operated on 03/31/20 and discharge with Vancomycin and Cefepime (pick line). Patient was transferred from [facility] with a BUN of 88, Creatinine of 8.6 and shortness of breath. Creatinine was on 03/31/20: 1.1, on 04/22/20: 10.8 and today: 7.3. Urinalysis with protein 2+ and blood 1+. IVIS, ANCA, myeloperoxidase, proteinase-3, anti-DNAds, anti G-basal membrane Ab were all negative. Serum electrophoresis negative for M spike. Complement was normal (C3: 132 and C4: 25). Rheumatoid arthritis. > 10 year history treated in the past with Methotrexate, hydroxychloroquine and Enbrel (from 2009 to 2015). Four years ago he was diagnosed with bronchiolitis (with lung biopsy) and was started on Mycophenolate. Apparently, arthritis has been quiescent and he continued only on Mycophenolate. At the present time he denies joint pain, morning stiffness, skin rash, oral ulcers, Sicca syndrome or shortness of breath - History Source History Provided By: Patient, Medical Record - Past Medical History Cardio/Vascular: Yes: HTN, Hyperlipdemia Pulmonary: Yes: Asthma Endocrine: Yes: Diabetes Mellitus - Past Surgical History Past Surgical History: Yes: Joint Replacement - Alcohol/Substance Use Hx Alcohol Use: Yes (occasional) History of Substance Use: reports: None - Smoking History Smoking history: Former smoker Have you smoked in the past 12 months: No If you are a former smoker, when did you quit?: 1980 - Social History ADL: Support Services History of Recent Travel: No Home Medications - Allergies Allergies/Adverse Reactions: Allergies Allergy/AdvReac Type Severity Reaction Status Date / Time sulfamethoxazole Allergy Intermediate Swelling Verified 04/21/20 22:20 [From Bactrim] trimethoprim [From Bactrim] Allergy Intermediate Swelling Verified 04/21/20 22:20 - Home Medications Home Medications: Ambulatory Orders Furosemide [Lasix -] 40 mg PO DAILY 09/11/14 Metoprolol Tartrate [Lopressor] 100 mg PO DAILY 09/11/14 Amlodipine Besylate 5 mg PO DAILY 12/09/18 Prednisone 10 mg PO DAILY 12/09/18 metFORMIN HCL [Metformin HCl ER] 1,000 mg PO BID 12/09/18 Atorvastatin Calcium 20 mg PO HS 05/31/19 Glimepiride 1 mg PO DAILY 05/31/19 Losartan Potassium 50 mg PO DAILY 05/31/19 Multivitamins [Multivit ([facility] Formulary)] 1 tab PO DAILY tab 06/08/19 Terbinafine HCl 250 mg PO Q48H 11/08/19 Tiotropium [place] [Spiriva Respimat] 2 inh IH DAILY 11/08/19 Glucosam/Merlin-Msm1/C/Yao/Bosw [Glucosamine-Chondr Complx Cplt] 2 each PO DAILY 03/06/20 Ascorbic Acid [Vitamin C -] 500 mg PO BID tablet 03/14/20 Pantoprazole Sodium [Protonix -] 40 mg PO DAILY #40 tablet.ec 03/14/20 Apixaban [Eliquis -] 2.5 mg PO BID tablet 03/31/20 Cefepime [Maxipime (Restricted To Id) -] 2 gm IVPB Q8H-IV vial 03/31/20 Sennosides/Docusate Sodium [Pericolace -] 2 tablet PO BID tablet 03/31/20 oxyCODONE HCL [Roxicodone -] 5 mg PO Q3H PRN tablet 03/31/20 oxyCODONE HCL [Roxicodone -] 10 mg PO Q3H PRN tablet 03/31/20 oxyCODONE SR [Oxycontin] 10 mg PO BID tab.er.12h 03/31/20 Mycophenolate Mofetil [Cellcept] 1,000 mg PO BID 04/22/20 Review of Systems - Review of Systems Constitutional: reports: Malaise Eyes: reports: No Symptoms HENT: reports: No Symptoms Cardiovascular: reports: No Symptoms Respiratory: reports: SOB Gastrointestinal: reports: No Symptoms Musculoskeletal: reports: No Symptoms Integumentary: reports: No Symptoms Physical Exam Vital Signs: Vital Signs Temperature 98.2 F 04/28/20 22:00 Pulse Rate 71 04/28/20 22:00 Respiratory Rate 18 04/28/20 22:00 Blood Pressure 139/59 L 04/28/20 22:00 O2 Sat by Pulse Oximetry (%) 96 04/28/20 22:00 Constitutional: Yes: Mild Distress Eyes: Yes: WNL HENT: Yes: WNL Cardiovascular: Yes: WNL Respiratory: Yes: Other (Few fine crackles in bases) Musculoskeletal: Yes: Other (No active joints.) Labs: CBC, BMP 04/28/20 05:45 04/28/20 05:45 Laboratory Tests 04/22/20 04/22/20 04/22/20 01:25 13:55 13:55 ESR Calcium Phosphorus Magnesium Total Bilirubin AST ALT Alkaline Phosphatase Creatine Kinase 25 L C-Reactive Protein Urine Appearance Clear Urine pH 5.0 Ur Specific [place] 1.010 Urine Protein 2+ H Urine Glucose (UA) Negative Urine Ketones Negative Urine Blood 1+ H Urine Nitrite Negative Urine Bilirubin Negative Urine Urobilinogen 0.2 Ur Leukocyte Esterase Negative Urine WBC (Auto) 13 Urine RBC (Auto) 27 Urine Casts (Auto) 1 ALEX M-[place] Not observed IVIS Screen c-ANCA Proteinase 3 (PR3) p-ANCA Atypical p-ANCA Myeloperoxidase Ab Double Strand DNA Ab Glomerular Base Memb Ab Complement C3 Complement C4 04/22/20 04/23/20 04/25/20 13:55 11:10 10:15 ESR Calcium Phosphorus Magnesium Total Bilirubin AST ALT Alkaline Phosphatase Creatine Kinase C-Reactive Protein 7.1 H Urine Appearance Urine pH Ur Specific [place] Urine Protein Urine Glucose (UA) Urine Ketones Urine Blood Urine Nitrite Urine Bilirubin Urine Urobilinogen Ur Leukocyte Esterase Urine WBC (Auto) Urine RBC (Auto) Urine Casts (Auto) ALEX M-[place] IVIS Screen Negative c-ANCA <1:20 Proteinase 3 (PR3) <3.5 p-ANCA <1:20 Atypical p-ANCA <1:20 Myeloperoxidase Ab <9.0 Double Strand DNA Ab <1 Glomerular Base Memb Ab 3 Complement C3 132 Complement C4 25 04/25/20 04/27/20 11:00 05:30 ESR 75 H Calcium 8.5 Phosphorus 2.7 Magnesium 1.9 Total Bilirubin 0.4 AST 19 ALT 21 Alkaline Phosphatase 51 Creatine Kinase C-Reactive Protein Urine Appearance Urine pH Ur Specific [place] Urine Protein Urine Glucose (UA) Urine Ketones Urine Blood Urine Nitrite Urine Bilirubin Urine Urobilinogen Ur Leukocyte Esterase Urine WBC (Auto) Urine RBC (Auto) Urine Casts (Auto) ALEX M-[place] IVIS Screen c-ANCA Proteinase 3 (PR3) p-ANCA Atypical p-ANCA Myeloperoxidase Ab Double Strand DNA Ab Glomerular Base Memb Ab Complement C3 Complement C4 Problem List - Problems (1) Rheumatoid arthritis Assessment/Plan: Rheumatoid arthritis, in remission with Mycophenolate. Bronchiolitis probably secondary to rheumatoid arthritis. Acute renal insufficiency (ATN?) - improving. Plan: Continue same medication. Code(s): M06.9 - RHEUMATOID ARTHRITIS, UNSPECIFIED
[2020-04-29] MEDS ORDERED: SODIUM CHLORIDE 250 ML IV PRN (06:30)
--- NOTE | 2020-04-29 09:34 | PN ---
Progress Note, Physician - Current Medication List Current Medications: Active Medications Acetaminophen (Tylenol -) 650 mg PO Q6H PRN PRN Reason: FEVER Last Admin: 04/25/20 22:05 Dose: 650 mg Documented by: Enoxaparin Sodium (Lovenox -) 30 mg SQ DAILY [facility] Metoprolol Tartrate (Lopressor -) 50 mg PO BID [facility] Last Admin: 04/28/20 21:31 Dose: 50 mg Documented by: Tiotropium [place] (Spiriva Respimat) 2 puff IH DAILY [facility] Last Admin: 04/28/20 09:34 Dose: 2 puff Documented by: - Objective Vital Signs: Vital Signs Temperature 98.4 F 04/29/20 06:00 Pulse Rate 87 04/29/20 09:00 Respiratory Rate 16 04/29/20 09:00 Blood Pressure 153/102 H 04/29/20 09:00 O2 Sat by Pulse Oximetry (%) 95 04/29/20 06:00 Cardiovascular: Yes: Regular Rate and Rhythm Respiratory: Yes: Regular, CTA Bilaterally Gastrointestinal: Yes: Normal Bowel Sounds, Soft Labs: CBC, BMP 04/28/20 05:45 04/28/20 05:45 INR, PTT INR 1.40 (0.83-1.09) H 04/28/20 15:15 Problem List - Problems (1) Acute kidney injury Assessment/Plan: RENAL ON CASE---for renal biopsy Dialysis per renal FOLLOW LABS hold antibiotics per id US Noted 04/27/20 04/28/20 04/28/20 05:30 05:45 05:45 RBC 3.17 L Hgb 9.4 L Hct 28.8 L BUN 30.6 H Creatinine 7.3 H Calcium 8.1 L Random Vancomycin 37.4 H* Vital Signs Temp 98.2 F 04/28/20 06:00 Pulse 74 04/28/20 06:00 Resp 16 04/28/20 06:00 BP 156/67 04/28/20 06:00 Pulse Ox 95 04/28/20 06:00 Intake & Output 04/27/20 04/27/20 04/28/20 11:59 23:59 11:59 Intake Total 150 470 250 Output Total 200 50 Balance 150 270 200 Intake: Oral 150 470 250 Output: Urine 200 50 Void 200 50 Other: Voiding Method Bedpan Bedpan Bowel Movement Yes Yes No # Bowel Movements 1 1 Laboratory Tests 04/27/20 04/28/20 04/29/20 05:30 05:45 05:51 BUN 22.7 H 30.6 H Creatinine 5.3 H 7.3 H Random Vancomycin 38.8 H* Laboratory Tests 04/29/20 05:51 Random Vancomycin 38.8 H* Code(s): N17.9 - ACUTE KIDNEY FAILURE, UNSPECIFIED (2) Hypoglycemia associated with diabetes Assessment/Plan: resolved Code(s): E11.649 - TYPE 2 DIABETES MELLITUS WITH HYPOGLYCEMIA WITHOUT COMA (3) Diabetes Assessment/Plan: BGM HOLD METFORMIN DUE TO ALFREDA Laboratory Tests 04/27/20 04/27/20 04/28/20 06:16 16:59 21:31 POC Glucometer 93 120 101 Code(s): E11.9 - TYPE 2 DIABETES MELLITUS WITHOUT COMPLICATIONS (4) HTN (hypertension) Assessment/Plan: MONITOR HOLD ARB AND MONITOR Selected Entries 04/29/20 04/29/20 04/29/20 07:30 08:00 08:30 Blood Pressure 144/71 142/72 151/76 Code(s): I10 - ESSENTIAL (PRIMARY) HYPERTENSION (5) Postoperative wound dehiscence Assessment/Plan: ABX PER ID-on hold ORTHO CONSULT NOTED Code(s): T81.31XA - DISRUPTION OF EXTERNAL OPERATION (SURGICAL) WOUND, NEC, INIT Qualifiers: Encounter type: initial encounter Qualified Code(s): T81.31XA - Disruption of external operation (surgical) wound, not elsewhere classified, initial encounter (6) Diarrhea Code(s): R19.7 - DIARRHEA, UNSPECIFIED (7) Fever Code(s): R50.9 - FEVER, UNSPECIFIED
[2020-04-29 10:04] LABS: HEMATOCRIT 28.1 % (35.4-49); HEMOGLOBIN 9.2 GM/dL (11.7-16.9); MCH 29.9 pg (25.7-33.7); MCHC 32.7 g/dl (32.0-35.9); MEAN CELL VOLUME 91.6 fl (80-96); MEAN PLT VOLUME 8.1 fl (7.5-11.1); PLATELET COUNT 195 K/MM3 (134-434); RBC 3.07 M/mm3 (4.00-5.60); RDW 15.4 % (11.9-15.9); WHITE BLOOD COUNT 7.9 K/mm3 (4.0-10.0)
[2020-04-29 10:26] LABS: ALBUMIN 2.3 g/dl (3.4-5.0); BILIRUBIN,TOTAL 0.4 mg/dL (0.2-1); BLOOD UREA NITROGEN 35.8 mg/dL (7-18); CALCIUM 8.4 mg/dL (8.5-10.1); POTASSIUM 4.3 mmol/L (3.5-5.1); TOT PROT 5.5 g/dl (6.4-8.2)
[2020-04-29 10:41] LABS: CREATININE 8.9 mg/dL (0.55-1.3)
--- NOTE | 2020-04-29 10:52 | PN ---
Progress Note (short form) - Note Progress Note: PULMONARY CONSULTATION DICTATED 04/29/20 IMP ACUTE RENAL FAILURE RA ILD/BRONCHIOLITIS SECONDARY TO RA NAEEM DM COPD S/P L KNEE REPLACEMENT S/P WOUND DEHISCENCE AND QUAD TENDON RUPTURE HTN PLAN O2 NEEDED ABX PER ID HD PER ENAL PREDNISONE IF OK WITH ID CHEST CT MONITOR LYTES,RENAL FUNCTION CPAP AT NIGHT INHALED BRONCHODILATORS DR ESPINO Problem List - Problems (1) Bronchiolitis Code(s): J21.9 - ACUTE BRONCHIOLITIS, UNSPECIFIED (2) Acute kidney injury Code(s): N17.9 - ACUTE KIDNEY FAILURE, UNSPECIFIED (3) Acute renal failure Code(s): N17.9 - ACUTE KIDNEY FAILURE, UNSPECIFIED (4) Electrolyte imbalance Code(s): E87.8 - OTH DISORDERS OF ELECTROLYTE AND FLUID BALANCE, NEC (5) Rheumatoid arthritis Code(s): M06.9 - RHEUMATOID ARTHRITIS, UNSPECIFIED (6) COPD (chronic obstructive pulmonary disease) Code(s): J44.9 - CHRONIC OBSTRUCTIVE PULMONARY DISEASE, UNSPECIFIED (7) Diabetes Code(s): E11.9 - TYPE 2 DIABETES MELLITUS WITHOUT COMPLICATIONS (8) HTN (hypertension) Code(s): I10 - ESSENTIAL (PRIMARY) HYPERTENSION (9) Postoperative wound dehiscence Code(s): T81.31XA - DISRUPTION OF EXTERNAL OPERATION (SURGICAL) WOUND, NEC, INIT Qualifiers: Encounter type: initial encounter Qualified Code(s): T81.31XA - Disruption of external operation (surgical) wound, not elsewhere classified, initial encounter (10) Wound, open, lower limb with complication Code(s): S81.809A - UNSPECIFIED OPEN WOUND, UNSPECIFIED LOWER LEG, INIT ENCNTR (11) ILD (interstitial lung disease) Code(s): J84.9 - INTERSTITIAL PULMONARY DISEASE, UNSPECIFIED
--- NOTE | 2020-04-29 11:19 | PN ---
Progress Note (short form) - Note Progress Note: VASCULAR SURGERY s/p HD via Rt IJ shinataliya completed. At Renals request, asked that his shiley be removed today. Shiley removed without incident. Direct pressure held for 5 mins. Occlusive dressing applied. Scheduled for Permacath insertion 05/01/20. Medical optimization/clearance Problem List - Problems (1) Acute kidney injury Code(s): N17.9 - ACUTE KIDNEY FAILURE, UNSPECIFIED (2) Acute renal failure Code(s): N17.9 - ACUTE KIDNEY FAILURE, UNSPECIFIED (3) HTN (hypertension) Code(s): I10 - ESSENTIAL (PRIMARY) HYPERTENSION
[2020-04-29] MEDS: ENOXAPARIN NA (PORCINE) 30 MG/0.3 ML DISP.SYRIN SQ SCH (11:37)
[2020-04-29] MEDS: METOPROLOL TARTRATE 50 MG TABLET (FP) PO SCH ×2 (11:38→21:28)
[2020-04-29] MEDS: TIOTROPIUM BROMIDE 2.5 MCG (SPIRIVA) RESPIMAT INHALER IH SCH (11:38)
[2020-04-29 13:07] VITALS: BMI 31.9
--- NOTE | 2020-04-29 13:22 | PN ---
Progress Note, Physician History of Present Illness: Pt seen and examined at bedside. He is awake and alert. He denies shortness of breath. He tolerated HD today. - Current Medication List Current Medications: Active Medications Acetaminophen (Tylenol -) 650 mg PO Q6H PRN PRN Reason: FEVER Last Admin: 04/25/20 22:05 Dose: 650 mg Documented by: Enoxaparin Sodium (Lovenox -) 30 mg SQ DAILY [facility] Last Admin: 04/29/20 11:37 Dose: 30 mg Documented by: Metoprolol Tartrate (Lopressor -) 50 mg PO BID [facility] Last Admin: 04/29/20 11:38 Dose: 50 mg Documented by: Tiotropium [place] (Spiriva Respimat) 2 puff IH DAILY [facility] Last Admin: 04/29/20 11:38 Dose: 2 puff Documented by: - Objective Vital Signs: Vital Signs Temperature 98.4 F 04/29/20 06:00 Pulse Rate 77 04/29/20 11:05 Respiratory Rate 16 04/29/20 11:05 Blood Pressure 168/79 04/29/20 11:05 O2 Sat by Pulse Oximetry (%) 97 04/29/20 09:00 Constitutional: Yes: Calm Eyes: Yes: Conjunctiva Clear HENT: Yes: Atraumatic Neck: Yes: Supple Cardiovascular: Yes: S1, S2 Respiratory: Yes: CTA Bilaterally Gastrointestinal: Yes: Soft Genitourinary: Yes: Oliguria Musculoskeletal: Yes: WNL Edema: Yes Edema: LLE: Trace, RLE: Trace Neurological: Yes: Oriented Psychiatric: Yes: Oriented Labs: CBC, BMP 04/29/20 07:30 04/29/20 07:30 INR, PTT INR 1.40 (0.83-1.09) H 04/28/20 15:15 Problem List - Problems (1) Hyperkalemia Code(s): E87.5 - HYPERKALEMIA (2) Acute kidney injury Code(s): N17.9 - ACUTE KIDNEY FAILURE, UNSPECIFIED (3) Acute renal failure Code(s): N17.9 - ACUTE KIDNEY FAILURE, UNSPECIFIED (4) Diarrhea Code(s): R19.7 - DIARRHEA, UNSPECIFIED Assessment/Plan Current Medications Generic Name Dose Route Start Last Admin Trade Name Freq PRN Reason Stop Dose Admin Acetaminophen 650 mg 04/25/20 20:49 04/25/20 22:05 Tylenol - PO 650 mg Q6H PRN Administration FEVER Enoxaparin Sodium 30 mg 04/29/20 10:00 04/29/20 11:37 Lovenox - SQ 30 mg DAILY GO Administration Metoprolol Tartrate 50 mg 04/22/20 10:00 04/29/20 11:38 Lopressor - PO 50 mg BID [facility] Administration Tiotropium [place] 2 puff 04/22/20 10:00 04/29/20 11:38 Spiriva Respimat IH 2 puff DAILY [facility] Administration Laboratory Tests 04/22/20 04/22/20 04/22/20 02:50 13:55 13:55 [facility]LEX M-[place] Not observed IVIS Screen Negative c-ANCA <1:20 Proteinase 3 (PR3) <3.5 p-ANCA <1:20 Atypical p-ANCA <1:20 Myeloperoxidase Ab <9.0 Double Strand DNA Ab <1 Glomerular Base Memb Ab 3 Complement C3 Complement C4 COVID-19 (TAMMY) Not detected Hep A IgM Ab Confirm Hepatitis A Ab Total Hep Bs Antigen Hep B Core Total Ab Hep B Core IgM Ab Hepatitis Be Antibody 04/22/20 04/23/20 18:25 11:10 ALEX M[facility] IVIS Screen c-ANCA Proteinase 3 (PR3) p-ANCA Atypical p-ANCA Myeloperoxidase Ab Double Strand DNA Ab Glomerular Base Memb Ab Complement C3 132 Complement C4 25 COVID-19 ([place]AM[place]) Hep A IgM Ab Confirm Negative Hepatitis A Ab Total Negative Hep Bs Antigen Negative Hep B Core Total Ab Negative Hep B Core IgM Ab Negative Hepatitis Be Antibody Negative Impression 1. ALFREDA with oliguria 2. metabolic acidosis 3. hyperkalemia 4. s/p left knee replacement 5. htn 6. rheumatoid arthritis- mycophenylate 1000 bid on hold 7. DM 8. COPD 9. elevated vanco level/vanco tox Plan - serologic workup is negative - HD today - pt still oliguic - cont to monitor urine output closely - likely atn - biopsy next week - pt off of eliquis - ortho follow up - renal diet - avoid nsaids - keep losartan and metformin on hold - monitor urine output
--- NOTE | 2020-04-29 21:28 | HOSP ---
Subjective - Review of Symptoms Events since last encounter: Assigned Nurse - Gladys Hobson RN reports new onset redness, warmth and swelling to RLE. PT has no complaints. Temp 99.1, O2 sat 94% RA on exam pt is comfortable and in no acute distress. RLE: + erythema extending from ankle up to calf, + warmth and +1 edema. no open wounds or drainage noted. STAT RLE US ordered to evaluate for DVT STAT Labs: CBC, D-dimer, ESR, procalcitonin and blood culture ordered to evaluate for infectious process. will hold off on abx at this point in time, pending further workup. Will continue to monitor and Nurse will trend vitals overnight and page hospitalist team for any acute changes. General: No: Chills, Night Sweats, Fatigue, Malaise, Appetite, Other HEENT: No: Head Aches, Visual Changes, Eye Pain, Ear Pain, Dysphasia, Sinus Congestion, Post Nasal Drip, Sore Throat, Other Neurological: No: Weakness, Numbness, Incoordination, Change in speech, Confusion, Seizures, Other Physical Examination Vital Signs: Vital Signs Temperature 99.4 F 04/29/20 17:00 Pulse Rate 72 04/29/20 17:00 Respiratory Rate 18 04/29/20 17:00 Blood Pressure 129/48 L 04/29/20 17:00 O2 Sat by Pulse Oximetry (%) 97 04/29/20 09:00 Constitutional: Yes: Well Nourished, No Distress, Calm HENT: Yes: Atraumatic Musculoskeletal: Yes: Other (LLE with brace in place) Extremities: Yes: Other (RLE: +2 DP/PT pulse, + erythema/warmth) Edema: Yes Edema: RLE: 1+ Labs: CBC, BMP 04/29/20 07:30 04/29/20 07:30
[2020-04-29 22:56] LABS: BASO % 0.5 % (0-2.0); EOS % 4.2 % (0-4.5); HEMATOCRIT 28.4 % (35.4-49); HEMOGLOBIN 9.5 GM/dL (11.7-16.9); LYMPH % 12.9 % (8-40); MCH 30.1 pg (25.7-33.7); MCHC 33.4 g/dl (32.0-35.9); MEAN CELL VOLUME 90.1 fl (80-96); MEAN PLT VOLUME 7.9 fl (7.5-11.1); MONO % 14.5 % (3.8-10.2); NEUT % 67.9 % (42.8-82.8); PLATELET COUNT 211 K/MM3 (134-434); RBC 3.15 M/mm3 (4.00-5.60); RDW 14.8 % (11.9-15.9); WHITE BLOOD COUNT 8.3 K/mm3 (4.0-10.0)
[2020-04-29] MEDS ORDERED: PIPERACILLIN/TAZOB 3.375 GM 3.375 GM in DEXTROSE 5%-WATER - 50 ML IVPB ONE (23:47)
[2020-04-30 00:01] LABS: ERYTHROCYTE SEDIMENTATION RATE 107 mm/hr (0-20)
[2020-04-30] MEDS ORDERED: DEXTROSE 5%-WATER - 50 ML IVPB ONE ×2 (00:22→13:53)
[2020-04-30] MEDS ORDERED: PIPERACILLIN/TAZOBACTAM 3.375 GM VIAL IVPB ONE (00:22)
[2020-04-30 06:37] LABS: BASO % 0.7 % (0-2.0); EOS % 3.9 % (0-4.5); HEMATOCRIT 27.5 % (35.4-49); HEMOGLOBIN 9.1 GM/dL (11.7-16.9); LYMPH % 15.4 % (8-40); MCH 29.6 pg (25.7-33.7); MCHC 33.1 g/dl (32.0-35.9); MEAN CELL VOLUME 89.5 fl (80-96); MEAN PLT VOLUME 7.7 fl (7.5-11.1); MONO % 17.1 % (3.8-10.2); NEUT % 62.9 % (42.8-82.8); PLATELET COUNT 194 K/MM3 (134-434); RBC 3.08 M/mm3 (4.00-5.60); RDW 15.1 % (11.9-15.9); WHITE BLOOD COUNT 7.5 K/mm3 (4.0-10.0)
[2020-04-30 07:05] LABS: ALBUMIN 2.2 g/dl (3.4-5.0); BILIRUBIN,TOTAL 0.8 mg/dL (0.2-1); TOT PROT 5.4 g/dl (6.4-8.2)
[2020-04-30 07:06] LABS: BLOOD UREA NITROGEN 23.8 mg/dL (7-18); CALCIUM 8.4 mg/dL (8.5-10.1); CREATININE 6.3 mg/dL (0.55-1.3); POTASSIUM 4.2 mmol/L (3.5-5.1)
--- NOTE | 2020-04-30 08:55 | PN ---
Progress Note, Physician - Current Medication List Current Medications: Active Medications Acetaminophen (Tylenol -) 650 mg PO Q6H PRN PRN Reason: FEVER Last Admin: 04/25/20 22:05 Dose: 650 mg Documented by: Enoxaparin Sodium (Lovenox -) 30 mg SQ DAILY [facility] Last Admin: 04/29/20 11:37 Dose: 30 mg Documented by: Metoprolol Tartrate (Lopressor -) 50 mg PO BID [facility] Last Admin: 04/29/20 21:28 Dose: 50 mg Documented by: Tiotropium [place] (Spiriva Respimat) 2 puff IH DAILY [facility] Last Admin: 04/29/20 11:38 Dose: 2 puff Documented by: - Objective Vital Signs: Vital Signs Temperature 98.9 F 04/30/20 06:00 Pulse Rate 75 04/30/20 06:00 Respiratory Rate 20 04/30/20 06:00 Blood Pressure 141/60 04/30/20 06:00 O2 Sat by Pulse Oximetry (%) 92 L 04/30/20 06:00 Cardiovascular: Yes: Regular Rate and Rhythm Respiratory: Yes: Regular, CTA Bilaterally Gastrointestinal: Yes: Normal Bowel Sounds, Soft Extremities: Yes: Erythema (left anticubital area Right lower extr) Edema: Yes Labs: CBC, BMP 04/30/20 05:28 04/30/20 05:28 INR, PTT INR 1.40 (0.83-1.09) H 04/28/20 15:15 Problem List - Problems (1) Acute kidney injury Assessment/Plan: RENAL ON CASE---for renal biopsy Dialysis per renal FOLLOW LABS hold antibiotics per id US Noted 04/27/20 04/28/20 04/28/20 05:30 05:45 05:45 RBC 3.17 L Hgb 9.4 L Hct 28.8 L BUN 30.6 H Creatinine 7.3 H Calcium 8.1 L Random Vancomycin 37.4 H* Vital Signs Temp 98.2 F 04/28/20 06:00 Pulse 74 04/28/20 06:00 Resp 16 04/28/20 06:00 BP 156/67 04/28/20 06:00 Pulse Ox 95 04/28/20 06:00 Vital Signs Temp 99 F 04/30/20 09:45 Pulse 74 04/30/20 09:45 Resp 18 04/30/20 09:45 BP 152/68 08/12/20 09:45 Pulse Ox 91 L 04/30/20 09:45 Intake & Output 04/29/20 04/29/20 04/30/20 11:59 23:59 11:59 Intake Total 500 850 310 Output Total 1600 90 Balance -1100 760 310 Weight 229 lb Intake: IV 500 10 Normal Saline - 250 ml @ 500 3000 mls/hr IV PRN PRN Rx #:[id number] RFA 20 04/26/2020 10 IVPB 50 Oral 850 250 Output: Urine 100 90 Void 100 90 Fluid Removed, 1500 Hemodialysis Other: Voiding Method Urinal Urinal Urinal # Unmeasured Voids Void 1 1 Bowel Movement No No Yes Height 5 ft 11 in Body Mass Index (BMI) 31.9 04/28/20 04/29/20 04/30/20 05:45 07:30 05:28 BUN 30.6 H 35.8 H 23.8 H Creatinine 7.3 H 8.9 H* 6.3 H Laboratory Tests 04/30/20 09:00 Random Vancomycin 28.4 H Code(s): N17.9 - ACUTE KIDNEY FAILURE, UNSPECIFIED (2) Diabetes Assessment/Plan: BGM HOLD METFORMIN DUE TO ALFREDA Laboratory Tests 04/27/20 04/27/20 04/28/20 06:16 16:59 21:31 POC Glucometer 93 120 101 Code(s): E11.9 - TYPE 2 DIABETES MELLITUS WITHOUT COMPLICATIONS (3) HTN (hypertension) Assessment/Plan: MONITOR HOLD ARB AND MONITOR Selected Entries 04/29/20 04/29/20 04/29/20 07:30 08:00 08:30 Blood Pressure 144/71 142/72 151/76 Code(s): I10 - ESSENTIAL (PRIMARY) HYPERTENSION (4) Postoperative wound dehiscence Assessment/Plan: ABX PER ID-on hold ORTHO CONSULT NOTED Code(s): T81.31XA - DISRUPTION OF EXTERNAL OPERATION (SURGICAL) WOUND, NEC, INIT Qualifiers: Encounter type: initial encounter Qualified Code(s): T81.31XA - Disruption of external operation (surgical) wound, not elsewhere classified, initial encounter (5) Fever Assessment/Plan: Low grade 99 ?cellulitis RLE phlebitis LUE ID follow up Code(s): R50.9 - FEVER, UNSPECIFIED
--- NOTE | 2020-04-30 09:45 | PN ---
Progress Note, Physician History of Present Illness: pulmonary alert,comfortable,-sob - Current Medication List Current Medications: Active Medications Acetaminophen (Tylenol -) 650 mg PO Q6H PRN PRN Reason: FEVER Last Admin: 04/25/20 22:05 Dose: 650 mg Documented by: Enoxaparin Sodium (Lovenox -) 30 mg SQ DAILY [facility] Last Admin: 04/29/20 11:37 Dose: 30 mg Documented by: Metoprolol Tartrate (Lopressor -) 50 mg PO BID [facility] Last Admin: 04/29/20 21:28 Dose: 50 mg Documented by: Tiotropium [place] (Spiriva Respimat) 2 puff IH DAILY [facility] Last Admin: 04/29/20 11:38 Dose: 2 puff Documented by: - Objective Vital Signs: Vital Signs Temperature 98.9 F 04/30/20 06:00 Pulse Rate 75 04/30/20 06:00 Respiratory Rate 20 04/30/20 06:00 Blood Pressure 141/60 04/30/20 06:00 O2 Sat by Pulse Oximetry (%) 92 L 04/30/20 06:00 Constitutional: Yes: Well Nourished, Calm Eyes: Yes: WNL HENT: Yes: WNL Neck: Yes: WNL Cardiovascular: Yes: Regular Rate and Rhythm, S1, S2 Respiratory: Yes: Diminished Gastrointestinal: Yes: Normal Bowel Sounds, Soft Extremities: Yes: WNL Edema: Yes Edema: LLE: Trace, RLE: Trace Labs: CBC, BMP 04/30/20 05:28 04/30/20 05:28 INR, PTT INR 1.40 (0.83-1.09) H 04/28/20 15:15 Problem List - Problems (1) Bronchiolitis Code(s): J21.9 - ACUTE BRONCHIOLITIS, UNSPECIFIED (2) Acute kidney injury Code(s): N17.9 - ACUTE KIDNEY FAILURE, UNSPECIFIED (3) Acute renal failure Code(s): N17.9 - ACUTE KIDNEY FAILURE, UNSPECIFIED (4) Electrolyte imbalance Code(s): E87.8 - OTH DISORDERS OF ELECTROLYTE AND FLUID BALANCE, NEC (5) Rheumatoid arthritis Code(s): M06.9 - RHEUMATOID ARTHRITIS, UNSPECIFIED (6) COPD (chronic obstructive pulmonary disease) Code(s): J44.9 - CHRONIC OBSTRUCTIVE PULMONARY DISEASE, UNSPECIFIED (7) Diabetes Code(s): E11.9 - TYPE 2 DIABETES MELLITUS WITHOUT COMPLICATIONS (8) HTN (hypertension) Code(s): I10 - ESSENTIAL (PRIMARY) HYPERTENSION (9) Postoperative wound dehiscence Code(s): T81.31XA - DISRUPTION OF EXTERNAL OPERATION (SURGICAL) WOUND, NEC, INIT Qualifiers: Encounter type: initial encounter Qualified Code(s): T81.31XA - Disruption of external operation (surgical) wound, not elsewhere classified, initial encounter (10) Wound, open, lower limb with complication Code(s): S81.809A - UNSPECIFIED OPEN WOUND, UNSPECIFIED LOWER LEG, INIT ENCNTR (11) ILD (interstitial lung disease) Code(s): J84.9 - INTERSTITIAL PULMONARY DISEASE, UNSPECIFIED Assessment/Plan IMP ACUTE RENAL FAILURE RA ILD/BRONCHIOLITIS SECONDARY TO RA NAEEM DM COPD S/P L KNEE REPLACEMENT S/P WOUND DEHISCENCE AND QUAD TENDON RUPTURE HTN PLAN O2 NEEDED ABX PER ID HD PER ENAL PREDNISONE IF OK WITH ID CHEST CT MONITOR LYTES,RENAL FUNCTION CPAP AT NIGHT INHALED BRONCHODILATORS DR ESPINO Problem List - Problems (1) Bronchiolitis Code(s): J21.9 - ACUTE BRONCHIOLITIS, UNSPECIFIED (2) Acute kidney injury Code(s): N17.9 - ACUTE KIDNEY FAILURE, UNSPECIFIED (3) Acute renal failure Code(s): N17.9 - ACUTE KIDNEY FAILURE, UNSPECIFIED (4) Electrolyte imbalance Code(s): E87.8 - OTH DISORDERS OF ELECTROLYTE AND FLUID BALANCE, NEC (5) Rheumatoid arthritis Code(s): M06.9 - RHEUMATOID ARTHRITIS, UNSPECIFIED (6) COPD (chronic obstructive pulmonary disease) Code(s): J44.9 - CHRONIC OBSTRUCTIVE PULMONARY DISEASE, UNSPECIFIED (7) Diabetes Code(s): E11.9 - TYPE 2 DIABETES MELLITUS WITHOUT COMPLICATIONS (8) HTN (hypertension) Code(s): I10 - ESSENTIAL (PRIMARY) HYPERTENSION (9) Postoperative wound dehiscence Code(s): T81.31XA - DISRUPTION OF EXTERNAL OPERATION (SURGICAL) WOUND, NEC, INIT Qualifiers: Encounter type: initial encounter Qualified Code(s): T81.31XA - Disruption of external operation (surgical) wound, not elsewhere classified, initial encounter (10) Wound, open, lower limb with complication Code(s): S81.809A - UNSPECIFIED OPEN WOUND, UNSPECIFIED LOWER LEG, INIT ENCNTR (11) ILD (interstitial lung disease) Code(s): J84.9 - INTERSTITIAL PULMONARY DISEASE, UNSPECIFIED
[2020-04-30] MEDS: ENOXAPARIN NA (PORCINE) 30 MG/0.3 ML DISP.SYRIN SQ SCH (09:58)
[2020-04-30] MEDS: METOPROLOL TARTRATE 50 MG TABLET (FP) PO SCH ×2 (09:58→21:33)
--- NOTE | 2020-04-30 11:12 | PN ---
Progress Note, Physician History of Present Illness: SEATED IN BED DEVELOPED ERYTHEMA/ WARMTH R LE PAST 24HR DENIES TRAUMA DOPPLER (-) DVT NO FEVER/ CHILLS NWBC WNL NO C/O KNEE PAIN - Current Medication List Current Medications: Active Medications Acetaminophen (Tylenol -) 650 mg PO Q6H PRN PRN Reason: FEVER Last Admin: 04/25/20 22:05 Dose: 650 mg Documented by: Enoxaparin Sodium (Lovenox -) 30 mg SQ DAILY [facility] Last Admin: 04/30/20 09:58 Dose: 30 mg Documented by: Metoprolol Tartrate (Lopressor -) 50 mg PO BID [facility] Last Admin: 04/30/20 09:58 Dose: 50 mg Documented by: Tiotropium [place] (Spiriva Respimat) 2 puff IH DAILY [facility] Last Admin: 04/29/20 11:38 Dose: 2 puff Documented by: - Objective Vital Signs: Vital Signs Temperature 99 F 04/30/20 09:45 Pulse Rate 74 04/30/20 09:45 Respiratory Rate 18 04/30/20 09:45 Blood Pressure 152/68 04/30/20 09:45 O2 Sat by Pulse Oximetry (%) 91 L 04/30/20 09:45 Constitutional: Yes: No Distress Eyes: Yes: Conjunctiva Clear Cardiovascular: Yes: Regular Rate and Rhythm, S1, S2 Respiratory: Yes: CTA Bilaterally Gastrointestinal: Yes: Normal Bowel Sounds, Soft. No: Tenderness Extremities: Yes: Other (+ ERYTHEMA/ WARMTH R PRETIBIAL AREA EXTENDING TO CALF) Labs: CBC, BMP 04/30/20 05:28 04/30/20 05:28 INR, PTT INR 1.40 (0.83-1.09) H 04/28/20 15:15 Assessment/Plan ALFREDA INFECTED L TKR ? CELLULITIS R LE ? VASCULITIS WILL EMPIRICALLY COVER FOR SKIN PATHOGENS WITH CEFTRIAXONE IF NO IMPROVEMENT CONSIDER SKIN BX TO R/O VASCULITIS
[2020-04-30] MEDS ORDERED: SODIUM CHLORIDE 250 ML IV PRN (11:29)
--- NOTE | 2020-04-30 11:29 | PN ---
Progress Note, Physician History of Present Illness: Pt seen and examined at bedside. He is awake and alert. He denies shortness of breath. He is not making much urine. - Current Medication List Current Medications: Active Medications Acetaminophen (Tylenol -) 650 mg PO Q6H PRN PRN Reason: FEVER Last Admin: 04/25/20 22:05 Dose: 650 mg Documented by: Enoxaparin Sodium (Lovenox -) 30 mg SQ DAILY [facility] Last Admin: 04/30/20 09:58 Dose: 30 mg Documented by: Metoprolol Tartrate (Lopressor -) 50 mg PO BID [facility] Last Admin: 04/30/20 09:58 Dose: 50 mg Documented by: Tiotropium [place] (Spiriva Respimat) 2 puff IH DAILY [facility] Last Admin: 04/29/20 11:38 Dose: 2 puff Documented by: - Objective Vital Signs: Vital Signs Temperature 99 F 04/30/20 09:45 Pulse Rate 74 04/30/20 09:45 Respiratory Rate 18 04/30/20 09:45 Blood Pressure 152/68 04/30/20 09:45 O2 Sat by Pulse Oximetry (%) 91 L 04/30/20 09:45 Constitutional: Yes: Calm Eyes: Yes: Conjunctiva Clear HENT: Yes: Atraumatic Neck: Yes: Supple Cardiovascular: Yes: S1, S2 Respiratory: Yes: CTA Bilaterally Gastrointestinal: Yes: Soft Genitourinary: Yes: WNL Musculoskeletal: Yes: WNL Edema: Yes Edema: LLE: Trace, RLE: Trace Neurological: Yes: Oriented Psychiatric: Yes: Oriented Labs: CBC, BMP 04/30/20 05:28 04/30/20 05:28 INR, PTT INR 1.40 (0.83-1.09) H 04/28/20 15:15 Problem List - Problems (1) Hyperkalemia Code(s): E87.5 - HYPERKALEMIA (2) Acute kidney injury Code(s): N17.9 - ACUTE KIDNEY FAILURE, UNSPECIFIED (3) Acute renal failure Code(s): N17.9 - ACUTE KIDNEY FAILURE, UNSPECIFIED (4) Diarrhea Code(s): R19.7 - DIARRHEA, UNSPECIFIED Assessment/Plan Current Medications Generic Name Dose Route Start Last Admin Trade Name Freq PRN Reason Stop Dose Admin Acetaminophen 650 mg 04/25/20 20:49 04/25/20 22:05 Tylenol - PO 650 mg Q6H PRN Administration FEVER Enoxaparin Sodium 30 mg 04/29/20 10:00 04/30/20 09:58 Lovenox - SQ 30 mg DAILY GO Administration Metoprolol Tartrate 50 mg 04/22/20 10:00 04/30/20 09:58 Lopressor - PO 50 mg BID GO Administration Tiotropium [place] 2 puff 04/22/20 10:00 04/29/20 11:38 Spiriva Respimat IH 2 puff DAILY [facility] Administration Laboratory Tests 04/22/20 04/22/20 04/23/20 13:55 13:55 11:10 Random Vancomycin [facility]LEX M-[place] Not observed IVIS Screen Negative c-ANCA <1:20 Proteinase 3 (PR3) <3.5 p-ANCA <1:20 Atypical p-ANCA <1:20 Myeloperoxidase Ab <9.0 Double Strand DNA Ab <1 Glomerular Base Memb Ab 3 Complement C3 132 Complement C4 25 04/30/20 09:00 Random Vancomycin 28.4 H [facility] IVIS Screen c-ANCA Proteinase 3 (PR3) p-ANCA Atypical p-ANCA Myeloperoxidase Ab Double Strand DNA Ab Glomerular Base Memb Ab Complement C3 Complement C4 Impression 1. ALFREDA with oliguria 2. metabolic acidosis 3. hyperkalemia 4. s/p left knee replacement 5. htn 6. rheumatoid arthritis- mycophenylate 1000 bid on hold 7. DM 8. COPD 9. elevated vanco level/vanco tox Plan - anca neg, compliment neg - pt remain oliguric - HD tomorrow - pt getting permacath tomorrow - will need to get set up for outpt HD for ALFREDA - cont to monitor urine output - shiley removed - likely atn - biopsy next week - renal diet - avoid nsaids - keep losartan and metformin on hold - monitor urine output
[2020-04-30] MEDS: TIOTROPIUM BROMIDE 2.5 MCG (SPIRIVA) RESPIMAT INHALER IH SCH (11:47)
[2020-04-30] MEDS ORDERED: cefTRIAXone SODIUM 1 GM VIAL ONE (13:52)
[2020-04-30] MEDS: CEFTRIAXONE 1 GM in DEXTROSE 5%-WATER - 50 ML IVPB SCH (13:58)
--- NOTE | 2020-05-01 08:44 | PN ---
Progress Note, Physician - Current Medication List Current Medications: Active Medications Acetaminophen (Tylenol -) 650 mg PO Q6H PRN PRN Reason: FEVER Last Admin: 04/25/20 22:05 Dose: 650 mg Documented by: Enoxaparin Sodium (Lovenox -) 30 mg SQ DAILY [facility] Last Admin: 04/30/20 09:58 Dose: 30 mg Documented by: Sodium Chloride (Normal Saline -) 250 mls @ 3,000 mls/hr IV PRN PRN PRN Reason: Hypotension during Dialysis Stop: 05/01/20 11:29 Ceftriaxone Sodium 1 gm/ (Dextrose) 50 mls @ 200 mls/hr IVPB DAILY [facility]; Protocol Last Admin: 04/30/20 13:58 Dose: 200 mls/hr Documented by: Metoprolol Tartrate (Lopressor -) 50 mg PO BID [facility] Last Admin: 04/30/20 21:33 Dose: 50 mg Documented by: Tiotropium [place] (Spiriva Respimat) 2 puff IH DAILY [facility] Last Admin: 04/30/20 11:47 Dose: 2 puff Documented by: - Objective Vital Signs: Vital Signs Temperature 98.5 F 05/01/20 08:28 Pulse Rate 67 05/01/20 08:28 Respiratory Rate 18 05/01/20 08:28 Blood Pressure 147/70 05/01/20 08:28 O2 Sat by Pulse Oximetry (%) 94 L 05/01/20 08:28 Cardiovascular: Yes: S1, S2 Respiratory: Yes: Regular, CTA Bilaterally Gastrointestinal: Yes: Normal Bowel Sounds, Soft Extremities: Yes: Erythema (RLA left anticubital improved) Edema: Yes Edema: RLE: 1+ Neurological: Yes: Alert, Oriented Labs: CBC, BMP 04/30/20 05:28 04/30/20 05:28 INR, PTT INR 1.40 (0.83-1.09) H 04/28/20 15:15 Problem List - Problems (1) Acute kidney injury Assessment/Plan: RENAL ON CASE---for renal biopsy Dialysis per renal FOLLOW LABS hold antibiotics per id US Noted 04/27/20 04/28/20 04/28/20 05:30 05:45 05:45 RBC 3.17 L Hgb 9.4 L Hct 28.8 L BUN 30.6 H Creatinine 7.3 H Calcium 8.1 L Random Vancomycin 37.4 H* Vital Signs Temp 98.2 F 04/28/20 06:00 Pulse 74 04/28/20 06:00 Resp 16 04/28/20 06:00 BP 156/67 04/28/20 06:00 Pulse Ox 95 04/28/20 06:00 Vital Signs Temp 99 F 04/30/20 09:45 Pulse 74 04/30/20 09:45 Resp 18 04/30/20 09:45 BP 152/68 04/30/20 09:45 Pulse Ox 91 L 04/30/20 09:45 Intake & Output 04/29/20 04/29/20 04/30/20 11:59 23:59 11:59 Intake Total 500 850 310 Output Total 1600 90 Balance -1100 760 310 Weight 229 lb Intake: IV 500 10 Normal Saline - 250 ml @ 500 3000 mls/hr IV PRN PRN Rx #:[id number] [facility] 20 04/26/2020 10 IVPB 50 Oral 850 250 Output: Urine 100 90 Void 100 90 Fluid Removed, 1500 Hemodialysis Other: Voiding Method Urinal Urinal Urinal # Unmeasured Voids Void 1 1 Bowel Movement No No Yes Height 5 ft 11 in Body Mass Index (BMI) 31.9 04/28/20 04/29/20 04/30/20 05:45 07:30 05:28 BUN 30.6 H 35.8 H 23.8 H Creatinine 7.3 H 8.9 H* 6.3 H Laboratory Tests 04/30/20 09:00 Random Vancomycin 28.4 H Code(s): N17.9 - ACUTE KIDNEY FAILURE, UNSPECIFIED (2) Diabetes Assessment/Plan: BGM HOLD METFORMIN DUE TO ALFREDA Laboratory Tests 04/27/20 04/27/20 04/28/20 06:16 16:59 21:31 POC Glucometer 93 120 101 Code(s): E11.9 - TYPE 2 DIABETES MELLITUS WITHOUT COMPLICATIONS (3) HTN (hypertension) Assessment/Plan: MONITOR HOLD ARB AND MONITOR Selected Entries 04/29/20 04/29/20 04/29/20 07:30 08:00 08:30 Blood Pressure 144/71 142/72 151/76 Code(s): I10 - ESSENTIAL (PRIMARY) HYPERTENSION (4) Fever Assessment/Plan: Low grade 99 ?cellulitis RLE phlebitis LUE ID follow up noted Microbiology 04/29/20 22:20 Blood - Peripheral Venous Blood Culture - Preliminary NO GROWTH OBTAINED AFTER 24 HOURS, INCUBATION TO CONTINUE FOR 4 DAYS. 04/29/20 22:20 Blood - Peripheral Venous Blood Culture - Preliminary NO GROWTH OBTAINED AFTER 24 HOURS, INCUBATION TO CONTINUE FOR 4 DAYS. 04/26/20 11:45 Blood - Peripheral Venous Blood Culture - Preliminary NO GROWTH OBTAINED AFTER 96 HOURS, INCUBATION TO CONTINUE FOR 1 DAYS. 04/26/20 11:40 Blood - Peripheral Venous Blood Culture - Preliminary NO GROWTH OBTAINED AFTER 96 HOURS, INCUBATION TO CONTINUE FOR 1 DAYS. 04/23/20 01:15 Stool Clostridioides difficile Antigen - Final 04/23/20 01:15 Stool Clostridioides difficile Toxin Assay - Final 04/22/20 01:25 Urine - Urine Clean Catch Urine Culture - Final NO GROWTH OBTAINED Code(s): R50.9 - FEVER, UNSPECIFIED (5) Cellulitis Assessment/Plan: on iv abx id following ? vasculitis vascular consult--? Biopsy Code(s): L03.90 - CELLULITIS, UNSPECIFIED (6) COPD (chronic obstructive pulmonary disease) Assessment/Plan: sat low 90 ct noted pulm consult on dvt prophylaxis Code(s): J44.9 - CHRONIC OBSTRUCTIVE PULMONARY DISEASE, UNSPECIFIED Assessment/Plan discussed with and updated
[2020-05-01 09:03] LABS: BASO % 0.8 % (0-2.0); EOS % 5.4 % (0-4.5); HEMATOCRIT 27.8 % (35.4-49); HEMOGLOBIN 9.1 GM/dL (11.7-16.9); LYMPH % 14.6 % (8-40); MCH 29.3 pg (25.7-33.7); MCHC 32.8 g/dl (32.0-35.9); MEAN CELL VOLUME 89.4 fl (80-96); MEAN PLT VOLUME 7.4 fl (7.5-11.1); MONO % 15.3 % (3.8-10.2); NEUT % 63.9 % (42.8-82.8); PLATELET COUNT 232 K/MM3 (134-434); RBC 3.11 M/mm3 (4.00-5.60); RDW 15.4 % (11.9-15.9); WHITE BLOOD COUNT 7.4 K/mm3 (4.0-10.0)
[2020-05-01 09:37] LABS: ALBUMIN 2.3 g/dl (3.4-5.0); BILIRUBIN,TOTAL 0.5 mg/dL (0.2-1); BLOOD UREA NITROGEN 31.2 mg/dL (7-18); CALCIUM 8.6 mg/dL (8.5-10.1); POTASSIUM 4.1 mmol/L (3.5-5.1); TOT PROT 5.8 g/dl (6.4-8.2)
[2020-05-01] MEDS ORDERED: cefTRIAXone SODIUM 1 GM VIAL ONE (09:38)
[2020-05-01] MEDS ORDERED: DEXTROSE 5%-WATER - 50 ML IVPB ONE (09:38)
[2020-05-01] MEDS: METOPROLOL TARTRATE 50 MG TABLET (FP) PO SCH ×2 (09:42→22:03)
[2020-05-01] MEDS: ENOXAPARIN NA (PORCINE) 30 MG/0.3 ML DISP.SYRIN SQ SCH (09:42)
[2020-05-01] MEDS: TIOTROPIUM BROMIDE 2.5 MCG (SPIRIVA) RESPIMAT INHALER IH SCH (09:43)
[2020-05-01] MEDS: CEFTRIAXONE 1 GM in DEXTROSE 5%-WATER - 50 ML IVPB SCH (09:43)
[2020-05-01 09:48] LABS: CREATININE 8.2 mg/dL (0.55-1.3)
[2020-05-01] MEDS ORDERED: LIDOCAINE HCL 1%, 10 MG/ML (20ML VIAL) ONE (10:02)
[2020-05-01] MEDS ORDERED: HEPARIN NA (PORCINE) 5,000 UNITS/ML 1ML VIAL ONE (10:19)
[2020-05-01] MEDS ORDERED: MIDAZOLAM HCL 2 MG/2 ML SINGLE DOSE VIAL ONE (10:40)
[2020-05-01] MEDS ORDERED: PROPOFOL 20 ML ONE ×2 (10:40)
[2020-05-01] MEDS ORDERED: ROCURONIUM BROMIDE 50 MG/5 ML SYRINGE ONE (10:40)
[2020-05-01] MEDS ORDERED: SUCCINYLCHOLINE CHLORIDE 200 MG/10 ML SYRINGE ONE (10:40)
[2020-05-01] MEDS ORDERED: ceFAZolin SODIUM 1 GM VIAL IVPB ONE (11:12)
[2020-05-01] MEDS ORDERED: LIDOCAINE HCL 1%, 10 MG/ML (20ML VIAL) NR ONE ×3 (11:24→11:25)
--- NOTE | 2020-05-01 12:28 | OP ---
Operative Note - Note: Operative Date: 05/01/20 Pre-Operative Diagnosis: ESRD Operation: Insertion of permacath Post-Operative Diagnosis: Same as Pre-op Surgeon: Nickolas Henao Anesthesia: MAC Estimated Blood Loss (mls): 10 Operative Report Dictated: Yes
[2020-05-01] MEDS ORDERED: SODIUM CHLORIDE 250 ML IV PRN (12:31)
[2020-05-01] MEDS ORDERED: ACETAMINOPHEN 325 MG TABLET (FP) PO PRN (12:31)
--- NOTE | 2020-05-01 13:47 | PN ---
Progress Note, Physician History of Present Illness: Pt seen and examined at bedside. He is awake and alert. He had the permacath placed. - Current Medication List Current Medications: Active Medications Acetaminophen (Tylenol -) 650 mg PO Q6H PRN PRN Reason: FEVER Enoxaparin Sodium (Lovenox -) 30 mg SQ DAILY [facility] Ceftriaxone Sodium 1 gm/ (Dextrose) 50 mls @ 100 mls/hr IVPB DAILY [facility]; Protocol Sodium Chloride (Normal Saline -) 250 mls @ 3,000 mls/hr IV PRN PRN PRN Reason: Hypotension during Dialysis Metoprolol Tartrate (Lopressor -) 50 mg PO BID [facility] Tiotropium [place] (Spiriva Respimat) 2 puff IH DAILY [facility] - Objective Vital Signs: Vital Signs Temperature 98.5 F 05/01/20 08:28 Pulse Rate 61 05/01/20 13:00 Respiratory Rate 15 05/01/20 13:00 Blood Pressure 151/65 05/01/20 13:00 O2 Sat by Pulse Oximetry (%) 99 05/01/20 13:00 Constitutional: Yes: Calm Eyes: Yes: Conjunctiva Clear HENT: Yes: Atraumatic Neck: Yes: Supple Cardiovascular: Yes: S1, S2 Respiratory: Yes: CTA Bilaterally Gastrointestinal: Yes: Normal Bowel Sounds, Soft Genitourinary: Yes: WNL, Oliguria Edema: LLE: Trace, RLE: Trace Neurological: Yes: Oriented Psychiatric: Yes: Oriented Labs: CBC, BMP 05/01/20 08:41 05/01/20 08:41 INR, PTT INR 1.40 (0.83-1.09) H 04/28/20 15:15 Problem List - Problems (1) Hyperkalemia Code(s): E87.5 - HYPERKALEMIA (2) Acute kidney injury Code(s): N17.9 - ACUTE KIDNEY FAILURE, UNSPECIFIED (3) Acute renal failure Code(s): N17.9 - ACUTE KIDNEY FAILURE, UNSPECIFIED (4) Diarrhea Code(s): R19.7 - DIARRHEA, UNSPECIFIED Assessment/Plan Current Medications Generic Name Dose Route Start Last Admin Trade Name Freq PRN Reason Stop Dose Admin Acetaminophen 650 mg 05/01/20 12:31 Tylenol - PO Q6H PRN FEVER Enoxaparin Sodium 30 mg 05/02/20 10:00 Lovenox - SQ DAILY REPLACED BY [facility] Ceftriaxone Sodium 1 gm/ 50 mls @ 100 mls/hr 05/02/20 10:00 Dextrose IVPB DAILY REPLACED BY [facility] Protocol Sodium Chloride 250 mls @ 3,000 mls/hr 05/01/20 12:31 Normal Saline - IV PRN PRN Hypotension during Dialysis Metoprolol Tartrate 50 mg 05/01/20 22:00 Lopressor - PO BID REPLACED BY [facility] Tiotropium [place] 2 puff 05/02/20 10:00 Spiriva Respimat IH DAILY REPLACED BY [facility] Impression 1. ALFREDA with oliguria 2. metabolic acidosis 3. hyperkalemia 4. s/p left knee replacement 5. htn 6. rheumatoid arthritis- mycophenylate 1000 bid on hold 7. DM 8. COPD 9. elevated vanco level/vanco tox Plan - HD today - cont to monitor urine output - kidney biopsy on Tuesday, hold Lovenox on Tuesday per radiology request - follow vanco level - abx per ID - cultures negative - likely atn - biopsy next week - renal diet - avoid nsaids - keep losartan and metformin on hold - monitor urine output
[2020-05-02 07:00] LABS: BASO % 0.6 % (0-2.0); EOS % 5.5 % (0-4.5); HEMATOCRIT 27.7 % (35.4-49); HEMOGLOBIN 9.3 GM/dL (11.7-16.9); LYMPH % 12.5 % (8-40); MCHC 33.5 g/dl (32.0-35.9); MEAN CELL VOLUME 89.4 fl (80-96); MEAN PLT VOLUME 7.4 fl (7.5-11.1); NEUT % 65.4 % (42.8-82.8); PLATELET COUNT 238 K/MM3 (134-434); WHITE BLOOD COUNT 7.7 K/mm3 (4.0-10.0)
[2020-05-02 07:29] LABS: ALBUMIN 2.3 g/dl (3.4-5.0); BILIRUBIN,TOTAL 0.8 mg/dL (0.2-1); CALCIUM 8.6 mg/dL (8.5-10.1); CREATININE 5.7 mg/dL (0.55-1.3); POTASSIUM 3.9 mmol/L (3.5-5.1); TOT PROT 5.7 g/dl (6.4-8.2)
--- NOTE | 2020-05-02 08:46 | PN ---
Progress Note, Physician - Current Medication List Current Medications: Active Medications Acetaminophen (Tylenol -) 650 mg PO Q6H PRN PRN Reason: FEVER Enoxaparin Sodium (Lovenox -) 30 mg SQ DAILY [facility] Ceftriaxone Sodium 1 gm/ (Dextrose) 50 mls @ 100 mls/hr IVPB DAILY [facility]; Protocol Sodium Chloride (Normal Saline -) 250 mls @ 3,000 mls/hr IV PRN PRN PRN Reason: Hypotension during Dialysis Metoprolol Tartrate (Lopressor -) 50 mg PO BID [facility] Last Admin: 05/01/20 22:03 Dose: 50 mg Documented by: Tiotropium [place] (Spiriva Respimat) 2 puff IH DAILY [facility] - Objective Vital Signs: Vital Signs Temperature 98.5 F 05/02/20 08:19 Pulse Rate 67 05/02/20 08:19 Respiratory Rate 18 05/02/20 08:19 Blood Pressure 137/62 05/02/20 08:19 O2 Sat by Pulse Oximetry (%) 94 L 05/02/20 08:19 Cardiovascular: Yes: S1, S2 Respiratory: Yes: Regular, CTA Bilaterally Gastrointestinal: Yes: Normal Bowel Sounds, Soft Extremities: Yes: Erythema (RLE) Edema: No Labs: CBC, BMP 05/02/20 05:57 05/02/20 05:57 INR, PTT INR 1.40 (0.83-1.09) H 04/28/20 15:15 Problem List - Problems (1) Acute kidney injury Assessment/Plan: RENAL ON CASE---for renal biopsy Dialysis per renal FOLLOW LABS hold antibiotics per id US Noted Laboratory Results - last 24 hr 05/01/20 05/01/20 05/01/20 08:41 08:41 17:15 WBC 7.4 RBC 3.11 L Hgb 9.1 L Hct 27.8 L MCV 89.4 MCH 29.3 MCHC 32.8 RDW 15.4 Plt Count 232 MPV 7.4 L Absolute Neuts (auto) 4.7 Neutrophils % 63.9 Lymphocytes % 14.6 Monocytes % 15.3 H Eosinophils % 5.4 H Basophils % 0.8 Nucleated RBC % 0 Sodium 137 Potassium 4.1 Chloride 99 Carbon Dioxide 26 Anion Gap 12 BUN 31.2 H Creatinine 8.2 H* Est GFR (CKD-EPI)AfAm 7.16 Est GFR (CKD-EPI)NonAf 6.18 POC Glucometer Random Glucose 86 Calcium 8.6 Total Bilirubin 0.5 AST 21 ALT 22 Alkaline Phosphatase 48 Total Protein 5.8 L Albumin 2.3 L Random Vancomycin 17.6 05/01/20 05/02/20 05/02/20 22:02 05:57 05:57 WBC 7.7 RBC 3.10 L Hgb 9.3 L Hct 27.7 L MCV 89.4 MCH 30.0 MCHC 33.5 RDW 15.0 Plt Count 238 MPV 7.4 L Absolute Neuts (auto) 5.0 Neutrophils % 65.4 Lymphocytes % 12.5 Monocytes % 16.0 H Eosinophils % 5.5 H Basophils % 0.6 Nucleated RBC % 0 Sodium Potassium Chloride Carbon Dioxide Anion Gap BUN Creatinine Est GFR (CKD-EPI)AfAm Est GFR (CKD-EPI)NonAf POC Glucometer 172 Random Glucose Calcium Total Bilirubin AST ALT Alkaline Phosphatase Total Protein Albumin Random Vancomycin 20.6 05/02/20 05/02/20 05:57 06:08 WBC RBC Hgb Hct MCV MCH MCHC RDW Plt Count MPV Absolute Neuts (auto) Neutrophils % Lymphocytes % Monocytes % Eosinophils % Basophils % Nucleated RBC % Sodium 138 Potassium 3.9 Chloride 100 Carbon Dioxide 31 Anion Gap 7 L BUN 16.0 Creatinine 5.7 H Est GFR (CKD-EPI)AfAm 11.11 Est GFR (CKD-EPI)NonAf 9.59 POC Glucometer 95 Random Glucose 97 Calcium 8.6 Total Bilirubin 0.8 AST 22 ALT 21 Alkaline Phosphatase 48 Total Protein 5.7 L Albumin 2.3 L Random Vancomycin Code(s): N17.9 - ACUTE KIDNEY FAILURE, UNSPECIFIED (2) Diabetes Assessment/Plan: BGM HOLD METFORMIN DUE TO ALFREDA Laboratory Tests 04/27/20 04/27/20 04/28/20 06:16 16:59 21:31 POC Glucometer 93 120 101 Code(s): E11.9 - TYPE 2 DIABETES MELLITUS WITHOUT COMPLICATIONS (3) HTN (hypertension) Assessment/Plan: MONITOR HOLD ARB AND MONITOR Selected Entries 04/29/20 04/29/20 04/29/20 07:30 08:00 08:30 Blood Pressure 144/71 142/72 151/76 Code(s): I10 - ESSENTIAL (PRIMARY) HYPERTENSION (4) Fever Assessment/Plan: resolved ?cellulitis RLE phlebitis LUE improved ID follow up noted derm consult Microbiology 04/29/20 22:20 Blood - Peripheral Venous Blood Culture - Preliminary NO GROWTH OBTAINED AFTER 24 HOURS, INCUBATION TO CONTINUE FOR 4 DAYS. 04/29/20 22:20 Blood - Peripheral Venous Blood Culture - Preliminary NO GROWTH OBTAINED AFTER 24 HOURS, INCUBATION TO CONTINUE FOR 4 DAYS. 04/26/20 11:45 Blood - Peripheral Venous Blood Culture - Preliminary NO GROWTH OBTAINED AFTER 96 HOURS, INCUBATION TO CONTINUE FOR 1 DAYS. 04/26/20 11:40 Blood - Peripheral Venous Blood Culture - Preliminary NO GROWTH OBTAINED AFTER 96 HOURS, INCUBATION TO CONTINUE FOR 1 DAYS. 04/23/20 01:15 Stool Clostridioides difficile Antigen - Final 04/23/20 01:15 Stool Clostridioides difficile Toxin Assay - Final 04/22/20 01:25 Urine - Urine Clean Catch Urine Culture - Final NO GROWTH OBTAINED Code(s): R50.9 - FEVER, UNSPECIFIED (5) Cellulitis Assessment/Plan: on iv abx id following ? vasculitis vascular consult--? Biopsy if no improvement derm Code(s): L03.90 - CELLULITIS, UNSPECIFIED (6) COPD (chronic obstructive pulmonary disease) Code(s): J44.9 - CHRONIC OBSTRUCTIVE PULMONARY DISEASE, UNSPECIFIED
--- NOTE | 2020-05-02 08:48 | PN ---
Progress Note (short form) - Note Progress Note: VASCULAR SURGERY POD #1 s/p Permacath Insertion No acute events since surgery per RN notes. Alert. Denies cp, palpitations, sob or linda. Afebrile. AVSS Gen: nad Pulm: unlabored respirations on room air Chest: right chest wall permacath in place. Primary surgical dressing c/d/i. no palpable hematoma. LE: left knee immobilizer remains in place. RLE area of redness (cellulitis) demarcated bith pen (doesn't appear to move beyond border). No calf tenderness or swelling A/P: 64yo male with no history of renal disease presenting with ARF likely due to nephrotoxicity from Vancomycin overdose. - Per Dr. Bowie: patient is to cont wearing knee immobilizer at all times when OOB. Must keep knee in extension and cannot bend at all. Can be WBAT with knee immobilizer in place. This is for 6 weeks postop (1 more week left) - after that time he will be placed in a hinged knee brace with progressively increased flexion over the following 6 weeks. - Scheduled for renal biopsy in IR 05/05/2020 - Cont care per primary medical team - No further vascular surgery input; reconsult prn Above plan discussed with my attending and agrees. On behalf of Dr. Henao, thank you for the opportunity to participate in your patient's care. O Problem List - Problems (1) Acute kidney injury Code(s): N17.9 - ACUTE KIDNEY FAILURE, UNSPECIFIED (2) Acute renal failure Code(s): N17.9 - ACUTE KIDNEY FAILURE, UNSPECIFIED (3) HTN (hypertension) Code(s): I10 - ESSENTIAL (PRIMARY) HYPERTENSION
[2020-05-02] MEDS ORDERED: cefTRIAXone SODIUM 1 GM VIAL ONE (09:24)
[2020-05-02] MEDS ORDERED: DEXTROSE 5%-WATER - 50 ML IVPB ONE (09:24)
[2020-05-02] MEDS: CEFTRIAXONE 1 GM in DEXTROSE 5%-WATER - 50 ML IVPB SCH (09:30)
[2020-05-02] MEDS: ENOXAPARIN NA (PORCINE) 30 MG/0.3 ML DISP.SYRIN SQ SCH (09:30)
[2020-05-02] MEDS: METOPROLOL TARTRATE 50 MG TABLET (FP) PO SCH ×2 (09:30→22:20)
[2020-05-02] MEDS: TIOTROPIUM BROMIDE 2.5 MCG (SPIRIVA) RESPIMAT INHALER IH SCH (09:30)
--- NOTE | 2020-05-02 10:35 | PN ---
Progress Note, Physician History of Present Illness: pulmonary alert,oob-chair c/o increased sob - Current Medication List Current Medications: Active Medications Acetaminophen (Tylenol -) 650 mg PO Q6H PRN PRN Reason: FEVER Enoxaparin Sodium (Lovenox -) 30 mg SQ DAILY [facility] Last Admin: 05/02/20 09:30 Dose: 30 mg Documented by: Ceftriaxone Sodium 1 gm/ (Dextrose) 50 mls @ 100 mls/hr IVPB DAILY [facility]; Protocol Last Admin: 05/02/20 09:30 Dose: 100 mls/hr Documented by: Sodium Chloride (Normal Saline -) 250 mls @ 3,000 mls/hr IV PRN PRN PRN Reason: Hypotension during Dialysis Metoprolol Tartrate (Lopressor -) 50 mg PO BID [facility] Last Admin: 05/02/20 09:30 Dose: 50 mg Documented by: Tiotropium [place] (Spiriva Respimat) 2 puff IH DAILY [facility] Last Admin: 05/02/20 09:30 Dose: 2 puff Documented by: - Objective Vital Signs: Vital Signs Temperature 98.5 F 05/02/20 08:19 Pulse Rate 67 05/02/20 08:19 Respiratory Rate 18 05/02/20 08:19 Blood Pressure 137/62 05/02/20 08:19 O2 Sat by Pulse Oximetry (%) 94 L 05/02/20 08:19 Constitutional: Yes: Well Nourished, Calm Eyes: Yes: WNL HENT: Yes: WNL Neck: Yes: WNL Cardiovascular: Yes: Regular Rate and Rhythm, S1, S2 Respiratory: Yes: Rales (bilateral crackles) Gastrointestinal: Yes: Normal Bowel Sounds, Soft Extremities: Yes: Erythema Edema: Yes Labs: CBC, BMP 05/02/20 05:57 05/02/20 05:57 INR, PTT INR 1.40 (0.83-1.09) H 04/28/20 15:15 Problem List - Problems (1) Bronchiolitis Code(s): J21.9 - ACUTE BRONCHIOLITIS, UNSPECIFIED (2) Acute kidney injury Code(s): N17.9 - ACUTE KIDNEY FAILURE, UNSPECIFIED (3) Acute renal failure Code(s): N17.9 - ACUTE KIDNEY FAILURE, UNSPECIFIED (4) Electrolyte imbalance Code(s): E87.8 - OTH DISORDERS OF ELECTROLYTE AND FLUID BALANCE, NEC (5) Rheumatoid arthritis Code(s): M06.9 - RHEUMATOID ARTHRITIS, UNSPECIFIED (6) COPD (chronic obstructive pulmonary disease) Code(s): J44.9 - CHRONIC OBSTRUCTIVE PULMONARY DISEASE, UNSPECIFIED (7) Diabetes Code(s): E11.9 - TYPE 2 DIABETES MELLITUS WITHOUT COMPLICATIONS (8) HTN (hypertension) Code(s): I10 - ESSENTIAL (PRIMARY) HYPERTENSION (9) Postoperative wound dehiscence Code(s): T81.31XA - DISRUPTION OF EXTERNAL OPERATION (SURGICAL) WOUND, NEC, INIT Qualifiers: Encounter type: initial encounter Qualified Code(s): T81.31XA - Disruption of external operation (surgical) wound, not elsewhere classified, initial encounter (10) Wound, open, lower limb with complication Code(s): S81.809A - UNSPECIFIED OPEN WOUND, UNSPECIFIED LOWER LEG, INIT ENCNTR (11) ILD (interstitial lung disease) Code(s): J84.9 - INTERSTITIAL PULMONARY DISEASE, UNSPECIFIED Assessment/Plan IMP ACUTE RENAL FAILURE RA ILD/BRONCHIOLITIS SECONDARY TO RA NAEEM DM COPD S/P L KNEE REPLACEMENT S/P WOUND DEHISCENCE AND QUAD TENDON RUPTURE HTN PLAN O2 NEEDED ABX PER ID HD PER ENAL PREDNISONE 10 mg daily MONITOR LYTES,RENAL FUNCTION CPAP AT NIGHT INHALED BRONCHODILATORS rheumatology f/u DR ESPINO Problem List - Problems (1) Bronchiolitis Code(s): J21.9 - ACUTE BRONCHIOLITIS, UNSPECIFIED (2) Acute kidney injury Code(s): N17.9 - ACUTE KIDNEY FAILURE, UNSPECIFIED (3) Acute renal failure Code(s): N17.9 - ACUTE KIDNEY FAILURE, UNSPECIFIED (4) Electrolyte imbalance Code(s): E87.8 - OTH DISORDERS OF ELECTROLYTE AND FLUID BALANCE, NEC (5) Rheumatoid arthritis Code(s): M06.9 - RHEUMATOID ARTHRITIS, UNSPECIFIED (6) COPD (chronic obstructive pulmonary disease) Code(s): J44.9 - CHRONIC OBSTRUCTIVE PULMONARY DISEASE, UNSPECIFIED (7) Diabetes Code(s): E11.9 - TYPE 2 DIABETES MELLITUS WITHOUT COMPLICATIONS (8) HTN (hypertension) Code(s): I10 - ESSENTIAL (PRIMARY) HYPERTENSION (9) Postoperative wound dehiscence Code(s): T81.31XA - DISRUPTION OF EXTERNAL OPERATION (SURGICAL) WOUND, NEC, INIT Qualifiers: Encounter type: initial encounter Qualified Code(s): T81.31XA - Disruption of external operation (surgical) wound, not elsewhere classified, initial encounter (10) Wound, open, lower limb with complication Code(s): S81.809A - UNSPECIFIED OPEN WOUND, UNSPECIFIED LOWER LEG, INIT ENCNTR (11) ILD (interstitial lung disease) Code(s): J84.9 - INTERSTITIAL PULMONARY DISEASE, UNSPECIFIED
--- NOTE | 2020-05-02 13:27 | PN ---
Progress Note, Physician History of Present Illness: SEATED OOB IN CHAIR DEVELOPED ERYTHEMA/ WARMTH L LE DOPPLER (-) DVT NO FEVER/ CHILLS WBC WNL NO C/O KNEE PAIN - Current Medication List Current Medications: Active Medications Acetaminophen (Tylenol -) 650 mg PO Q6H PRN PRN Reason: FEVER Albuterol Sulfate (Ventolin 0.083% Nebulizer Soln -) 1 amp NEB Q4H PRN PRN Reason: SHORT OF BREATH/WHEEZING Budesonide/Formoterol Fumarate (Symbicort 160/4.5mcg -) 2 puff IH BID [facility] Enoxaparin Sodium (Lovenox -) 30 mg SQ DAILY [facility] Last Admin: 05/02/20 09:30 Dose: 30 mg Documented by: Ceftriaxone Sodium 1 gm/ (Dextrose) 50 mls @ 100 mls/hr IVPB DAILY [facility]; Protocol Last Admin: 05/02/20 09:30 Dose: 100 mls/hr Documented by: Metoprolol Tartrate (Lopressor -) 50 mg PO BID [facility] Last Admin: 05/02/20 09:30 Dose: 50 mg Documented by: Prednisone (Deltasone -) 10 mg PO DAILY [facility] Tiotropium [place] (Spiriva Respimat) 2 puff IH DAILY [facility] Last Admin: 05/02/20 09:30 Dose: 2 puff Documented by: - Objective Vital Signs: Vital Signs Temperature 98.5 F 05/02/20 08:19 Pulse Rate 67 05/02/20 08:19 Respiratory Rate 18 05/02/20 08:19 Blood Pressure 137/62 05/02/20 08:19 O2 Sat by Pulse Oximetry (%) 94 L 05/02/20 09:00 Constitutional: Yes: No Distress Cardiovascular: Yes: Regular Rate and Rhythm, S1, S2 Respiratory: Yes: CTA Bilaterally Gastrointestinal: Yes: Normal Bowel Sounds, Soft. No: Tenderness Extremities: Yes: Other (FADING ERYTHEMA R LE; PETECHIAL -LIKE RASH L LE) Labs: CBC, BMP 05/02/20 05:57 05/02/20 05:57 INR, PTT INR 1.40 (0.83-1.09) H 04/28/20 15:15 Assessment/Plan ALFREDA INFECTED L TKR ? CELLULITIS LE BILAT ?? VASCULITIS EMPIRICALLY COVER FOR SKIN PATHOGENS WITH CEFTRIAXONE IF NO IMPROVEMENT CONSIDER SKIN BX TO R/O VASCULITIS
[2020-05-02] MEDS ORDERED: PT OWN MED DRAWER 7, Y5N ONE (14:03)
[2020-05-02] MEDS: predniSONE 10 MG TABLET (UD) PO SCH (14:14)
[2020-05-02] MEDS: BUDESONIDE/FORMETEROL FUMARATE 160/4.5 mcg INHALER IH SCH ×2 (14:16→22:20)
--- NOTE | 2020-05-02 15:02 | PN ---
Progress Note, Physician History of Present Illness: Pt seen and examined at bedside. He is awake and alert. He is still oliguric. - Current Medication List Current Medications: Active Medications Acetaminophen (Tylenol -) 650 mg PO Q6H PRN PRN Reason: FEVER Albuterol Sulfate (Ventolin 0.083% Nebulizer Soln -) 1 amp NEB Q4H PRN PRN Reason: SHORT OF BREATH/WHEEZING Budesonide/Formoterol Fumarate (Symbicort 160/4.5mcg -) 2 puff IH BID [facility] Last Admin: 05/02/20 14:16 Dose: 2 puff Documented by: Enoxaparin Sodium (Lovenox -) 30 mg SQ DAILY [facility] Last Admin: 05/02/20 09:30 Dose: 30 mg Documented by: Ceftriaxone Sodium 1 gm/ (Dextrose) 50 mls @ 100 mls/hr IVPB DAILY [facility]; Protocol Last Admin: 05/02/20 09:30 Dose: 100 mls/hr Documented by: Metoprolol Tartrate (Lopressor -) 50 mg PO BID [facility] Last Admin: 05/02/20 09:30 Dose: 50 mg Documented by: Prednisone (Deltasone -) 10 mg PO DAILY [facility] Last Admin: 05/02/20 14:14 Dose: 10 mg Documented by: Tiotropium [place] (Spiriva Respimat) 2 puff IH DAILY [facility] Last Admin: 05/02/20 09:30 Dose: 2 puff Documented by: - Objective Vital Signs: Vital Signs Temperature 98.5 F 05/02/20 08:19 Pulse Rate 67 05/02/20 08:19 Respiratory Rate 18 05/02/20 08:19 Blood Pressure 137/62 05/02/20 08:19 O2 Sat by Pulse Oximetry (%) 94 L 05/02/20 09:00 Constitutional: Yes: Calm Eyes: Yes: Conjunctiva Clear HENT: Yes: Atraumatic Neck: Yes: Supple Cardiovascular: Yes: S1, S2 Respiratory: Yes: CTA Bilaterally Gastrointestinal: Yes: Normal Bowel Sounds, Soft Genitourinary: Yes: WNL Edema: No Neurological: Yes: Oriented Psychiatric: Yes: Oriented Labs: CBC, BMP 05/02/20 05:57 05/02/20 05:57 INR, PTT INR 1.40 (0.83-1.09) H 04/28/20 15:15 Problem List - Problems (1) Hyperkalemia Code(s): E87.5 - HYPERKALEMIA (2) Acute kidney injury Code(s): N17.9 - ACUTE KIDNEY FAILURE, UNSPECIFIED (3) Acute renal failure Code(s): N17.9 - ACUTE KIDNEY FAILURE, UNSPECIFIED (4) Diarrhea Code(s): R19.7 - DIARRHEA, UNSPECIFIED Assessment/Plan Current Medications Generic Name Dose Route Start Last Admin Trade Name Freq PRN Reason Stop Dose Admin Acetaminophen 650 mg 05/01/20 12:31 Tylenol - PO Q6H PRN FEVER Albuterol Sulfate 1 amp 05/02/20 13:08 Ventolin 0.083% Nebulizer Soln - NEB Q4H PRN SHORT OF BREATH/WHEEZING Budesonide/Formoterol Fumarate 2 puff 05/02/20 14:00 05/02/20 14:16 Symbicort 160/4.5mcg - IH 2 puff BID GO Administration Enoxaparin Sodium 30 mg 05/02/20 10:00 05/02/20 09:30 Lovenox - SQ 30 mg DAILY [facility] Administration Ceftriaxone Sodium 1 gm/ 50 mls @ 100 mls/hr 05/02/20 10:00 05/02/20 09:30 Dextrose IVPB 100 mls/hr DAILY [facility] Administration Protocol Metoprolol Tartrate 50 mg 05/01/20 22:00 05/02/20 09:30 Lopressor - PO 50 mg BID GO Administration Prednisone 10 mg 05/02/20 13:15 05/02/20 14:14 Deltasone - PO 10 mg DAILY GO Administration Tiotropium [place] 2 puff 05/02/20 10:00 05/02/20 09:30 Spiriva Respimat IH 2 puff DAILY [facility] Administration Impression 1. ALFREDA with oliguria 2. metabolic acidosis 3. hyperkalemia 4. s/p left knee replacement 5. htn 6. rheumatoid arthritis- mycophenylate 1000 bid on hold 7. DM 8. COPD 9. elevated vanco level/vanco tox Plan - next HD tomorrow - cont to monitor renal function - pt for kidney biopsy on Tuesday - discussed with pulmonary, mycophenylate to be restarted - hold Lovenox on Tuesday per radiology request - follow vanco level - abx per ID - likely atn - renal diet - avoid nsaids - keep losartan and metformin on hold - monitor urine output
--- NOTE | 2020-05-02 17:41 | PN ---
Progress Note, Physician History of Present Illness: The patient reports a 15 year history ov venous stasis in both legs. He has has ulcers in both legs treated by the wound center. Two years ago he develpod erythema in both legs diagnosed as probable cellulitis, At the present time he has again diffuse erythema in both legs with no warmth or tenderness. Npo active joints. - Current Medication List Current Medications: Active Medications Acetaminophen (Tylenol -) 650 mg PO Q6H PRN PRN Reason: FEVER Albuterol Sulfate (Ventolin 0.083% Nebulizer Soln -) 1 amp NEB Q4H PRN PRN Reason: SHORT OF BREATH/WHEEZING Budesonide/Formoterol Fumarate (Symbicort 160/4.5mcg -) 2 puff IH BID [facility] Last Admin: 05/02/20 14:16 Dose: 2 puff Documented by: Enoxaparin Sodium (Lovenox -) 30 mg SQ DAILY [facility] Last Admin: 05/02/20 09:30 Dose: 30 mg Documented by: Ceftriaxone Sodium 1 gm/ (Dextrose) 50 mls @ 100 mls/hr IVPB DAILY [facility]; Protocol Last Admin: 05/02/20 09:30 Dose: 100 mls/hr Documented by: Metoprolol Tartrate (Lopressor -) 50 mg PO BID [facility] Last Admin: 05/02/20 09:30 Dose: 50 mg Documented by: Prednisone (Deltasone -) 10 mg PO DAILY [facility] Last Admin: 05/02/20 14:14 Dose: 10 mg Documented by: Tiotropium [place] (Spiriva Respimat) 2 puff IH DAILY [facility] Last Admin: 05/02/20 09:30 Dose: 2 puff Documented by: - Objective Vital Signs: Vital Signs Temperature 98.6 F 05/02/20 14:00 Pulse Rate 64 05/02/20 14:00 Respiratory Rate 20 05/02/20 14:00 Blood Pressure 145/79 05/02/20 14:00 O2 Sat by Pulse Oximetry (%) 96 05/02/20 14:00 Musculoskeletal: Yes: Other (No active joints) Extremities: Yes: Other (Erythema in both legs(distal to knees) in the distal 2/3. Wuestionable appearance of purpura and small reticular pattern in the lateral aspect of the left ankle.) Labs: CBC, BMP 05/02/20 05:57 05/02/20 05:57 INR, PTT INR 1.40 (0.83-1.09) H 04/28/20 15:15 Problem List - Problems (1) Rheumatoid arthritis Assessment/Plan: Disease in remission. Erythema in legs probably related to venous stasis. It is unlikely to be related to vasculitis, At this point I do not suggest having a skin biopsy. Continue woith same medications. Code(s): M06.9 - RHEUMATOID ARTHRITIS, UNSPECIFIED
--- NOTE | 2020-05-03 07:15 | PN ---
Progress Note, Physician Chief Complaint: AMS Diarrhea Hematuria PVD Acute renal failure BLLE venous stasis ulcers Anemia History of Present Illness: NAD Breathing improved HD planned for today - Current Medication List Current Medications: Active Medications Acetaminophen (Tylenol -) 650 mg PO Q6H PRN PRN Reason: FEVER Albuterol Sulfate (Ventolin 0.083% Nebulizer Soln -) 1 amp NEB Q4H PRN PRN Reason: SHORT OF BREATH/WHEEZING Budesonide/Formoterol Fumarate (Symbicort 160/4.5mcg -) 2 puff IH BID [facility] Last Admin: 05/02/20 22:20 Dose: Not Given Documented by: Enoxaparin Sodium (Lovenox -) 30 mg SQ DAILY [facility] Last Admin: 05/02/20 09:30 Dose: 30 mg Documented by: Ceftriaxone Sodium 1 gm/ (Dextrose) 50 mls @ 100 mls/hr IVPB DAILY [facility]; Protocol Last Admin: 05/02/20 09:30 Dose: 100 mls/hr Documented by: Metoprolol Tartrate (Lopressor -) 50 mg PO BID [facility] Last Admin: 05/02/20 22:20 Dose: 50 mg Documented by: Prednisone (Deltasone -) 10 mg PO DAILY [facility] Last Admin: 05/02/20 14:14 Dose: 10 mg Documented by: Tiotropium [place] (Spiriva Respimat) 2 puff IH DAILY [facility] Last Admin: 05/02/20 09:30 Dose: 2 puff Documented by: - Objective Vital Signs: Vital Signs Temperature 98.1 F 05/03/20 06:00 Pulse Rate 61 05/03/20 06:00 Respiratory Rate 19 05/03/20 06:00 Blood Pressure 153/76 05/03/20 06:00 O2 Sat by Pulse Oximetry (%) 90 L 05/02/20 22:00 Constitutional: Yes: Well Nourished, No Distress, Calm Cardiovascular: Yes: Regular Rate and Rhythm Respiratory: Yes: Regular, CTA Bilaterally Gastrointestinal: Yes: Normal Bowel Sounds, Soft, Abdomen, Obese Genitourinary: Yes: Oliguria Musculoskeletal: Yes: Muscle Weakness Extremities: Yes: Erythema (BLLE) Edema: No Edema: LLE: 1+, RLE: 1+ Peripheral Pulses WNL: Yes Integumentary: Yes: Erythema (BLLE) Neurological: Yes: Alert, Oriented Psychiatric: Yes: Alert, Oriented Labs: CBC, BMP 05/02/20 05:57 05/02/20 05:57 INR, PTT INR 1.40 (0.83-1.09) H 04/28/20 15:15 Problem List - Problems (1) Anemia Assessment/Plan: -CKD vs VEE -Injectafer once -Monitor H/H -Iron Polysaccharide po daily -Transfuse only if Hg<7.0 to avoid fluid overload Problems reviewed: Yes Code(s): D64.9 - ANEMIA, UNSPECIFIED (2) Metabolic encephalopathy Problems reviewed: Yes Code(s): G93.41 - METABOLIC ENCEPHALOPATHY (3) Accidental vancomycin overdose Problems reviewed: Yes Code(s): T36.8X1A - POISONING BY OTH SYSTEMIC ANTIBIOTICS, ACCIDENTAL, INIT Qualifiers: Encounter type: initial encounter Qualified Code(s): T36.8X1A - Poisoning by other systemic antibiotics, accidental (unintentional), initial encounter (4) Acute renal failure Assessment/Plan: -Nephrology on board -HD as per renal -Monitor Cr trend -Plan for renal biopsy on Tuesday -Hold Lovenox on Tuesday -Restart DVT ppx after biopsy Problems reviewed: Yes Code(s): N17.9 - ACUTE KIDNEY FAILURE, UNSPECIFIED (5) Cellulitis Assessment/Plan: -ID on board -Seen by rheumatology to r/o vasculitis-don't think it is vasculitis -Empiric IV abx -Triamcinolone top bid -On prednisone -Cellcept restarted today Problems reviewed: Yes Code(s): L03.90 - CELLULITIS, UNSPECIFIED (6) Rheumatoid arthritis Problems reviewed: Yes Code(s): M06.9 - RHEUMATOID ARTHRITIS, UNSPECIFIED (7) Diabetes Assessment/Plan: -A1c at 5.8 -D/c BGM's -Renal diet Problems reviewed: Yes Code(s): E11.9 - TYPE 2 DIABETES MELLITUS WITHOUT COMPLICATIONS (8) ILD (interstitial lung disease) Assessment/Plan: -Pulmonary on board -On prednisone 10 mg po daily Problems reviewed: Yes Code(s): J84.9 - INTERSTITIAL PULMONARY DISEASE, UNSPECIFIED Assessment/Plan see problem list
[2020-05-03] MEDS ORDERED: DEXTROSE 5%-WATER - 50 ML IVPB ONE (09:02)
[2020-05-03] MEDS ORDERED: cefTRIAXone SODIUM 1 GM VIAL ONE (09:02)
[2020-05-03] MEDS: ENOXAPARIN NA (PORCINE) 30 MG/0.3 ML DISP.SYRIN SQ SCH (09:06)
[2020-05-03] MEDS: CEFTRIAXONE 1 GM in DEXTROSE 5%-WATER - 50 ML IVPB SCH (09:06)
[2020-05-03] MEDS: METOPROLOL TARTRATE 50 MG TABLET (FP) PO SCH ×2 (09:06→21:22)
[2020-05-03] MEDS: predniSONE 10 MG TABLET (UD) PO SCH (09:06)
[2020-05-03] MEDS: TIOTROPIUM BROMIDE 2.5 MCG (SPIRIVA) RESPIMAT INHALER IH SCH (09:07)
[2020-05-03] MEDS: BUDESONIDE/FORMETEROL FUMARATE 160/4.5 mcg INHALER IH SCH ×2 (09:07→21:23)
[2020-05-03 09:13] LABS: BASO % 0.6 % (0-2.0); EOS % 2.5 % (0-4.5); HEMATOCRIT 29.3 % (35.4-49); HEMOGLOBIN 9.5 GM/dL (11.7-16.9); LYMPH % 12.8 % (8-40); MCH 29.3 pg (25.7-33.7); MCHC 32.6 g/dl (32.0-35.9); MEAN PLT VOLUME 7.8 fl (7.5-11.1); MONO % 11.6 % (3.8-10.2); NEUT % 72.5 % (42.8-82.8); PLATELET COUNT 264 K/MM3 (134-434); RBC 3.25 M/mm3 (4.00-5.60); RDW 14.8 % (11.9-15.9)
[2020-05-03 09:47] LABS: ALBUMIN 2.5 g/dl (3.4-5.0); BILIRUBIN,TOTAL 0.3 mg/dL (0.2-1); BLOOD UREA NITROGEN 26.7 mg/dL (7-18); CALCIUM 8.6 mg/dL (8.5-10.1); TOT PROT 6.2 g/dl (6.4-8.2)
[2020-05-03] MEDS ORDERED: amLODIPine BESYLATE 5 MG TABLET (FP) PO SCH (10:00)
[2020-05-03] MEDS ORDERED: MYCOPHENOLATE MOFETIL 250 MG CAPSULE PO SCH (10:00)
[2020-05-03 10:28] LABS: CREATININE 7.7 mg/dL (0.55-1.3)
--- NOTE | 2020-05-03 13:38 | PN ---
Progress Note (short form) - Note Progress Note: Resting in NAD. Reports breathing feels a little better today. No acute events overnight. Intake & Output 04/30/20 05/01/20 05/02/20 05/03/20 23:59 23:59 23:59 23:59 Intake Total 1360 970 760 Output Total 210 44125 200 Balance 1150 -65219 560 Last Vital Signs Temp Pulse Resp BP Pulse Ox 98.2 F 67 18 143/68 95 05/03/20 09:04 05/03/20 09:04 05/03/20 09:04 05/03/20 09:04 05/03/20 09:04 Active Medications Acetaminophen (Tylenol -) 650 mg PO Q6H PRN PRN Reason: FEVER Albuterol Sulfate (Ventolin 0.083% Nebulizer Soln -) 1 amp NEB Q4H PRN PRN Reason: SHORT OF BREATH/WHEEZING Amlodipine Besylate (Norvasc -) 5 mg PO DAILY [facility] Last Admin: 05/03/20 09:06 Dose: 5 mg Documented by: Budesonide/Formoterol Fumarate (Symbicort 160/4.5mcg -) 2 puff IH BID [facility] Last Admin: 05/03/20 09:07 Dose: 2 puff Documented by: Enoxaparin Sodium (Lovenox -) 30 mg SQ DAILY [facility] Last Admin: 05/03/20 09:06 Dose: 30 mg Documented by: Ceftriaxone Sodium 1 gm/ (Dextrose) 50 mls @ 100 mls/hr IVPB DAILY [facility]; Protocol Last Admin: 05/03/20 09:06 Dose: 100 mls/hr Documented by: Ferric Carboxymaltose 750 mg/ (Sodium Chloride) 265 mls @ 530 mls/hr IVPB ONCE ONE Stop: 05/03/20 14:59 Metoprolol Tartrate (Lopressor -) 50 mg PO BID [facility] Last Admin: 05/03/20 09:06 Dose: 50 mg Documented by: Mycophenolate Mofetil (Cellcept -) 500 mg PO BID [facility] Polysaccharide Iron Complex (Niferex-150 -) 150 mg PO DAILY [facility] Prednisone (Deltasone -) 10 mg PO DAILY [facility] Last Admin: 05/03/20 09:06 Dose: 10 mg Documented by: Tiotropium [place] (Spiriva Respimat) 2 puff IH DAILY [facility] Last Admin: 05/03/20 09:07 Dose: 2 puff Documented by: Constitutional: Yes: Well Nourished, NAD Eyes: Yes: WNL HENT: Yes: WNL Neck: Yes: WNL Cardiovascular: Yes: Regular Rate and Rhythm, S1, S2 Respiratory: Yes: Coarse dry rales / crackles Gastrointestinal: Yes: Normal Bowel Sounds, Soft Extremities: Yes: Erythema Edema: Yes Labs: Laboratory Results - last 24 hr 05/03/20 05/03/20 05/03/20 06:14 08:47 08:47 WBC 9.0 RBC 3.25 L Hgb 9.5 L Hct 29.3 L MCV 90.0 MCH 29.3 MCHC 32.6 RDW 14.8 Plt Count 264 MPV 7.8 Absolute Neuts (auto) 6.5 Neutrophils % 72.5 Lymphocytes % 12.8 Monocytes % 11.6 H Eosinophils % 2.5 Basophils % 0.6 Nucleated RBC % 0 Sodium 138 Potassium 4.0 Chloride 99 Carbon Dioxide 31 Anion Gap 8 BUN 26.7 H Creatinine 7.7 H* Est GFR (CKD-EPI)AfAm 7.73 Est GFR (CKD-EPI)NonAf 6.67 POC Glucometer 108 Random Glucose 121 H Hemoglobin A1c % Calcium 8.6 Iron 36 L TIBC 214 L Iron Saturation 16 L Unsaturated IBC 178 L Ferritin 283.1 Total Bilirubin 0.3 AST 17 ALT 17 Alkaline Phosphatase 49 Total Protein 6.2 L Albumin 2.5 L Vitamin B12 661 05/03/20 08:47 WBC RBC Hgb Hct MCV MCH MCHC RDW Plt Count MPV Absolute Neuts (auto) Neutrophils % Lymphocytes % Monocytes % Eosinophils % Basophils % Nucleated RBC % Sodium Potassium Chloride Carbon Dioxide Anion Gap BUN Creatinine Est GFR (CKD-EPI)AfAm Est GFR (CKD-EPI)NonAf POC Glucometer Random Glucose Hemoglobin A1c % 5.8 Calcium Iron TIBC Iron Saturation Unsaturated IBC Ferritin Total Bilirubin AST ALT Alkaline Phosphatase Total Protein Albumin Vitamin B12 Problem List - Problems (1) Bronchiolitis Code(s): J21.9 - ACUTE BRONCHIOLITIS, UNSPECIFIED (2) Acute kidney injury Code(s): N17.9 - ACUTE KIDNEY FAILURE, UNSPECIFIED (3) Acute renal failure Code(s): N17.9 - ACUTE KIDNEY FAILURE, UNSPECIFIED (4) Electrolyte imbalance Code(s): E87.8 - OTH DISORDERS OF ELECTROLYTE AND FLUID BALANCE, NEC (5) Rheumatoid arthritis Code(s): M06.9 - RHEUMATOID ARTHRITIS, UNSPECIFIED (6) COPD (chronic obstructive pulmonary disease) Code(s): J44.9 - CHRONIC OBSTRUCTIVE PULMONARY DISEASE, UNSPECIFIED (7) Diabetes Code(s): E11.9 - TYPE 2 DIABETES MELLITUS WITHOUT COMPLICATIONS (8) HTN (hypertension) Code(s): I10 - ESSENTIAL (PRIMARY) HYPERTENSION (9) Postoperative wound dehiscence Code(s): T81.31XA - DISRUPTION OF EXTERNAL OPERATION (SURGICAL) WOUND, NEC, INIT Qualifiers: Encounter type: initial encounter Qualified Code(s): T81.31XA - Disruption of external operation (surgical) wound, not elsewhere classified, initial encounter (10) Wound, open, lower limb with complication Code(s): S81.809A - UNSPECIFIED OPEN WOUND, UNSPECIFIED LOWER LEG, INIT ENCNTR (11) ILD (interstitial lung disease) Code(s): J84.9 - INTERSTITIAL PULMONARY DISEASE, UNSPECIFIED Assessment/Plan IMP ACUTE RENAL FAILURE RA ILD/BRONCHIOLITIS SECONDARY TO RA NAEEM DM COPD S/P L KNEE REPLACEMENT S/P WOUND DEHISCENCE AND QUAD TENDON RUPTURE HTN PLAN O2 NEEDED ABX PER ID HD PER ENAL PREDNISONE 10 mg daily MONITOR LYTES,RENAL FUNCTION CPAP AT NIGHT INHALED BRONCHODILATORS RESTART CELLCEPT [address] Simpson
[2020-05-03] MEDS ORDERED: FERRIC CARBOXYMALTOSE 750 MG in SODIUM CHLORIDE 250 ML IVPB ONE (14:30)
[2020-05-03] MEDS: MYCOPHENOLATE MOFETIL 250 MG CAPSULE PO SCH ×2 (16:16→21:23)
[2020-05-03] MEDS ORDERED: PT OWN MED DRAWER 7, Y5N ONE ×2 (16:25→21:17)
--- NOTE | 2020-05-03 16:56 | PN ---
Progress Note, Physician History of Present Illness: Pt seen and examined at bedside. He is awake and alert. He is making urine but not much. - Current Medication List Current Medications: Active Medications Acetaminophen (Tylenol -) 650 mg PO Q6H PRN PRN Reason: FEVER Albuterol Sulfate (Ventolin 0.083% Nebulizer Soln -) 1 amp NEB Q4H PRN PRN Reason: SHORT OF BREATH/WHEEZING Amlodipine Besylate (Norvasc -) 5 mg PO DAILY [facility] Last Admin: 05/03/20 09:06 Dose: 5 mg Documented by: Budesonide/Formoterol Fumarate (Symbicort 160/4.5mcg -) 2 puff IH BID [facility] Last Admin: 05/03/20 09:07 Dose: 2 puff Documented by: Ceftriaxone Sodium 1 gm/ (Dextrose) 50 mls @ 100 mls/hr IVPB DAILY [facility]; [facility]toc ol Last Admin: 05/03/20 09:06 Dose: 100 mls/hr Documented by: Sodium Chloride (Normal Saline -) 250 mls @ 3,000 mls/hr IV PRN PRN PRN Reason: Hypotension during Dialysis Stop: 05/04/20 13:43 Metoprolol Tartrate (Lopressor -) 50 mg PO BID [facility] Last Admin: 05/03/20 09:06 Dose: 50 mg Documented by: Mycophenolate Mofetil (Cellcept -) 250 mg PO BID [facility] Last Admin: 05/03/20 16:16 Dose: 250 mg Documented by: Polysaccharide Iron Complex (Niferex-150 -) 150 mg PO DAILY [facility] Prednisone (Deltasone -) 10 mg PO DAILY [facility] Last Admin: 05/03/20 09:06 Dose: 10 mg Documented by: Tiotropium [place] (Spiriva Respimat) 2 puff IH DAILY [facility] Last Admin: 05/03/20 09:07 Dose: 2 puff Documented by: - Objective Vital Signs: Vital Signs Temperature 98.2 F 05/03/20 14:00 Pulse Rate 65 05/03/20 14:00 Respiratory Rate 18 05/03/20 14:00 Blood Pressure 154/70 05/03/20 14:00 O2 Sat by Pulse Oximetry (%) 95 05/03/20 09:04 Constitutional: Yes: Calm Eyes: Yes: Conjunctiva Clear HENT: Yes: Atraumatic Neck: Yes: Supple Cardiovascular: Yes: S1, S2 Respiratory: Yes: CTA Bilaterally Gastrointestinal: Yes: Normal Bowel Sounds, Soft Genitourinary: Yes: Oliguria Edema: No Neurological: Yes: Oriented Psychiatric: Yes: Oriented Labs: CBC, BMP 05/03/20 08:47 05/03/20 08:47 INR, PTT INR 1.40 (0.83-1.09) H 04/28/20 15:15 Problem List - Problems (1) Hyperkalemia Code(s): E87.5 - HYPERKALEMIA (2) Acute kidney injury Code(s): N17.9 - ACUTE KIDNEY FAILURE, UNSPECIFIED (3) Acute renal failure Code(s): N17.9 - ACUTE KIDNEY FAILURE, UNSPECIFIED (4) Diarrhea Code(s): R19.7 - DIARRHEA, UNSPECIFIED Assessment/Plan Current Medications Generic Name Dose Route Start Last Admin Trade Name Freq PRN Reason Stop Dose Admin Acetaminophen 650 mg 05/01/20 12:31 Tylenol - PO Q6H PRN FEVER Albuterol Sulfate 1 amp 05/02/20 13:08 Ventolin 0.083% Nebulizer Soln - NEB Q4H PRN SHORT OF BREATH/WHEEZING Amlodipine Besylate 5 mg 05/03/20 10:00 05/03/20 09:06 Norvasc - PO 5 mg DAILY [facility] Administration Budesonide/Formoterol Fumarate 2 puff 05/02/20 14:00 05/03/20 09:07 Symbicort 160/4.5mcg - IH 2 puff BID [facility] Administration Ceftriaxone Sodium 1 gm/ 50 mls @ 100 mls/hr 05/02/20 10:00 05/03/20 09:06 Dextrose IVPB 100 mls/hr DAILY [facility] Administration Protocol Sodium Chloride 250 mls @ 3,000 mls/hr 05/03/20 13:43 Normal Saline - IV 05/04/20 13:43 PRN PRN Hypotension during Dialysis Metoprolol Tartrate 50 mg 05/01/20 22:00 05/03/20 09:06 Lopressor - PO 50 mg BID [facility] Administration Mycophenolate Mofetil 250 mg 05/03/20 14:30 05/03/20 16:16 Cellcept - PO 250 mg BID [facility] Administration Polysaccharide Iron Complex 150 mg 05/04/20 10:00 Niferex-150 - PO DAILY [facility] Prednisone 10 mg 05/02/20 13:15 05/03/20 09:06 Deltasone - PO 10 mg DAILY [facility] Administration Tiotropium [place] 2 puff 05/02/20 10:00 05/03/20 09:07 Spiriva Respimat IH 2 puff DAILY [facility] Administration Impression 1. ALFREDA with oliguria 2. metabolic acidosis 3. hyperkalemia 4. s/p left knee replacement 5. htn 6. rheumatoid arthritis- mycophenylate 1000 bid on hold 7. DM 8. COPD 9. elevated vanco level/vanco tox Plan - HD today - discussed biopsy again with pt and at length, they understand the risk of bleeding - biopsy on Tuesday - lovenox dose held starting tomorrow - cont to monitor urine output - renal dose cellcept - cont to monitor vanco levels - abx per ID - likely atn - renal diet - avoid nsaids - keep losartan and metformin on hold - monitor urine output
[2020-05-03] MEDS ORDERED: SODIUM CHLORIDE 250 ML IV PRN (17:10)
[2020-05-03] MEDS: TRIAMCINOLONE ACET 0.1% OINT 15 GM TUBE TP SCH (21:22)
[2020-05-04 07:57] LABS: BASO % 0.6 % (0-2.0); EOS % 3.5 % (0-4.5); HEMATOCRIT 26.8 % (35.4-49); LYMPH % 14.9 % (8-40); MCH 30.1 pg (25.7-33.7); MCHC 33.5 g/dl (32.0-35.9); MEAN CELL VOLUME 89.9 fl (80-96); MEAN PLT VOLUME 7.6 fl (7.5-11.1); MONO % 12.1 % (3.8-10.2); NEUT % 68.9 % (42.8-82.8); PLATELET COUNT 266 K/MM3 (134-434); RBC 2.98 M/mm3 (4.00-5.60); RDW 14.9 % (11.9-15.9); WHITE BLOOD COUNT 8.7 K/mm3 (4.0-10.0)
--- NOTE | 2020-05-04 08:30 | PN ---
Progress Note, Physician Chief Complaint: AMS Diarrhea Hematuria PVD Acute renal failure BLLE venous stasis ulcers Anemia History of Present Illness: NAD Breathing improved HD planned for today - Current Medication List Current Medications: Active Medications Acetaminophen (Tylenol -) 650 mg PO Q6H PRN PRN Reason: FEVER Albuterol Sulfate (Ventolin 0.083% Nebulizer Soln -) 1 amp NEB Q4H PRN PRN Reason: SHORT OF BREATH/WHEEZING Amlodipine Besylate (Norvasc -) 5 mg PO DAILY [facility] Last Admin: 05/03/20 09:06 Dose: 5 mg Documented by: Budesonide/Formoterol Fumarate (Symbicort 160/4.5mcg -) 2 puff IH BID [facility] Last Admin: 05/03/20 21:23 Dose: 2 puff Documented by: Ceftriaxone Sodium 1 gm/ (Dextrose) 50 mls @ 100 mls/hr IVPB DAILY [facility]; Protocol Last Admin: 05/03/20 09:06 Dose: 100 mls/hr Documented by: Sodium Chloride (Normal Saline -) 250 mls @ 3,000 mls/hr IV PRN PRN PRN Reason: Hypotension during Dialysis Stop: 05/04/20 17:09 Metoprolol Tartrate (Lopressor -) 50 mg PO BID [facility] Last Admin: 05/03/20 21:22 Dose: 50 mg Documented by: Mycophenolate Mofetil (Cellcept -) 250 mg PO BID [facility] Last Admin: 05/03/20 21:23 Dose: 250 mg Documented by: Polysaccharide Iron Complex (Niferex-150 -) 150 mg PO DAILY [facility] Prednisone (Deltasone -) 10 mg PO DAILY [facility] Last Admin: 05/03/20 09:06 Dose: 10 mg Documented by: Tiotropium [place] (Spiriva Respimat) 2 puff IH DAILY [facility] Last Admin: 05/03/20 09:07 Dose: 2 puff Documented by: Triamcinolone Acetonide (Aristocort 0.1% Ointment -) 1 applic TP BID [facility] Last Admin: 05/03/20 21:22 Dose: 1 applic Documented by: - Objective Vital Signs: Vital Signs Temperature 98.2 F 05/04/20 06:00 Pulse Rate 62 05/04/20 06:00 Respiratory Rate 18 05/04/20 06:00 Blood Pressure 151/81 05/04/20 06:00 O2 Sat by Pulse Oximetry (%) 94 L 05/03/20 21:00 Constitutional: Yes: Well Nourished, No Distress, Calm Cardiovascular: Yes: Regular Rate and Rhythm Respiratory: Yes: Regular, Diminished (BLL), On Nasal O2, SOB on Exertion Gastrointestinal: Yes: Normal Bowel Sounds, Soft Genitourinary: Yes: Oliguria Musculoskeletal: Yes: Muscle Weakness Extremities: Yes: Erythema (BLLE) Edema: Yes Edema: LLE: 2+, RLE: 2+ Peripheral Pulses WNL: Yes Neurological: Yes: Alert, Oriented Psychiatric: Yes: Alert, Oriented Labs: CBC, BMP 05/04/20 06:42 INR, PTT INR 1.40 (0.83-1.09) H 04/28/20 15:15 Problem List - Problems (1) Anemia Assessment/Plan: -CKD vs VEE -Injectafer once -Monitor H/H -Iron Polysaccharide po daily -Transfuse only if Hg<7.0 to avoid fluid overload Problems reviewed: Yes Code(s): D64.9 - ANEMIA, UNSPECIFIED (2) Metabolic encephalopathy Problems reviewed: Yes Code(s): G93.41 - METABOLIC ENCEPHALOPATHY (3) Accidental vancomycin overdose Problems reviewed: Yes Code(s): T36.8X1A - POISONING BY OTH SYSTEMIC ANTIBIOTICS, ACCIDENTAL, INIT Qualifiers: Encounter type: initial encounter Qualified Code(s): T36.8X1A - Poisoning by other systemic antibiotics, accidental (unintentional), initial encounter (4) Acute renal failure Assessment/Plan: -Nephrology on board -HD as per renal -Monitor Cr trend -Plan for renal biopsy on Tuesday -Hold Lovenox on Tuesday -Restart DVT ppx after biopsy Problems reviewed: Yes Code(s): N17.9 - ACUTE KIDNEY FAILURE, UNSPECIFIED (5) Cellulitis Assessment/Plan: -ID on board -Seen by rheumatology to r/o vasculitis-don't think it is vasculitis -Empiric IV abx -Triamcinolone top bid -On prednisone -Cellcept restarted today Problems reviewed: Yes Code(s): L03.90 - CELLULITIS, UNSPECIFIED (6) Rheumatoid arthritis Problems reviewed: Yes Code(s): M06.9 - RHEUMATOID ARTHRITIS, UNSPECIFIED (7) Diabetes Assessment/Plan: -A1c at 5.8 -D/c BGM's -Renal diet Problems reviewed: Yes Code(s): E11.9 - TYPE 2 DIABETES MELLITUS WITHOUT COMPLICATIONS (8) ILD (interstitial lung disease) Assessment/Plan: -Pulmonary on board -On prednisone 10 mg po daily Problems reviewed: Yes Code(s): J84.9 - INTERSTITIAL PULMONARY DISEASE, UNSPECIFIED Assessment/Plan see problem list
[2020-05-04 08:35] LABS: ALBUMIN 2.3 g/dl (3.4-5.0); BLOOD UREA NITROGEN 17.2 mg/dL (7-18); CALCIUM 8.7 mg/dL (8.5-10.1); CREATININE 5.2 mg/dL (0.55-1.3); POTASSIUM 4.1 mmol/L (3.5-5.1); TOT PROT 5.8 g/dl (6.4-8.2)
[2020-05-04 08:36] LABS: BILIRUBIN,TOTAL 0.3 mg/dL (0.2-1)
[2020-05-04] MEDS ORDERED: DEXTROSE 5%-WATER - 50 ML IVPB ONE (09:54)
[2020-05-04] MEDS ORDERED: PT OWN MED DRAWER 7, Y5N ONE ×2 (09:54→21:17)
[2020-05-04] MEDS ORDERED: cefTRIAXone SODIUM 1 GM VIAL ONE (09:54)
[2020-05-04] MEDS: amLODIPine BESYLATE 10 MG TABLET (FP) PO SCH (09:56)
[2020-05-04] MEDS: CEFTRIAXONE 1 GM in DEXTROSE 5%-WATER - 50 ML IVPB SCH (09:56)
[2020-05-04] MEDS: METOPROLOL TARTRATE 50 MG TABLET (FP) PO SCH ×2 (09:56→21:36)
[2020-05-04] MEDS: predniSONE 10 MG TABLET (UD) PO SCH (09:56)
[2020-05-04] MEDS: TRIAMCINOLONE ACET 0.1% OINT 15 GM TUBE TP SCH ×2 (09:57→21:35)
[2020-05-04] MEDS: MYCOPHENOLATE MOFETIL 250 MG CAPSULE PO SCH ×2 (09:57→21:35)
[2020-05-04] MEDS: IRON POLYSACCHARIDES 150 MG CAPSULE PO SCH (09:57)
[2020-05-04] MEDS: BUDESONIDE/FORMETEROL FUMARATE 160/4.5 mcg INHALER IH SCH ×2 (09:58→21:33)
[2020-05-04] MEDS: TIOTROPIUM BROMIDE 2.5 MCG (SPIRIVA) RESPIMAT INHALER IH SCH (09:58)
--- NOTE | 2020-05-04 12:13 | PN ---
Progress Note, Physician History of Present Illness: Pt seen and examined at bedside. He is awake and alert. he denies shortness of breath. He is still oliguric. - Current Medication List Current Medications: Active Medications Acetaminophen (Tylenol -) 650 mg PO Q6H PRN PRN Reason: FEVER Albuterol Sulfate (Ventolin 0.083% Nebulizer Soln -) 1 amp NEB Q4H PRN PRN Reason: SHORT OF BREATH/WHEEZING Amlodipine Besylate (Norvasc -) 10 mg PO DAILY [facility] Last Admin: 05/04/20 09:56 Dose: 10 mg Documented by: Budesonide/Formoterol Fumarate (Symbicort 160/4.5mcg -) 2 puff IH BID [facility] Last Admin: 05/04/20 09:58 Dose: 2 puff Documented by: Ceftriaxone Sodium 1 gm/ (Dextrose) 50 mls @ 100 mls/hr IVPB DAILY [facility]; Protocol Last Admin: 05/04/20 09:56 Dose: 100 mls/hr Documented by: Sodium Chloride (Normal Saline -) 250 mls @ 3,000 mls/hr IV PRN PRN PRN Reason: Hypotension during Dialysis Stop: 05/04/20 17:09 Metoprolol Tartrate (Lopressor -) 50 mg PO BID [facility] Last Admin: 05/04/20 09:56 Dose: 50 mg Documented by: Mycophenolate Mofetil (Cellcept -) 250 mg PO BID [facility] Last Admin: 05/04/20 09:57 Dose: 250 mg Documented by: Polysaccharide Iron Complex (Niferex-150 -) 150 mg PO DAILY [facility] Last Admin: 05/04/20 09:57 Dose: 150 mg Documented by: Prednisone (Deltasone -) 10 mg PO DAILY [facility] Last Admin: 05/04/20 09:56 Dose: 10 mg Documented by: Tiotropium [place] (Spiriva Respimat) 2 puff IH DAILY [facility] Last Admin: 05/04/20 09:58 Dose: 2 puff Documented by: Triamcinolone Acetonide (Aristocort 0.1% Ointment -) 1 applic TP BID [facility] Last Admin: 05/04/20 09:57 Dose: 1 applic Documented by: - Objective Vital Signs: Vital Signs Temperature 98.2 F 05/04/20 09:49 Pulse Rate 66 05/04/20 09:49 Respiratory Rate 18 05/04/20 09:49 Blood Pressure 153/72 05/04/20 09:49 O2 Sat by Pulse Oximetry (%) 95 05/04/20 09:49 Constitutional: Yes: Calm Eyes: Yes: Conjunctiva Clear HENT: Yes: Atraumatic Neck: Yes: Supple Cardiovascular: Yes: S1, S2 Respiratory: Yes: CTA Bilaterally Gastrointestinal: Yes: Soft Genitourinary: Yes: WNL, Oliguria Edema: No Neurological: Yes: Oriented Psychiatric: Yes: Oriented Labs: CBC, BMP 05/04/20 06:42 05/04/20 06:42 INR, PTT INR 1.40 (0.83-1.09) H 04/28/20 15:15 Problem List - Problems (1) Hyperkalemia Code(s): E87.5 - HYPERKALEMIA (2) Acute kidney injury Code(s): N17.9 - ACUTE KIDNEY FAILURE, UNSPECIFIED (3) Acute renal failure Code(s): N17.9 - ACUTE KIDNEY FAILURE, UNSPECIFIED (4) Diarrhea Code(s): R19.7 - DIARRHEA, UNSPECIFIED Assessment/Plan Current Medications Generic Name Dose Route Start Last Admin Trade Name Freq PRN Reason Stop Dose Admin Acetaminophen 650 mg 05/01/20 12:31 Tylenol - PO Q6H PRN FEVER Albuterol Sulfate 1 amp 05/02/20 13:08 Ventolin 0.083% Nebulizer Soln - NEB Q4H PRN SHORT OF BREATH/WHEEZING Amlodipine Besylate 10 mg 05/04/20 10:00 05/04/20 09:56 Norvasc - PO 10 mg DAILY GO Administration Budesonide/Formoterol Fumarate 2 puff 05/02/20 14:00 05/04/20 09:58 Symbicort 160/4.5mcg - IH 2 puff BID GO Administration Ceftriaxone Sodium 1 gm/ 50 mls @ 100 mls/hr 05/02/20 10:00 05/04/20 09:56 Dextrose IVPB 100 mls/hr DAILY GO Administration Protocol Sodium Chloride 250 mls @ 3,000 mls/hr 05/03/20 17:10 Normal Saline - IV 05/04/20 17:09 PRN PRN Hypotension during Dialysis Metoprolol Tartrate 50 mg 05/01/20 22:00 05/04/20 09:56 Lopressor - PO 50 mg BID GO Administration Mycophenolate Mofetil 250 mg 05/03/20 14:30 05/04/20 09:57 Cellcept - PO 250 mg BID GO Administration Polysaccharide Iron Complex 150 mg 05/04/20 10:00 05/04/20 09:57 Niferex-150 - PO 150 mg DAILY GO Administration Prednisone 10 mg 05/02/20 13:15 05/04/20 09:56 Deltasone - PO 10 mg DAILY GO Administration Tiotropium [place] 2 puff 05/02/20 10:00 05/04/20 09:58 Spiriva Respimat IH 2 puff DAILY GO Administration Triamcinolone Acetonide 1 applic 05/03/20 22:00 05/04/20 09:57 Aristocort 0.1% Ointment - TP 1 applic BID GO Administration Impression 1. ALFREDA with oliguria 2. metabolic acidosis 3. hyperkalemia 4. s/p left knee replacement 5. htn 6. rheumatoid arthritis- mycophenylate 1000 bid on hold 7. DM 8. COPD 9. elevated vanco level/vanco tox Plan - lovenox on hold today - kidney biopsy tomorrow - pt understands risks of kidney biopsy including bleeding - pt remains oliguric - next HD on Tuesday - pending placement in [facility] HD - cont to monitor urine output - serologies negative - likely atn - monitor vanco level - renal diet - avoid nsaids - keep losartan and metformin on hold - monitor urine output
--- NOTE | 2020-05-04 13:13 | PN ---
Progress Note (short form) - Note Progress Note: OOB to chair. NAD on RA. Breathing feels better. No acute events overnight. Intake & Output 05/01/20 05/02/20 05/03/20 05/04/20 23:59 23:59 23:59 23:59 Intake Total 878 322 9306 450 Output Total 62897 200 7262 150 Balance -15621 560 -5912 300 Last Vital Signs Temp Pulse Resp BP Pulse Ox 98.2 F 66 18 153/72 95 05/04/20 09:49 05/04/20 09:49 05/04/20 09:49 05/04/20 09:49 05/04/20 09:49 Active Medications Acetaminophen (Tylenol -) 650 mg PO Q6H PRN PRN Reason: FEVER Albuterol Sulfate (Ventolin 0.083% Nebulizer Soln -) 1 amp NEB Q4H PRN PRN Reason: SHORT OF BREATH/WHEEZING Amlodipine Besylate (Norvasc -) 10 mg PO DAILY [facility] Last Admin: 05/04/20 09:56 Dose: 10 mg Documented by: Budesonide/Formoterol Fumarate (Symbicort 160/4.5mcg -) 2 puff IH BID [facility] Last Admin: 05/04/20 09:58 Dose: 2 puff Documented by: Ceftriaxone Sodium 1 gm/ (Dextrose) 50 mls @ 100 mls/hr IVPB DAILY [facility]; Protocol Last Admin: 05/04/20 09:56 Dose: 100 mls/hr Documented by: Sodium Chloride (Normal Saline -) 250 mls @ 3,000 mls/hr IV PRN PRN PRN Reason: Hypotension during Dialysis Stop: 05/04/20 17:09 Metoprolol Tartrate (Lopressor -) 50 mg PO BID [facility] Last Admin: 05/04/20 09:56 Dose: 50 mg Documented by: Mycophenolate Mofetil (Cellcept -) 250 mg PO BID [facility] Last Admin: 05/04/20 09:57 Dose: 250 mg Documented by: Polysaccharide Iron Complex (Niferex-150 -) 150 mg PO DAILY [facility] Last Admin: 05/04/20 09:57 Dose: 150 mg Documented by: Prednisone (Deltasone -) 10 mg PO DAILY [facility] Last Admin: 05/04/20 09:56 Dose: 10 mg Documented by: Tiotropium [place] (Spiriva Respimat) 2 puff IH DAILY [facility] Last Admin: 05/04/20 09:58 Dose: 2 puff Documented by: Triamcinolone Acetonide (Aristocort 0.1% Ointment -) 1 applic TP BID [facility] Last Admin: 05/04/20 09:57 Dose: 1 applic Documented by: Constitutional: Yes: Well Nourished, NAD Eyes: Yes: WNL HENT: Yes: WNL Neck: Yes: WNL Cardiovascular: Yes: Regular Rate and Rhythm, S1, S2 Respiratory: Yes: Coarse dry rales / crackles Gastrointestinal: Yes: Normal Bowel Sounds, Soft Extremities: Yes: Erythema Edema: Yes Labs: Laboratory Results - last 24 hr 05/03/20 05/04/20 05/04/20 11:15 06:42 06:42 WBC 8.7 RBC 2.98 L Hgb 9.0 L Hct 26.8 L MCV 89.9 MCH 30.1 MCHC 33.5 RDW 14.9 Plt Count 266 MPV 7.6 Absolute Neuts (auto) 6.0 Neutrophils % 68.9 Lymphocytes % 14.9 Monocytes % 12.1 H Eosinophils % 3.5 Basophils % 0.6 Nucleated RBC % 0 Sodium Potassium Chloride Carbon Dioxide Anion Gap BUN Creatinine Est GFR (CKD-EPI)AfAm Est GFR (CKD-EPI)NonAf Random Glucose Calcium Total Bilirubin AST ALT Alkaline Phosphatase Total Protein Albumin Stool Occult Blood Negative Random Vancomycin 16.2 05/04/20 06:42 WBC RBC Hgb Hct MCV MCH MCHC RDW Plt Count MPV Absolute Neuts (auto) Neutrophils % Lymphocytes % Monocytes % Eosinophils % Basophils % Nucleated RBC % Sodium 141 Potassium 4.1 Chloride 102 Carbon Dioxide 31 Anion Gap 8 BUN 17.2 Creatinine 5.2 H Est GFR (CKD-EPI)AfAm 12.42 Est GFR (CKD-EPI)NonAf 10.71 Random Glucose 95 Calcium 8.7 Total Bilirubin 0.3 AST 23 ALT 20 Alkaline Phosphatase 47 Total Protein 5.8 L Albumin 2.3 L Stool Occult Blood Random Vancomycin Problem List - Problems (1) Bronchiolitis Code(s): J21.9 - ACUTE BRONCHIOLITIS, UNSPECIFIED (2) Acute kidney injury Code(s): N17.9 - ACUTE KIDNEY FAILURE, UNSPECIFIED (3) Acute renal failure Code(s): N17.9 - ACUTE KIDNEY FAILURE, UNSPECIFIED (4) Electrolyte imbalance Code(s): E87.8 - OTH DISORDERS OF ELECTROLYTE AND FLUID BALANCE, NEC (5) Rheumatoid arthritis Code(s): M06.9 - RHEUMATOID ARTHRITIS, UNSPECIFIED (6) COPD (chronic obstructive pulmonary disease) Code(s): J44.9 - CHRONIC OBSTRUCTIVE PULMONARY DISEASE, UNSPECIFIED (7) Diabetes Code(s): E11.9 - TYPE 2 DIABETES MELLITUS WITHOUT COMPLICATIONS (8) HTN (hypertension) Code(s): I10 - ESSENTIAL (PRIMARY) HYPERTENSION (9) Postoperative wound dehiscence Code(s): T81.31XA - DISRUPTION OF EXTERNAL OPERATION (SURGICAL) WOUND, NEC, INIT Qualifiers: Encounter type: initial encounter Qualified Code(s): T81.31XA - Disruption of external operation (surgical) wound, not elsewhere classified, initial encounter (10) Wound, open, lower limb with complication Code(s): S81.809A - UNSPECIFIED OPEN WOUND, UNSPECIFIED LOWER LEG, INIT ENCNTR (11) ILD (interstitial lung disease) Code(s): J84.9 - INTERSTITIAL PULMONARY DISEASE, UNSPECIFIED Assessment/Plan IMP ACUTE RENAL FAILURE RA ILD/BRONCHIOLITIS SECONDARY TO RA NAEEM DM COPD S/P L KNEE REPLACEMENT S/P WOUND DEHISCENCE AND QUAD TENDON RUPTURE HTN PLAN O2 NEEDED ABX PER ID HD PER ENAL PREDNISONE 10 mg daily MONITOR LYTES,RENAL FUNCTION CPAP AT NIGHT INHALED BRONCHODILATORS CELLCEPT [address] Simpson
[2020-05-05 07:25] LABS: BASO % 0.9 % (0-2.0); EOS % 2.7 % (0-4.5); HEMATOCRIT 26.6 % (35.4-49); HEMOGLOBIN 8.8 GM/dL (11.7-16.9); LYMPH % 12.4 % (8-40); MCH 29.3 pg (25.7-33.7); MEAN CELL VOLUME 88.9 fl (80-96); MEAN PLT VOLUME 7.3 fl (7.5-11.1); MONO % 13.1 % (3.8-10.2); NEUT % 70.9 % (42.8-82.8); PLATELET COUNT 294 K/MM3 (134-434); RBC 2.99 M/mm3 (4.00-5.60); RDW 14.7 % (11.9-15.9); WHITE BLOOD COUNT 10.5 K/mm3 (4.0-10.0)
[2020-05-05 07:42] LABS: ALBUMIN 2.3 g/dl (3.4-5.0); BILIRUBIN,TOTAL 0.8 mg/dL (0.2-1); BLOOD UREA NITROGEN 33.8 mg/dL (7-18); CALCIUM 8.5 mg/dL (8.5-10.1); CREATININE 7.1 mg/dL (0.55-1.3); TOT PROT 5.8 g/dl (6.4-8.2)
--- NOTE | 2020-05-05 08:57 | PN ---
Progress Note, Physician - Current Medication List Current Medications: Active Medications Acetaminophen (Tylenol -) 650 mg PO Q6H PRN PRN Reason: FEVER Albuterol Sulfate (Ventolin 0.083% Nebulizer Soln -) 1 amp NEB Q4H PRN PRN Reason: SHORT OF BREATH/WHEEZING Amlodipine Besylate (Norvasc -) 10 mg PO DAILY [facility] Last Admin: 05/04/20 09:56 Dose: 10 mg Documented by: Budesonide/Formoterol Fumarate (Symbicort 160/4.5mcg -) 2 puff IH BID [facility] Last Admin: 05/04/20 21:33 Dose: 2 puff Documented by: Ceftriaxone Sodium 1 gm/ (Dextrose) 50 mls @ 100 mls/hr IVPB DAILY [facility]; Protocol Last Admin: 05/04/20 09:56 Dose: 100 mls/hr Documented by: Metoprolol Tartrate (Lopressor -) 50 mg PO BID [facility] Last Admin: 05/04/20 21:36 Dose: 50 mg Documented by: Mycophenolate Mofetil (Cellcept -) 250 mg PO BID [facility] Last Admin: 05/04/20 21:35 Dose: 250 mg Documented by: Polysaccharide Iron Complex (Niferex-150 -) 150 mg PO DAILY [facility] Last Admin: 05/04/20 09:57 Dose: 150 mg Documented by: Prednisone (Deltasone -) 10 mg PO DAILY [facility] Last Admin: 05/04/20 09:56 Dose: 10 mg Documented by: Tiotropium [place] (Spiriva Respimat) 2 puff IH DAILY [facility] Last Admin: 05/04/20 09:58 Dose: 2 puff Documented by: Triamcinolone Acetonide (Aristocort 0.1% Ointment -) 1 applic TP BID [facility] Last Admin: 05/04/20 21:35 Dose: 1 applic Documented by: - Objective Vital Signs: Vital Signs Temperature 98.5 F 05/05/20 06:00 Pulse Rate 66 05/05/20 06:00 Respiratory Rate 20 05/05/20 06:00 Blood Pressure 148/82 05/05/20 06:00 O2 Sat by Pulse Oximetry (%) 97 05/05/20 06:00 Cardiovascular: Yes: Regular Rate and Rhythm Respiratory: Yes: Regular, CTA Bilaterally Gastrointestinal: Yes: Normal Bowel Sounds, Soft. No: Tenderness Labs: CBC, BMP 05/05/20 06:27 05/05/20 06:27 INR, PTT INR 1.40 (0.83-1.09) H 04/28/20 15:15 Problem List - Problems (1) Acute kidney injury Assessment/Plan: -Nephrology on board -HD as per renal -Monitor Cr trend -Plan for renal biopsy -Hold Lovenox -Restart DVT ppx after biopsy Code(s): N17.9 - ACUTE KIDNEY FAILURE, UNSPECIFIED (2) Diabetes Assessment/Plan: -A1c at 5.8 -D/c BGM's Code(s): E11.9 - TYPE 2 DIABETES MELLITUS WITHOUT COMPLICATIONS (3) HTN (hypertension) Code(s): I10 - ESSENTIAL (PRIMARY) HYPERTENSION (4) Fever Code(s): R50.9 - FEVER, UNSPECIFIED (5) Cellulitis Assessment/Plan: -ID on board -Seen by rheumatology to r/o vasculitis-don't think it is vasculitis -Empiric IV abx -Triamcinolone top bid -On prednisone -Cellcept restarted today Code(s): L03.90 - CELLULITIS, UNSPECIFIED (6) COPD (chronic obstructive pulmonary disease) Code(s): J44.9 - CHRONIC OBSTRUCTIVE PULMONARY DISEASE, UNSPECIFIED (7) Anemia Assessment/Plan: -CKD vs VEE -Injectafer once -Monitor H/H -Iron Polysaccharide po daily -Transfuse only if Hg<7.0 to avoid fluid overload Code(s): D64.9 - ANEMIA, UNSPECIFIED (8) ILD (interstitial lung disease) Assessment/Plan: -Pulmonary on board -On prednisone 10 mg po daily Code(s): J84.9 - INTERSTITIAL PULMONARY DISEASE, UNSPECIFIED (9) Rheumatoid arthritis Assessment/Plan: RHEUMOTOLOGY ON BOARD Code(s): M06.9 - RHEUMATOID ARTHRITIS, UNSPECIFIED
[2020-05-05] MEDS ORDERED: PT OWN MED DRAWER 7, Y5N ONE ×2 (09:28→21:21)
[2020-05-05] MEDS ORDERED: DEXTROSE 5%-WATER - 50 ML IVPB ONE (09:29)
[2020-05-05] MEDS ORDERED: cefTRIAXone SODIUM 1 GM VIAL ONE (09:29)
[2020-05-05] MEDS: TRIAMCINOLONE ACET 0.1% OINT 15 GM TUBE TP SCH ×2 (09:39→21:58)
[2020-05-05] MEDS: TIOTROPIUM BROMIDE 2.5 MCG (SPIRIVA) RESPIMAT INHALER IH SCH (09:40)
[2020-05-05] MEDS: BUDESONIDE/FORMETEROL FUMARATE 160/4.5 mcg INHALER IH SCH ×2 (09:40→21:58)
[2020-05-05] MEDS: CEFTRIAXONE 1 GM in DEXTROSE 5%-WATER - 50 ML IVPB SCH (09:40)
[2020-05-05] MEDS: MYCOPHENOLATE MOFETIL 250 MG CAPSULE PO SCH ×2 (09:46→21:57)
[2020-05-05] MEDS: IRON POLYSACCHARIDES 150 MG CAPSULE PO SCH (09:46)
[2020-05-05] MEDS: METOPROLOL TARTRATE 50 MG TABLET (FP) PO SCH ×2 (09:46→21:57)
[2020-05-05] MEDS: amLODIPine BESYLATE 10 MG TABLET (FP) PO SCH (09:46)
--- NOTE | 2020-05-05 10:58 | PN ---
Progress Note, Physician History of Present Illness: Pt seen and examined at bedside. He is awake and alert. He is going for kidney biopsy today. - Current Medication List Current Medications: Active Medications Acetaminophen (Tylenol -) 650 mg PO Q6H PRN PRN Reason: FEVER Albuterol Sulfate (Ventolin 0.083% Nebulizer Soln -) 1 amp NEB Q4H PRN PRN Reason: SHORT OF BREATH/WHEEZING Amlodipine Besylate (Norvasc -) 10 mg PO DAILY [facility] Last Admin: 05/05/20 09:46 Dose: 10 mg Documented by: Budesonide/Formoterol Fumarate (Symbicort 160/4.5mcg -) 2 puff IH BID [facility] Last Admin: 05/05/20 09:40 Dose: 2 puff Documented by: Ceftriaxone Sodium 1 gm/ (Dextrose) 50 mls @ 100 mls/hr IVPB DAILY [facility]; Protocol Last Admin: 05/05/20 09:40 Dose: 100 mls/hr Documented by: Metoprolol Tartrate (Lopressor -) 50 mg PO BID [facility] Last Admin: 05/05/20 09:46 Dose: 50 mg Documented by: Mycophenolate Mofetil (Cellcept -) 250 mg PO BID [facility] Last Admin: 05/05/20 09:46 Dose: 250 mg Documented by: Polysaccharide Iron Complex (Niferex-150 -) 150 mg PO DAILY [facility] Last Admin: 05/05/20 09:46 Dose: 150 mg Documented by: Prednisone (Deltasone -) 10 mg PO DAILY [facility] Last Admin: 05/04/20 09:56 Dose: 10 mg Documented by: Tiotropium [place] (Spiriva Respimat) 2 puff IH DAILY [facility] Last Admin: 05/05/20 09:40 Dose: 2 puff Documented by: Triamcinolone Acetonide (Aristocort 0.1% Ointment -) 1 applic TP BID [facility] Last Admin: 05/05/20 09:39 Dose: 1 applic Documented by: - Objective Vital Signs: Vital Signs Temperature 98.6 F 05/05/20 09:45 Pulse Rate 63 05/05/20 09:45 Respiratory Rate 21 H 05/05/20 09:45 Blood Pressure 151/63 05/05/20 09:45 O2 Sat by Pulse Oximetry (%) 92 L 05/05/20 09:45 Constitutional: Yes: Calm Eyes: Yes: Conjunctiva Clear HENT: Yes: Atraumatic Neck: Yes: Supple Cardiovascular: Yes: S1, S2 Respiratory: Yes: CTA Bilaterally Gastrointestinal: Yes: Soft Genitourinary: Yes: Oliguria Edema: LLE: Trace, RLE: Trace Neurological: Yes: Oriented Psychiatric: Yes: Oriented Labs: CBC, BMP 05/05/20 06:27 05/05/20 06:27 INR, PTT INR 1.40 (0.83-1.09) H 04/28/20 15:15 Problem List - Problems (1) Hyperkalemia Code(s): E87.5 - HYPERKALEMIA (2) Acute kidney injury Code(s): N17.9 - ACUTE KIDNEY FAILURE, UNSPECIFIED (3) Acute renal failure Code(s): N17.9 - ACUTE KIDNEY FAILURE, UNSPECIFIED (4) Diarrhea Code(s): R19.7 - DIARRHEA, UNSPECIFIED Assessment/Plan Current Medications Generic Name Dose Route Start Last Admin Trade Name Freq PRN Reason Stop Dose Admin Acetaminophen 650 mg 05/01/20 12:31 Tylenol - PO Q6H PRN FEVER Albuterol Sulfate 1 amp 05/02/20 13:08 Ventolin 0.083% Nebulizer Soln - NEB Q4H PRN SHORT OF BREATH/WHEEZING Amlodipine Besylate 10 mg 05/04/20 10:00 05/05/20 09:46 Norvasc - PO 10 mg DAILY GO Administration Budesonide/Formoterol Fumarate 2 puff 05/02/20 14:00 05/05/20 09:40 Symbicort 160/4.5mcg - IH 2 puff BID GO Administration Ceftriaxone Sodium 1 gm/ 50 mls @ 100 mls/hr 05/02/20 10:00 05/05/20 09:40 Dextrose IVPB 100 mls/hr DAILY GO Administration Protocol Metoprolol Tartrate 50 mg 05/01/20 22:00 05/05/20 09:46 Lopressor - PO 50 mg BID GO Administration Mycophenolate Mofetil 250 mg 05/03/20 14:30 05/05/20 09:46 Cellcept - PO 250 mg BID GO Administration Polysaccharide Iron Complex 150 mg 05/04/20 10:00 05/05/20 09:46 Niferex-150 - PO 150 mg DAILY GO Administration Prednisone 10 mg 05/02/20 13:15 05/04/20 09:56 Deltasone - PO 10 mg DAILY GO Administration Tiotropium [place] 2 puff 05/02/20 10:00 05/05/20 09:40 Spiriva Respimat IH 2 puff DAILY GO Administration Triamcinolone Acetonide 1 applic 05/03/20 22:00 05/05/20 09:39 Aristocort 0.1% Ointment - TP 1 applic BID GO Administration Impression 1. ALFREDA with oliguria 2. metabolic acidosis 3. hyperkalemia 4. s/p left knee replacement 5. htn 6. rheumatoid arthritis- mycophenylate 1000 bid on hold 7. DM 8. COPD 9. elevated vanco level/vanco tox Plan - pt going for kidney biopsy today - HD tomorrow - repeat labs in am - lovenox on hold - pt made 180 cc of urine yesterday, cont to monitor - pending placement in [facility] HD - cont to monitor urine output - serologies negative - likely atn - monitor vanco level - renal diet - avoid nsaids - keep losartan and metformin on hold
[2020-05-05] MEDS: predniSONE 10 MG TABLET (UD) PO SCH (11:59)
--- NOTE | 2020-05-05 12:28 | PN ---
Progress Note (short form) - Note Progress Note: PULMONARY AWAKE/ALERT SITTING IN WHEELCHAIR AWAITING KIDNEY BIOPSY VSS/AFEBRILE PERMACATH IN PLACE Constitutional: Yes: Well Nourished, NAD Eyes: Yes: WNL HENT: Yes: WNL Neck: Yes: WNL Cardiovascular: Yes: Regular Rate and Rhythm, S1, S2 Respiratory: Yes: Coarse dry rales / crackles Gastrointestinal: Yes: Normal Bowel Sounds, Soft Extremities: Yes: Erythema Edema: Yes Labs: NOTED (1) Bronchiolitis Code(s): J21.9 - ACUTE BRONCHIOLITIS, UNSPECIFIED (2) Acute kidney injury Code(s): N17.9 - ACUTE KIDNEY FAILURE, UNSPECIFIED (3) Acute renal failure Code(s): N17.9 - ACUTE KIDNEY FAILURE, UNSPECIFIED (4) Electrolyte imbalance Code(s): E87.8 - OTH DISORDERS OF ELECTROLYTE AND FLUID BALANCE, NEC (5) Rheumatoid arthritis Code(s): M06.9 - RHEUMATOID ARTHRITIS, UNSPECIFIED (6) COPD (chronic obstructive pulmonary disease) Code(s): J44.9 - CHRONIC OBSTRUCTIVE PULMONARY DISEASE, UNSPECIFIED (7) Diabetes Code(s): E11.9 - TYPE 2 DIABETES MELLITUS WITHOUT COMPLICATIONS (8) HTN (hypertension) Code(s): I10 - ESSENTIAL (PRIMARY) HYPERTENSION (9) Postoperative wound dehiscence Code(s): T81.31XA - DISRUPTION OF EXTERNAL OPERATION (SURGICAL) WOUND, NEC, INIT Qualifiers: Encounter type: initial encounter Qualified Code(s): T81.31XA - Disruption of external operation (surgical) wound, not elsewhere classified, initial encounter (10) Wound, open, lower limb with complication Code(s): S81.809A - UNSPECIFIED OPEN WOUND, UNSPECIFIED LOWER LEG, INIT ENCNTR (11) ILD (interstitial lung disease) Code(s): J84.9 - INTERSTITIAL PULMONARY DISEASE, UNSPECIFIED IMP ACUTE RENAL FAILURE RA ILD/BRONCHIOLITIS SECONDARY TO RA NAEEM DM COPD S/P L KNEE REPLACEMENT S/P WOUND DEHISCENCE AND QUAD TENDON RUPTURE HTN PLAN O2 NEEDED ABX PER ID HD PER ENAL PREDNISONE 10 mg daily MONITOR LYTES,RENAL FUNCTION CPAP AT NIGHT INHALED BRONCHODILATORS CELLCEPT 250 BID KIDNEY BIOPSY TODAY Tania SANTIAGO MD
--- NOTE | 2020-05-05 17:29 | CONS ---
DATE OF CONSULTATION: 04/29/2020 PULMONARY CONSULTATION REFERRING PHYSICIAN: Azeb Markham MD. HISTORY OF PRESENT ILLNESS: The patient is a 64-year-old male with a past medical history of rheumatoid arthritis, bronchiolitis, maintained on CellCept and prednisone, COPD, obstructive sleep apnea on CPAP, diabetes, hypertension, history of lumbar laminectomy, left total knee replacement on March 13, 2020, status post fall with trauma to left knee on March 24 resulting in wound dehiscence and quadriceps tendon tear. Patient re-operated on March 31, 2020, and [facility] on vancomycin and cefepime. Patient was transferred back to [facility] on April 28 secondary to elevated BUN and creatinine at 8.6 with shortness of breath. Of note is the patient's creatinine on March 31 was 1.1. The patient was admitted with above. On admission he was evaluated by renal and started on emergency dialysis. Of note is the patient has a history of rheumatoid arthritis greater than 10 years with past treatment on methotrexate, hydrochloroquine and Enbrel. Apparently he was diagnosed 4 years ago with acute bronchiolitis and started on mycophenolate. Apparently his arthritis has also been stable on mycophenolate. On admission, the patient was evaluated by Infectious Disease as well as Renal and Rheumatology. PAST MEDICAL HISTORY: Again includes rheumatoid arthritis, bronchiolitis likely secondary to rheumatoid, obstructive sleep apnea on CPAP, COPD, diabetes, hypertension, history of lumbar laminectomy, history of left total knee replacement. SOCIAL HISTORY: No occupational exposures. History of smoking, quit in 1980. REVIEW OF SYSTEMS: Positive dyspnea. No chest pain. No palpitations, no cough. No abdominal pain. Positive lower extremity edema. CURRENT MEDICATIONS: 1. Symbicort 160/4.5. 2. Aristocort. 3. Tylenol. 4. Ceftriaxone. 5. Spiriva. 6. Albuterol. 7. Lopressor. 8. Norvasc. 9. Normal saline. 10. Niferex. PHYSICAL EXAMINATION: General: The patient is a well-developed, well-nourished male, awake, alert, in no acute distress. Afebrile. Vital Signs: Respiratory rate 20, O2 saturation 93% on 3 L nasal cannula. HEENT: Normocephalic, atraumatic. Neck: Supple. Heart: Regular S1, S2. Chest: A few crackles on the right. Abdomen: Soft, bowel sounds positive. Extremities: No cyanosis. There is trace bilateral extremity edema. LABORATORY: WBC is 7.9, hemoglobin 9.2, BUN 35, creatinine 8.9. Chest x-ray: No infiltrates, no effusion, improved congestion bilaterally. IMPRESSION: 1. Acute renal failure secondary to vancomycin toxicity. 2. Rheumatoid arthritis. 3. Interstitial lung disease/bronchiolitis secondary to rheumatoid arthritis. 4. Obstructive sleep apnea on CPAP. 5. Diabetes. 6. Chronic obstructive pulmonary disease. 7. History of status post left knee replacement, status post fall, subsequent wound dehiscence and quadriceps tendon rupture. 8. Hypertension. PLAN: Supplemental O2 as needed. Antibiotics as per Infectious Disease. Hemodialysis as per Infectious Disease. Prednisone if okay with ID. CT scan of the chest. Monitor electrolytes, renal function. Continue CPAP at night. Continue inhaled bronchodilators. ANKITA ESPINO M.D. [id number]
[2020-05-05] MEDS: ALBUTEROL SO4 0.083% IH SOL 2.5 MG/3 ML VIAL.NEB. NEB PRN (23:00)
[2020-05-06] MEDS ORDERED: SODIUM CHLORIDE 250 ML IV PRN (06:44)
[2020-05-06 07:25] LABS: BASO % 0.8 % (0-2.0); EOS % 2.5 % (0-4.5); HEMATOCRIT 26.2 % (35.4-49); HEMOGLOBIN 8.7 GM/dL (11.7-16.9); LYMPH % 11.9 % (8-40); MCH 29.6 pg (25.7-33.7); MCHC 33.4 g/dl (32.0-35.9); MEAN CELL VOLUME 88.5 fl (80-96); MEAN PLT VOLUME 7.3 fl (7.5-11.1); MONO % 12.9 % (3.8-10.2); NEUT % 71.9 % (42.8-82.8); PLATELET COUNT 314 K/MM3 (134-434); RBC 2.95 M/mm3 (4.00-5.60); WHITE BLOOD COUNT 10.1 K/mm3 (4.0-10.0)
[2020-05-06 07:32] LABS: ALBUMIN 2.5 g/dl (3.4-5.0); BILIRUBIN,TOTAL 0.3 mg/dL (0.2-1); BLOOD UREA NITROGEN 47.6 mg/dL (7-18); CALCIUM 8.5 mg/dL (8.5-10.1); POTASSIUM 4.1 mmol/L (3.5-5.1); TOT PROT 5.9 g/dl (6.4-8.2)
[2020-05-06 07:42] LABS: CREATININE 8.5 mg/dL (0.55-1.3)
--- NOTE | 2020-05-06 09:59 | PN ---
Progress Note, Physician Chief Complaint: AMS Diarrhea Hematuria PVD Acute renal failure BLLE venous stasis ulcers Anemia History of Present Illness: NAD Breathing improved HD planned for today - Current Medication List Current Medications: Active Medications Acetaminophen (Tylenol -) 650 mg PO Q6H PRN PRN Reason: FEVER Albuterol Sulfate (Ventolin 0.083% Nebulizer Soln -) 1 amp NEB Q4H PRN PRN Reason: SHORT OF BREATH/WHEEZING Last Admin: 05/05/20 23:00 Dose: 1 amp Documented by: Amlodipine Besylate (Norvasc -) 10 mg PO DAILY [facility] Last Admin: 05/05/20 09:46 Dose: 10 mg Documented by: Budesonide/Formoterol Fumarate (Symbicort 160/4.5mcg -) 2 puff IH BID [facility] Last Admin: 05/05/20 21:58 Dose: 2 puff Documented by: Ceftriaxone Sodium 1 gm/ (Dextrose) 50 mls @ 100 mls/hr IVPB DAILY [facility]; Protocol Last Admin: 05/05/20 09:40 Dose: 100 mls/hr Documented by: Sodium Chloride (Normal Saline -) 250 mls @ 3,000 mls/hr IV PRN PRN PRN Reason: Hypotension during Dialysis Stop: 05/07/20 06:43 Metoprolol Tartrate (Lopressor -) 50 mg PO BID [facility] Last Admin: 05/05/20 21:57 Dose: 50 mg Documented by: Mycophenolate Mofetil (Cellcept -) 250 mg PO BID [facility] Last Admin: 05/05/20 21:57 Dose: 250 mg Documented by: Polysaccharide Iron Complex (Niferex-150 -) 150 mg PO DAILY [facility] Last Admin: 05/05/20 09:46 Dose: 150 mg Documented by: Prednisone (Deltasone -) 10 mg PO DAILY [facility] Last Admin: 05/05/20 11:59 Dose: 10 mg Documented by: Tiotropium [place] (Spiriva Respimat) 2 puff IH DAILY [facility] Last Admin: 05/05/20 09:40 Dose: 2 puff Documented by: Triamcinolone Acetonide (Aristocort 0.1% Ointment -) 1 applic TP BID [facility] Last Admin: 05/05/20 21:58 Dose: 1 applic Documented by: - Objective Vital Signs: Vital Signs Temperature 98.2 F 05/06/20 09:35 Pulse Rate 70 05/06/20 09:50 Respiratory Rate 18 05/06/20 09:50 Blood Pressure 143/62 05/06/20 09:50 O2 Sat by Pulse Oximetry (%) 97 05/06/20 09:35 Labs: CBC, BMP 05/06/20 05:50 05/06/20 05:50 INR, PTT INR 1.40 (0.83-1.09) H 04/28/20 15:15 Problem List - Problems (1) Anemia Code(s): D64.9 - ANEMIA, UNSPECIFIED (2) Metabolic encephalopathy Code(s): G93.41 - METABOLIC ENCEPHALOPATHY (3) Accidental vancomycin overdose Code(s): T36.8X1A - POISONING BY OTH SYSTEMIC ANTIBIOTICS, ACCIDENTAL, INIT Qualifiers: Encounter type: initial encounter Qualified Code(s): T36.8X1A - Poisoning by other systemic antibiotics, accidental (unintentional), initial encounter (4) Acute renal failure Code(s): N17.9 - ACUTE KIDNEY FAILURE, UNSPECIFIED (5) Cellulitis Code(s): L03.90 - CELLULITIS, UNSPECIFIED (6) Rheumatoid arthritis Code(s): M06.9 - RHEUMATOID ARTHRITIS, UNSPECIFIED (7) Diabetes Code(s): E11.9 - TYPE 2 DIABETES MELLITUS WITHOUT COMPLICATIONS (8) ILD (interstitial lung disease) Code(s): J84.9 - INTERSTITIAL PULMONARY DISEASE, UNSPECIFIED
--- NOTE | 2020-05-06 10:34 | PN ---
Progress Note, Physician History of Present Illness: pulmonary alert,c/o increased sob last night,currently feeling better,post dialysis - Current Medication List Current Medications: Active Medications Acetaminophen (Tylenol -) 650 mg PO Q6H PRN PRN Reason: FEVER Albuterol Sulfate (Ventolin 0.083% Nebulizer Soln -) 1 amp NEB Q4H PRN PRN Reason: SHORT OF BREATH/WHEEZING Last Admin: 05/05/20 23:00 Dose: 1 amp Documented by: Amlodipine Besylate (Norvasc -) 10 mg PO DAILY [facility] Last Admin: 05/05/20 09:46 Dose: 10 mg Documented by: Budesonide/Formoterol Fumarate (Symbicort 160/4.5mcg -) 2 puff IH BID [facility] Last Admin: 05/05/20 21:58 Dose: 2 puff Documented by: Ceftriaxone Sodium 1 gm/ (Dextrose) 50 mls @ 100 mls/hr IVPB DAILY [facility]; Protocol Last Admin: 05/05/20 09:40 Dose: 100 mls/hr Documented by: Sodium Chloride (Normal Saline -) 250 mls @ 3,000 mls/hr IV PRN PRN PRN Reason: Hypotension during Dialysis Stop: 05/07/20 06:43 Metoprolol Tartrate (Lopressor -) 50 mg PO BID [facility] Last Admin: 05/05/20 21:57 Dose: 50 mg Documented by: Mycophenolate Mofetil (Cellcept -) 250 mg PO BID [facility] Last Admin: 05/05/20 21:57 Dose: 250 mg Documented by: Polysaccharide Iron Complex (Niferex-150 -) 150 mg PO DAILY [facility] Last Admin: 05/05/20 09:46 Dose: 150 mg Documented by: Prednisone (Deltasone -) 10 mg PO DAILY [facility] Last Admin: 05/05/20 11:59 Dose: 10 mg Documented by: Tiotropium [place] (Spiriva Respimat) 2 puff IH DAILY [facility] Last Admin: 05/05/20 09:40 Dose: 2 puff Documented by: Triamcinolone Acetonide (Aristocort 0.1% Ointment -) 1 applic TP BID [facility] Last Admin: 05/05/20 21:58 Dose: 1 applic Documented by: - Objective Vital Signs: Vital Signs Temperature 98.2 F 05/06/20 09:35 Pulse Rate 63 05/06/20 10:31 Respiratory Rate 18 05/06/20 10:31 Blood Pressure 158/71 05/06/20 10:31 O2 Sat by Pulse Oximetry (%) 97 05/06/20 09:35 Constitutional: Yes: Well Nourished, Calm Eyes: Yes: WNL HENT: Yes: WNL Neck: Yes: WNL Cardiovascular: Yes: Regular Rate and Rhythm, S1, S2 Respiratory: Yes: [place] ([place] crackles R>L) Gastrointestinal: Yes: Normal Bowel Sounds, Soft Extremities: Yes: WNL Edema: Yes Labs: CBC, BMP 05/06/20 05:50 05/06/20 05:50 INR, PTT INR 1.40 (0.83-1.09) H 04/28/20 15:15 Problem List - Problems (1) Bronchiolitis Code(s): J21.9 - ACUTE BRONCHIOLITIS, UNSPECIFIED (2) Acute kidney injury Code(s): N17.9 - ACUTE KIDNEY FAILURE, UNSPECIFIED (3) Acute renal failure Code(s): N17.9 - ACUTE KIDNEY FAILURE, UNSPECIFIED (4) Electrolyte imbalance Code(s): E87.8 - OTH DISORDERS OF ELECTROLYTE AND FLUID BALANCE, NEC (5) Rheumatoid arthritis Code(s): M06.9 - RHEUMATOID ARTHRITIS, UNSPECIFIED (6) COPD (chronic obstructive pulmonary disease) Code(s): J44.9 - CHRONIC OBSTRUCTIVE PULMONARY DISEASE, UNSPECIFIED (7) Diabetes Code(s): E11.9 - TYPE 2 DIABETES MELLITUS WITHOUT COMPLICATIONS (8) HTN (hypertension) Code(s): I10 - ESSENTIAL (PRIMARY) HYPERTENSION (9) Postoperative wound dehiscence Code(s): T81.31XA - DISRUPTION OF EXTERNAL OPERATION (SURGICAL) WOUND, NEC, INIT Qualifiers: Encounter type: initial encounter Qualified Code(s): T81.31XA - Disruption of external operation (surgical) wound, not elsewhere classified, initial encounter (10) Wound, open, lower limb with complication Code(s): S81.809A - UNSPECIFIED OPEN WOUND, UNSPECIFIED LOWER LEG, INIT ENCNTR (11) ILD (interstitial lung disease) Code(s): J84.9 - INTERSTITIAL PULMONARY DISEASE, UNSPECIFIED Assessment/Plan IMP ACUTE RENAL FAILURE RA ILD/BRONCHIOLITIS SECONDARY TO RA NAEEM DM COPD S/P L KNEE REPLACEMENT S/P WOUND DEHISCENCE AND QUAD TENDON RUPTURE HTN PLAN O2 NEEDED ABX PER ID HD PER ENAL PREDNISONE 10 mg daily MONITOR LYTES,RENAL FUNCTION CPAP AT NIGHT INHALED BRONCHODILATORS CellCept DR ESPINO Problem List - Problems (1) Bronchiolitis Code(s): J21.9 - ACUTE BRONCHIOLITIS, UNSPECIFIED (2) Acute kidney injury Code(s): N17.9 - ACUTE KIDNEY FAILURE, UNSPECIFIED (3) Acute renal failure Code(s): N17.9 - ACUTE KIDNEY FAILURE, UNSPECIFIED (4) Electrolyte imbalance Code(s): E87.8 - OTH DISORDERS OF ELECTROLYTE AND FLUID BALANCE, NEC (5) Rheumatoid arthritis Code(s): M06.9 - RHEUMATOID ARTHRITIS, UNSPECIFIED (6) COPD (chronic obstructive pulmonary disease) Code(s): J44.9 - CHRONIC OBSTRUCTIVE PULMONARY DISEASE, UNSPECIFIED (7) Diabetes Code(s): E11.9 - TYPE 2 DIABETES MELLITUS WITHOUT COMPLICATIONS (8) HTN (hypertension) Code(s): I10 - ESSENTIAL (PRIMARY) HYPERTENSION (9) Postoperative wound dehiscence Code(s): T81.31XA - DISRUPTION OF EXTERNAL OPERATION (SURGICAL) WOUND, NEC, INIT Qualifiers: Encounter type: initial encounter Qualified Code(s): T81.31XA - Disruption of external operation (surgical) wound, not elsewhere classified, initial encounter (10) Wound, open, lower limb with complication Code(s): S81.809A - UNSPECIFIED OPEN WOUND, UNSPECIFIED LOWER LEG, INIT ENCNTR (11) ILD (interstitial lung disease) Code(s): J84.9 - INTERSTITIAL PULMONARY DISEASE, UNSPECIFIED
[2020-05-06] MEDS ORDERED: DEXTROSE 5%-WATER - 50 ML IVPB ONE (10:42)
[2020-05-06] MEDS ORDERED: PT OWN MED DRAWER 7, Y5N ONE ×2 (10:42→21:39)
[2020-05-06] MEDS ORDERED: cefTRIAXone SODIUM 1 GM VIAL ONE (10:42)
[2020-05-06] MEDS: MYCOPHENOLATE MOFETIL 250 MG CAPSULE PO SCH (10:51)
[2020-05-06] MEDS: IRON POLYSACCHARIDES 150 MG CAPSULE PO SCH (10:51)
[2020-05-06] MEDS: predniSONE 10 MG TABLET (UD) PO SCH (10:51)
[2020-05-06] MEDS: amLODIPine BESYLATE 10 MG TABLET (FP) PO SCH (10:51)
[2020-05-06] MEDS: METOPROLOL TARTRATE 50 MG TABLET (FP) PO SCH ×2 (10:51→21:51)
[2020-05-06] MEDS: CEFTRIAXONE 1 GM in DEXTROSE 5%-WATER - 50 ML IVPB SCH (10:52)
[2020-05-06] MEDS: TIOTROPIUM BROMIDE 2.5 MCG (SPIRIVA) RESPIMAT INHALER IH SCH (10:53)
[2020-05-06] MEDS: TRIAMCINOLONE ACET 0.1% OINT 15 GM TUBE TP SCH ×2 (10:53→21:51)
[2020-05-06] MEDS: BUDESONIDE/FORMETEROL FUMARATE 160/4.5 mcg INHALER IH SCH ×2 (10:53→21:51)
--- NOTE | 2020-05-06 13:25 | PN ---
Progress Note, Physician History of Present Illness: Pt seen and examined at bedside. He is awake and alert. He has shortness of breath last night. He remains oliguric. - Current Medication List Current Medications: Active Medications Acetaminophen (Tylenol -) 650 mg PO Q6H PRN PRN Reason: FEVER Albuterol Sulfate (Ventolin 0.083% Nebulizer Soln -) 1 amp NEB Q4H PRN PRN Reason: SHORT OF BREATH/WHEEZING Last Admin: 05/05/20 23:00 Dose: 1 amp Documented by: Amlodipine Besylate (Norvasc -) 10 mg PO DAILY [facility] Last Admin: 05/06/20 10:51 Dose: 10 mg Documented by: Budesonide/Formoterol Fumarate (Symbicort 160/4.5mcg -) 2 puff IH BID [facility] Last Admin: 05/06/20 10:53 Dose: 2 puff Documented by: Ceftriaxone Sodium 1 gm/ (Dextrose) 50 mls @ 100 mls/hr IVPB DAILY [facility]; Protocol Last Admin: 05/06/20 10:52 Dose: 100 mls/hr Documented by: Sodium Chloride (Normal Saline -) 250 mls @ 3,000 mls/hr IV PRN PRN PRN Reason: Hypotension during Dialysis Stop: 05/07/20 06:43 Metoprolol Tartrate (Lopressor -) 50 mg PO BID [facility] Last Admin: 05/06/20 10:51 Dose: 50 mg Documented by: Mycophenolate Mofetil (Cellcept -) 500 mg PO BID [facility] Polysaccharide Iron Complex (Niferex-150 -) 150 mg PO DAILY [facility] Last Admin: 05/06/20 10:51 Dose: 150 mg Documented by: Prednisone (Deltasone -) 15 mg PO DAILY [facility] Tiotropium [place] (Spiriva Respimat) 2 puff IH DAILY [facility] Last Admin: 05/06/20 10:53 Dose: 2 puff Documented by: Triamcinolone Acetonide (Aristocort 0.1% Ointment -) 1 applic TP BID [facility] Last Admin: 05/06/20 10:53 Dose: 1 applic Documented by: - Objective Vital Signs: Vital Signs Temperature 98.2 F 05/06/20 09:35 Pulse Rate 63 05/06/20 10:31 Respiratory Rate 18 05/06/20 10:31 Blood Pressure 158/71 05/06/20 10:31 O2 Sat by Pulse Oximetry (%) 97 05/06/20 09:35 Constitutional: Yes: Calm Eyes: Yes: Conjunctiva Clear HENT: Yes: Atraumatic Neck: Yes: Supple Cardiovascular: Yes: S1, S2 Respiratory: Yes: On Nasal O2 Gastrointestinal: Yes: Normal Bowel Sounds, Soft Genitourinary: Yes: Oliguria Musculoskeletal: Yes: WNL Edema: Yes Edema: LLE: Trace, RLE: Trace Neurological: Yes: Oriented Psychiatric: Yes: Oriented Labs: CBC, BMP 05/06/20 05:50 05/06/20 05:50 INR, PTT INR 1.40 (0.83-1.09) H 04/28/20 15:15 Problem List - Problems (1) Hyperkalemia Code(s): E87.5 - HYPERKALEMIA (2) Acute kidney injury Code(s): N17.9 - ACUTE KIDNEY FAILURE, UNSPECIFIED (3) Acute renal failure Code(s): N17.9 - ACUTE KIDNEY FAILURE, UNSPECIFIED (4) Diarrhea Code(s): R19.7 - DIARRHEA, UNSPECIFIED Assessment/Plan Current Medications Generic Name Dose Route Start Last Admin Trade Name Freq PRN Reason Stop Dose Admin Acetaminophen 650 mg 05/01/20 12:31 Tylenol - PO Q6H PRN FEVER Albuterol Sulfate 1 amp 05/02/20 13:08 05/05/20 23:00 Ventolin 0.083% Nebulizer Soln - NEB 1 amp Q4H PRN Administration SHORT OF BREATH/WHEEZING Amlodipine Besylate 10 mg 05/04/20 10:00 05/06/20 10:51 Norvasc - PO 10 mg DAILY [facility] Administration Budesonide/Formoterol Fumarate 2 puff 05/02/20 14:00 05/06/20 10:53 Symbicort 160/4.5mcg - IH 2 puff BID [facility] Administration Ceftriaxone Sodium 1 gm/ 50 mls @ 100 mls/hr 05/02/20 10:00 05/06/20 10:52 Dextrose IVPB 100 mls/hr DAILY [facility] Administration Protocol Sodium Chloride 250 mls @ 3,000 mls/hr 05/06/20 06:44 Normal Saline - IV 05/07/20 06:43 PRN PRN Hypotension during Dialysis Metoprolol Tartrate 50 mg 05/01/20 22:00 05/06/20 10:51 Lopressor - PO 50 mg BID [facility] Administration Mycophenolate Mofetil 500 mg 05/06/20 12:55 Cellcept - PO BID [facility] Polysaccharide Iron Complex 150 mg 05/04/20 10:00 05/06/20 10:51 Niferex-150 - PO 150 mg DAILY [facility] Administration Prednisone 15 mg 05/07/20 10:00 Deltasone - PO DAILY [facility] Tiotropium [place] 2 puff 05/02/20 10:00 05/06/20 10:53 Spiriva Respimat IH 2 puff DAILY [facility] Administration Triamcinolone Acetonide 1 applic 05/03/20 22:00 05/06/20 10:53 Aristocort 0.1% Ointment - TP 1 applic BID [facility] Administration Impression 1. ALFREDA with oliguria 2. metabolic acidosis 3. hyperkalemia 4. s/p left knee replacement 5. htn 6. rheumatoid arthritis- mycophenylate 1000 bid on hold 7. DM 8. COPD 9. elevated vanco level/vanco tox Plan - pt tolerated biopsy yesterday - HD today - monitor hg - discussed with pulmonary, cellcept increased to bid and steroids increased to 15 mg - called HD unit, he is still pending placement, date and time for hd start is not available - follow cxr - cont oxygen and monitor pulse ox - pt made urine, no hematuria - follow renal biopsy - serologies negative - likely atn - monitor vanco level - renal diet - avoid nsaids - keep losartan and metformin on hold
--- NOTE | 2020-05-06 14:36 | PN ---
Progress Note, Physician History of Present Illness: S/P RENAL BX SEATED OOB IN CHAIR ERYTHEMA/ WARMTH L LE MUCH IMPROVED DOPPLER (-) DVT NO FEVER/ CHILLS WBC SL ELEVATED ON STEROIDS NO C/O KNEE PAIN - Current Medication List Current Medications: Active Medications Acetaminophen (Tylenol -) 650 mg PO Q6H PRN PRN Reason: FEVER Albuterol Sulfate (Ventolin 0.083% Nebulizer Soln -) 1 amp NEB Q4H PRN PRN Reason: SHORT OF BREATH/WHEEZING Last Admin: 05/05/20 23:00 Dose: 1 amp Documented by: Amlodipine Besylate (Norvasc -) 10 mg PO DAILY [facility] Last Admin: 05/06/20 10:51 Dose: 10 mg Documented by: Budesonide/Formoterol Fumarate (Symbicort 160/4.5mcg -) 2 puff IH BID [facility] Last Admin: 05/06/20 10:53 Dose: 2 puff Documented by: Ceftriaxone Sodium 1 gm/ (Dextrose) 50 mls @ 100 mls/hr IVPB DAILY [facility]; Protocol Last Admin: 05/06/20 10:52 Dose: 100 mls/hr Documented by: Sodium Chloride (Normal Saline -) 250 mls @ 3,000 mls/hr IV PRN PRN PRN Reason: Hypotension during Dialysis Stop: 05/07/20 06:43 Metoprolol Tartrate (Lopressor -) 50 mg PO BID [facility] Last Admin: 05/06/20 10:51 Dose: 50 mg Documented by: Mycophenolate Mofetil (Cellcept -) 500 mg PO BID [facility] Polysaccharide Iron Complex (Niferex-150 -) 150 mg PO DAILY [facility] Last Admin: 05/06/20 10:51 Dose: 150 mg Documented by: Prednisone (Deltasone -) 15 mg PO DAILY [facility] Tiotropium [place] (Spiriva Respimat) 2 puff IH DAILY [facility] Last Admin: 05/06/20 10:53 Dose: 2 puff Documented by: Triamcinolone Acetonide (Aristocort 0.1% Ointment -) 1 applic TP BID [facility] Last Admin: 05/06/20 10:53 Dose: 1 applic Documented by: - Objective Vital Signs: Vital Signs Temperature 98.2 F 05/06/20 09:35 Pulse Rate 63 05/06/20 10:31 Respiratory Rate 18 05/06/20 10:31 Blood Pressure 158/71 05/06/20 10:31 O2 Sat by Pulse Oximetry (%) 97 05/06/20 09:35 Constitutional: Yes: No Distress Eyes: Yes: Conjunctiva Clear Cardiovascular: Yes: Regular Rate and Rhythm, S1, S2 Respiratory: Yes: CTA Bilaterally Gastrointestinal: Yes: Normal Bowel Sounds, Soft. No: Tenderness Extremities: Yes: Other (ERYTHEMA LE NEARLY ALL RESOLVED) Labs: CBC, BMP 05/06/20 05:50 05/06/20 05:50 INR, PTT INR 1.40 (0.83-1.09) H 04/28/20 15:15 Assessment/Plan ALFREDA INFECTED L TKR ? CELLULITIS LE BILAT ?? VASCULITIS IMPROVED D/C ANTIBIOTICS, OBSERVE OFF AWAIT RENAL BX
[2020-05-06 16:47] LABS: HEMATOCRIT 29.3 % (35.4-49); HEMOGLOBIN 9.8 GM/dL (11.7-16.9); MCH 30.1 pg (25.7-33.7); MCHC 33.3 g/dl (32.0-35.9); MEAN CELL VOLUME 90.4 fl (80-96); MEAN PLT VOLUME 7.5 fl (7.5-11.1); PLATELET COUNT 363 K/MM3 (134-434); RBC 3.24 M/mm3 (4.00-5.60); RDW 15.2 % (11.9-15.9)
[2020-05-06] MEDS: ALBUTEROL SO4 0.083% IH SOL 2.5 MG/3 ML VIAL.NEB. NEB PRN (20:51)
[2020-05-06] MEDS: MYCOPHENOLATE MOFETIL 500 MG TABLET PO SCH (21:51)
--- NOTE | 2020-05-06 23:02 | PN ---
Progress Note (short form) - Note Progress Note: Pt seen and examined. Chart reviewed. AVSS Selected Entries 05/06/20 21:55 Temperature 97.8 F Pulse Rate 72 Respiratory 18 Rate Blood Pressure 138/68 O2 Sat by Pulse 72 L Oximetry (%) Laboratory Tests 05/06/20 05/06/20 05:50 15:15 WBC 10.0 Hgb 9.8 L Hct 29.3 L Plt Count 363 Sodium 140 Potassium 4.1 Chloride 101 Carbon Dioxide 27 Anion Gap 11 BUN 47.6 H Creatinine 8.5 H* Random Glucose 100 Calcium 8.5 Total Bilirubin 0.3 AST 16 ALT 24 Alkaline Phosphatase 54 Total Protein 5.9 L Albumin 2.5 L Gen: NAD LLE: c/d/i, Garvin brace in place. NVID A/P 64yo male with ARF due to nephrotoxicity from Vancomycin overdose. 03/25/2020 - s/p I&D L knee and quadriceps tendon rupture repair. 1. DVT ppx 2. Knee brace at all times when OOB. WBAT LLE Brace currently set to ROM 0-30 degrees. Ambulate with this setting for 2 weeks, then adjust ROM to 0-60 degrees on 05/20/2020. Ambulate with this setting for 2 weeks, then adjust ROM to 0-90 degrees on 06/03/2020. Ambulate with this setting for 2 weeks, then d/c brace and f/u in office for reevaluation (~06/17/2020) 3. Cont current medical care. Will follow.
[2020-05-07] MEDS ORDERED: PT OWN MED DRAWER 7, Y5N ONE ×2 (05:23→09:58)
[2020-05-07 07:13] LABS: BASO % 1.1 % (0-2.0); EOS % 2.6 % (0-4.5); HEMATOCRIT 25.3 % (35.4-49); HEMOGLOBIN 8.5 GM/dL (11.7-16.9); LYMPH % 14.4 % (8-40); MCH 29.8 pg (25.7-33.7); MCHC 33.6 g/dl (32.0-35.9); MEAN CELL VOLUME 88.5 fl (80-96); MEAN PLT VOLUME 7.2 fl (7.5-11.1); MONO % 10.8 % (3.8-10.2); NEUT % 71.1 % (42.8-82.8); PLATELET COUNT 301 K/MM3 (134-434); RBC 2.86 M/mm3 (4.00-5.60); RDW 14.9 % (11.9-15.9); WHITE BLOOD COUNT 9.3 K/mm3 (4.0-10.0)
[2020-05-07 07:34] LABS: ALBUMIN 2.6 g/dl (3.4-5.0); BILIRUBIN,TOTAL 0.6 mg/dL (0.2-1); BLOOD UREA NITROGEN 32.1 mg/dL (7-18); CALCIUM 8.3 mg/dL (8.5-10.1); CREATININE 6.2 mg/dL (0.55-1.3); POTASSIUM 4.2 mmol/L (3.5-5.1); TOT PROT 5.9 g/dl (6.4-8.2)
[2020-05-07] MEDS: ALBUTEROL SO4 0.083% IH SOL 2.5 MG/3 ML VIAL.NEB. NEB PRN (07:45)
--- NOTE | 2020-05-07 08:21 | PN ---
Progress Note, Physician History of Present Illness: 64 y/o male from [facility]) with a PMHx of RA, DM, HTN, Bronchiolitis, COPD, L- knee replacement(03/13/20), L- knee dehiscence (03/24-03/31) discharged on 03/31 with a Picc line and IV Vanco + Cefepime. Who presents to the ED for abnormal lab value: BUN of 88 and Creatinine of 8.6. He denies chest pain, palpitations, SOB, or headache. States he feels better this am--less sob - Current Medication List Current Medications: Active Medications Acetaminophen (Tylenol -) 650 mg PO Q6H PRN PRN Reason: FEVER Albuterol Sulfate (Ventolin 0.083% Nebulizer Soln -) 1 amp NEB Q4H PRN PRN Reason: SHORT OF BREATH/WHEEZING Last Admin: 05/06/20 20:51 Dose: 1 amp Documented by: Amlodipine Besylate (Norvasc -) 10 mg PO DAILY [facility] Last Admin: 05/06/20 10:51 Dose: 10 mg Documented by: Budesonide/Formoterol Fumarate (Symbicort 160/4.5mcg -) 2 puff IH BID [facility] Last Admin: 05/06/20 21:51 Dose: 2 puff Documented by: Metoprolol Tartrate (Lopressor -) 50 mg PO BID [facility] Last Admin: 05/06/20 21:51 Dose: 50 mg Documented by: Mycophenolate Mofetil (Cellcept -) 500 mg PO BID [facility] Last Admin: 05/06/20 21:51 Dose: 500 mg Documented by: Polysaccharide Iron Complex (Niferex-150 -) 150 mg PO DAILY [facility] Last Admin: 05/06/20 10:51 Dose: 150 mg Documented by: Prednisone (Deltasone -) 15 mg PO DAILY [facility] Tiotropium [place] (Spiriva Respimat) 2 puff IH DAILY [facility] Last Admin: 05/06/20 10:53 Dose: 2 puff Documented by: Triamcinolone Acetonide (Aristocort 0.1% Ointment -) 1 applic TP BID [facility] Last Admin: 05/06/20 21:51 Dose: 1 applic Documented by: - Objective Vital Signs: Vital Signs Temperature 98.0 F 05/07/20 06:00 Pulse Rate 62 05/07/20 06:00 Respiratory Rate 18 05/07/20 06:00 Blood Pressure 140/61 05/07/20 06:00 O2 Sat by Pulse Oximetry (%) 98 05/06/20 21:55 Cardiovascular: Yes: S1, S2 Respiratory: Yes: Regular, CTA Bilaterally Gastrointestinal: Yes: Normal Bowel Sounds, Soft Extremities: Yes: Erythema (improving--right leg) Labs: CBC, BMP 05/07/20 05:38 05/07/20 05:38 INR, PTT INR 1.40 (0.83-1.09) H 04/28/20 15:15 Problem List - Problems (1) Acute kidney injury Assessment/Plan: -Nephrology on board -HD as per renal -Monitor Cr trend -Biopsy done Code(s): N17.9 - ACUTE KIDNEY FAILURE, UNSPECIFIED (2) Diabetes Assessment/Plan: -A1c at 5.8 -D/c BGM's Code(s): E11.9 - TYPE 2 DIABETES MELLITUS WITHOUT COMPLICATIONS (3) HTN (hypertension) Assessment/Plan: MONITOR HOLD ARB AND MONITOR Vital Signs Period Temp Pulse Resp BP Sys/Luz Pulse Ox Last 24 Hr 97.8 F-98.4 F 62-72 16-19 127-158/61-71 93-98 Code(s): I10 - ESSENTIAL (PRIMARY) HYPERTENSION (4) Fever Code(s): R50.9 - FEVER, UNSPECIFIED (5) Cellulitis Assessment/Plan: -ID on board -Seen by rheumatology to r/o vasculitis-don't think it is vasculitis -Empiric IV abx-completed -Triamcinolone top bid -On prednisone -Cellcept restarted Code(s): L03.90 - CELLULITIS, UNSPECIFIED (6) COPD (chronic obstructive pulmonary disease) Assessment/Plan: Per pilm on prednisone feels better Code(s): J44.9 - CHRONIC OBSTRUCTIVE PULMONARY DISEASE, UNSPECIFIED (7) Anemia Assessment/Plan: -CKD vs VEE -Injectafer once -Monitor H/H -Iron Polysaccharide po daily -Transfuse only if Hg<7.0 to avoid fluid overload Code(s): D64.9 - ANEMIA, UNSPECIFIED (8) ILD (interstitial lung disease) Assessment/Plan: -Pulmonary on board -On prednisone Code(s): J84.9 - INTERSTITIAL PULMONARY DISEASE, UNSPECIFIED (9) Rheumatoid arthritis Assessment/Plan: on celcept and prednisone Code(s): M06.9 - RHEUMATOID ARTHRITIS, UNSPECIFIED
[2020-05-07] MEDS: METOPROLOL TARTRATE 50 MG TABLET (FP) PO SCH (09:59)
[2020-05-07] MEDS: amLODIPine BESYLATE 10 MG TABLET (FP) PO SCH (09:59)
[2020-05-07] MEDS ORDERED: predniSONE 10 MG TABLET (UD) PO SCH (10:00)
[2020-05-07] MEDS: IRON POLYSACCHARIDES 150 MG CAPSULE PO SCH (10:00)
[2020-05-07] MEDS: MYCOPHENOLATE MOFETIL 500 MG TABLET PO SCH (10:00)
[2020-05-07] MEDS: TRIAMCINOLONE ACET 0.1% OINT 15 GM TUBE TP SCH (10:01)
[2020-05-07] MEDS: TIOTROPIUM BROMIDE 2.5 MCG (SPIRIVA) RESPIMAT INHALER IH SCH (10:01)
[2020-05-07] MEDS: BUDESONIDE/FORMETEROL FUMARATE 160/4.5 mcg INHALER IH SCH (10:01)
--- NOTE | 2020-05-07 10:41 | PN ---
Progress Note, Physician History of Present Illness: PULMONARY ALERT,FEELING BETTER,DYSPNEA IMPROVING,OOB-CHAIR - Current Medication List Current Medications: Active Medications Acetaminophen (Tylenol -) 650 mg PO Q6H PRN PRN Reason: FEVER Albuterol Sulfate (Ventolin 0.083% Nebulizer Soln -) 1 amp NEB Q4H PRN PRN Reason: SHORT OF BREATH/WHEEZING Last Admin: 05/07/20 07:45 Dose: 1 amp Documented by: Amlodipine Besylate (Norvasc -) 10 mg PO DAILY [facility] Last Admin: 05/07/20 09:59 Dose: 10 mg Documented by: Budesonide/Formoterol Fumarate (Symbicort 160/4.5mcg -) 2 puff IH BID [facility] Last Admin: 05/07/20 10:01 Dose: 2 puff Documented by: Metoprolol Tartrate (Lopressor -) 50 mg PO BID [facility] Last Admin: 05/07/20 09:59 Dose: 50 mg Documented by: Mycophenolate Mofetil (Cellcept -) 500 mg PO BID [facility] Last Admin: 05/07/20 10:00 Dose: 500 mg Documented by: Polysaccharide Iron Complex (Niferex-150 -) 150 mg PO DAILY [facility] Last Admin: 05/07/20 10:00 Dose: 150 mg Documented by: Prednisone (Deltasone -) 15 mg PO DAILY [facility] Last Admin: 05/07/20 09:59 Dose: 15 mg Documented by: Tiotropium [place] (Spiriva Respimat) 2 puff IH DAILY [facility] Last Admin: 05/07/20 10:01 Dose: 2 puff Documented by: Triamcinolone Acetonide (Aristocort 0.1% Ointment -) 1 applic TP BID [facility] Last Admin: 05/07/20 10:01 Dose: 1 applic Documented by: - Objective Vital Signs: Vital Signs Temperature 98.0 F 05/07/20 06:00 Pulse Rate 62 05/07/20 06:00 Respiratory Rate 18 05/07/20 06:00 Blood Pressure 140/61 05/07/20 06:00 O2 Sat by Pulse Oximetry (%) 98 05/06/20 21:55 Constitutional: Yes: Well Nourished, Calm Eyes: Yes: WNL HENT: Yes: WNL Neck: Yes: WNL Cardiovascular: Yes: Regular Rate and Rhythm, S1, S2 Respiratory: Yes: Rales (BILATERAL CRACKLES R>L) Gastrointestinal: Yes: Normal Bowel Sounds, Soft Extremities: Yes: WNL Edema: Yes Labs: CBC, BMP 05/07/20 05:38 05/07/20 05:38 INR, PTT INR 1.40 (0.83-1.09) H 04/28/20 15:15 Problem List - Problems (1) Bronchiolitis Code(s): J21.9 - ACUTE BRONCHIOLITIS, UNSPECIFIED (2) Acute kidney injury Code(s): N17.9 - ACUTE KIDNEY FAILURE, UNSPECIFIED (3) Acute renal failure Code(s): N17.9 - ACUTE KIDNEY FAILURE, UNSPECIFIED (4) Electrolyte imbalance Code(s): E87.8 - OTH DISORDERS OF ELECTROLYTE AND FLUID BALANCE, NEC (5) Rheumatoid arthritis Code(s): M06.9 - RHEUMATOID ARTHRITIS, UNSPECIFIED (6) COPD (chronic obstructive pulmonary disease) Code(s): J44.9 - CHRONIC OBSTRUCTIVE PULMONARY DISEASE, UNSPECIFIED (7) Diabetes Code(s): E11.9 - TYPE 2 DIABETES MELLITUS WITHOUT COMPLICATIONS (8) HTN (hypertension) Code(s): I10 - ESSENTIAL (PRIMARY) HYPERTENSION (9) Postoperative wound dehiscence Code(s): T81.31XA - DISRUPTION OF EXTERNAL OPERATION (SURGICAL) WOUND, NEC, INIT Qualifiers: Encounter type: initial encounter Qualified Code(s): T81.31XA - Disruption of external operation (surgical) wound, not elsewhere classified, initial encounter (10) Wound, open, lower limb with complication Code(s): S81.809A - UNSPECIFIED OPEN WOUND, UNSPECIFIED LOWER LEG, INIT ENCNTR (11) ILD (interstitial lung disease) Code(s): J84.9 - INTERSTITIAL PULMONARY DISEASE, UNSPECIFIED Assessment/Plan IMP ACUTE RENAL FAILURE PRELIMINARY BX RESULTS ATN RA ILD/BRONCHIOLITIS SECONDARY TO RA NAEEM DM COPD S/P L KNEE REPLACEMENT S/P WOUND DEHISCENCE AND QUAD TENDON RUPTURE HTN PLAN O2 NEEDED ABX PER ID HD PER ENAL PREDNISONE 10 mg daily MONITOR LYTES,RENAL FUNCTION CPAP AT NIGHT INHALED BRONCHODILATORS CellCept DR ESPINO Problem List - Problems (1) Bronchiolitis Code(s): J21.9 - ACUTE BRONCHIOLITIS, UNSPECIFIED (2) Acute kidney injury Code(s): N17.9 - ACUTE KIDNEY FAILURE, UNSPECIFIED (3) Acute renal failure Code(s): N17.9 - ACUTE KIDNEY FAILURE, UNSPECIFIED (4) Electrolyte imbalance Code(s): E87.8 - OTH DISORDERS OF ELECTROLYTE AND FLUID BALANCE, NEC (5) Rheumatoid arthritis Code(s): M06.9 - RHEUMATOID ARTHRITIS, UNSPECIFIED (6) COPD (chronic obstructive pulmonary disease) Code(s): J44.9 - CHRONIC OBSTRUCTIVE PULMONARY DISEASE, UNSPECIFIED (7) Diabetes Code(s): E11.9 - TYPE 2 DIABETES MELLITUS WITHOUT COMPLICATIONS (8) HTN (hypertension) Code(s): I10 - ESSENTIAL (PRIMARY) HYPERTENSION (9) Postoperative wound dehiscence Code(s): T81.31XA - DISRUPTION OF EXTERNAL OPERATION (SURGICAL) WOUND, NEC, INIT Qualifiers: Encounter type: initial encounter Qualified Code(s): T81.31XA - Disruption of external operation (surgical) wound, not elsewhere classified, initial encounter (10) Wound, open, lower limb with complication Code(s): S81.809A - UNSPECIFIED OPEN WOUND, UNSPECIFIED LOWER LEG, INIT ENCNTR (11) ILD (interstitial lung disease) Code(s): J84.9 - INTERSTITIAL PULMONARY DISEASE, UNSPECIFIED
--- NOTE | 2020-05-07 11:09 | PN ---
Progress Note, Physician History of Present Illness: Pt seen and examined at bedside. He is awake and alert. He denies shortness of breath today. - Current Medication List Current Medications: Active Medications Acetaminophen (Tylenol -) 650 mg PO Q6H PRN PRN Reason: FEVER Albuterol Sulfate (Ventolin 0.083% Nebulizer Soln -) 1 amp NEB Q4H PRN PRN Reason: SHORT OF BREATH/WHEEZING Last Admin: 05/07/20 07:45 Dose: 1 amp Documented by: Amlodipine Besylate (Norvasc -) 10 mg PO DAILY [facility] Last Admin: 05/07/20 09:59 Dose: 10 mg Documented by: Budesonide/Formoterol Fumarate (Symbicort 160/4.5mcg -) 2 puff IH BID [facility] Last Admin: 05/07/20 10:01 Dose: 2 puff Documented by: Metoprolol Tartrate (Lopressor -) 50 mg PO BID [facility] Last Admin: 05/07/20 09:59 Dose: 50 mg Documented by: Mycophenolate Mofetil (Cellcept -) 500 mg PO BID [facility] Last Admin: 05/07/20 10:00 Dose: 500 mg Documented by: Polysaccharide Iron Complex (Niferex-150 -) 150 mg PO DAILY [facility] Last Admin: 05/07/20 10:00 Dose: 150 mg Documented by: Prednisone (Deltasone -) 15 mg PO DAILY [facility] Last Admin: 05/07/20 09:59 Dose: 15 mg Documented by: Tiotropium [place] (Spiriva Respimat) 2 puff IH DAILY [facility] Last Admin: 05/07/20 10:01 Dose: 2 puff Documented by: Triamcinolone Acetonide (Aristocort 0.1% Ointment -) 1 applic TP BID [facility] Last Admin: 05/07/20 10:01 Dose: 1 applic Documented by: - Objective Vital Signs: Vital Signs Temperature 98.0 F 05/07/20 06:00 Pulse Rate 62 05/07/20 06:00 Respiratory Rate 18 05/07/20 06:00 Blood Pressure 140/61 05/07/20 06:00 O2 Sat by Pulse Oximetry (%) 98 05/06/20 21:55 Constitutional: Yes: Calm Eyes: Yes: Conjunctiva Clear HENT: Yes: Atraumatic Neck: Yes: Supple Cardiovascular: Yes: S1, S2 Respiratory: Yes: CTA Bilaterally Gastrointestinal: Yes: Normal Bowel Sounds, Soft Genitourinary: Yes: WNL Edema: LLE: Trace, RLE: Trace Neurological: Yes: Oriented Psychiatric: Yes: Oriented Labs: CBC, BMP 05/07/20 05:38 05/07/20 05:38 INR, PTT INR 1.40 (0.83-1.09) H 04/28/20 15:15 Problem List - Problems (1) Hyperkalemia Code(s): E87.5 - HYPERKALEMIA (2) Acute kidney injury Code(s): N17.9 - ACUTE KIDNEY FAILURE, UNSPECIFIED (3) Acute renal failure Code(s): N17.9 - ACUTE KIDNEY FAILURE, UNSPECIFIED (4) Diarrhea Code(s): R19.7 - DIARRHEA, UNSPECIFIED Assessment/Plan Current Medications Generic Name Dose Route Start Last Admin Trade Name Freq PRN Reason Stop Dose Admin Acetaminophen 650 mg 05/01/20 12:31 Tylenol - PO Q6H PRN FEVER Albuterol Sulfate 1 amp 05/02/20 13:08 05/07/20 07:45 Ventolin 0.083% Nebulizer Soln - NEB 1 amp Q4H PRN Administration SHORT OF BREATH/WHEEZING Amlodipine Besylate 10 mg 05/04/20 10:00 05/07/20 09:59 Norvasc - PO 10 mg DAILY [facility] Administration Budesonide/Formoterol Fumarate 2 puff 05/02/20 14:00 05/07/20 10:01 Symbicort 160/4.5mcg - IH 2 puff BID [facility] Administration Metoprolol Tartrate 50 mg 05/01/20 22:00 05/07/20 09:59 Lopressor - PO 50 mg BID [facility] Administration Mycophenolate Mofetil 500 mg 05/06/20 12:55 05/07/20 10:00 Cellcept - PO 500 mg BID [facility] Administration Polysaccharide Iron Complex 150 mg 05/04/20 10:00 05/07/20 10:00 Niferex-150 - PO 150 mg DAILY [facility] Administration Prednisone 15 mg 05/07/20 10:00 05/07/20 09:59 Deltasone - PO 15 mg DAILY [facility] Administration Tiotropium [place] 2 puff 05/02/20 10:00 05/07/20 10:01 Spiriva Respimat IH 2 puff DAILY [facility] Administration Triamcinolone Acetonide 1 applic 05/03/20 22:00 05/07/20 10:01 Aristocort 0.1% Ointment - TP 1 applic BID [facility] Administration Impression 1. ALFREDA with oliguria 2. metabolic acidosis 3. hyperkalemia 4. s/p left knee replacement 5. htn 6. rheumatoid arthritis- mycophenylate 1000 bid on hold 7. DM 8. COPD 9. elevated vanco level/vanco tox Plan - spoke to pathology in [place], [facility] biopsy result shows ATN, he should regain kidney function, no acute inflammatory process - HD set up for tomorrow as outpt - monitor urine output - awaiting renal recovery - avoid nsaids - renal diet - keep losartan and metformin on hold
[2020-05-07 13:53] VITALS: BP 123/65; PULSE 72; TEMP 98.2
[2020-05-08] MEDS ORDERED: ENOXAPARIN NA (PORCINE) 40 MG/0.4 ML DISP.SYRIN SQ SCH ×2 (10:00)
--- NOTE | 2020-05-13 12:19 | OP ---
DATE OF OPERATION: 05/01/2020 PREOPERATIVE DIAGNOSIS: End-stage renal disease. POSTOPERATIVE DIAGNOSIS: End-stage renal disease. PROCEDURE: Insertion of PermCath. SURGEON: Nickolas Acharya DO ANESTHESIA: Fractional. BLOOD LOSS: 20 mL INDICATION: Patient is a 64-year-old male that has end-stage renal disease in need of temporary dialysis catheter placement. Patient was consented for the procedure understanding all risks, benefits and alternatives. He was then taken to the operating room. Patient was COVID-19 negative. DESCRIPTION OF PROCEDURE: Once in the operating room, he was placed on the operating table in the supine manner and the area of the right neck and chest was prepped and draped in a sterile surgical manner. We then went ahead and under ultrasound guidance visualized the right internal jugular vein and 10 mL of lidocaine 1% were injected there. We then went ahead and punctured the right internal jugular vein under ultrasound guidance. Micropuncture wire was inserted. Micropuncture sheath was inserted and a 0.035 floppy guidewire was inserted. We then injected 10 mL of lidocaine 1% above and below the clavicle. We then used an 11-blade and made a 1 cm incision at the puncture site and using a 15-blade we made a 1 cm incision below the clavicle. We then tunneled the PermCath up to the puncture site. We then used our breakaway sheath, placed it over the guidewire and into the vein under fluoroscopy. Inner cannula and guidewire were removed. Catheter was placed inside the sheath. Sheath was broken away as the catheter was placed inside the vein. Neck of the catheter was nice and smooth and tip of the catheter was located outside the right atrium. We then bar back on each catheter and there was good flow. Heparinized saline was injected. IV heparin 2000 units were injected. We then used 4-0 Biosyn and 2 simple sutures were placed at the puncture site. Nylon 3-0 used and the catheter was attached to the skin. BIOPATCH, Steri-Strips, 4 x 4 and Tegaderms were placed. Patient tolerated the procedure with no complications. Patient transferred to PACU in stable condition where a chest x-ray will be ordered. NICKOLAS ACHARYA DO KEYBOARD SPECIALIST/[id number]
--- NOTE | 2020-05-19 17:26 | PATH ---
Surgical Pathology Report Patient Name: JANELLE HERRERA [facility]. Rec. #: [id number] /Age/Gender: 1955 (Age: 64) / M Account: [id number] Location: 4 PEDS/ADOL Taken: 05/05/2020 Received: 05/05/2020 Reported: 05/19/2020 Physicians: Azeb Markham M.D. Specimen(s) Received RENAL BIOPSY Clinical History 64-year-old male with ALFREDA and oliguria and hyperkalemia Intraoperative Consult Diagnosis Kidney biopsy: [place] present. Jonathan Medina M.D., 05/05/2020 Final Diagnosis RENAL, BIOPSY: ACUTE TUBULAR INJURY, DIFFUSE AND SEVERE (ALFREDA-ASSOCIATED). TUBULAR ATROPHY AND INTERSTITIAL FIBROSIS, MILD. ARTERIO-AND ARTERIOSCLEROSIS AND HYALINOSIS, MILD. Comment: The findings of diffuse and severe acute tubular injury correlates with the history of acute kidney injury(ALFREDA) and is consistent with acute tubular necrosis. Ischemic and toxic forms of tubular injury should be considered. Immunofluorescence microscopy is negative for paraprotein or significant immune complex deposition. Electron microscopy is pending and will be reported in an addendum. Case sent for consultation to Dr. aCmila Ricci from [place], [place] ([id number]), the diagnosis above reflects his opinion. See complete report from [place], [place] for additional details. Electronically Signed Sofia Byers M.D. Gross Description Received in saline labeled "renal biopsy," is a 1.0 cm in length x 0.1 cm in diameter davila-red, cylindrical portion of soft tissue. The specimen is divided, placed into 10% buffered formalin, Jose fixative and glutaraldehyde. The specimen is sent to [facility] for further studies. DL/05/05/2020 saudi/05/05/2020
== END 2020-05-07 17:30 | DRG 917 ==
LOC: JER 22:06 → JERBED 04-22 02:16 → J4S 04-22 13:40
PROVIDERS: ADMIT Internal Medicine; ATTEND Family Medicine
PROC: B543ZZA Ultrasonography of Right Jugular Veins, Guidance (ICD-10-PCS; principal; 2020-04-22)
PROC: 0JH63XZ Insertion of Tunneled Vascular Access Device into Chest Subcutaneous Tissue and Fascia, Percutaneous Approach (ICD-10-PCS; 2020-04-22)
PROC: 05HM33Z Insertion of Infusion Device into Right Internal Jugular Vein, Percutaneous Approach (ICD-10-PCS; 2020-04-22)
PROC: B513ZZA Fluoroscopy of Right Jugular Veins, Guidance (ICD-10-PCS; 2020-04-22)
PROC: 5A1D70Z Performance of Urinary Filtration, Intermittent, Less than 6 Hours Per Day (ICD-10-PCS; 2020-05-01)
PROC: 5A1D70Z Performance of Urinary Filtration, Intermittent, Less than 6 Hours Per Day (ICD-10-PCS; 2020-05-03)
PROC: 0TB13ZX Excision of Left Kidney, Percutaneous Approach, Diagnostic (ICD-10-PCS; 2020-05-05)
PROC: BT42ZZZ Ultrasonography of Left Kidney (ICD-10-PCS; 2020-05-05)
PROC: BT41ZZZ Ultrasonography of Right Kidney (ICD-10-PCS; 2020-05-05)
PROC: 5A1D70Z Performance of Urinary Filtration, Intermittent, Less than 6 Hours Per Day (ICD-10-PCS; 2020-05-06)
DX: T36.8X1A Poisoning by other systemic antibiotics, accidental (unintentional), initial encounter (principal); N18.6 End stage renal disease; N17.9 Acute kidney failure, unspecified; E87.2 Acidosis; L03.115 Cellulitis of right lower limb; J84.9 Interstitial pulmonary disease, unspecified; I12.0 Hypertensive chronic kidney disease with stage 5 chronic kidney disease or end stage renal disease; L97.828 Non-pressure chronic ulcer of other part of left lower leg with other specified severity; L97.818 Non-pressure chronic ulcer of other part of right lower leg with other specified severity; M06.9 Rheumatoid arthritis, unspecified; I10 Essential (primary) hypertension; J44.9 Chronic obstructive pulmonary disease, unspecified; Z96.652 Presence of left artificial knee joint; T81.31XD Disruption of external operation (surgical) wound, not elsewhere classified, subsequent encounter; E87.5 Hyperkalemia; R34 Anuria and oliguria; E11.649 Type 2 diabetes mellitus with hypoglycemia without coma; E78.5 Hyperlipidemia, unspecified; E66.9 Obesity, unspecified; D64.9 Anemia, unspecified; Z68.31 Body mass index [BMI] 31.0-31.9, adult; E87.8 Other disorders of electrolyte and fluid balance, not elsewhere classified; R19.7 Diarrhea, unspecified; R31.9 Hematuria, unspecified; R50.9 Fever, unspecified; E11.22 Type 2 diabetes mellitus with diabetic chronic kidney disease; G47.33 Obstructive sleep apnea (adult) (pediatric); E11.51 Type 2 diabetes mellitus with diabetic peripheral angiopathy without gangrene; E11.622 Type 2 diabetes mellitus with other skin ulcer; Y92.098 Other place in other non-institutional residence as the place of occurrence of the external cause
CPT/HCPCS: 36415; 50200; 70450-TC; 71045-TC-FY; 71250-TC; 76775-TC; 76856-TC; 76942-TC; 80048; 80053; 81003; 82272; 82308; 82436; 82550; 82565; 82607; 82728; 82962; 83036; 83516; 83520; 83540; 83550; 83735; 84100; 84133; 84155; 84165; 84300; 84484; 85025; 85027; 85379; 85610; 85651; 86038; 86140; 86160; 86225; 86256; 86704; 86706; 86707; 86708; 86709; 86803; 87040; 87086; 87205; 87324; 87340; 87449; 87522; 88300-TC; 93005; 93010; 93971-TC; 94640; 94760; 97116-GP; 99285-25; G0480; J1439; J1644; J7517; U0003

== ENCOUNTER 2020-08-29 08:20 | Day surgery (SDC) | payer OTHER, MEDICARE ==
[2020-08-27 15:59] VITALS: BMI 31.4
[2020-08-29] MEDS ORDERED: MIDAZOLAM HCL 2 MG/2 ML SINGLE DOSE VIAL ONE ×3 (09:35→11:10)
[2020-08-29] MEDS ORDERED: ROPIVACAINE HCL 0.5% 30ML VIAL ONE (09:35)
[2020-08-29] MEDS ORDERED: ceFAZolin SODIUM 1 GM VIAL ONE ×2 (10:17)
[2020-08-29] MEDS ORDERED: oxyCODONE HCL 5 MG TABLET PO PRN (12:04)
[2020-08-29] MEDS ORDERED: ONDANSETRON 4 MG/2 ML VIAL IVPUSH PRN (12:04)
[2020-08-29] MEDS ORDERED: PROMETHAZINE HCL 25 MG/1 ML VIAL IVPUSH PRN (12:04)
[2020-08-29 15:53] VITALS: TEMP 97.9
[2020-08-29 16:16] VITALS: BP 147/63; PULSE 60
== END 2020-08-29 16:10 | disposition home or self-care (01) ==
LOC: FASU 08:20
PROVIDERS: ATTEND Orthopaedic Surgery
PROC: 0LBR0ZZ Excision of Left Knee Tendon, Open Approach (ICD-10-PCS; 2020-08-29)
PROC: 0LU Tendons, Supplement (ICD-10-PCS; principal; 2020-08-29 10:40)
DX: S76.112A Strain of left quadriceps muscle, fascia and tendon, initial encounter (principal); X58.XXXA Exposure to other specified factors, initial encounter; Y93.9 Activity, unspecified; Y92.9 Unspecified place or not applicable; Z96.652 Presence of left artificial knee joint; Z98.890 Other specified postprocedural states
CPT/HCPCS: 82962; 87070; 87186; 87205; 94760